=== PATIENT | male | born 1940 | race Two or more races ===

== ENCOUNTER → 2020-10-26 12:01 | Outpatient (BNVA) | payer MEDICARE, SELFPAY | PROVIDERS: PCP Family Medicine; Visit Provider Internal Medicine Cardiovascular Disease | DX: I25.10 Atherosclerotic heart disease of native coronary artery without angina pectoris (principal); I48.0 Paroxysmal atrial fibrillation; I10 Essential (primary) hypertension | CPT/HCPCS: 93005; 99212 ==

== ENCOUNTER 2020-12-03 11:28 | Emergency (ER) | payer MEDICARE, SELFPAY ==
--- NOTE | 2020-12-03 | ECG_ITS ---
Test Reason : CHEST PAIN Blood Pressure : / mmHG Vent. Rate : 071 BPM Atrial Rate : 071 BPM P-R Int : 156 ms QRS Dur : 144 ms QT Int : 436 ms P-R-T Axes : 032 001 015 degrees QTc Int : 473 ms Sinus rhythm with occasional , and consecutive Premature ventricular complexes Right bundle branch block Abnormal ECG When compared with ECG of 27-AUG-2019 15:48, Premature ventricular complexes are now Present Right bundle branch block is now Present Referred By: [place]gen [place] Electronically Signed By:Feliberto Juan
[2020-12-03 13:36] VITALS: BP 137/74; PULSE 65; RESP 20; TEMP 36.6; O2SAT 96; BMI 53.4
== END 2020-12-03 17:07 | disposition left against medical advice (07) ==
PROVIDERS: Emergency Provider Emergency Medicine; PCP Family Medicine
DX: R07.9 Chest pain, unspecified (principal); R68.83 Chills (without fever); M79.10 Myalgia, unspecified site; M54.9 Dorsalgia, unspecified; T50.Z95A Adverse effect of other vaccines and biological substances, initial encounter; Y92.9 Unspecified place or not applicable
CPT/HCPCS: 93005; 99282; 99283

== ENCOUNTER 2021-04-29 06:01 | Outpatient (REF) | payer MEDICARE, SELFPAY ==
--- NOTE | ~2021-04-29 | US_ITS ---
EXAMINATION: US ABDOMEN COMPLETE CLINICAL INFORMATION: Fatty liver. COMPARISON: Ultrasound abdomen complete 11/01/2016 and 08/14/2013. CT abdomen and pelvis 05/05/2014. TECHNIQUE: Real-time imaging of the abdominal viscera. FINDINGS: PANCREAS: The head and the body of the pancreas are homogeneous in echotexture. The tail is obscured by overlying gas. ABDOMINAL AORTA: The proximal, mid, and distal segments are normal in caliber. INFERIOR VENA CAVA: Visualized portions are normal. LIVER: The liver is normal in size. The left hepatic lobe is not seen well. The liver contour is normal. The liver is increased in echogenicity. No focal hepatic lesion. There is no intrahepatic biliary duct dilatation seen. GALLBLADDER: Normal. The gallbladder is physiologically distended without evidence of stones, sludge, polyps, wall thickening or pericholecystic fluid. COMMON BILE DUCT: Normal in caliber measuring 0.5 cm in diameter. RIGHT KIDNEY: There is an anechoic cyst in the mid to lower pole measuring 0.7 x 0.6 x 0.6 cm. No hydronephrosis or renal calculi. The kidney measures 12.3 cm in maximum dimension. LEFT KIDNEY: There is an anechoic cyst in the upper pole measuring 1.1 x 0.7 x 1.0 cm. No hydronephrosis or renal calculi. The kidney measures 11.9 cm in maximum dimension. SPLEEN: There are several echogenic calcifications in the spleen. The spleen measures 12.4 cm in maximum dimension. FREE FLUID: None. US/US abdomen complete IMPRESSION: Bilateral renal cysts. Numerous calcifications in the spleen. Hepatic steatosis without focal lesion.
[2021-04-29 07:30] LABS: Anion Gap 13 (12-20); Blood Urea Nitrogen 17 mg/dL (9-16); Calcium 9.2 mg/dL (8.4-10.2); Carbon Dioxide 28 mmol/L (22-29); Chloride 102 mmol/L (96-108); Cholesterol 199 mg/dL; Estimated Glomerular Filt Rate > 60; Glucose Random 110 mg/dL (60-115); HDL Cholesterol 29 mg/dL; Potassium 4.5 mmol/L (3.3-5.1); Sodium 138 mmol/L (135-145); Triglycerides 573 mg/dL
== END 2021-04-29 06:02 | disposition home or self-care (01) ==
LOC: HO.US 06:01
PROVIDERS: Internal Medicine Cardiovascular Disease; Visit Provider Family Medicine
DX: I25.10 Atherosclerotic heart disease of native coronary artery without angina pectoris (principal); I48.0 Paroxysmal atrial fibrillation; K76.0 Fatty (change of) liver, not elsewhere classified
CPT/HCPCS: 36415; 76700; 80048; 80061

== ENCOUNTER 2021-07-09 06:44 | Outpatient (REF) | payer MEDICARE, MEDICAID, SELFPAY ==
--- NOTE | ~2021-07-09 | XR_ITS ---
EXAMINATION: XR SHOULDER, LEFT CLINICAL INFORMATION: Pain COMPARISON: Previous x-ray July 2015 TECHNIQUE: AP external rotation, Grashey, scapular Y, and axillary views of the left shoulder. FINDINGS: Bone alignment is normal. No fracture or dislocation is seen. The glenohumeral joint is normal. There is arthritis at the acromioclavicular joint. Soft tissues are unremarkable. XR/XR shoulder LT min 2V IMPRESSION: Arthritis at the acromioclavicular joint.
--- NOTE | ~2021-07-09 | US_ITS ---
EXAMINATION: US VENOUS ULTRASOUND WITH DOPPLER LOWER EXTREMITY, RIGHT CLINICAL INFORMATION: Pain COMPARISON: None TECHNIQUE: Ultrasound of the deep veins is performed from the hip to the calf with compression sonography and color and pulse Doppler assessment. Spectral analysis with color-flow imaging is performed. FINDINGS: There is normal venous compression and respiratory variation and augmented flow. The visualized common femoral vein, superficial femoral vein, profunda femoral vein, popliteal vein, and the trifurcation region shows no evidence of deep venous thrombosis. There is no popliteal fossa cyst. US/US venous duplex LE RT IMPRESSION: No DVT demonstrated in the right lower extremity.
--- NOTE | ~2021-07-09 | XR_ITS ---
EXAMINATION: XR KNEE, RIGHT CLINICAL INFORMATION: Pain COMPARISON: None TECHNIQUE: Four views of the right knee. FINDINGS: Bone alignment is normal. No fracture or dislocation is seen. Femoral tibial joints are normal. There are small osteophytes at the patellofemoral joint. There is an osteophyte at the quadriceps tendon insertion to the patella. There is a small joint effusion. XR/XR knee RT 4V IMPRESSION: Small patellar osteophytes and small joint effusion.
[2021-07-09 07:58] LABS: Estimated Average Glucose 120 mg/dL; Hemoglobin A1c % 5.8 %
[2021-07-09 08:16] LABS: Alanine Aminotransferase 14 U/L (0-40); Albumin Level 4.3 g/dL (3.5-5.0); Alkaline Phosphatase 83 U/L (39-117); Anion Gap 14 (12-20); Aspartate Amino Transferase 16 U/L (5-37); Bilirubin Direct 0.2 mg/dL (0.0-0.5); Bilirubin Total 0.8 mg/dL (0.0-1.0); Blood Urea Nitrogen 12 mg/dL (9-16); Calcium 9.4 mg/dL (8.4-10.2); Carbon Dioxide 27 mmol/L (22-29); Chloride 103 mmol/L (96-108); Cholesterol 203 mg/dL; Estimated Glomerular Filt Rate > 60; Glucose Random 96 mg/dL (60-115); HDL Cholesterol 33 mg/dL; Iron 104 mcg/dL (45-160); Percent Iron Saturation 32 % (15-50); Potassium 4.5 mmol/L (3.3-5.1); Sodium 139 mmol/L (135-145); Total Iron Binding Capacity 323 mcg/dL (228-428); Total Protein 6.6 g/dL (6.5-8.0); Triglycerides 495 mg/dL; Unsaturated Iron Binding 219 ug/dL
[2021-07-09 08:23] LABS: Hemoglobin 12.9 g/dl (14.0-18.0); Mean Corpuscular HGB Conc 35.8 g/dl (31.0-36.0); Mean Corpuscular Hemoglobin 39.1 pg (27.0-33.0); Mean Corpuscular Volume 109.1 fL (80-98); Platelet Count 225 X10*3/uL (160-400); White Blood Count 5.1 X10*3/uL (4.8-10.8)
[2021-07-09 08:41] LABS: Ferritin 56 ng/mL (20-250); Free T4 (Free Thyroxine) 0.87 ng/dL (0.71-1.85); Thyroid Stimulating Hormone 1.55 uIU/mL (0.32-4.0); Vitamin D 25-OH Total 27.5 ng/mL (>30)
[2021-07-09 08:48] LABS: Folate 14.7 ng/mL (> or = 4.0); Vitamin B12 319 pg/mL (200-900)
[2021-07-09 09:25] LABS: Creatinine Urine 174.96 mg/dL; Microalbum/Creatinine Ratio Ur 6.2 ug/mg cr
== END 2021-07-09 06:45 | disposition home or self-care (01) ==
LOC: HO.US 06:44
PROVIDERS: PCP Family Medicine; Visit Provider Family Medicine
DX: R60.0 Localized edema (principal); M79.661 Pain in right lower leg; M25.512 Pain in left shoulder; M25.561 Pain in right knee; D64.9 Anemia, unspecified; E11.9 Type 2 diabetes mellitus without complications; E78.5 Hyperlipidemia, unspecified; I10 Essential (primary) hypertension
CPT/HCPCS: 36415; 73030; 73564; 80048; 80061; 80076; 82043; 82306; 82607; 82728; 82746; 83036; 83540; 84439; 84443; 85027; 93971

== ENCOUNTER → 2021-11-02 09:08 | Outpatient (BNVA) | payer MEDICARE, MEDICAID, SELFPAY | PROVIDERS: PCP Family Medicine; Visit Provider Physician Assistant | DX: M17.11 Unilateral primary osteoarthritis, right knee (principal) | CPT/HCPCS: 20610; 99202; J1020 ==

== ENCOUNTER 2021-11-24 14:19 | Emergency (ER) | payer MEDICARE, MEDICAID, SELFPAY ==
--- NOTE | ~2021-11-24 | XR_ITS ---
EXAMINATION: XR CHEST CLINICAL INFORMATION: Chest pain COMPARISON: Previous chest x-ray most recent October 2019 TECHNIQUE: Frontal view of the chest was obtained. FINDINGS: The cardiac and mediastinal contours are stable. The lungs are clear. There is no pleural effusion or pneumothorax. There are degenerative changes of the spine. XR/XR chest 1V IMPRESSION: No evidence for acute disease in the chest.
--- NOTE | ~2021-11-24 | CT_ITS ---
EXAMINATION: CT ABDOMEN AND PELVIS WITHOUT CONTRAST CLINICAL INFORMATION: Left flank pain. COMPARISON: Previous CT of the abdomen and pelvis April 2014 and abdominal ultrasound April 2021 TECHNIQUE: Multidetector volumetric imaging was performed from the superior aspect of the liver through the pubic symphysis. Sagittal and coronal reformatted images were obtained on the technologist's workstation. This CT examination was performed using dose optimization techniques as appropriate, variously including the following: *Automated exposure control *Adjustment of mA and/or kV according to patient size (this includes techniques or standardized protocols for targeted exams where dose is matched to indication/reason for exam; i.e. extremities or head) *Use of iterative reconstruction technique DLP: 507 mGy-cm FINDINGS: LUNG BASES: The visualized lung bases are unremarkable. LIVER, GALLBLADDER, AND BILIARY TREE: The liver is normal in size, shape, and attenuation. No focal hepatic lesion or biliary ductal dilatation is present. The gallbladder is unremarkable with no evidence of radiopaque gallstones, gallbladder wall thickening, or obvious pericholecystic inflammatory changes. PANCREAS: Unremarkable. SPLEEN: The spleen is slightly enlarged measuring 13 cm in length. There are small calcifications likely related to old granulomatous disease. ADRENAL GLANDS: Unremarkable. KIDNEYS AND URETERS: The kidneys are normal in size, shape, and attenuation. No hydronephrosis, hydroureter, or calculi seen. No perinephric stranding. BLADDER: Unremarkable. GASTROINTESTINAL TRACT: There is diverticulosis of the colon. The small and large bowel are otherwise unremarkable. The appendix is unremarkable. ABDOMINAL WALL: No significant hernia is appreciated. LYMPH NODES: Normal. VASCULAR: Unremarkable. PELVIC VISCERA: Unremarkable. OSSEOUS STRUCTURES: There are degenerative changes of the spine and hip joints. There is bilateral femoral head AVN. CT/CT abdomen pelvis wo con IMPRESSION: Normal-appearing kidneys. No stone or hydronephrosis seen. Diverticulosis of the colon. Slightly enlarged spleen. Bilateral femoral head AVN. Fleischner guidelines were followed.
[2021-11-24 14:23] VITALS: BP 124/80; BP 141/81; PULSE 96; PULSE 98; RESP 18; TEMP 36.9; O2SAT 97; BMI 27.4
--- NOTE | 2021-11-24 14:30 | ECG_ITS ---
Test Reason : ABDOMINAL PAIN Blood Pressure : / mmHG Vent. Rate : 087 BPM Atrial Rate : 087 BPM P-R Int : 164 ms QRS Dur : 146 ms QT Int : 400 ms P-R-T Axes : 056 011 018 degrees QTc Int : 481 ms Normal sinus rhythm Right bundle branch block Abnormal ECG When compared with ECG of 03-DEC-2020 13:47, Premature ventricular complexes are no longer Present Referred By: Daron Limon Electronically Signed By:Feliberto Juan
--- NOTE | 2021-11-24 14:32 | ED_ITS ---
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 Pain was described as dull aching pain, no aggravating factor, no relieving factor, no other associated symptoms, no nausea or vomiting. Patient vaguely described dysuria. Patient also been complaining of chest pain for the past 10 days, patient is k nown to have chronic chest pain patient think it is secondary to his chronic arthritis, been evaluated by Dr. Dial for same chest pain. Related Data Home Medications Medication Instructions Recorded Confirmed amlodipine 5 mg tablet 5 mg PO DAILY 10/26/20 10/26/20 fenofibrate micronized 200 mg 200 mg PO DAILY 10/26/20 10/26/20 capsule ferrous sulfate 325 mg (65 mg 325 mg PO DAILY 10/26/20 10/26/20 iron) tablet finasteride 5 mg tablet 5 mg PO DAILY 10/26/20 10/26/20 fluticasone 500 mcg-salmeterol 50 1 ea PO BID 10/26/20 10/26/20 mcg/dose blistr powdr for inhalation hydrochlorothiazide 25 mg tablet 25 mg PO DAILY 10/26/20 10/26/20 ipratropium 0.5 mg-albuterol 3 mg 3 ml INHALATION QID PRN 10/26/20 10/26/20 (2.5 mg base)/3 mL nebulization soln lisinopril 40 mg tablet 40 mg PO DAILY 10/26/20 10/26/20 loratadine 10 mg tablet 10 mg PO DAILY 10/26/20 10/26/20 melatonin 5 mg tablet 500f10 mg PO DAILY 10/26/20 10/26/20 metformin 500 mg tablet 500 mg PO QAM 10/26/20 10/26/20 oxycodone-acetaminophen 7.5 mg-325 1 tab PO Q4H PRN 10/26/20 10/26/20 mg tablet pantoprazole 40 mg tablet,delayed 40 mg PO DAILY 10/26/20 10/26/20 release rivaroxaban 20 mg tablet 20 mg PO BEDTIME 10/26/20 10/26/20 rosuvastatin 40 mg tablet 40 mg PO BEDTIME 10/26/20 10/26/20 tamsulosin 0.4 mg capsule 0.4 mg PO DAILY 10/26/20 10/26/20 trazodone 50 mg tablet 50 mg PO BEDTIME 10/26/20 10/26/20 Previous Rx's Medication Instructions Recorded ezetimibe 10 mg tablet 10 mg PO DAILY #90 tab 02/23/21 isosorbide mononitrate 60 mg 60 mg PO QAM #90 tab 02/23/21 tablet,extended release 24 hr metoprolol tartrate 50 mg tablet 50 mg PO BID #180 tab 02/23/21 Allergies Allergy/AdvReac Type Severity Reaction Status Date / Time No Known Allergies Allergy Mild NONE Verified 11/02/21 09:13 Review of Systems Review of Systems All other systems are reviewed and are negative Constitutional: Reports as per HPI and Reports no additional constitutional com plaints Eyes: Reports as per HPI and Reports no additional eye complaints Reports system reviewed and no additional complaints, except as documented Cardiovascular: Reports as per HPI and Reports no additional cardiovascular complaints Respiratory: Reports as per HPI and Reports no additional respiratory complaints Gastrointestinal: Reports as per HPI and Reports no additional gastrointestinal complaints Genitourinary: Reports no additional female genitourinary complaints Musculoskeletal: Reports no additional musculoskeletal complaints Skin/Breast: Reports system reviewed and no additional complaints, except as docu Psychiatric: Reports no additional psychiatric complaints Endocrine: Reports no additional endocrine complaints Hematologic/Lymphatic: Reports no additional hematologic/lymphatic complaints Allergic/Immunologic: Reports no additional allergic/immunologic complaints Reports system reviewed and no additional complaints, except as documented and Reports Abnormal speech present Physical Exam Vital Signs: Vital Signs: Last Vital Signs Temp 98.4 F 11/24/21 14:23 Pulse 98 11/24/21 14:23 Resp 18 11/24/21 14:23 BP 141/81 H 11/24/21 14:23 Pulse Ox 97 11/24/21 14:23 BMI result Body Mass Index 27.4 Vital signs have been reviewed as appeared to be correct. Blood pressure normal. Heart rate normal. Respiration rate normal. Temperature normal. Oxygen saturation normal. Appearance: Alert. Oriented X3. No acute distress. Head: Normal external exam. Normocephalic. Atraumatic. No Hung signs noted. No raccoon eyes noted Eyes: PERRLA. EOMI. Conjunctiva and sclera normal. Eyelids normal. ENT: TM's Normal. Pharynx normal. Uvula midline. Moist mucous membranes. No trismus noted. No drooling noted. No muffled voice noted. Neck: Normal inspection. Neck supple. FROM. No adenopathy. Thyroid Normal. No meningeal signs. No neck mass noted. CVS: Normal heart rate and rhythm. Heart sound normal. No murmurs noted. Pulses normal throughout. Respiratory: No respiratory distress. Painless inspiration. Breath sounds normal. No wheezes/rales/rhonchi noted. Chest nontender. No accessory muscle usage noted or decreased air movement noted. Abdomen: Soft and nontender. Bowel sounds normal in all 4 quadrants. No distention noted. No organomegaly noted. No visible injury noted. Back: Left CVA tenderness. Full range of motion noted. Skin: Skin warm and dry. Normal skin color. Normal skin turgor. No rashes/lesions/lacerations noted. Extremities: No lower extremity edema. Extremities exhibit normal range of motion. Extremities nontender. Neuro: Oriented X 3. Cranial nerve exam: II-XII are grossly intact No motor deficit. No sensory deficit. Reflexes normal. Course Course Course Narrative: Assessment and plan. 81-year-old male with chronic pain due to chronic arthritis, came in with left flank pain and abdominal pain and chest pain for the past few days. While patient emergency room reported improvement of his symptoms, patient also tolerated p.o. intake with no complain of worsening of his symptoms. Unremarkable labs/UE/CT of the abdomen pelvis. Four days of chest pain with unremarkable troponin and EKG. MDM - Abdominal Pain Medical Records Attestation: I reviewed the patient's medical records. Lab Data Attestation: I reviewed the patient's lab results. Result diagrams: 11/24/21 15:40 11/24/21 17:57 Labs: Lab Results 11/24/21 11/24/21 11/24/21 Range/Units 15:40 15:40 15:40 WBC 6.1 (4.8-10.8) X10*3/uL RBC 3.41 L (4.60-5.80) X10*6/uL Hgb 13.8 L (14.0-18.0) g/dl Hct 37.6 L (42.0-52.0) % MCV 110.3 H (80.0-98.0) fL MCH 40.5 H (27.0-33.0) pg MCHC 36.7 H (31.0-36.0) g/dl RDW TNP Plt Count 209 (160-400) X10*3/uL MPV 11.1 (9.4-12.4) fL Immature Gran % (Auto) Cancelled Neut % (Auto) Cancelled Lymph % (Auto) Cancelled [place] % (Auto) Cancelled Eos % (Auto) Cancelled Baso % (Auto) Cancelled Lymph # (Auto) Cancelled [place] # (Auto) Cancelled Eos # (Auto) Cancelled Baso # (Auto) Cancelled Abs Immat Gran (auto) Cancelled Absolute Neuts (auto) Cancelled Absolute Nucleated RBC 0.000 (0.0-0.012) X10*3/uL Nucleated RBC % (auto) 0.0 (0.0-0.2) /100WBC Neutrophils % (Manual) 70 (45-73) % Lymphocytes % (Manual) 27 (20-40) % Monocytes % (Manual) 1 L (2-11) % Eosinophils % (Manual) 2 (0-4) % Abs Neuts (Manual) 4.3 (2.0-8.3) X10*3/uL Lymphocytes # (Manual) 1.6 (1.2-4.9) X10*3/uL Monocytes # (Manual) 0.1 (0.1-1.2) X10*3/uL Eosinophils # (Manual) 0.1 (0.0-0.4) X10*3/uL Hypersegmented Neuts PRESENT Platelet Estimate NORMAL (NORMAL) Plt Morphology Comment NORMAL RBC Morphology NOTED Macrocytosis 2+ (15-30) /OIF Acanthocytes (Spur) 2+ (3-5) /OIF Sodium (135-145) mmol/L Potassium (3.3-5.1) mmol/L Chloride (96-108) mmol/L Carbon Dioxide (22-29) mmol/L Anion Gap (12-20) BUN (9-16) mg/dL Creatinine (0.5-1.4) mg/dL Estim Creat Clear Calc Estimated GFR Random Glucose (60-115) mg/dL Calcium (8.4-10.2) mg/dL Total Bilirubin (0.0-1.0) mg/dL Direct Bilirubin (0.0-0.5) mg/dL AST (5-37) U/L ALT (0-40) U/L Alkaline Phosphatase (39-117) U/L Troponin I High Sens < 3.5 (<3.5-35.0) ng/L Total Protein (6.5-8.0) g/dL Albumin (3.5-5.0) g/dL Lipase (8-78) U/L Urine Color DK YELLOW Urine Appearance HAZY Urine pH 6.0 (5.0-8.0) Ur Specific [place] 1.020 (1.005-1.025) Urine Protein NEG (NEG-TRACE) MG/DL Urine Glucose (UA) NEG (NEG) MG/DL Urine Ketones 5 (NEG) MG/DL Urine Blood NEG (NEG) Urine Nitrite NEG (NEG) Ur Leukocyte Esterase NEG (NEG) 11/24/21 Range/Units 17:57 WBC (4.8-10.8) X10*3/uL RBC (4.60-5.80) X10*6/uL Hgb (14.0-18.0) g/dl Hct (42.0-52.0) % MCV (80.0-98.0) fL MCH (27.0-33.0) pg MCHC (31.0-36.0) g/dl RDW Plt Count (160-400) X10*3/uL MPV (9.4-12.4) fL Immature Gran % (Auto) Neut % (Auto) Lymph % (Auto) [place] % (Auto) Eos % (Auto) Baso % (Auto) Lymph # (Auto) [place] # (Auto) Eos # (Auto) Baso # (Auto) Abs Immat Gran (auto) Absolute Neuts (auto) Absolute Nucleated RBC (0.0-0.012) X10*3/uL Nucleated RBC % (auto) (0.0-0.2) /100WBC Neutrophils % (Manual) (45-73) % Lymphocytes % (Manual) (20-40) % Monocytes % (Manual) (2-11) % Eosinophils % (Manual) (0-4) % Abs Neuts (Manual) (2.0-8.3) X10*3/uL Lymphocytes # (Manual) (1.2-4.9) X10*3/uL Monocytes # (Manual) (0.1-1.2) X10*3/uL Eosinophils # (Manual) (0.0-0.4) X10*3/uL Hypersegmented Neuts Platelet Estimate (NORMAL) Plt Morphology Comment RBC Morphology Macrocytosis /OIF Acanthocytes (Spur) /OIF Sodium 138 (135-145) mmol/L Potassium 4.5 (3.3-5.1) mmol/L Chloride 101 (96-108) mmol/L Carbon Dioxide 28 (22-29) mmol/L Anion Gap 14 (12-20) BUN 13 (9-16) mg/dL Creatinine 0.77 (0.5-1.4) mg/dL Estim Creat Clear Calc 67.5 Estimated GFR > 60 Random Glucose 112 (60-115) mg/dL Calcium 10.1 D (8.4-10.2) mg/dL Total Bilirubin 0.9 (0.0-1.0) mg/dL Direct Bilirubin 0.3 (0.0-0.5) mg/dL AST 17 (5-37) U/L ALT 16 (0-40) U/L Alkaline Phosphatase 86 (39-117) U/L Troponin I High Sens (<3.5-35.0) ng/L Total Protein 7.2 (6.5-8.0) g/dL Albumin 4.6 (3.5-5.0) g/dL Lipase 46 (8-78) U/L Urine Color Urine Appearance Urine pH (5.0-8.0) Ur Specific [place] (1.005-1.025) Urine Protein (NEG-TRACE) MG/DL Urine Glucose (UA) (NEG) MG/DL Urine Ketones (NEG) MG/DL Urine Blood (NEG) Urine Nitrite (NEG) Ur Leukocyte Esterase (NEG) Imaging Data CT scan - abdomen: Attestation: I personally reviewed and interpreted this imaging study as follows: Radiologist's impression: Normal-appearing kidneys. No stone or hydronephrosis seen. Diverticulosis of the colon. Slightly enlarged spleen. Bilateral femoral head AVN. ? Discharge Plan Discharge Clinical Impression: Abdominal pain, Chronic pain disorder Patient Disposition: Home, Self-Care Instructions: Chronic Pain (ED) Prescriptions: No Action ezetimibe 10 mg tablet 10 mg PO DAILY Qty: 90 3RF isosorbide mononitrate 60 mg tablet extended release 24 hr 60 mg PO QAM Qty: 90 3RF metoprolol tartrate 50 mg tablet 50 mg PO BID Qty: 180 3RF rosuvastatin 40 mg tablet 40 mg PO BEDTIME 0RF hydrochlorothiazide 25 mg tablet 25 mg PO DAILY 0RF amlodipine 5 mg tablet 5 mg PO DAILY 0RF lisinopril 40 mg tablet 40 mg PO DAILY 0RF ipratropium-albuterol 0.5 mg-3 mg(2.5 mg base)/3 mL solution for nebulization 3 ml inhalation QID PRN0RF tamsulosin 0.4 mg capsule 0.4 mg PO DAILY 0RF fluticasone propion-salmeterol 500-50 mcg/dose blister with device 1 ea PO BID 0RF metformin 500 mg tablet 500 mg PO QAM 0RF fenofibrate micronized 200 mg capsule 200 mg PO DAILY 0RF pantoprazole 40 mg tablet,delayed release (DR/EC) 40 mg PO DAILY 0RF finasteride 5 mg tablet 5 mg PO DAILY 0RF Xarelto 20 mg tablet 20 mg PO BEDTIME 0RF trazodone 50 mg tablet 50 mg PO BEDTIME 0RF ferrous sulfate 325 mg (65 mg iron) tablet 325 mg PO DAILY 0RF loratadine 10 mg tablet 10 mg PO DAILY 0RF melatonin 5 mg tablet 500f10 mg PO DAILY 0RF oxycodone-acetaminophen 7.5-325 mg tablet 1 tab PO Q4H PRN (Reason: pain) 0RF Referrals: Citlali Norman DO [Primary Care Provider] - 2 days PMF Past Medical History Medical History CAD (coronary artery disease) Diabetes type 1, controlled HTN (hypertension) Hyperlipidemia Paroxysmal atrial fibrillation Surgical History Stented coronary artery Family History Family History Father No problems noted. Mother No problems noted. 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
[2021-11-24 15:48] LABS: Hematocrit 37.6 % (42.0-52.0); Hemoglobin 13.8 g/dl (14.0-18.0); Mean Corpuscular HGB Conc 36.7 g/dl (31.0-36.0); Mean Corpuscular Hemoglobin 40.5 pg (27.0-33.0); Mean Platelet Volume 11.1 fL (9.4-12.4); Platelet Count 209 X10*3/uL (160-400); Red Blood Count 3.41 X10*6/uL (4.60-5.80)
[2021-11-24 15:55] LABS: Appearance Urine HAZY; Color Urine DK YELLOW; Glucose Urine UA NEG (NEG); Leukocyte Esterase Urine NEG (NEG); Nitrite Urine NEG (NEG); Urine Blood NEG (NEG); Urine Ketones 5 MG/DL (NEG); Urine Protein NEG (NEG-TRACE)
[2021-11-24 16:07] LABS: Troponin-I High Sensitivity < 3.5 ng/L (<3.5-35.0)
[2021-11-24 16:15] LABS: Mean Corpuscular Volume 110.3 fL (80.0-98.0); WBC ABN SCTR FOR CBC 1; White Blood Count 6.1 X10*3/uL (4.8-10.8)
[2021-11-24 16:17] LABS: Acanthocytes 2+ (3-5) /OIF; Eosinophils Absolute Manual 0.1 X10*3/uL (0.0-0.4); Eosinophils Percent Manual 2 % (0-4); Hypersegmented Neutrophils PRESENT; Lymphocytes Absolute Manual 1.6 X10*3/uL (1.2-4.9); Lymphocytes Percent Manual 27 % (20-40); Macrocytosis 2+ (15-30) /OIF; Monocytes Absolute Manual 0.1 X10*3/uL (0.1-1.2); Monocytes Percent Manual 1 % (2-11); Neutrophils Percent Manual 70 % (45-73); RBC Morphology NOTED
[2021-11-24 16:18] LABS: Neutrophils Absolute Manual 4.3 X10*3/uL (2.0-8.3); Platelet Estimate NORMAL (NORMAL); Platelet Morphology Comment NORMAL
[2021-11-24 18:26] LABS: Alanine Aminotransferase 16 U/L (0-40); Albumin Level 4.6 g/dL (3.5-5.0); Alkaline Phosphatase 86 U/L (39-117); Anion Gap 14 (12-20); Aspartate Amino Transferase 17 U/L (5-37); Bilirubin Direct 0.3 mg/dL (0.0-0.5); Bilirubin Total 0.9 mg/dL (0.0-1.0); Blood Urea Nitrogen 13 mg/dL (9-16); Calcium 10.1 mg/dL (8.4-10.2); Carbon Dioxide 28 mmol/L (22-29); Chloride 101 mmol/L (96-108); Creatinine Clr Calc Pharmacy 67.5; Estimated Glomerular Filt Rate > 60; Glucose Random 112 mg/dL (60-115); Lipase 46 U/L (8-78); Potassium 4.5 mmol/L (3.3-5.1); Sodium 138 mmol/L (135-145); Total Protein 7.2 g/dL (6.5-8.0)
== END 2021-11-24 19:02 | disposition home or self-care (01) ==
PROVIDERS: Emergency Provider Emergency Medicine; PCP Family Medicine
DX: R10.9 Unspecified abdominal pain (principal); G89.4 Chronic pain syndrome; I10 Essential (primary) hypertension; I48.0 Paroxysmal atrial fibrillation; E78.5 Hyperlipidemia, unspecified; E10.9 Type 1 diabetes mellitus without complications; Z79.02 Long term (current) use of antithrombotics/antiplatelets; Z79.01 Long term (current) use of anticoagulants
CPT/HCPCS: 36415; 71045; 74176; 80048; 80076; 81003; 83690; 84484; 85007; 85025; 85027; 93005; 99283; 99284

== ENCOUNTER 2022-01-21 12:32 | Outpatient (REF) | payer MEDICARE, MEDICAID, SELFPAY ==
--- NOTE | ~2022-01-21 | XR_ITS ---
EXAMINATION: XR SHOULDER, LEFT CLINICAL INFORMATION: Shoulder pain COMPARISON: Left shoulder x-ray 07/09/2021 TECHNIQUE: Three views of the left shoulder. FINDINGS: Visualized portions of the proximal left humerus demonstrate no fracture. Humeral head demonstrates good articulation with the glenoid fossa. There are mild to moderate hypertrophic changes of the left acromioclavicular joint. Visualized left-sided ribs and lung parenchyma are unremarkable. XR/XR shoulder LT min 2V IMPRESSION: Mild degenerative changes of the left shoulder.
== END 2022-01-21 12:33 | disposition home or self-care (01) ==
LOC: HO.HOSX 12:32
PROVIDERS: PCP Family Medicine; Visit Provider Physician Assistant
DX: M75.102 Unspecified rotator cuff tear or rupture of left shoulder, not specified as traumatic (principal)
CPT/HCPCS: 73030; 99212; J1040

== ENCOUNTER 2022-01-24 06:45 | Outpatient (REF) | payer MEDICARE, MEDICAID, SELFPAY ==
[2022-01-24 07:54] LABS: Alanine Aminotransferase 21 U/L (0-40); Albumin Level 4.6 g/dL (3.5-5.0); Alkaline Phosphatase 79 U/L (39-117); Anion Gap 13 (12-20); Aspartate Amino Transferase 17 U/L (5-37); Bilirubin Direct 0.3 mg/dL (0.0-0.5); Bilirubin Total 0.8 mg/dL (0.0-1.0); Blood Urea Nitrogen 20 mg/dL (9-16); Calcium 9.7 mg/dL (8.4-10.2); Carbon Dioxide 29 mmol/L (22-29); Chloride 99 mmol/L (96-108); Cholesterol 151 mg/dL; Estimated Glomerular Filt Rate > 60; Glucose Random 121 mg/dL (60-115); HDL Cholesterol 46 mg/dL; Iron 77 mcg/dL (45-160); LDL Cholesterol Calculated 76 mg/dl; Percent Iron Saturation 21 % (15-50); Potassium 4.1 mmol/L (3.3-5.1); Sodium 137 mmol/L (135-145); Total Iron Binding Capacity 373 mcg/dL (228-428); Total Protein 6.9 g/dL (6.5-8.0); Triglycerides 147 mg/dL; Unsaturated Iron Binding 296 ug/dL
[2022-01-24 08:02] LABS: Hematocrit 44.4 % (42.0-52.0); Hemoglobin 16.1 g/dl (14.0-18.0); Mean Corpuscular HGB Conc 36.3 g/dl (31.0-36.0); Mean Corpuscular Hemoglobin 40.9 pg (27.0-33.0); Mean Platelet Volume 11.8 fL (9.4-12.4); Platelet Count 230 X10*3/uL (160-400); Red Blood Count 3.94 X10*6/uL (4.60-5.80); White Blood Count 7.6 X10*3/uL (4.8-10.8)
[2022-01-24 08:04] LABS: Mean Corpuscular Volume 112.7 fL (80.0-98.0)
[2022-01-24 08:17] LABS: Estimated Average Glucose 117 mg/dL; Hemoglobin A1c % 5.7 %
[2022-01-24 08:18] LABS: Ferritin 32 ng/mL (20-250); Free T4 (Free Thyroxine) 0.88 ng/dL (0.71-1.85); Thyroid Stimulating Hormone 0.42 uIU/mL (0.32-4.0); Vitamin D 25-OH Total 15.9 ng/mL (>30)
[2022-01-24 08:50] LABS: Folate 6.8 ng/mL (> or = 4.0); Vitamin B12 355 pg/mL (200-900)
[2022-01-24 13:22] LABS: Creatinine Urine 84.87 mg/dL; Microalbumin Urine < 5.0 mg/L
[2022-01-26 12:27] LABS: Alpha Fetoprotein 3.8 ng/mL (<6.1)
== END 2022-01-24 06:46 | disposition home or self-care (01) ==
LOC: HO.LAB 06:45
PROVIDERS: PCP Family Medicine; Visit Provider Family Medicine
DX: E11.9 Type 2 diabetes mellitus without complications (principal); E78.5 Hyperlipidemia, unspecified; I10 Essential (primary) hypertension; K76.0 Fatty (change of) liver, not elsewhere classified
CPT/HCPCS: 36415; 80048; 80061; 80076; 82043; 82105; 82306; 82607; 82728; 82746; 83036; 83540; 84439; 84443; 85027

== ENCOUNTER → 2022-01-27 13:44 | Outpatient (BNVA) | payer MEDICARE, MEDICAID, SELFPAY | PROVIDERS: PCP Family Medicine; Referring Provider Family Medicine; Visit Provider Nurse Practitioner Family | DX: I48.0 Paroxysmal atrial fibrillation (principal); I25.10 Atherosclerotic heart disease of native coronary artery without angina pectoris; I10 Essential (primary) hypertension; E78.5 Hyperlipidemia, unspecified; Z79.01 Long term (current) use of anticoagulants; Z79.899 Other long term (current) drug therapy | CPT/HCPCS: 99212 ==

== ENCOUNTER → 2022-05-10 08:06 | Outpatient (BNVA) | payer MEDICARE, MEDICAID, SELFPAY | PROVIDERS: PCP Family Medicine; Visit Provider Physician Assistant | DX: M17.11 Unilateral primary osteoarthritis, right knee (principal) | CPT/HCPCS: 20610; 99212; J1020 ==

== ENCOUNTER 2022-06-22 14:31 | Emergency (ER) | payer MEDICARE, MEDICAID, SELFPAY ==
--- NOTE | ~2022-06-22 | XR_ITS ---
EXAMINATION: XR CHEST CLINICAL INFORMATION: Chest pain COMPARISON: None TECHNIQUE: 2 views of the chest were obtained. FINDINGS: No significant abnormality is noted involving the heart, lungs, mediastinum, bony thorax or soft tissues. XR/XR chest 2V IMPRESSION: Unremarkable chest examination.
--- NOTE | 2022-06-22 14:36 | ECG_ITS ---
Test Reason : chest pain Blood Pressure : / mmHG Vent. Rate : 094 BPM Atrial Rate : 094 BPM P-R Int : 156 ms QRS Dur : 146 ms QT Int : 394 ms P-R-T Axes : 018 007 -01 degrees QTc Int : 492 ms Normal sinus rhythm Right bundle branch block Inferior infarct , age undetermined Abnormal ECG When compared with ECG of 24-NOV-2021 15:10, No significant change was found Referred By: Generic ED Physician Electronically Signed By:JESSENIA CANALES
[2022-06-22 14:44] VITALS: BP 135/78; PULSE 104; RESP 18; TEMP 36.6; O2SAT 95; BMI 29.2
--- NOTE | 2022-06-22 15:33 | ED.CHESTPAIN ---
HPI - Chest Pain General Chief Complaint: Chest Pain Stated Complaint: Chest pain Time Seen by Provider: 06/22/22 15:24 Source: patient Mode of arrival: ambulatory Limitations: language barrier and other (poor history ) History of Present Illness HPI narrative: Patient is an 81-year-old male with past medical history of hypertension, coronary artery disease, hyperlipidemia, paroxysmal AFib with anticoagulation, pacemaker who is presenting today with chest pain and shortness of breath for 4 days. Patient states he was lying in bed on Monday and developed sudden onset of left-sided chest pain. States the chest pain comes and goes randomly and feels like intense pressure. Denies radiation, denies any alleviating or exacerbating factors. Reports associated shortness of breath, however states he does have shortness of breath at baseline secondary to asthma. Reports using his inhaler twice since Monday. Patient also reports headache and visual changes for the past few months. Denies fever, nausea, vomiting, abdominal pain, diarrhea, cough, dizziness, weakness. MD complaint: chest pain Pertinent past history: coronary artery disease, asthma and other ( Paroxysmal AFib, pacemaker) Onset (ago): day(s) Timing of current episode: episodic Prior episodes: Yes Onset: during rest Pain location: left chest Pain radiation: none Severity: mild Pain scale (0-10): 2 Quality: heaviness Relieving factors: nothing Exacerbating factors: nothing Associated symptoms: dyspnea Risk Factors Coronary artery disease risk factors: hyperlipidemia and hypertension Thoracic aortic dissection risk factors: none Related Data Home Medications Medication Instructions Recorded Confirmed amlodipine 5 mg tablet 5 mg PO DAILY 10/26/20 01/27/22 fenofibrate micronized 200 mg 200 mg PO DAILY 10/26/20 01/27/22 capsule ferrous sulfate 325 mg (65 mg 325 mg PO DAILY 10/26/20 01/27/22 iron) tablet finasteride 5 mg tablet 5 mg PO DAILY 10/26/20 01/27/22 fluticasone 500 mcg-salmeterol 50 1 ea PO BID 10/26/20 01/27/22 mcg/dose blistr powdr for inhalation hydrochlorothiazide 25 mg tablet 25 mg PO DAILY 10/26/20 01/27/22 ipratropium 0.5 mg-albuterol 3 mg 3 ml inhalation QID PRN 10/26/20 01/27/22 (2.5 mg base)/3 mL nebulization soln lisinopril 40 mg tablet 40 mg PO DAILY 10/26/20 01/27/22 loratadine 10 mg tablet 10 mg PO DAILY 10/26/20 01/27/22 melatonin 5 mg tablet 500f10 mg PO DAILY 10/26/20 01/27/22 metformin 500 mg tablet 500 mg PO QAM 10/26/20 01/27/22 oxycodone-acetaminophen 7.5 mg-325 1 tab PO Q4H PRN pain 10/26/20 01/27/22 mg tablet pantoprazole 40 mg tablet,delayed 40 mg PO DAILY 10/26/20 01/27/22 release rivaroxaban 20 mg tablet 20 mg PO BEDTIME 10/26/20 01/27/22 rosuvastatin 40 mg tablet 40 mg PO BEDTIME 10/26/20 01/27/22 tamsulosin 0.4 mg capsule 0.4 mg PO DAILY 10/26/20 01/27/22 trazodone 50 mg tablet 50 mg PO BEDTIME 10/26/20 01/27/22 Previous Rx's Medication Instructions Recorded ezetimibe 10 mg tablet 10 mg PO DAILY 90 days #90 tabs 02/17/22 isosorbide mononitrate 60 mg 60 mg PO QAM #90 tabs 02/17/22 tablet,extended release 24 hr metoprolol tartrate 50 mg tablet 50 mg PO BID #180 tabs 02/17/22 Allergies Allergy/AdvReac Type Severity Reaction Status Date / Time No Known Allergies Allergy Mild NONE Verified 05/10/22 08:16 Review of Systems Review of Systems: Constitutional: No Fever, No Chills ENT/Mouth: No sore throat, No Rhinorrhea, No Swallowing Difficulty Eyes: No Eye Pain, No Swelling, No Redness Cardiovascular: + Chest Pain, + SOB, No Orthopnea, No Edema Respiratory: No Cough, No Sputum, No Wheezing, No dyspnea Gastrointestinal: No Nausea, No Vomiting, No Diarrhea, No abdominal Pain, No Hematochezia, No Melena Genitourinary: No Dysuria, No Urinary Frequency, No Hematuria Musculoskeletal: No joint pain, No Myalgias Skin: No Skin Lesions, No rash Neuro: No Weakness, No Numbness, No Dizziness, + Headache Psych: No Anxiety/Panic, No Depression Heme/Lymph: No Bruising, No Lymphadenopathy Endocrine: No Polyuria, No Polydipsia [facility] Past Medical History Medical History CAD (coronary artery disease) Diabetes type 1, controlled HTN (hypertension) Hyperlipidemia Paroxysmal atrial fibrillation Surgical History Stented coronary artery Family History Family History Father No problems noted. Mother No problems noted. Social History Social History Advance Directives: No Advance Directives Information Provided: No Current occupational status: disabled Current occupation: Lt handed Physical Exam Vital Signs: Vital Signs: Last Vital Signs Temp 97.8 F 06/22/22 14:44 Pulse 94 06/22/22 17:10 Resp 16 06/22/22 17:10 BP 125/72 06/22/22 17:10 Pulse Ox 95 06/22/22 17:10 O2 Del Method 06/22/22 17:10 BMI result Body Mass Index 29.2 Const: Other: Appearance: Alert. Oriented X3. No acute distress. Eyes: Pupils equal, round and reactive to light. ENT: Pharynx normal. Neck: Normal inspection. Neck supple. CVS: Normal heart rate and rhythm. Pulses normal. Respiratory: No respiratory distress. Breath sounds normal. Abdomen: Soft, nondistended, and nontender. +BS x4 Skin: Skin warm and dry. Normal skin color. Normal skin turgor. No rashes. Extremities: No lower extremity edema. Neuro: Oriented X 3. No motor deficit. No sensory deficit. Ambulatory Course Course Course Narrative: Patient is an 81-year-old male with past medical history of hypertension, coronary artery disease, hyperlipidemia, paroxysmal AFib with anticoagulation, pacemaker? who is presenting today with chest pain and shortness of breath for 4 days. Currently 11/25, he is ambulating around the ER. He appears well. 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 Troponin is <3.5 which is reassuring against cardiac ischemia. He feels well and wound like to go home. This time is pain does not seem to be cardiac in nature. He is anticoagulated, doubt PE. He is hemodynamically stable and oxygenating well. He is in no distress. He will follow-up with his loss prevention investigator and his PCP. He was given strict return precautions. Stable for DC home. MDM - Chest Pain Lab Data Result diagrams: 06/22/22 17:20 06/22/22 17:20 Labs: Lab Results 06/22/22 06/22/22 06/22/22 Range/Units 16:05 17:20 17:20 WBC 4.4 L (4.8-10.8) X10*3/uL RBC 2.95 L D (4.60-5.80) X10*6/uL Hgb 13.0 L (14.0-18.0) g/dl Hct 34.7 L D (42.0-52.0) % MCV 117.6 H (80.0-98.0) fL MCH 44.1 H (27.0-33.0) pg MCHC 37.5 H (31.0-36.0) g/dl RDW [employer] Plt Count 211 (160-400) X10*3/uL MPV 10.6 (9.4-12.4) fL Immature Gran % (Auto) Cancelled Neut % (Auto) Cancelled Lymph % (Auto) Cancelled [place] % (Auto) Cancelled Eos % (Auto) Cancelled Baso % (Auto) Cancelled Lymph # (Auto) Cancelled [place] # (Auto) Cancelled Eos # (Auto) Cancelled Baso # (Auto) Cancelled Abs Immat Gran (auto) Cancelled Absolute Neuts (auto) Cancelled Absolute Nucleated RBC 0.000 (0.0-0.012) X10*3/uL Nucleated RBC % (auto) 0.0 (0.0-0.2) /100WBC Neutrophils % (Manual) 68 (45-73) % Lymphocytes % (Manual) 24 (20-40) % Monocytes % (Manual) 4 (2-11) % Eosinophils % (Manual) 2 (0-4) % Basophils % (Manual) 2 (0-2) % Abs Neuts (Manual) 3.0 (2.0-8.3) X10*3/uL Lymphocytes # (Manual) 1.1 L (1.2-4.9) X10*3/uL Monocytes # (Manual) 0.2 (0.1-1.2) X10*3/uL Eosinophils # (Manual) 0.1 (0.0-0.4) X10*3/uL Basophils # (Manual) 0.1 (0.0-0.2) X10*3/uL Hypersegmented Neuts PRESENT Platelet Estimate NORMAL (NORMAL) Plt Morphology Comment NORMAL RBC Morphology NOTED Macrocytosis 2+ (15-30) /OIF Spherocytes 1+ (0-2) /OIF Acanthocytes (Spur) 2+ (3-5) /OIF PT (10.0-13.1) SEC INR (0.9-1.1) APTT (26.0-36.4) SEC Sodium 137 (135-145) mmol/L Potassium 4.6 (3.3-5.1) mmol/L Chloride 100 (96-108) mmol/L Carbon Dioxide 24 (22-29) mmol/L Anion Gap 18 (12-20) BUN 9 D (9-16) mg/dL Creatinine 0.77 (0.5-1.4) mg/dL Estim Creat Clear Calc 69.4 Estimated GFR > 60 Random Glucose 100 (60-115) mg/dL Calcium 9.1 D (8.4-10.2) mg/dL Troponin I High Sens < 3.5 (<3.5-35.0) ng/L 06/22/22 Range/Units 17:20 WBC (4.8-10.8) X10*3/uL RBC (4.60-5.80) X10*6/uL Hgb (14.0-18.0) g/dl Hct (42.0-52.0) % MCV (80.0-98.0) fL MCH (27.0-33.0) pg MCHC (31.0-36.0) g/dl RDW Plt Count (160-400) X10*3/uL MPV (9.4-12.4) fL Immature Gran % (Auto) Neut % (Auto) Lymph % (Auto) [place] % (Auto) Eos % (Auto) Baso % (Auto) Lymph # (Auto) [place] # (Auto) Eos # (Auto) Baso # (Auto) Abs Immat Gran (auto) Absolute Neuts (auto) Absolute Nucleated RBC (0.0-0.012) X10*3/uL Nucleated RBC % (auto) (0.0-0.2) /100WBC Neutrophils % (Manual) (45-73) % Lymphocytes % (Manual) (20-40) % Monocytes % (Manual) (2-11) % Eosinophils % (Manual) (0-4) % Basophils % (Manual) (0-2) % Abs Neuts (Manual) (2.0-8.3) X10*3/uL Lymphocytes # (Manual) (1.2-4.9) X10*3/uL Monocytes # (Manual) (0.1-1.2) X10*3/uL Eosinophils # (Manual) (0.0-0.4) X10*3/uL Basophils # (Manual) (0.0-0.2) X10*3/uL Hypersegmented Neuts Platelet Estimate (NORMAL) Plt Morphology Comment RBC Morphology Macrocytosis /OIF Spherocytes /OIF Acanthocytes (Spur) /OIF PT 20.4 H (10.0-13.1) SEC INR 1.7 H (0.9-1.1) APTT 42.4 H (26.0-36.4) SEC Sodium (135-145) mmol/L Potassium (3.3-5.1) mmol/L Chloride (96-108) mmol/L Carbon Dioxide (22-29) mmol/L Anion Gap (12-20) BUN (9-16) mg/dL Creatinine (0.5-1.4) mg/dL Estim Creat Clear Calc Estimated GFR Random Glucose (60-115) mg/dL Calcium (8.4-10.2) mg/dL Troponin I High Sens (<3.5-35.0) ng/L ECG Data ECG #1: Prior ECG tracings: available for review Interpretation: normal sinus rhythm Rate 94 beats per minute Right bundle block present, old Q-waves present in lead [address] segment elevations or depressions Discharge Plan Discharge Clinical Impression: Atypical chest pain Patient Disposition: Home, Self-Care Instructions: Chest Pain (DC) Additional Instructions: Your cardiac workup today was unremarkable. Your chest pain is not thought to be cardiac in nature. Recommend follow up with your PCP and Land Use Planner. Recommend Tylenol for pain. If you develop new or worsening symptoms call 911 or come back to the ER for further evaluation. Prescriptions: No Action ezetimibe 10 mg tablet 10 mg PO DAILY 90 Days Qty: 90 3RF isosorbide mononitrate 60 mg tablet extended release 24 hr 60 mg PO QAM Qty: 90 3RF metoprolol tartrate 50 mg tablet 50 mg PO BID Qty: 180 3RF rosuvastatin 40 mg tablet 40 mg PO BEDTIME hydrochlorothiazide 25 mg tablet 25 mg PO DAILY amlodipine 5 mg tablet 5 mg PO DAILY lisinopril 40 mg tablet 40 mg PO DAILY ipratropium-albuterol 0.5 mg-3 mg(2.5 mg base)/3 mL solution for nebulization 3 ml inhalation QID PRN tamsulosin 0.4 mg capsule 0.4 mg PO DAILY fluticasone propion-salmeterol 500-50 mcg/dose blister with device 1 ea PO BID metformin 500 mg tablet 500 mg PO QAM fenofibrate micronized 200 mg capsule 200 mg PO DAILY pantoprazole 40 mg tablet,delayed release (DR/EC) 40 mg PO DAILY finasteride 5 mg tablet 5 mg PO DAILY Xarelto 20 mg tablet 20 mg PO BEDTIME trazodone 50 mg tablet 50 mg PO BEDTIME ferrous sulfate 325 mg (65 mg iron) tablet 325 mg PO DAILY loratadine 10 mg tablet 10 mg PO DAILY melatonin 5 mg tablet 500f10 mg PO DAILY oxycodone-acetaminophen 7.5-325 mg tablet 1 tab PO Q4H PRN (Reason: pain) Referrals: Miguel Angel Dial MD [Physician] - Print Language: Egyptian
[2022-06-22 16:37] LABS: Troponin-I High Sensitivity < 3.5 ng/L (<3.5-35.0)
[2022-06-22 17:10] VITALS: BP 125/72; PULSE 94; RESP 16; O2SAT 95
[2022-06-22 17:26] LABS: Hematocrit 34.7 % (42.0-52.0); Mean Corpuscular HGB Conc 37.5 g/dl (31.0-36.0); Mean Corpuscular Hemoglobin 44.1 pg (27.0-33.0); Mean Platelet Volume 10.6 fL (9.4-12.4); Platelet Count 211 X10*3/uL (160-400); Red Blood Count 2.95 X10*6/uL (4.60-5.80)
[2022-06-22 17:30] LABS: Mean Corpuscular Volume 117.6 fL (80.0-98.0); WBC ABN SCTR FOR CBC 1
[2022-06-22 17:31] LABS: White Blood Count 4.4 X10*3/uL (4.8-10.8)
[2022-06-22 17:34] LABS: INTERNATIONAL NORM RATIO 1.7 (0.9-1.1); Prothrombin Time 20.4 SEC (10.0-13.1)
[2022-06-22 17:37] LABS: Partial Thromboplastin Time 42.4 SEC (26.0-36.4)
[2022-06-22 17:49] LABS: Anion Gap 18 (12-20); Blood Urea Nitrogen 9 mg/dL (9-16); Calcium 9.1 mg/dL (8.4-10.2); Carbon Dioxide 24 mmol/L (22-29); Chloride 100 mmol/L (96-108); Creatinine Clr Calc Pharmacy 69.4; Estimated Glomerular Filt Rate > 60; Glucose Random 100 mg/dL (60-115); Potassium 4.6 mmol/L (3.3-5.1); Sodium 137 mmol/L (135-145)
[2022-06-22 18:01] LABS: Basophils Abs Manual 0.1 X10*3/uL (0.0-0.2); Basophils Percent Manual 2 % (0-2); Eosinophils Absolute Manual 0.1 X10*3/uL (0.0-0.4); Eosinophils Percent Manual 2 % (0-4); Lymphocytes Absolute Manual 1.1 X10*3/uL (1.2-4.9); Lymphocytes Percent Manual 24 % (20-40); Macrocytosis 2+ (15-30) /OIF; Monocytes Absolute Manual 0.2 X10*3/uL (0.1-1.2); Monocytes Percent Manual 4 % (2-11); Neutrophils Percent Manual 68 % (45-73); Platelet Estimate NORMAL (NORMAL); Platelet Morphology Comment NORMAL; RBC Morphology NOTED
[2022-06-22 18:02] LABS: Acanthocytes 2+ (3-5) /OIF; Hypersegmented Neutrophils PRESENT; Spherocytes 1+ (0-2) /OIF
== END 2022-06-22 18:35 | disposition home or self-care (01) ==
PROVIDERS: Emergency Provider Emergency Medicine Emergency Medical Services
DX: R07.89 Other chest pain (principal); I10 Essential (primary) hypertension; E10.9 Type 1 diabetes mellitus without complications; E78.5 Hyperlipidemia, unspecified; I48.0 Paroxysmal atrial fibrillation; Z95.0 Presence of cardiac pacemaker; Z79.01 Long term (current) use of anticoagulants; Z79.02 Long term (current) use of antithrombotics/antiplatelets; Z79.84 Long term (current) use of oral hypoglycemic drugs; Z79.899 Other long term (current) drug therapy
CPT/HCPCS: 36415; 71046; 80048; 84484; 85007; 85027; 85610; 85730; 93005; 99283; 99284

== ENCOUNTER → 2022-08-11 08:13 | Outpatient (BNVA) | payer OTHER, SELFPAY | PROVIDERS: Visit Provider Orthopaedic Surgery | DX: M17.11 Unilateral primary osteoarthritis, right knee (principal); E10.9 Type 1 diabetes mellitus without complications | CPT/HCPCS: 20610; 99212; J1100 ==

== ENCOUNTER → 2022-08-16 14:47 | Outpatient (BNVA) | payer OTHER, SELFPAY | PROVIDERS: Visit Provider Nurse Practitioner Family | DX: I25.10 Atherosclerotic heart disease of native coronary artery without angina pectoris (principal); R07.89 Other chest pain; I48.0 Paroxysmal atrial fibrillation; I10 Essential (primary) hypertension; E78.5 Hyperlipidemia, unspecified | CPT/HCPCS: 99212 ==

== ENCOUNTER 2022-09-01 06:49 | Outpatient (REF) | payer OTHER, SELFPAY ==
--- NOTE | ~2022-09-01 | XR_ITS ---
EXAMINATION: XR CHEST CLINICAL INFORMATION: COPD, SOB. COMPARISON: Chest x-ray 06/22/2022. TECHNIQUE: 2 views of the chest were obtained. FINDINGS: No significant abnormality is noted involving the heart, lungs, mediastinum, bony thorax or soft tissues. XR/XR chest 2V IMPRESSION: Unremarkable chest examination.
[2022-09-01 07:39] LABS: Hematocrit 35.7 % (42.0-52.0); Hemoglobin 13.4 g/dl (14.0-18.0); Mean Corpuscular HGB Conc 37.5 g/dl (31.0-36.0); Mean Corpuscular Hemoglobin 44.4 pg (27.0-33.0); Mean Platelet Volume 11.9 fL (9.4-12.4); Platelet Count 238 X10*3/uL (160-400); Red Blood Count 3.02 X10*6/uL (4.60-5.80); White Blood Count 6.4 X10*3/uL (4.8-10.8)
[2022-09-01 07:40] LABS: Mean Corpuscular Volume 118.2 fL (80.0-98.0)
[2022-09-01 08:09] LABS: Estimated Average Glucose 120 mg/dL; Hemoglobin A1c % 5.8 %
[2022-09-01 08:10] LABS: Creatinine Urine 131.18 mg/dL; Microalbum/Creatinine Ratio Ur 4.5 ug/mg cr
[2022-09-01 09:35] LABS: Vitamin B12 443 pg/mL (200-900)
[2022-09-01 12:02] LABS: Alanine Aminotransferase 27 U/L (0-40); Albumin Level 4.3 g/dL (3.5-5.0); Alkaline Phosphatase 95 U/L (39-117); Anion Gap 15 (12-20); Aspartate Amino Transferase 29 U/L (5-37); Bilirubin Direct 0.3 mg/dL (0.0-0.5); Bilirubin Total 0.7 mg/dL (0.0-1.0); Blood Urea Nitrogen 14 mg/dL (9-16); Carbon Dioxide 26 mmol/L (22-29); Chloride 101 mmol/L (96-108); Cholesterol 128 mg/dL; Estimated Glomerular Filt Rate > 60; Glucose Random 136 mg/dL (60-115); HDL Cholesterol 35 mg/dL; Iron 77 mcg/dL (45-160); LDL Cholesterol Calculated 56 mg/dl; Percent Iron Saturation 22 % (15-50); Potassium 4.1 mmol/L (3.3-5.1); Sodium 138 mmol/L (135-145); Total Iron Binding Capacity 349 mcg/dL (228-428); Total Protein 6.5 g/dL (6.5-8.0); Triglycerides 186 mg/dL; Unsaturated Iron Binding 272 ug/dL
[2022-09-01 12:23] LABS: Ferritin 45 ng/mL (20-250); Free T4 (Free Thyroxine) 0.99 ng/dL (0.71-1.85); Thyroid Stimulating Hormone 1.87 uIU/mL (0.32-4.0)
[2022-09-01 14:18] LABS: Vitamin D 25-OH Total 22.1 ng/mL (>30)
[2022-09-05 15:46] LABS: Alpha Fetoprotein 3.6 ng/mL (<6.1)
== END 2022-09-01 06:50 | disposition home or self-care (01) ==
LOC: HO.XRAY 06:49
PROVIDERS: PCP Family Medicine; Visit Provider Family Medicine
DX: J44.1 Chronic obstructive pulmonary disease with (acute) exacerbation (principal); D64.9 Anemia, unspecified; E11.9 Type 2 diabetes mellitus without complications; E78.5 Hyperlipidemia, unspecified; I10 Essential (primary) hypertension; K76.0 Fatty (change of) liver, not elsewhere classified
CPT/HCPCS: 36415; 71046; 80048; 80061; 80076; 82043; 82105; 82306; 82607; 82728; 83036; 83540; 84439; 84443; 85027

== ENCOUNTER → 2022-09-28 08:11 | Outpatient (REF) | payer OTHER, SELFPAY ==
--- NOTE | 2022-09-28 08:14 | CA_ITS ---
Acquisition Time: 2022-09-28 09:01:11 Total Exercise Time: 00:02:00 Test Indications: I10 Essential Hypertension, A Fi Medications: See H Protocol: LEXISCAN Max HR: 106 BPM 76% of Pred: 138 BPM Max BP: 124/060 mmHG Max Work Load: 1.0 METS Pharmacological stress test with Lexiscan injection, while sitting and kicking left leg, with report of severe chest tightness, shortness of breath, headache, lightheadnedness post injection, with isolated PVC, with normotensive response to injection, with nondiagnostic EKG for ischemia. In recovery he was treated with Aminophylline 75mg IVP to reverse Lexiscan with resolution of symptoms. Nuclear images pending. Test reviewed with Dr Gonsalez. Note: I was notified that patient was not able to complete nuclear images due to reported claustrophobia and he walked out of nuclear department. Referred By: Miguel Angel Dial Overread By: RAYMOND TAVAREZ
== END ==
LOC: HO.CARD 08:11
PROVIDERS: PCP Family Medicine; Visit Provider Internal Medicine Cardiovascular Disease
DX: I25.10 Atherosclerotic heart disease of native coronary artery without angina pectoris (principal); I48.0 Paroxysmal atrial fibrillation; I10 Essential (primary) hypertension
CPT/HCPCS: 93017; J0280; J2785

== ENCOUNTER 2022-10-08 09:59 | Emergency (ER) | payer OTHER, SELFPAY ==
--- NOTE | 2022-10-08 10:07 | ECG_ITS ---
Test Reason : CHEST PAIN Blood Pressure : / mmHG Vent. Rate : 048 BPM Atrial Rate : 048 BPM P-R Int : 174 ms QRS Dur : 096 ms QT Int : 458 ms P-R-T Axes : 054 006 030 degrees QTc Int : 409 ms Sinus bradycardia with sinus arrhythmia Otherwise normal ECG When compared with ECG of 22-JUN-2022 14:46, Vent. rate has decreased BY 46 BPM Right bundle branch block is no longer Present Criteria for Inferior infarct are no longer Present Referred By: Yelena Metzger Electronically Signed By:Feliberto Juan
[2022-10-08 10:13] VITALS: BP 137/59; PULSE 49; RESP 18; TEMP 36.4; O2SAT 98; BMI 28.8
--- NOTE | 2022-10-08 10:45 | ED.CHESTPAIN ---
HPI - Chest Pain General Chief Complaint: Chest Pain Stated Complaint: CP Time Seen by Provider: 10/08/22 10:07 Source: patient and hr coordinator Mode of arrival: EMS History of Present Illness HPI narrative: 82-year-old male who is brought in by EMS, EMS states that he met them at the door, patient has complaints of chest wall pain that worsens with cough is he has had a cough for 4 days as well as sore throat, body aches, headaches, possible subjective fever approximately 2 days ago but otherwise denies any GI or symptoms. Related Data Home Medications Medication Instructions Recorded Confirmed amlodipine 5 mg tablet 5 mg PO DAILY 10/26/20 08/16/22 fenofibrate micronized 200 mg 200 mg PO DAILY 10/26/20 08/16/22 capsule ferrous sulfate 325 mg (65 mg 325 mg PO DAILY 10/26/20 08/16/22 iron) tablet finasteride 5 mg tablet 5 mg PO DAILY 10/26/20 08/16/22 fluticasone 500 mcg-salmeterol 50 1 ea PO BID 10/26/20 08/16/22 mcg/dose blistr powdr for inhalation hydrochlorothiazide 25 mg tablet 25 mg PO DAILY 10/26/20 08/16/22 ipratropium 0.5 mg-albuterol 3 mg 3 ml inhalation QID PRN 10/26/20 08/16/22 (2.5 mg base)/3 mL nebulization soln lisinopril 40 mg tablet 40 mg PO DAILY 10/26/20 08/16/22 loratadine 10 mg tablet 10 mg PO DAILY 10/26/20 08/16/22 metformin 500 mg tablet 500 mg PO QAM 10/26/20 08/16/22 oxycodone-acetaminophen 7.5 mg-325 1 tab PO Q4H PRN pain 10/26/20 08/16/22 mg tablet pantoprazole 40 mg tablet,delayed 40 mg PO DAILY 10/26/20 08/16/22 release rivaroxaban 20 mg tablet 20 mg PO BEDTIME 10/26/20 08/16/22 rosuvastatin 40 mg tablet 40 mg PO BEDTIME 10/26/20 08/16/22 tamsulosin 0.4 mg capsule 0.4 mg PO DAILY 10/26/20 08/16/22 trazodone 50 mg tablet 50 mg PO BEDTIME 10/26/20 08/16/22 melatonin 5 mg tablet 5 mg PO DAILY 08/16/22 08/16/22 Previous Rx's Medication Instructions Recorded ezetimibe 10 mg tablet 10 mg PO DAILY 90 days #90 tabs 02/17/22 isosorbide mononitrate 60 mg 60 mg PO QAM #90 tabs 02/17/22 tablet,extended release 24 hr metoprolol tartrate 50 mg tablet 50 mg PO BID #180 tabs 02/17/22 benzonatate 200 mg capsule 200 mg PO TID PRN cough #10 caps 10/08/22 Allergies Allergy/AdvReac Type Severity Reaction Status Date / Time No Known Allergies Allergy Mild NONE Verified 08/16/22 15:07 Review of Systems Review of Systems: Pertinent positives and negatives as stated in HPI 10 point review of systems is otherwise negative. [facility] Past Medical History Source: nursing notes reviewed Medical History CAD (coronary artery disease) Diabetes type 1, controlled HTN (hypertension) Hyperlipidemia Paroxysmal atrial fibrillation Surgical History Stented coronary artery Family History Family History Father No problems noted. Mother No problems noted. Social History Social History Advance Directives: No Advance Directives Information Provided: Yes Current occupational status: disabled Current occupation: Lt handed Physical Exam Vital Signs: Vital Signs: Last Vital Signs Temp 97.5 F 10/08/22 10:13 Pulse 49 L 10/08/22 10:13 Resp 18 10/08/22 10:13 BP 137/59 L 10/08/22 10:13 Pulse Ox 98 10/08/22 10:13 O2 Del Method 10/08/22 10:13 BMI result Body Mass Index 28.8 VITAL SIGNS: Reviewed. GENERAL: Well developed, well nourished, in no acute distress. HEAD: Normocephalic/atraumatic EYES: PERRLA, EOMI EARS: Ext canals without abnormality, TMs non-bulging and non-erythematous NOSE: Nares patent bilateral OROPHARYNX: no oral lesions noted, posterior pharynx clear and non-erythematous without noted tonsillar enlargement/erythema/exudates NECK: Supple, no adenopathy LUNGS: Good inspiratory effort without wheeze/rhonchi/rales and no tachypnea noted. SpO2<98>; CHEST WALL: There is reproducible chest wall pain on palpation at the anterior chest wall without deformity or crepitus CARDIOVASCULAR: Regular rate and rhythm without noted murmurs, no JVD or lower extremity edema. ABDOMEN: Soft, non-tender, non-distended with bowel sounds. MUSCULOSKELETAL: No tenderness, deformities, or effusions noted on gross inspection. EXTREMITIES: No cyanosis, clubbing or edema. SKIN: Inspection of the skin reveals no rashes NEUROLOGIC: Alert and oriented x 3 Strength and sensation to light touch were grossly intact x 4. Course Course Course Narrative: I reviewed all investigations and there are no acute findings to suggest pneumonia, cardiac ischemia and patient is noted be COVID-19 positive and has had symptoms for 4 days. He is otherwise hemodynamically stable, not tachypneic, nor is he tachycardic, and he is oxygenating well on room air. He is otherwise stable for discharge to home. Medications Administered Discontinued Medications Generic Name Dose Route Start Last Admin Trade Name Freq PRN Reason Stop Dose Admin Acetaminophen 975 mg 10/08/22 10:46 10/08/22 11:29 Acetaminophen 325 Mg Tablet PO 10/08/22 10:47 975 mg ONCE ONE Administration Benzonatate 200 mg 10/08/22 10:46 10/08/22 11:29 Benzonatate 100 Mg Capsule PO 10/08/22 10:47 200 mg ONCE ONE Administration Medical Decision Making Medical Decision Making [facility] Narrative: 82-year-old male with history and presentation reproducible chest pain with viral symptoms. Low clinical suspicion for cardiac etiology. Will obtain basic labs, imaging as well as EKG. Differential Diagnosis Differential Diagnoses: The differential diagnosis associated with the presentation includes Viral infection, pneumonia, less likely cardiac etiology Lab Data [facility] Lab Attestation statement: I reviewed the patient's lab results. Please review the course Section for discussion regarding the results. Result Diagrams: 10/08/22 11:02 10/08/22 11:02 Labs: Lab Results 10/08/22 10/08/22 10/08/22 Range/Units 11:02 11:02 11:02 WBC 4.8 (4.8-10.8) X10*3/uL RBC 2.72 L (4.60-5.80) X10*6/uL Hgb 11.7 L (14.0-18.0) g/dl Hct 32.2 L (42.0-52.0) % MCV 118.4 H (80.0-98.0) fL MCH 43.0 H (27.0-33.0) pg MCHC 36.3 H (31.0-36.0) g/dl RDW Not Reportable Plt Count 289 (160-400) X10*3/uL MPV 10.4 (9.4-12.4) fL Immature Gran % (Auto) Cancelled Neut % (Auto) Cancelled Lymph % (Auto) Cancelled [place] % (Auto) Cancelled Eos % (Auto) Cancelled Baso % (Auto) Cancelled Lymph # (Auto) Cancelled [place] # (Auto) Cancelled Eos # (Auto) Cancelled Baso # (Auto) Cancelled Abs Immat Gran (auto) Cancelled Absolute Neuts (auto) Cancelled Absolute Nucleated RBC 0.000 (0.0-0.012) X10*3/uL Nucleated RBC % (auto) 0.0 (0.0-0.2) /100WBC Neutrophils % (Manual) 63 (45-73) % Band Neutrophils % 0 L (3-5) % Lymphocytes % (Manual) 32 (20-40) % Monocytes % (Manual) 3 (2-11) % Eosinophils % (Manual) 1 (0-4) % Basophils % (Manual) 1 (0-2) % Abs Neuts (Manual) 3.0 (2.0-8.3) X10*3/uL Lymphocytes # (Manual) 1.5 (1.2-4.9) X10*3/uL Monocytes # (Manual) 0.1 (0.1-1.2) X10*3/uL Hypersegmented Neuts PRESENT Platelet Estimate NORMAL (NORMAL) Plt Morphology Comment NORMAL RBC Morphology NOTED Polychromasia 1+ (0-2) /OIF Macrocytosis 2+ (15-30) /OIF Ovalocytes 1+ (5-14) /OIF Acanthocytes (Spur) 1+ (0-2) /OIF Schistocytes 1+ (0-2) /OIF PT 26.3 H (10.0-13.1) SEC INR 2.2 H (0.9-1.1) Sodium 139 (135-145) mmol/L Potassium 4.8 (3.3-5.1) mmol/L Chloride 106 (96-108) mmol/L Carbon Dioxide 28 (22-29) mmol/L Anion Gap 10 L (12-20) BUN 11 (9-16) mg/dL Creatinine 0.79 (0.5-1.4) mg/dL Estim Creat Clear Calc 66.1 Estimated GFR > 60 Random Glucose 86 (60-115) mg/dL Calcium 8.6 (8.4-10.2) mg/dL Total Bilirubin 0.5 (0.0-1.0) mg/dL AST 14 (5-37) U/L ALT 13 (0-40) U/L Alkaline Phosphatase 77 (39-117) U/L Troponin I High Sens (<3.5-35.0) ng/L Total Protein 5.6 L (6.5-8.0) g/dL Albumin 3.7 (3.5-5.0) g/dL COVID-19 (CRISTINO) (Negative) COVID-19 Clin Com Influenza Type A (LUIS) (Negative) Influenza Type B (LUIS) (Negative) Influenza A & B Note 10/08/22 10/08/22 10/08/22 Range/Units 11:02 11:02 11:02 WBC (4.8-10.8) X10*3/uL RBC (4.60-5.80) X10*6/uL Hgb (14.0-18.0) g/dl Hct (42.0-52.0) % MCV (80.0-98.0) fL MCH (27.0-33.0) pg MCHC (31.0-36.0) g/dl RDW Plt Count (160-400) X10*3/uL MPV (9.4-12.4) fL Immature Gran % (Auto) Neut % (Auto) Lymph % (Auto) [place] % (Auto) Eos % (Auto) Baso % (Auto) Lymph # (Auto) [place] # (Auto) Eos # (Auto) Baso # (Auto) Abs Immat Gran (auto) Absolute Neuts (auto) Absolute Nucleated RBC (0.0-0.012) X10*3/uL Nucleated RBC % (auto) (0.0-0.2) /100WBC Neutrophils % (Manual) (45-73) % Band Neutrophils % (3-5) % Lymphocytes % (Manual) (20-40) % Monocytes % (Manual) (2-11) % Eosinophils % (Manual) (0-4) % Basophils % (Manual) (0-2) % Abs Neuts (Manual) (2.0-8.3) X10*3/uL Lymphocytes # (Manual) (1.2-4.9) X10*3/uL Monocytes # (Manual) (0.1-1.2) X10*3/uL Hypersegmented Neuts Platelet Estimate (NORMAL) Plt Morphology Comment RBC Morphology Polychromasia /OIF Macrocytosis /OIF Ovalocytes /OIF Acanthocytes (Spur) /OIF Schistocytes /OIF PT (10.0-13.1) SEC INR (0.9-1.1) Sodium (135-145) mmol/L Potassium (3.3-5.1) mmol/L Chloride (96-108) mmol/L Carbon Dioxide (22-29) mmol/L Anion Gap (12-20) BUN (9-16) mg/dL Creatinine (0.5-1.4) mg/dL Estim Creat Clear Calc Estimated GFR Random Glucose (60-115) mg/dL Calcium (8.4-10.2) mg/dL Total Bilirubin (0.0-1.0) mg/dL AST (5-37) U/L ALT (0-40) U/L Alkaline Phosphatase (39-117) U/L Troponin I High Sens < 3.5 (<3.5-35.0) ng/L Total Protein (6.5-8.0) g/dL Albumin (3.5-5.0) g/dL COVID-19 (CRISTINO) Positive A (Negative) COVID-19 Clin Com See Note Influenza Type A (LUIS) Negative (Negative) Influenza Type B (LUIS) Negative (Negative) Influenza A & B Note See Note Independent Interpretation I performed an independent interpretation of an: EKG Interpretation: Sinus bradycardia, HR-48, no STEMI, OR/QRS/QTC are within normal limits. Radiology Impression Radiologist Impression: My interpretation is in agreement with the radiology's impression of the imaging. External Record Review External record reviewed: Outpatient record Chronic Conditions Patient?s care impacted by: Diabetes and Hypertension Social Determinants Patient?s care significantly limited by Social Determinants of Health including: Low income Discharge Plan Discharge Clinical Impression: Viral syndrome, Lab test positive for detection of COVID-19 virus, Non-cardiac chest pain Patient Disposition: Home, Self-Care Instructions: Viral Syndrome (ED), Acute Cough (ED), COVID-19 (Coronavirus Disease 2019) (ED) Additional Instructions: 1. Recomiendo Tylenol/ibuprofeno de venta joce seg?n sea necesario para mora corporales, mora de noah, temperaturas superiores a 100.4. 2. Reanudar todos los medicamentos caseros seg?n lo prescrito. 3. Le recomiendo que duerma con 2 almohadas y un humidificador de vapor fr?o al lado de la cama. 4. He enviado reginald receta para medicamentos para la tos a lee farmacia. 5. Narendra un seguimiento con lee proveedor de atenci?n primaria el lunes por la ma?monroe. Tiene COVID-19 positivo y debe aislarse marzena los pr?ximos 2-3 d?as. Regrese a la kvng de emergencias si los s?ntomas empeoran. 1. I recommend [id number] Tylenol/ibuprofen as needed for body aches, headaches, temperatures greater than 100.4. 2. Resume all home medications as prescribed. 3. I recommend that you sleep using 2 pillows and a cool mist humidifier at the bedside. 4. I have sent a prescription for cough medication to your pharmacy. 5. Follow-up with your primary care provider on Monday morning. You are COVID-19 positive and should isolate for the next 2-3 days. Return to the ER for worsening symptoms. Prescriptions: New benzonatate 200 mg capsule 200 mg PO TID PRN (Reason: cough) Qty: 10 0RF No Action ezetimibe 10 mg tablet 10 mg PO DAILY 90 Days Qty: 90 3RF isosorbide mononitrate 60 mg tablet extended release 24 hr 60 mg PO QAM Qty: 90 3RF metoprolol tartrate 50 mg tablet 50 mg PO BID Qty: 180 3RF rosuvastatin 40 mg tablet 40 mg PO BEDTIME hydrochlorothiazide 25 mg tablet 25 mg PO DAILY amlodipine 5 mg tablet 5 mg PO DAILY lisinopril 40 mg tablet 40 mg PO DAILY ipratropium-albuterol 0.5 mg-3 mg(2.5 mg base)/3 mL solution for nebulization 3 ml inhalation QID PRN tamsulosin 0.4 mg capsule 0.4 mg PO DAILY fluticasone propion-salmeterol 500-50 mcg/dose blister with device 1 ea PO BID metformin 500 mg tablet 500 mg PO QAM fenofibrate micronized 200 mg capsule 200 mg PO DAILY pantoprazole 40 mg tablet,delayed release (DR/EC) 40 mg PO DAILY finasteride 5 mg tablet 5 mg PO DAILY Xarelto 20 mg tablet 20 mg PO BEDTIME trazodone 50 mg tablet 50 mg PO BEDTIME ferrous sulfate 325 mg (65 mg iron) tablet 325 mg PO DAILY loratadine 10 mg tablet 10 mg PO DAILY oxycodone-acetaminophen 7.5-325 mg tablet 1 tab PO Q4H PRN (Reason: pain) melatonin 5 mg tablet 5 mg PO DAILY Referrals: Citlali Norman DO [Primary Care Provider] - Stand Alone Forms: Work/School Release Print Language: Divehi
[2022-10-08 11:08] LABS: Hematocrit 32.2 % (42.0-52.0); Hemoglobin 11.7 g/dl (14.0-18.0); Mean Corpuscular HGB Conc 36.3 g/dl (31.0-36.0); Mean Platelet Volume 10.4 fL (9.4-12.4); Platelet Count 289 X10*3/uL (160-400); Red Blood Count 2.72 X10*6/uL (4.60-5.80)
[2022-10-08 11:16] LABS: COVID-19 Test Positive (Negative); IDNOW Serial# 9DB6401D
[2022-10-08 11:24] LABS: INTERNATIONAL NORM RATIO 2.2 (0.9-1.1); Mean Corpuscular Volume 118.4 fL (80.0-98.0); Prothrombin Time 26.3 SEC (10.0-13.1); WBC ABN SCTR FOR CBC 1; White Blood Count 4.8 X10*3/uL (4.8-10.8)
[2022-10-08 11:27] LABS: Band Neutrophils Percent 0 % (3-5); Basophils Percent Manual 1 % (0-2); Eosinophils Percent Manual 1 % (0-4); Lymphocytes Absolute Manual 1.5 X10*3/uL (1.2-4.9); Lymphocytes Percent Manual 32 % (20-40); Monocytes Absolute Manual 0.1 X10*3/uL (0.1-1.2); Monocytes Percent Manual 3 % (2-11); Neutrophils Percent Manual 63 % (45-73)
[2022-10-08 11:28] LABS: Acanthocytes 1+ (0-2) /OIF; Alanine Aminotransferase 13 U/L (0-40); Albumin Level 3.7 g/dL (3.5-5.0); Alkaline Phosphatase 77 U/L (39-117); Anion Gap 10 (12-20); Aspartate Amino Transferase 14 U/L (5-37); Bilirubin Total 0.5 mg/dL (0.0-1.0); Blood Urea Nitrogen 11 mg/dL (9-16); Calcium 8.6 mg/dL (8.4-10.2); Carbon Dioxide 28 mmol/L (22-29); Chloride 106 mmol/L (96-108); Creatinine Clr Calc Pharmacy 66.1; Estimated Glomerular Filt Rate > 60; Glucose Random 86 mg/dL (60-115); Hypersegmented Neutrophils PRESENT; IDNOW Serial# BCCEAD1C; Influenza A Negative (Negative); Influenza B2 Negative (Negative); Macrocytosis 2+ (15-30) /OIF; Ovalocytes 1+ (5-14) /OIF; Polychromasia 1+ (0-2) /OIF; Potassium 4.8 mmol/L (3.3-5.1); RBC Morphology NOTED; Schistocytes 1+ (0-2) /OIF; Sodium 139 mmol/L (135-145); Total Protein 5.6 g/dL (6.5-8.0)
[2022-10-08 11:29] LABS: Platelet Estimate NORMAL (NORMAL); Platelet Morphology Comment NORMAL
[2022-10-08 11:34] LABS: Troponin-I High Sensitivity < 3.5 ng/L (<3.5-35.0)
== END 2022-10-08 12:30 | disposition home or self-care (01) ==
PROVIDERS: Emergency Provider Student in an Organized Health Care Education/Training Program; PCP Family Medicine
DX: U07.1 COVID-19 (principal); R07.89 Other chest pain; E10.9 Type 1 diabetes mellitus without complications; I10 Essential (primary) hypertension; E78.5 Hyperlipidemia, unspecified; I48.0 Paroxysmal atrial fibrillation; Z79.84 Long term (current) use of oral hypoglycemic drugs; Z79.02 Long term (current) use of antithrombotics/antiplatelets; Z79.899 Other long term (current) drug therapy; Z79.01 Long term (current) use of anticoagulants
CPT/HCPCS: 71045; 80053; 84484; 85007; 85027; 85610; 87502; 87635; 93005; 99283

== ENCOUNTER 2023-05-22 12:59 | Outpatient (AMB) | payer OTHER, SELFPAY ==
[2023-05-22 14:25] VITALS: BP 140/70; PULSE 45; BMI 27.6
--- NOTE | 2023-05-22 14:25 | MHC.OFFVIS ---
Intake Vital Signs 05/22/23 14:25 Height 5 ft 4 in Weight 160 lb 14.999 oz BMI 27.6 BP 140/70 H Pulse 45 L Intake Visit Reasons: OVERDUE FOLLOW UP Intake Note: overdue f/u Dining Car Steward Required: Yes Dining Car Steward Name: devin martinez [id number] Allergies No Known Allergies Allergy (Mild, Verified 05/22/23 14:36) NONE Medication List - Last Reconciled 05/22/23 by Samanta Briones, POLYETHYLENE BAG MACHINE OPERATOR-C amlodipine 5 mg PO DAILY benzonatate 200 mg PO TID PRN ezetimibe 10 mg PO DAILY 90 days fenofibrate micronized 200 mg PO DAILY ferrous sulfate 325 mg PO DAILY finasteride 5 mg PO DAILY fluticasone propion-salmeterol 500-50 mcg/dose 1 ea PO BID hydrochlorothiazide 25 mg PO DAILY ipratropium-albuterol 0.5 mg-3 mg(2.5 mg base)/3 mL 3 mL inhalation QID PRN isosorbide mononitrate ER 60 mg PO QAM lisinopril 40 mg PO DAILY loratadine 10 mg PO DAILY melatonin 5 mg PO DAILY metformin 500 mg PO QAM metoprolol tartrate 50 mg PO BID oxycodone-acetaminophen 7.5-325 mg 1 tab PO Q4H PRN pantoprazole 40 mg PO DAILY rivaroxaban 20 mg PO BEDTIME rosuvastatin 40 mg PO BEDTIME tamsulosin 0.4 mg PO DAILY trazodone 50 mg PO BEDTIME HPI OVERDUE FOLLOW UP HPI Details Aleksandr is an 82 yo male with PMH of HTN, HLD, DM, CAD with LAD stent, PAF who was was seen in the emergency room last fall with chest discomfort. An outpatient nuclear stress test was ordered however he was not able to complete due to claustrophobia. Today he reports he has been doing well since his last visit here in August. He denies any chest discomfort clearly brought on by exertion. He reports generalized body aches and pains which he says is arthritis. He has no concerning shortness of breath, palpitations, dizziness. No presyncope, syncope, falls. No PND, orthopnea. He does report some mild swelling in his right leg. He ambulates with a cane. He is taking his meds as directed. [facility] Medical History CAD (coronary artery disease) Diabetes type 1, controlled HTN (hypertension) Hyperlipidemia Paroxysmal atrial fibrillation Surgical History Stented coronary artery Family History Father No problems noted. Mother No problems noted. Social History Current occupational status: disabled Current occupation: Lt handed Review of Systems Const Details: Arthritis pains All systems reviewed & are unremarkable except as noted in HPI and below ENT Reports dizziness Card Denies chest pain, Denies chest pain at rest, Denies chest pain with activity, Denies rapid heart rate, Denies pedal edema, Denies edema, Reports leg edema, Denies lightheadedness, Denies palpitations, Denies dyspnea, Denies dyspnea on exertion and Denies orthopnea Resp Denies cough, Denies dyspnea and Denies dyspnea on exertion GI Denies hematochezia and Denies change in stool character Musc Denies abnormal gait, Reports limited range of motion, Reports muscle cramps, Denies muscle weakness, Denies numbness, Denies radiating pain into limb, Denies stiffness and Denies tingling Neuro Denies abnormal gait, Reports dizziness, Denies numbness and Denies tingling Endo Denies palpitations Physical Exam Vital Signs: Last Vital Signs Pulse 45 L 05/22/23 14:25 BP 140/70 H 05/22/23 14:25 BMI result Body Mass Index 27.6 Const General: cooperative, healthy appearing, comfortable and no acute distress Orientation/consciousness: patient oriented x3 Neck Neck: Yes normal visual inspection Resp Effort & Inspection: normal respiratory effort Auscultation: clear to auscultation bilaterally, no crackles, no rales, no rhonchi and no wheezes Cardio Jugular venous distension: no JVD Rate: regular rate Rhythm: regular rhythm Heart sounds: S1 normal heart sound present, S2 normal heart sound present, no murmurs and no rubs Neuro General: patient oriented x3 Extrem Other: No noticeable change in appearance between right leg and left leg. No calf tenderness, redness or swelling noted. 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 General: Yes normal to inspection Psych Appearance: grossly normal Mental Status: mental status grossly normal Speech and movement: Normal speech and movement present Office Procedures EKG Details: Today, read by me, sinus bradycardia, no acute ST or T-wave abnormalities, rate 45, QTC 416 millisecond [id number], Complete Assessment & Plan Assessment & Plan (1) CAD (coronary artery disease): Code(s): I25.10 - Atherosclerotic heart disease of [place] coronary artery without angina pectoris Plan: History of CAD with LAD stent in place. ER visit last fall with atypical chest discomfort. EKG did not show ischemia. His troponin was normal. Pain was felt to be noncardiac. On follow-up visit a nuclear stress test was ordered for further evaluation. Patient underwent the pharmacological portion however was not able to complete the nuclear portion of his study as he was claustrophobic. The test was incomplete. Last echo 09/19/19 showing EF 60-65%, no valve abn. EKG done today showing sinus bradycardia, heart rate 45. Today he reports doing well since his last visit here in August. He denies any anginal sounding chest discomfort. Unable to pursue nuclear stress test as he is unable to exercise on treadmill or obtain imaging. Stress echo not an option either. In the absence of anginal symptoms will hold on further evaluation. Signs and symptoms of angina reviewed. Emergency care if ever needed for recurrent symptoms. Continue medical management for stable CAD. Not on aspirin as he is on Xarelto. Continues on Rosuvastatin, Zetia. Labs done 09/01/2022 showed LDL 56. He is on Metoprolol, Amlodipine, Lisinopril, isosorbide. His heart rate is 45 and on prior visit 49. Will have him reduce metoprolol down to 25 mg b.i.d. from 50 mg b.i.d.. His blood pressure is borderline elevated so will increase his amlodipine from 5 mg daily up to 10 mg daily. Will arrange an office visit for pulse rate and blood pressure check in 2 weeks. Cardiology follow up in 6 months, sooner if needed. (2) Atypical chest pain: Code(s): R07.89 - Other chest pain (3) Paroxysmal atrial fibrillation: Code(s): I48.0 - Paroxysmal atrial fibrillation Plan: Hx of PAF. Last EKG showing SR. EKG from today showing sinus bradycardia. No report of palpitations. Continue Metoprolol for rate control, at reduced dose. Continue on Xarelto for anticoagulation. Labs 10/08/2022 show Cr 0.79. (4) HTN (hypertension): Code(s): I10 - Essential (primary) hypertension Plan: As above (5) Hyperlipidemia: Code(s): E78.5 - Hyperlipidemia, unspecified Plan: Well controlled on last lipid profile. Labs followed by his PCP at [facility] Medications: New amlodipine 10 mg PO DAILY 30 tabs 5RF metoprolol tartrate 25 mg PO BID 60 tabs 5RF 30 days Discontinued metoprolol tartrate Discontinued Reason: Doctor's Order 50 mg PO BID 180 tabs 3RF Coding Level of Care Code Est Pt Level 4 (42282) Diagnoses CAD (coronary artery disease) I25.10 Atypical chest pain R07.89 Paroxysmal atrial fibrillation I48.0 HTN (hypertension) I10 Hyperlipidemia E78.5 CPT Codes EKG - CPT: 71408-[id number], Complete ([id number]) Time Spent (min) 28 Comment Chart review, documentation, interview, assessment
== END 2023-05-22 15:07 | disposition home or self-care (01) ==
PROVIDERS: PCP Family Medicine; Referring Provider Family Medicine; Visit Provider Nurse Practitioner Family
DX: I25.10 Atherosclerotic heart disease of native coronary artery without angina pectoris (principal); R07.89 Other chest pain; I48.0 Paroxysmal atrial fibrillation; I10 Essential (primary) hypertension; E78.5 Hyperlipidemia, unspecified
CPT/HCPCS: 93010; 99214

== ENCOUNTER → 2023-05-22 12:59 | Outpatient (BNVA) | payer OTHER, SELFPAY | PROVIDERS: PCP Family Medicine; Referring Provider Family Medicine; Visit Provider Nurse Practitioner Family | DX: I25.10 Atherosclerotic heart disease of native coronary artery without angina pectoris (principal); R07.89 Other chest pain; I48.0 Paroxysmal atrial fibrillation; I10 Essential (primary) hypertension; E78.5 Hyperlipidemia, unspecified; Z79.01 Long term (current) use of anticoagulants; Z79.899 Other long term (current) drug therapy | CPT/HCPCS: 93005; 99212 ==

== ENCOUNTER 2023-05-24 14:04 | Emergency (ER) | payer OTHER, SELFPAY ==
--- NOTE | ~2023-05-24 | XR_ITS ---
EXAMINATION: XR CHEST CLINICAL INFORMATION: Left chest pain. COMPARISON: Chest radiograph dated 10/08/2022. TECHNIQUE: Frontal view of the chest was obtained. FINDINGS: No significant abnormality is noted involving the heart, lungs, mediastinum, bony thorax or soft tissues. XR/XR chest 1V IMPRESSION: No acute cardiopulmonary process.
--- NOTE | 2023-05-24 14:20 | ECG_ITS ---
Test Reason : CHEST PAIN Blood Pressure : / mmHG Vent. Rate : 072 BPM Atrial Rate : 072 BPM P-R Int : 154 ms QRS Dur : 136 ms QT Int : 420 ms P-R-T Axes : 039 008 -07 degrees QTc Int : 459 ms Sinus rhythm with Fusion complexes Right bundle branch block Abnormal ECG When compared with ECG of 08-OCT-2022 10:46, Fusion complexes are now Present Vent. rate has increased BY 24 BPM Right bundle branch block is now Present Referred By: Karina Macario Electronically Signed By:Feliberto Juan
--- NOTE | 2023-05-24 14:22 | ED_ITS ---
HPI - Chest Pain General Chief Complaint: Chest Pain Stated Complaint: Chest pain x 3 weeks per EMS Time Seen by Provider: 05/24/23 14:12 Source: patient and EMS Mode of arrival: EMS Limitations: no limitations History of Present Illness HPI narrative: Patient comes to the emergency room via ambulance from home. Patient states that he has been having chest pain for 2-3 months. Patient states it is worse on the left side when he puts pressure around the nipple area. Also complaining of chest pain with laying down. Patient denies shortness of breath. Denies trauma to the chest area, heavy lifting. Patient was seen by Cardiology 2 days ago in the office, office visit was for follow-up for atypical chest pain. It was noted on the patient's note from his cardiology appointment that he did not report any chest pain at his office visit, yet today he is saying that the patient has been having chest pain for 2-3 months. I asked the patient about this, patient states that he lied to the library customer service clerk because it has been going on for so long that he did not care. But today he cared and decided to come to the hospital. Related Data Home Medications Medication Instructions Recorded Confirmed fenofibrate micronized 200 mg 200 mg PO DAILY 10/26/20 05/22/23 capsule ferrous sulfate 325 mg (65 mg 325 mg PO DAILY 10/26/20 05/22/23 iron) tablet finasteride 5 mg tablet 5 mg PO DAILY 10/26/20 05/22/23 fluticasone 500 mcg-salmeterol 50 1 ea PO BID 10/26/20 05/22/23 mcg/dose blistr powdr for inhalation hydrochlorothiazide 25 mg tablet 25 mg PO DAILY 10/26/20 05/22/23 ipratropium 0.5 mg-albuterol 3 mg 3 ml inhalation QID PRN 10/26/20 05/22/23 (2.5 mg base)/3 mL nebulization soln lisinopril 40 mg tablet 40 mg PO DAILY 10/26/20 05/22/23 loratadine 10 mg tablet 10 mg PO DAILY 10/26/20 05/22/23 metformin 500 mg tablet 500 mg PO QAM 10/26/20 05/22/23 oxycodone-acetaminophen 7.5 mg-325 1 tab PO Q4H PRN pain 10/26/20 05/22/23 mg tablet pantoprazole 40 mg tablet,delayed 40 mg PO DAILY 10/26/20 05/22/23 release rivaroxaban 20 mg tablet 20 mg PO BEDTIME 10/26/20 05/22/23 rosuvastatin 40 mg tablet 40 mg PO BEDTIME 10/26/20 05/22/23 tamsulosin 0.4 mg capsule 0.4 mg PO DAILY 10/26/20 05/22/23 trazodone 50 mg tablet 50 mg PO BEDTIME 10/26/20 05/22/23 melatonin 5 mg tablet 5 mg PO DAILY 08/16/22 05/22/23 Previous Rx's Medication Instructions Recorded benzonatate 200 mg capsule 200 mg PO TID PRN cough #10 caps 10/08/22 ezetimibe 10 mg tablet 10 mg PO DAILY 90 days #90 tabs 11/14/22 isosorbide mononitrate 60 mg 60 mg PO QAM #90 tabs 11/14/22 tablet,extended release 24 hr amlodipine 10 mg tablet 10 mg PO DAILY #30 tabs 05/22/23 metoprolol tartrate 25 mg tablet 25 mg PO BID 30 days #60 tabs 05/22/23 Allergies Allergy/AdvReac Type Severity Reaction Status Date / Time No Known Allergies Allergy Mild NONE Verified 05/22/23 14:36 Review of Systems Review of Systems: Constitutional : No Weight loss, No Fever, No Chills, No Night Sweats, No Fatigue, No Malaise ENT/Mouth : No Hearing loss, No Ear Pain, No Nasal Congestion, No Sinus Pain, No Hoarseness, No sore throat, No Rhinorrhea, No Swallowing Difficulty Eyes: No Eye Pain, No Swelling, No Redness, No Foreign Body, No Discharge, No Vision Changes Cardiovascular : Complaining of chest pain for 3 months,, No SOB, No Dyspnea on Exertion, No Orthopnea, No Edema, No Palpitations Respiratory : No Cough, No Sputum, No Wheezing, No Smoke Exposure, No Dyspnea Gastrointestinal : No Nausea, No Vomiting, No Diarrhea, No Constipation, No abdominal Pain, No Hematochezia, No Melena Genitourinary : no irregular bleeding, No Dysuria, No Urinary Frequency, No Hematuria, No Urinary Incontinence, No Urgency, No Flank Pain, No Urinary Flow Changes, No Hesitancy Musculoskeletal : No joint pain, No Myalgias, No Joint Swelling Skin : No Skin Lesions, No rash Neuro : No Weakness, No Numbness, No Paresthesias, No Loss of Consciousness, No Dizziness, No Headache Psych : No Anxiety/Panic, No Depression, No SI/HI/AH/VH, No Social Issues, Heme/Lymph: No Bruising, No Bleeding,No Lymphadenopathy Endocrine : No Polyuria, No Polydipsia, No Temperature Intolerance [facility] Past Medical History Medical History CAD (coronary artery disease) Diabetes type 1, controlled HTN (hypertension) Hyperlipidemia Paroxysmal atrial fibrillation Surgical History Stented coronary artery Family History Family History Father No problems noted. Mother No problems noted. Social History Social History Advance Directives: No Advance Directives Information Provided: No Current occupational status: disabled Current occupation: Lt handed Physical Exam Vital Signs: Vital Signs: Last Vital Signs Temp 98.3 F 05/24/23 16:00 Pulse 59 05/24/23 16:00 Resp 20 05/24/23 16:00 BP 96/48 L 05/24/23 16:00 Pulse Ox 95 05/24/23 16:00 O2 Del Method Room Air 05/24/23 16:00 BMI result Body Mass Index 28.0 Const: Other: Appearance: Alert. Oriented X3. No acute distress. Well-appearing Eyes: Pupils equal, round and reactive to light. ENT: Pharynx normal. Neck: Normal inspection. Neck supple. No lymph nodes noted. No crepitus CVS: Normal heart rate and rhythm. Pulses normal. Normal S1 and S2 reproducible chest pain to palpation on the left side of the chest. Respiratory: No respiratory distress. Breath sounds normal. No Wheezing. No rales Abdomen: Soft and nontender. No rigidity. No distention. Skin: Skin warm and dry. Normal skin color. Normal skin turgor. Extremities: No lower extremity edema. No Lacerations. No Rash Neuro: Oriented X 3. No motor deficit. No sensory deficit. Moving all extremities. No slurred speech. CN 2 through 12 grossly intact Psych: calm, cooperative, normal affect Course Course Course Narrative: -all of patient's labs and EKG pending Medical Decision Making Medical Decision Making [facility] Narrative: -my interpretation of EKG: Sinus rhythm, heart rate 72, right bundle samson block, previously seen on June 2022 EKG, QTC 459 -troponin 1. Negative. When I went to check on the patient and to repeat a 2nd troponin, we noticed that the patient was not his room. -patient's nurse called the patient, patient had eloped and at this time he is at home watching TV, declined to return to emergency room -patient states that he feels well now. Differential Diagnosis Differential Diagnoses: The differential diagnosis associated with the presentation includes (ACS, costochondritis, pleurisy, pneumonia) Admission/Observation Consideration of admission/observation: Escalation of care including admission/observation considered (Patient came in complaining for chest pain for 3 weeks, admission was considered) Lab Data [facility] Lab Attestation statement: I reviewed the patient's lab results. 05/24/23 16:09 05/24/23 16:09 Labs: Lab Results 05/24/23 05/24/23 05/24/23 Range/Units 16:09 16:09 16:09 WBC 5.7 (4.8-10.8) X10*3/uL RBC 2.66 L (4.60-5.80) X10*6/uL Hgb 12.1 L (14.0-18.0) g/dl Hct 32.5 L (42.0-52.0) % MCV 122.2 H (80.0-98.0) fL MCH 45.5 H (27.0-33.0) pg MCHC 37.2 H (31.0-36.0) g/dl RDW Not Reportable Plt Count 218 (160-400) X10*3/uL MPV 11.9 (9.4-12.4) fL Immature Gran % (Auto) Cancelled Neut % (Auto) Cancelled Lymph % (Auto) Cancelled Schuyler % (Auto) Cancelled Eos % (Auto) Cancelled Baso % (Auto) Cancelled Lymph # (Auto) Cancelled Schuyler # (Auto) Cancelled Eos # (Auto) Cancelled Baso # (Auto) Cancelled Abs Immat Gran (auto) Cancelled Absolute Neuts (auto) Cancelled Absolute Nucleated RBC 0.000 (0.0-0.012) X10*3/uL Nucleated RBC % (auto) 0.0 (0.0-0.2) /100WBC Neutrophils % (Manual) 62 (45-73) % Band Neutrophils % 0 L (3-5) % Lymphocytes % (Manual) 30 (20-40) % Atypical Lymphs % (Man) 2 (0-6) % Monocytes % (Manual) 6 (2-11) % Abs Neuts (Manual) 3.5 (2.0-8.3) X10*3/uL Lymphocytes # (Manual) 1.7 (1.2-4.9) X10*3/uL Atyp Lymphs # (Manual) 0.1 x10*3/uL Monocytes # (Manual) 0.3 (0.1-1.2) X10*3/uL Platelet Estimate NORMAL (NORMAL) Plt Morphology Comment NORMAL RBC Morphology NOTED Macrocytosis 2+ (15-30) /OIF Spherocytes 1+ (0-2) /OIF Schistocytes 1+ (0-2) /OIF PT 15.9 H (11.1-13.3) SEC INR 1.3 H (0.9-1.1) Sodium 139 (135-145) mmol/L Potassium 4.2 (3.3-5.1) mmol/L Chloride 106 (96-108) mmol/L Carbon Dioxide 26 (22-29) mmol/L Anion Gap 11 L (12-20) BUN 13 (9-16) mg/dL Creatinine 1.06 (0.5-1.4) mg/dL Estim Creat Clear Calc 48.6 Estimated GFR > 60 Random Glucose 122 H (60-115) mg/dL Calcium 9.4 D (8.4-10.2) mg/dL Total Bilirubin 0.4 (0.0-1.0) mg/dL Direct Bilirubin 0.1 (0.0-0.5) mg/dL AST 16 (5-37) U/L ALT 15 (0-40) U/L Alkaline Phosphatase 69 (39-117) U/L Total Creatine Kinase 66 (38-174) U/L Troponin I High Sens (<3.5-35.0) ng/L B-Natriuretic Peptide (<100) pg/mL Total Protein 5.8 L (6.5-8.0) g/dL Albumin 3.5 (3.5-5.0) g/dL 05/24/23 05/24/23 Range/Units 16:09 16:10 WBC (4.8-10.8) X10*3/uL RBC (4.60-5.80) X10*6/uL Hgb (14.0-18.0) g/dl Hct (42.0-52.0) % MCV (80.0-98.0) fL MCH (27.0-33.0) pg MCHC (31.0-36.0) g/dl RDW Plt Count (160-400) X10*3/uL MPV (9.4-12.4) fL Immature Gran % (Auto) Neut % (Auto) Lymph % (Auto) Schuyler % (Auto) Eos % (Auto) Baso % (Auto) Lymph # (Auto) Schuyler # (Auto) Eos # (Auto) Baso # (Auto) Abs Immat Gran (auto) Absolute Neuts (auto) Absolute Nucleated RBC (0.0-0.012) X10*3/uL Nucleated RBC % (auto) (0.0-0.2) /100WBC Neutrophils % (Manual) (45-73) % Band Neutrophils % (3-5) % Lymphocytes % (Manual) (20-40) % Atypical Lymphs % (Man) (0-6) % Monocytes % (Manual) (2-11) % Abs Neuts (Manual) (2.0-8.3) X10*3/uL Lymphocytes # (Manual) (1.2-4.9) X10*3/uL Atyp Lymphs # (Manual) x10*3/uL Monocytes # (Manual) (0.1-1.2) X10*3/uL Platelet Estimate (NORMAL) Plt Morphology Comment RBC Morphology Macrocytosis /OIF Spherocytes /OIF Schistocytes /OIF PT (11.1-13.3) SEC INR (0.9-1.1) Sodium (135-145) mmol/L Potassium (3.3-5.1) mmol/L Chloride (96-108) mmol/L Carbon Dioxide (22-29) mmol/L Anion Gap (12-20) BUN (9-16) mg/dL Creatinine (0.5-1.4) mg/dL Estim Creat Clear Calc Estimated GFR Random Glucose (60-115) mg/dL Calcium (8.4-10.2) mg/dL Total Bilirubin (0.0-1.0) mg/dL Direct Bilirubin (0.0-0.5) mg/dL AST (5-37) U/L ALT (0-40) U/L Alkaline Phosphatase (39-117) U/L Total Creatine Kinase (38-174) U/L Troponin I High Sens 9.5 D (<3.5-35.0) ng/L B-Natriuretic Peptide 25 (<100) pg/mL Total Protein (6.5-8.0) g/dL Albumin (3.5-5.0) g/dL Critical Care Time Critical Care Time Critical Care Time: Yes Total Critical Care Time: 45 Attestation: I have personally provided critical care time. Time includes review of lab data, radiology results, discussion with consultants, and monitoring for potential decompensation. Intervention performed as documented. Discharge Plan Discharge Clinical Impression: Chest pain Patient Disposition: Elopement Prescriptions: No Action ezetimibe 10 mg tablet 10 mg PO DAILY 90 Days Qty: 90 3RF isosorbide mononitrate 60 mg tablet extended release 24 hr 60 mg PO QAM Qty: 90 3RF benzonatate 200 mg capsule 200 mg PO TID PRN (Reason: cough) Qty: 10 0RF rosuvastatin 40 mg tablet 40 mg PO BEDTIME hydrochlorothiazide 25 mg tablet 25 mg PO DAILY lisinopril 40 mg tablet 40 mg PO DAILY ipratropium-albuterol 0.5 mg-3 mg(2.5 mg base)/3 mL solution for nebulization 3 ml inhalation QID PRN tamsulosin 0.4 mg capsule 0.4 mg PO DAILY fluticasone propion-salmeterol 500-50 mcg/dose blister with device 1 ea PO BID metformin 500 mg tablet 500 mg PO QAM fenofibrate micronized 200 mg capsule 200 mg PO DAILY pantoprazole 40 mg tablet,delayed release (DR/EC) 40 mg PO DAILY finasteride 5 mg tablet 5 mg PO DAILY Xarelto 20 mg tablet 20 mg PO BEDTIME trazodone 50 mg tablet 50 mg PO BEDTIME ferrous sulfate 325 mg (65 mg iron) tablet 325 mg PO DAILY loratadine 10 mg tablet 10 mg PO DAILY oxycodone-acetaminophen 7.5-325 mg tablet 1 tab PO Q4H PRN (Reason: pain) melatonin 5 mg tablet 5 mg PO DAILY amlodipine 10 mg tablet 10 mg PO DAILY Qty: 30 5RF metoprolol tartrate 25 mg tablet 25 mg PO BID 30 Days Qty: 60 5RF
[2023-05-24 14:48] VITALS: BP 102/63; BP 95/51; PULSE 75; PULSE 85; RESP 18; TEMP 36.5; O2SAT 95; O2SAT 98; BMI 28.0
[2023-05-24 16:00] VITALS: BP 96/48; PULSE 59; RESP 20; TEMP 36.8; O2SAT 95
[2023-05-24 16:19] LABS: Hematocrit 32.5 % (42.0-52.0); Hemoglobin 12.1 g/dl (14.0-18.0); Mean Corpuscular HGB Conc 37.2 g/dl (31.0-36.0); Mean Corpuscular Hemoglobin 45.5 pg (27.0-33.0); Mean Platelet Volume 11.9 fL (9.4-12.4); Platelet Count 218 X10*3/uL (160-400); Red Blood Count 2.66 X10*6/uL (4.60-5.80)
[2023-05-24 16:44] LABS: INTERNATIONAL NORM RATIO 1.3 (0.9-1.1); Prothrombin Time 15.9 SEC (11.1-13.3)
[2023-05-24 16:53] LABS: B Type Natriuretic Peptide 25 pg/mL (<100)
[2023-05-24 16:58] LABS: Alanine Aminotransferase 15 U/L (0-40); Albumin Level 3.5 g/dL (3.5-5.0); Alkaline Phosphatase 69 U/L (39-117); Anion Gap 11 (12-20); Aspartate Amino Transferase 16 U/L (5-37); Bilirubin Direct 0.1 mg/dL (0.0-0.5); Bilirubin Total 0.4 mg/dL (0.0-1.0); Blood Urea Nitrogen 13 mg/dL (9-16); Calcium 9.4 mg/dL (8.4-10.2); Carbon Dioxide 26 mmol/L (22-29); Chloride 106 mmol/L (96-108); Creatinine Clr Calc Pharmacy 48.6; Estimated Glomerular Filt Rate > 60; Glucose Random 122 mg/dL (60-115); Potassium 4.2 mmol/L (3.3-5.1); Sodium 139 mmol/L (135-145); Total Protein 5.8 g/dL (6.5-8.0)
[2023-05-24 17:01] LABS: Mean Corpuscular Volume 122.2 fL (80.0-98.0); WBC ABN SCTR FOR CBC 1; White Blood Count 5.7 X10*3/uL (4.8-10.8)
[2023-05-24 17:05] LABS: Troponin-I High Sensitivity 9.5 ng/L (<3.5-35.0)
[2023-05-24 17:19] LABS: Atypical Lymph Absolute Manual 0.1 x10*3/uL; Atypical Lymphs Percent Manual 2 % (0-6); Lymphocytes Absolute Manual 1.7 X10*3/uL (1.2-4.9); Lymphocytes Percent Manual 30 % (20-40); Monocytes Absolute Manual 0.3 X10*3/uL (0.1-1.2); Monocytes Percent Manual 6 % (2-11); Neutrophils Percent Manual 62 % (45-73); RBC Morphology NOTED
[2023-05-24 17:22] LABS: Macrocytosis 2+ (15-30) /OIF
[2023-05-24 17:23] LABS: Schistocytes 1+ (0-2) /OIF; Spherocytes 1+ (0-2) /OIF
[2023-05-24 17:24] LABS: Platelet Estimate NORMAL (NORMAL); Platelet Morphology Comment NORMAL
[2023-05-24 17:30] LABS: Band Neutrophils Percent 0 % (3-5); Neutrophils Absolute Manual 3.5 X10*3/uL (2.0-8.3)
--- NOTE | 2023-05-24 18:57 | PC.NURSE ---
late entry - approx 15 min ago noticed pt was not in his room. leodan on bed. cardiac leads on bed. blower and compressor assembler made aware. pt had a 18G in his hand.
--- NOTE | 2023-05-24 19:02 | PC.NURSE ---
call made to pt cell phone with help of frisian speaking staff. pt reports that he is home watching TV. pt reports that he thought he was done in the hospital and that he was bored so he decided to leave. asked about 18G in hand, pt reports he removed it and threw it in the trash. call made to [employer] for wellness check to assure IV removal. footwear production machine operator and MD aware.
--- NOTE | 2023-05-24 19:09 | PC.NURSE ---
contact made with D to check pt for IV. software engineer advisor POOJA made aware that D will be calling back with findings.
== END 2023-05-24 19:11 | disposition left against medical advice (07) ==
PROVIDERS: Emergency Provider Emergency Medicine
DX: R07.89 Other chest pain (principal); I25.10 Atherosclerotic heart disease of native coronary artery without angina pectoris; E10.9 Type 1 diabetes mellitus without complications; R06.02 Shortness of breath; Z79.899 Other long term (current) drug therapy
CPT/HCPCS: 36415; 71045; 80048; 80076; 82550; 83880; 84484; 85007; 85025; 85027; 85610; 93005; 99283; 99284

== ENCOUNTER → 2023-05-24 14:20 | Outpatient (BNV) | payer OTHER, SELFPAY | PROVIDERS: Emergency Provider Emergency Medicine; Visit Provider Internal Medicine Cardiovascular Disease | DX: R94.31 Abnormal electrocardiogram [ECG] [EKG] (principal); I45.10 Unspecified right bundle-branch block | CPT/HCPCS: 93010 ==

== ENCOUNTER 2023-06-05 13:31 | Outpatient (AMB) | payer OTHER, SELFPAY ==
--- NOTE | 2023-06-05 13:32 | MHC.OFFVIS ---
Intake Vital Signs 06/05/23 13:33 Height 5 ft 4 in Weight 162 lb BMI 27.8 Intake Visit Reasons: ov- Right knee OA Intake Note: Aleksandr is an 82 year old male who presents today for a follow up of his right knee OA. Last injection 08/11/2022. Patient reports that this injection was helpful and he would like to repeat injection today Allergies No Known Allergies Allergy (Mild, Verified 06/05/23 13:34) NONE HPI ov- Right knee OA HPI Details Aleksandr is an 82 year old man with right knee OA. He has a hx of steroid injections, with good relief. His most recent injection was on 08/11/22. He complains of pain with daily activity and would like a repeat injection today. [facility] Medical History CAD (coronary artery disease) Diabetes type 1, controlled HTN (hypertension) Hyperlipidemia Paroxysmal atrial fibrillation Surgical History Stented coronary artery Family History Father No problems noted. Mother No problems noted. Social History Current occupational status: disabled Current occupation: Lt handed Review of Systems Const All systems reviewed & are unremarkable except as noted in HPI and below Physical Exam Vital Signs: BMI result Body Mass Index 27.8 Const General: no acute distress, alert and awake Orientation/consciousness: patient oriented x3 HEENT Head: Yes normocephalic and Yes atraumatic Eyes EOM: EOMs intact bilaterally Resp Effort & Inspection: normal respiratory effort and able to speak in complete sentences Cardio Jugular venous distension: no JVD Skin General skin exam: turgor normal Rashes: no rashes Neuro General: patient oriented x3 Extrem Other: Right Knee: Psych Appearance: grossly normal Affect: normal affect Attitude: cooperative Office Procedures Joint Injection/Drain Joint Injection/Drain Details: Injected 1 mL of Decadron and 3 mL 1% lidocaine and 3 mL of 0.25% Marcaine. Site was prepped using aseptic technique. Patient tolerated the procedure well. Primary Site: right knee Approach Used: anterolateral Coding 84585 - Large joint Procedure code (CPT) selection complete Results Reviewed Results Reviewed: 06/05/23 13:33 BUPivacaine MPF 0.25 % [Sensorcaine-MPF 0.25% 10 ML] 10 ml .ROUTE .STK-MED ONE Lidocaine HCl 2 % MPF [Xylocaine 2 % MPF] 5 ml .ROUTE .STK-MED ONE dexAMETHasone sod phosphate [Decadron] 4 mg .ROUTE .STK-MED ONE Assessment & Plan Assessment & Plan (1) Osteoarthritis of right knee: Code(s): M17.11 - Unilateral primary osteoarthritis, right knee Plan: This is an 82 year old man with right knee OA. He has pain with daily activity, and a hx of good relief from steroid injections in the past. I injected his right knee today, which he tolerated well. He can follow up prn. (2) Diabetes type 1, controlled: Code(s): E10.9 - Type 1 diabetes mellitus without complications Plan: I discussed the hyperglycemic effects of steroid injections Plan Scribed for Buddy De La Torre MD by Chandan Banuelos, emergency medical service manager, on 06/05/23 at 1:45 PM, EST. Coding Level of Care Code Est Pt Level 4 (91266) Diagnoses Osteoarthritis of right knee M17.11 Diabetes type 1, controlled E10.9 CPT Codes Coding - 55218 Large joint: 51974 - Large joint ([id number])
[2023-06-05 13:33] VITALS: BMI 27.8
== END 2023-06-05 14:01 | disposition home or self-care (01) ==
PROVIDERS: PCP Family Medicine; Visit Provider Orthopaedic Surgery
DX: M17.11 Unilateral primary osteoarthritis, right knee (principal)
CPT/HCPCS: 20610; 99214

== ENCOUNTER → 2023-06-05 13:31 | Outpatient (BNVA) | payer OTHER, SELFPAY | PROVIDERS: PCP Family Medicine; Visit Provider Orthopaedic Surgery | DX: M17.11 Unilateral primary osteoarthritis, right knee (principal); E10.9 Type 1 diabetes mellitus without complications; Z79.52 Long term (current) use of systemic steroids | CPT/HCPCS: 20610; 99212; J1100 ==

== ENCOUNTER 2023-07-27 04:03 | Emergency (ER) | payer OTHER, SELFPAY ==
--- NOTE | ~2023-07-27 | CT_ITS ---
EXAMINATION: CT ABDOMEN AND PELVIS WITHOUT CONTRAST CLINICAL INFORMATION: Abdominal pain. COMPARISON: 11/24/2021 TECHNIQUE: Multidetector volumetric imaging was performed from the superior aspect of the liver through the pubic symphysis. Sagittal and coronal reformatted images were obtained on the technologist's workstation. Patient refused intravenous contrast. This CT examination was performed using dose optimization techniques as appropriate, variously including the following: *Automated exposure control *Adjustment of mA and/or kV according to patient size (this includes techniques or standardized protocols for targeted exams where dose is matched to indication/reason for exam; i.e. extremities or head) *Use of iterative reconstruction technique DLP: 471 mGy-cm FINDINGS: LUNG BASES: No pleural or pericardial effusion. LIVER, GALLBLADDER, AND BILIARY TREE: The noncontrast liver is normal in size and contour. No biliary ductal dilatation is present. The gallbladder is unremarkable with no evidence of radiopaque gallstones, gallbladder wall thickening, or obvious pericholecystic inflammatory changes. PANCREAS: Unremarkable. SPLEEN: Not enlarged. Chronic granulomatous disease. ADRENAL GLANDS: Unremarkable. KIDNEYS AND URETERS: The kidneys are normal in size, shape, and attenuation. No hydronephrosis. No perinephric stranding. BLADDER: Unremarkable. GASTROINTESTINAL TRACT: Small hiatal hernia. Diverticular disease of the colon. Appendix is within normal limits. No small bowel obstruction. ABDOMINAL WALL: No significant hernia is appreciated. LYMPH NODES: No bulky abdominal or pelvic lymphadenopathy. VASCULAR: Normal caliber abdominal aorta. PELVIC VISCERA: Enlarged prostate gland. OSSEOUS STRUCTURES: No destructive bone lesions. Avascular necrosis of the femoral heads is suspected. CT/CT abdomen pelvis wo IV con IMPRESSION: No acute abnormality in the abdomen or pelvis.
[2023-07-27 04:33] VITALS: BP 143/83; PULSE 68; RESP 18; TEMP 36.8; O2SAT 97; BMI 29.5
--- NOTE | 2023-07-27 04:46 | ECG_ITS ---
Test Reason : ABD PAIN Blood Pressure : / mmHG Vent. Rate : 081 BPM Atrial Rate : 081 BPM P-R Int : 176 ms QRS Dur : 142 ms QT Int : 410 ms P-R-T Axes : 049 -18 006 degrees QTc Int : 476 ms Normal sinus rhythm Right bundle branch block Abnormal ECG When compared with ECG of 24-MAY-2023 15:02, Fusion complexes are no longer Present Referred By: Yelena Metzger Electronically Signed By:OPAL JUAN MD
[2023-07-27 06:01] LABS: Alanine Aminotransferase 12 U/L (0-40); Albumin Level 4.3 g/dL (3.5-5.0); Alkaline Phosphatase 77 U/L (39-117); Anion Gap 17 (12-20); Aspartate Amino Transferase 23 U/L (5-37); Bilirubin Total 0.9 mg/dL (0.0-1.0); Blood Urea Nitrogen 13 mg/dL (9-16); Calcium 10.1 mg/dL (8.4-10.2); Carbon Dioxide 22 mmol/L (22-29); Chloride 103 mmol/L (96-108); Creatinine Clr Calc Pharmacy 79.8; Estimated Glomerular Filt Rate > 60; Glucose Random 140 mg/dL (60-115); Sodium 138 mmol/L (135-145); Total Protein 7.1 g/dL (6.5-8.0)
[2023-07-27 06:36] LABS: Hematocrit 35.7 % (42.0-52.0); Mean Platelet Volume 12.9 fL (9.4-12.4); PLT CLUMP 1; Red Blood Count 3.01 X10*6/uL (4.60-5.80)
[2023-07-27 06:48] LABS: Mean Corpuscular Volume 118.6 fL (80.0-98.0)
[2023-07-27 06:49] LABS: WBC ABN SCTR FOR CBC 1; White Blood Count 6.9 X10*3/uL (4.8-10.8)
[2023-07-27] MEDS: oxyCODONE HCl Immed Release 5 MG TABLET PO ×2 (06:54→10:19)
[2023-07-27 06:55] LABS: Mean Corpuscular HGB Conc 30.8 g/dl (31.0-36.0); Mean Corpuscular Hemoglobin 36.5 pg (27.0-33.0); Platelet Count 202 X10*3/uL (160-400)
[2023-07-27 07:19] LABS: Band Neutrophils Percent 0 % (3-5); Lymphocytes Absolute Manual 1.5 X10*3/uL (1.2-4.9); Lymphocytes Percent Manual 22 % (20-40); Monocytes Absolute Manual 0.1 X10*3/uL (0.1-1.2); Monocytes Percent Manual 1 % (2-11); Neutrophils Absolute Manual 5.3 X10*3/uL (2.0-8.3); Neutrophils Percent Manual 77 % (45-73)
[2023-07-27 07:23] LABS: Acanthocytes 2+ (3-5) /OIF; Macrocytosis 2+ (15-30) /OIF; Microcytosis 1+ (5-14) /OIF; Ovalocytes 1+ (5-14) /OIF; Platelet Estimate NORMAL (NORMAL); Platelet Morphology Comment NORMAL; RBC Morphology NOTED; Schistocytes 1+ (0-2) /OIF; Tear Drop Cells 1+ (0-2) /OIF
[2023-07-27 07:24] LABS: Burr Cells 1+ (0-2) /OIF; Hypersegmented Neutrophils PRESENT; Polychromasia 1+ (0-2) /OIF
--- NOTE | 2023-07-27 07:27 | ED.NAVMDI ---
HPI - Nausea/Vomiting/Diarrhea General Chief complaint: Nausea/Vomiting/Diarrhea Stated complaint: vomiting Time Seen by Provider: 07/27/23 04:46 Source: patient, EMS and personal counselor Mode of arrival: EMS History of Present Illness HPI Narrative: 82-year-old male who presents via EMS for nausea, vomiting that started last night. Patient informs me that he has full body discomfort and that he typically takes Percocet that is prescribed to him by his primary care doctor and states that he has run out of the medication. He otherwise denies any fever or chills. Related Data Home Medications Medication Instructions Recorded Confirmed fenofibrate micronized 200 mg 200 mg PO DAILY 10/26/20 05/22/23 capsule ferrous sulfate 325 mg (65 mg 325 mg PO DAILY 10/26/20 05/22/23 iron) tablet finasteride 5 mg tablet 5 mg PO DAILY 10/26/20 05/22/23 fluticasone 500 mcg-salmeterol 50 1 ea PO BID 10/26/20 05/22/23 mcg/dose blistr powdr for inhalation hydrochlorothiazide 25 mg tablet 25 mg PO DAILY 10/26/20 05/22/23 ipratropium 0.5 mg-albuterol 3 mg 3 ml inhalation QID PRN 10/26/20 05/22/23 (2.5 mg base)/3 mL nebulization soln lisinopril 40 mg tablet 40 mg PO DAILY 10/26/20 05/22/23 loratadine 10 mg tablet 10 mg PO DAILY 10/26/20 05/22/23 metformin 500 mg tablet 500 mg PO QAM 10/26/20 05/22/23 oxycodone-acetaminophen 7.5 mg-325 1 tab PO Q4H PRN pain 10/26/20 05/22/23 mg tablet pantoprazole 40 mg tablet,delayed 40 mg PO DAILY 10/26/20 05/22/23 release rivaroxaban 20 mg tablet 20 mg PO BEDTIME 10/26/20 05/22/23 rosuvastatin 40 mg tablet 40 mg PO BEDTIME 10/26/20 05/22/23 tamsulosin 0.4 mg capsule 0.4 mg PO DAILY 10/26/20 05/22/23 trazodone 50 mg tablet 50 mg PO BEDTIME 10/26/20 05/22/23 melatonin 5 mg tablet 5 mg PO DAILY 08/16/22 05/22/23 Previous Rx's Medication Instructions Recorded benzonatate 200 mg capsule 200 mg PO TID PRN cough #10 caps 10/08/22 ezetimibe 10 mg tablet 10 mg PO DAILY 90 days #90 tabs 11/14/22 isosorbide mononitrate 60 mg 60 mg PO QAM #90 tabs 11/14/22 tablet,extended release 24 hr amlodipine 10 mg tablet 10 mg PO DAILY #30 tabs 05/22/23 metoprolol tartrate 25 mg tablet 25 mg PO BID 30 days #60 tabs 05/22/23 Allergies Allergy/AdvReac Type Severity Reaction Status Date / Time No Known Allergies Allergy Mild NONE Verified 06/05/23 13:34 Review of Systems Review of Systems: Pertinent positives and negatives as stated in [facility] Past Medical History Source: nursing notes reviewed Medical History Diabetes type 1, controlled Paroxysmal atrial fibrillation CAD (coronary artery disease) HTN (hypertension) Hyperlipidemia Surgical History Stented coronary artery Family History Family History Father No problems noted. Mother No problems noted. Social History Social History Advance Directives: No Advance Directives Information Provided: Yes Current occupational status: disabled Current occupation: Lt handed Physical Exam Vital Signs: Vital Signs: Last Vital Signs Temp 98.3 F 07/27/23 04:33 Pulse 104 H 07/27/23 07:30 Resp 21 H 07/27/23 07:30 BP 150/78 H 07/27/23 07:30 Pulse Ox 93 07/27/23 07:30 O2 Del Method Room Air 07/27/23 07:30 BMI result Body Mass Index 29.5 VITAL SIGNS: Reviewed. GENERAL: Well developed, well nourished, in moderate distress. HEAD: Normocephalic/atraumatic EYES: PERRLA, EOMI EARS: Ext canals without abnormality NOSE: Nares patent bilateral OROPHARYNX: no oral lesions noted, posterior pharynx clear NECK: Supple, no adenopathy LUNGS: Normal breath sounds. No adventitious sounds or accessory muscle use. SpO2<97> CARDIOVASCULAR: Regular rate and rhythm without noted murmurs ABDOMEN: Soft, non-tender, non-distended with bowel sounds. MUSCULOSKELETAL: No tenderness, deformities, or effusions noted on gross inspection. EXTREMITIES: No cyanosis, clubbing or edema. SKIN: Inspection of the skin reveals no rashes NEUROLOGIC: Alert and oriented x 4. Strength and sensation to light touch were grossly intact x 4. Medications Administered Discontinued Medications Generic Name Dose Route Start Last Admin Trade Name Freq PRN Reason Stop Dose Admin Oxycodone HCl 5 mg 07/27/23 06:45 07/27/23 06:54 Oxycodone Hcl Immed Release 5 Mg Tablet PO 07/27/23 06:46 5 mg ONCE ONE Administration Medical Decision Making Medical Decision Making [facility] Narrative: 82-year-old male with history and clinical presentation not consistent with an SBO, on abdominal exam patient is very benign. I reviewed all investigations and hematologic indices are negative for leukocytosis that there is a mild left shift, otherwise there is a chronically stable macrocytic anemia and no thrombocytopenia. Chemistry indices negative for ILIA and there is no electrolyte or liver enzyme abnormalities. There is no evidence of metabolic acidosis although the beta hydroxybutyrate is trace elevated at 0.3. Patient received 5 mg of oxycodone for pain and will undergo a CT scan of abdomen and pelvis although I have low clinical suspicion for intra-abdominal pathology. There is a possibility that this may be a gastro paresis. Signed out to Dr. Lowe. -follow-up CT scan abdomen and pelvis -consider gastroparesis Differential Diagnosis Differential Diagnoses: The differential diagnosis associated with the presentation includes Please see the discussion above Admission/Observation Consideration of admission/observation: Escalation of care including admission/observation considered Please see the discussion above Lab Data [facility] Lab Attestation statement: I reviewed the patient's lab results. Please see the discussion above 07/27/23 05:23 07/27/23 05:23 Labs: Lab Results 07/27/23 Range/Units 05:23 WBC 6.9 (4.8-10.8) X10*3/uL RBC 3.01 L (4.60-5.80) X10*6/uL Hgb 11.0 L (14.0-18.0) g/dl Hct 35.7 L (42.0-52.0) % MCV 118.6 H (80.0-98.0) fL MCH 36.5 H (27.0-33.0) pg MCHC 30.8 L (31.0-36.0) g/dl RDW Not Reportable Plt Count 202 (160-400) X10*3/uL MPV 12.9 H (9.4-12.4) fL Immature Gran % (Auto) Cancelled Neut % (Auto) Cancelled Lymph % (Auto) Cancelled [place] % (Auto) Cancelled Eos % (Auto) Cancelled Baso % (Auto) Cancelled Lymph # (Auto) Cancelled [place] # (Auto) Cancelled Eos # (Auto) Cancelled Baso # (Auto) Cancelled Abs Immat Gran (auto) Cancelled Absolute Neuts (auto) Cancelled Absolute Nucleated RBC 0.000 (0.0-0.012) X10*3/uL Nucleated RBC % (auto) 0.0 (0.0-0.2) /100WBC Neutrophils % (Manual) 77 H (45-73) % Band Neutrophils % 0 L (3-5) % Lymphocytes % (Manual) 22 (20-40) % Monocytes % (Manual) 1 L (2-11) % Abs Neuts (Manual) 5.3 (2.0-8.3) X10*3/uL Lymphocytes # (Manual) 1.5 (1.2-4.9) X10*3/uL Monocytes # (Manual) 0.1 (0.1-1.2) X10*3/uL Hypersegmented Neuts PRESENT Platelet Estimate NORMAL (NORMAL) Plt Morphology Comment NORMAL RBC Morphology NOTED Polychromasia 1+ (0-2) /OIF Microcytosis 1+ (5-14) /OIF Macrocytosis 2+ (15-30) /OIF Tear Drop Cells 1+ (0-2) /OIF Ovalocytes 1+ (5-14) /OIF [place] Cells 1+ (0-2) /OIF Acanthocytes (Spur) 2+ (3-5) /OIF Schistocytes 1+ (0-2) /OIF Hold Blue Top SEE NOTE Sodium 138 (135-145) mmol/L Potassium 4.0 (3.3-5.1) mmol/L Chloride 103 (96-108) mmol/L Carbon Dioxide 22 (22-29) mmol/L Anion Gap 17 (12-20) BUN 13 (9-16) mg/dL Creatinine 0.78 (0.5-1.4) mg/dL Estim Creat Clear Calc 79.8 Estimated GFR > 60 Random Glucose 140 H (60-115) mg/dL Calcium 10.1 D (8.4-10.2) mg/dL Total Bilirubin 0.9 (0.0-1.0) mg/dL AST 23 (5-37) U/L ALT 12 (0-40) U/L Alkaline Phosphatase 77 (39-117) U/L Total Protein 7.1 (6.5-8.0) g/dL Albumin 4.3 (3.5-5.0) g/dL Beta-Hydroxybutyrate 0.30 H (0.02-0.27) mmol/L Independent Interpretation I performed an independent interpretation of an: EKG Interpretation: Normal sinus rhythm, HR-81, RBBB if baseline, no STEMI, GA/QTC is within normal limits. Discharge Plan Discharge Clinical Impression: Chronic pain, Epigastric discomfort Patient Disposition: Still a Patient Prescriptions: No Action ezetimibe 10 mg tablet 10 mg PO DAILY 90 Days Qty: 90 3RF isosorbide mononitrate 60 mg tablet extended release 24 hr 60 mg PO QAM Qty: 90 3RF benzonatate 200 mg capsule 200 mg PO TID PRN (Reason: cough) Qty: 10 0RF rosuvastatin 40 mg tablet 40 mg PO BEDTIME hydrochlorothiazide 25 mg tablet 25 mg PO DAILY lisinopril 40 mg tablet 40 mg PO DAILY ipratropium-albuterol 0.5 mg-3 mg(2.5 mg base)/3 mL solution for nebulization 3 ml inhalation QID PRN tamsulosin 0.4 mg capsule 0.4 mg PO DAILY fluticasone propion-salmeterol 500-50 mcg/dose blister with device 1 ea PO BID metformin 500 mg tablet 500 mg PO QAM fenofibrate micronized 200 mg capsule 200 mg PO DAILY pantoprazole 40 mg tablet,delayed release (DR/EC) 40 mg PO DAILY finasteride 5 mg tablet 5 mg PO DAILY Xarelto 20 mg tablet 20 mg PO BEDTIME trazodone 50 mg tablet 50 mg PO BEDTIME ferrous sulfate 325 mg (65 mg iron) tablet 325 mg PO DAILY loratadine 10 mg tablet 10 mg PO DAILY oxycodone-acetaminophen 7.5-325 mg tablet 1 tab PO Q4H PRN (Reason: pain) melatonin 5 mg tablet 5 mg PO DAILY amlodipine 10 mg tablet 10 mg PO DAILY Qty: 30 5RF metoprolol tartrate 25 mg tablet 25 mg PO BID 30 Days Qty: 60 5RF
[2023-07-27 07:30] VITALS: BP 150/78; PULSE 104; RESP 21; O2SAT 93
--- NOTE | 2023-07-27 07:53 | PC.NURSE ---
Alert and oriented, reports 8/10 chronic pain, off to CT at this time
== END 2023-07-27 11:01 | disposition home or self-care (01) ==
PROVIDERS: Student in an Organized Health Care Education/Training Program; Emergency Provider Emergency Medicine
DX: G89.4 Chronic pain syndrome (principal); R10.13 Epigastric pain; E10.9 Type 1 diabetes mellitus without complications; I10 Essential (primary) hypertension; E78.5 Hyperlipidemia, unspecified; I48.0 Paroxysmal atrial fibrillation; Z79.899 Other long term (current) drug therapy; Z79.84 Long term (current) use of oral hypoglycemic drugs; Z79.01 Long term (current) use of anticoagulants
CPT/HCPCS: 36415; 74176; 80053; 82010; 85007; 85025; 85027; 93005; 99284; 99285

== ENCOUNTER 2023-09-22 09:31 | Outpatient (AMB) | payer OTHER, SELFPAY ==
--- NOTE | 2023-09-22 09:52 | A.OFFVIS_ITS ---
Intake Intake Visit Reasons: ov- Right knee OA Allergies No Known Allergies Allergy (Mild, Verified 06/05/23 13:34) NONE HPI ov- Right knee OA HPI Details Aleksandr is an 82 year old Diabetic man with right knee OA. He has a hx of steroid injections, with good relief. His most recent injection was on 06/05/23. He complains of pain with daily activity and would like a repeat injection today. He uses daily Percocets for pain relief. [facility] Medical History Diabetes type 1, controlled Paroxysmal atrial fibrillation CAD (coronary artery disease) HTN (hypertension) Hyperlipidemia Surgical History Stented coronary artery Family History Father No problems noted. Mother No problems noted. Social History Current occupational status: disabled Current occupation: Lt handed Review of Systems Const All systems reviewed & are unremarkable except as noted in HPI and below Physical Exam Const General: no acute distress, alert and awake Orientation/consciousness: patient oriented x3 HEENT Head: Yes normocephalic and Yes atraumatic Eyes EOM: EOMs intact bilaterally Resp Effort & Inspection: normal respiratory effort and able to speak in complete sentences Cardio Jugular venous distension: no JVD Skin General skin exam: turgor normal Rashes: no rashes Neuro General: patient oriented x3 Extrem Other: right knee with ttp joitn line and trace effusion 5-130 deg Psych Appearance: grossly normal Affect: normal affect Attitude: cooperative Office Procedures Joint Injection/Drain Joint Injection/Drain Details: Injected 1 mL of Decadron and 3 mL 1% lidocaine and 3 mL of 0.25% Marcaine. Site was prepped using aseptic technique. Patient tolerated the procedure well. Primary Site: right knee Approach Used: anterolateral Coding 51990 - Large joint Procedure code (CPT) selection complete Assessment & Plan Assessment & Plan (1) Osteoarthritis of right knee: Code(s): M17.11 - Unilateral primary osteoarthritis, right knee Plan: Injected right knee. (2) Diabetes type 1, controlled: Code(s): E10.9 - Type 1 diabetes mellitus without complications Plan: Warned of hyperglycemic effects of steroids Plan Scribed for Buddy De La oTrre MD by Chandan Banuelos, medical management trainer, on 09/22/23 at 10:15 AM, EST. Coding Level of Care Code Est Pt Level 4 (46179) Diagnoses Osteoarthritis of right knee M17.11 Diabetes type 1, controlled E10.9 CPT Codes Coding - 27059 Large joint: 30093 - Large joint ([id number])
== END 2023-09-22 10:55 | disposition home or self-care (01) ==
PROVIDERS: Visit Provider Orthopaedic Surgery
DX: M17.11 Unilateral primary osteoarthritis, right knee (principal); E10.9 Type 1 diabetes mellitus without complications
CPT/HCPCS: 20610; 99213

== ENCOUNTER → 2023-09-22 09:31 | Outpatient (BNVA) | payer OTHER, SELFPAY | PROVIDERS: Visit Provider Orthopaedic Surgery | DX: M17.11 Unilateral primary osteoarthritis, right knee (principal); E10.9 Type 1 diabetes mellitus without complications | CPT/HCPCS: 20610; 99212; J0665; J1100 ==

== ENCOUNTER 2023-11-12 14:35 | Emergency (ER) | payer OTHER, SELFPAY ==
--- NOTE | ~2023-11-12 | CT_ITS ---
EXAMINATION: CT ABDOMEN AND PELVIS WITHOUT CONTRAST CLINICAL INFORMATION: Abdominal pain. Small bowel obstruction. Constipation. COMPARISON: None available. TECHNIQUE: Multidetector volumetric imaging was performed from the superior aspect of the liver through the pubic symphysis. Sagittal and coronal reformatted images were obtained on the technologist's workstation. This CT examination was performed using dose optimization techniques as appropriate, variously including the following: *Automated exposure control *Adjustment of mA and/or kV according to patient size (this includes techniques or standardized protocols for targeted exams where dose is matched to indication/reason for exam; i.e. extremities or head) *Use of iterative reconstruction technique DLP: 325 mGy-cm FINDINGS: LUNG BASES: Heart upper normal in size. Severe coronary arterial calcification. Calcification of the aortic valve. No pericardial effusion. Mild bibasilar dependent changes. No effusion. LIVER, GALLBLADDER, AND BILIARY TREE: The liver appears unremarkable in size, shape, and attenuation. No focal hepatic lesion or biliary ductal dilatation is appreciated. Unremarkable appearance of the gallbladder. PANCREAS: Unremarkable SPLEEN: Punctate calcified splenic granulomata. ADRENAL GLANDS: Unremarkable KIDNEYS AND URETERS: The kidneys appear unremarkable in size, shape, and attenuation. No hydronephrosis, hydroureter, or calculi seen. BLADDER: Unremarkable GASTROINTESTINAL TRACT: Unremarkable appearance of the stomach and small bowel on this noncontrast study. Diverticulosis predominantly involving the sigmoid and descending colon, without evidence of diverticulitis. Normal-appearing distal ileum and vermiform appendix. ABDOMINAL WALL: No significant hernia is appreciated. LYMPH NODES: No evidence of adenopathy by size criteria. VASCULAR: Tortuous arteries suggesting hypertension. PELVIC VISCERA: Mildly enlarged prostate. OSSEOUS STRUCTURES: Subchondral lytic and sclerotic changes of the femoral heads, right greater than left. Mild bilateral hip joint space narrowing. Mild degenerative changes of the lumbar spine with mild lumbar dextrocurvature. CT/CT abdomen pelvis wo IV con IMPRESSION: No acute finding. Severe coronary arterial calcification. Subchondral lytic and sclerotic changes of the femoral heads suspicious for early avascular necrosis, right greater than left. Additional findings, as above.
--- NOTE | ~2023-11-12 | XR_ITS ---
EXAMINATION: XR CHEST CLINICAL INFORMATION: Shortness of breath. COMPARISON: Prior chest radiographs, most recently 05/24/2023; CT chest dated 12/12/2012. TECHNIQUE: A PA view of the chest was obtained. FINDINGS: The heart, great vessels, pulmonary vasculature and mediastinum are stable. There is stable elevation of the right hemidiaphragm. There is very mild posterior right base atelectasis, similar to 06/22/2022. There is slight blunting of the left lateral costophrenic angle. No infiltrate, effusion or pneumothorax is seen. There is no acute osseous abnormality. XR/XR chest 1V IMPRESSION: No active cardiopulmonary disease. There is no significant interim change.
--- NOTE | ~2023-11-12 | XR_ITS ---
EXAMINATION: XR ABDOMEN KUB CLINICAL INDICATION: Constipation. Evaluate for small bowel obstruction COMPARISON: CT abdomen and pelvis 07/27/2023 TECHNIQUE: AP view of the abdomen. FINDINGS: The bowel gas pattern is normal with no evidence of ileus or obstruction. No unusual soft tissue calcifications are noted. The bones are unremarkable. XR/XR KUB IMPRESSION: Nonobstructive bowel gas pattern. Moderate gaseous distention of the colon.
[2023-11-12 14:43] VITALS: BP 122/58; PULSE 70; RESP 18; TEMP 36.4; O2SAT 94; BMI 24.1
--- NOTE | 2023-11-12 14:55 | ED_ITS ---
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 He reports he has not had a good bowel movement in 7 days. He reports some mild generalized abdominal discomfort. Denies any rectal pain or bleeding. His pain is overall a 4/10. He states that he has been eating less due to decreased appetite pain Denies any history of abdominal surgeries. He reports that he is still passing gas Denies any difficulty urinating No other complaints or concerns at this time Related Data Home Medications Medication Instructions Recorded Confirmed fenofibrate micronized 200 mg 200 mg PO DAILY 10/26/20 05/22/23 capsule ferrous sulfate 325 mg (65 mg 325 mg PO DAILY 10/26/20 05/22/23 iron) tablet finasteride 5 mg tablet 5 mg PO DAILY 10/26/20 05/22/23 fluticasone 500 mcg-salmeterol 50 1 ea PO BID 10/26/20 05/22/23 mcg/dose blistr powdr for inhalation hydrochlorothiazide 25 mg tablet 25 mg PO DAILY 10/26/20 05/22/23 ipratropium 0.5 mg-albuterol 3 mg 3 ml inhalation QID PRN 10/26/20 05/22/23 (2.5 mg base)/3 mL nebulization soln lisinopril 40 mg tablet 40 mg PO DAILY 10/26/20 05/22/23 loratadine 10 mg tablet 10 mg PO DAILY 10/26/20 05/22/23 metformin 500 mg tablet 500 mg PO QAM 10/26/20 05/22/23 oxycodone-acetaminophen 7.5 mg-325 1 tab PO Q4H PRN pain 10/26/20 05/22/23 mg tablet pantoprazole 40 mg tablet,delayed 40 mg PO DAILY 10/26/20 05/22/23 release rivaroxaban 20 mg tablet 20 mg PO BEDTIME 10/26/20 05/22/23 rosuvastatin 40 mg tablet 40 mg PO BEDTIME 10/26/20 05/22/23 tamsulosin 0.4 mg capsule 0.4 mg PO DAILY 10/26/20 05/22/23 trazodone 50 mg tablet 50 mg PO BEDTIME 10/26/20 05/22/23 melatonin 5 mg tablet 5 mg PO DAILY 08/16/22 05/22/23 Previous Rx's Medication Instructions Recorded benzonatate 200 mg capsule 200 mg PO TID PRN cough #10 caps 10/08/22 ezetimibe 10 mg tablet 10 mg PO DAILY 90 days #90 tabs 11/14/22 isosorbide mononitrate 60 mg 60 mg PO QAM #90 tabs 11/14/22 tablet,extended release 24 hr amlodipine 10 mg tablet 10 mg PO DAILY #30 tabs 05/22/23 metoprolol tartrate 25 mg tablet 25 mg PO BID 30 days #60 tabs 05/22/23 magnesium citrate 300 ml PO DAILY PRN constipation 11/12/23 #296 mL polyethylene glycol 3350 17 gram 17 g PO DAILY PRN constipation 2 11/12/23 oral powder packet (Miralax) weeks #30 ea Allergies Allergy/AdvReac Type Severity Reaction Status Date / Time No Known Allergies Allergy Mild NONE Verified 11/12/23 14:46 Review of Systems 2 Constitutional: Constitutional: Denies chills and Denies fever(s) Eyes: Eyes: Denies blurry vision Cardiovascular: Cardiovascular: Denies chest pain and Denies dyspnea Respiratory: Respiratory: Denies cough and Denies dyspnea Gastrointestinal: Gastrointestinal: Reports abdominal pain, Reports constipation, Denies nausea and Denies vomiting Musculoskeletal: Musculoskeletal: Denies back pain Integumentary/Breasts: Skin/Breast: Denies rash PMFSH Past Medical History Medical History Diabetes type 1, controlled Paroxysmal atrial fibrillation CAD (coronary artery disease) HTN (hypertension) Hyperlipidemia Surgical History Stented coronary artery Family History Family History Father No problems noted. Mother No problems noted. Social History Social History Advance Directives: No Advance Directives Information Provided: No Current occupational status: disabled Current occupation: Lt handed Physical Exam ED Vital Signs: Vital Signs - 24 hr 11/12/23 14:43 11/12/23 16:38 11/12/23 17:50 Temperature 97.6 F 97.8 F 97.4 F Pulse Rate 70 67 64 Respiratory Rate 18 16 16 Blood Pressure 122/58 L 124/57 L 107/58 L Pulse Oximetry 94 95 97 Oxygen Delivery Method Room Air Room Air Room Air 11/12/23 20:02 Temperature 97.9 F Pulse Rate 65 Respiratory Rate 17 Blood Pressure 114/61 Pulse Oximetry 94 Oxygen Delivery Method Room Air BMI result Body Mass Index 24.1 Const General: healthy appearing, comfortable, no acute distress, alert and awake Nutritional Appearance: well nourished Orientation/consciousness: patient oriented x3 HENMT Head: Yes normocephalic and Yes atraumatic Eyes Eyelids: Yes eyelids normal Conjunctivae: conjunctivae normal Sclerae: sclerae normal Corneas: corneas normal Pupils: Equal, round and reactive pupils present EOM: EOMs intact bilaterally Neck Neck: Yes full ROM Resp Effort & Inspection: normal respiratory effort, able to speak in complete sentences and not labored GI Inspection: No distended Palpation (GI): Soft to palpation, not firm, nontender, no guarding and not rigid Skin General skin exam: elasticity normal Neuro General: patient oriented x3 Cranial nerves: Yes Equal, round and reactive pupils present and Yes Bilaterally intact EOM present Cognition (Neuro): normal cognition Extrem Other: Moving all extremities well without any obvious deformities Course Course Course Narrative: RME: 83 yold male presents to the ED for constipation for the past 7 days. Patient states he has been taking lactulose with no relief. Patient states nausea. Patient states no dysuria, hematuria, flank pain, fever, or chills. Abdominal CT scan labs ordered. Patient to be brought back to the ED. during lab draw at triage patient then stated he had some shortness of breath will do cardiac labs. Reevaluation(s) Reevaluation #1: Patient refused IV contrast due to ?not wanting to feel that warm sensation when the contrast is injected. ? The CT was completed without contrast Time: 18:40 Medical Decision Making Medical Decision Making MDM Narrative: 83-year-old male presents for evaluation of constipation. I have a low suspicion for obstruction is she has no risk factors, no previous obstructions or abdominal surgeries. He is passing gas. Will get a CT scan to rule out obstruction. Patient's labs show a mild anemia consistent with his baseline. He has no significant electrolyte abnormalities. Normal renal function. LFTs within normal limits. Differential Diagnosis Differential Diagnoses: The differential diagnosis associated with the presentation includes Constipation Abdominal pain Colitis Diverticulitis Bowel obstruction Lab Data MDM Lab Attestation statement: I reviewed the patient's lab results. As above 11/12/23 15:05 11/12/23 15:05 Labs: Lab Results 11/12/23 11/12/23 Range/Units 15:05 17:06 WBC 5.6 (4.8-10.8) X10*3/uL RBC 2.78 L (4.60-5.80) X10*6/uL Hgb 12.6 L (14.0-18.0) g/dl Hct 32.6 L (42.0-52.0) % MCV 117.3 H (80.0-98.0) fL MCH 45.3 H (27.0-33.0) pg MCHC 38.7 H (31.0-36.0) g/dl RDW TNP Plt Count 261 D (160-400) X10*3/uL MPV 11.5 (9.4-12.4) fL Immature Gran % (Auto) Cancelled Neut % (Auto) Cancelled Lymph % (Auto) Cancelled [place] % (Auto) Cancelled Eos % (Auto) Cancelled Baso % (Auto) Cancelled Lymph # (Auto) Cancelled [place] # (Auto) Cancelled Eos # (Auto) Cancelled Baso # (Auto) Cancelled Abs Immat Gran (auto) Cancelled Absolute Neuts (auto) Cancelled Absolute Nucleated RBC 0.000 (0.0-0.012) X10*3/uL Nucleated RBC % (auto) 0.0 (0.0-0.2) /100WBC Neutrophils % (Manual) 50 (45-73) % Band Neutrophils % 0 L (3-5) % Lymphocytes % (Manual) 45 H (20-40) % Monocytes % (Manual) 2 (2-11) % Eosinophils % (Manual) 2 (0-4) % Basophils % (Manual) 1 (0-2) % Abs Neuts (Manual) 2.8 (2.0-8.3) X10*3/uL Lymphocytes # (Manual) 2.5 (1.2-4.9) X10*3/uL Monocytes # (Manual) 0.1 (0.1-1.2) X10*3/uL Eosinophils # (Manual) 0.1 (0.0-0.4) X10*3/uL Basophils # (Manual) 0.1 (0.0-0.2) X10*3/uL Hypersegmented Neuts PRESENT Toxic Vacuolation PRESENT Platelet Estimate NORMAL (NORMAL) Large Platelets PRESENT Plt Morphology Comment NOTED RBC Morphology NOTED Hypochromasia 1+ (5-14) /OIF Basophilic Stippling 1+ (0-2) /OIF Microcytosis 1+ (5-14) /OIF Macrocytosis 2+ (15-30) /OIF Spherocytes 1+ (0-2) /OIF Pappenheimer Bodies PRESENT Tear Drop Cells 1+ (0-2) /OIF Ovalocytes 2+ (15-30) /OIF Soriano-Choudrant Bodies PRESENT Rouleaux PRESENT Schistocytes 2+ (3-5) /OIF PT 33.0 H D (11.1-13.3) SEC INR 2.7 H (0.9-1.1) APTT 46.8 H (26.0-36.4) SEC Sodium 139 (135-145) mmol/L Potassium 3.7 (3.3-5.1) mmol/L Chloride 103 (96-108) mmol/L Carbon Dioxide 26 (22-29) mmol/L Anion Gap 14 (12-20) BUN 16 (9-16) mg/dL Creatinine 1.01 (0.5-1.4) mg/dL Estim Creat Clear Calc 47.3 Estimated GFR > 60 Random Glucose 100 (60-115) mg/dL Calcium 9.4 D (8.4-10.2) mg/dL Total Bilirubin 0.6 (0.0-1.0) mg/dL AST 18 (5-37) U/L ALT 17 (0-40) U/L Alkaline Phosphatase 68 (39-117) U/L Troponin I High Sens 11.3 (<3.5-35.0) ng/L Total Protein 6.3 L (6.5-8.0) g/dL Albumin 3.9 (3.5-5.0) g/dL Urine Color Yellow Urine Appearance Clear Urine pH 5.5 (5.0-9.0) Ur Specific [place] 1.020 (1.005-1.025) Urine Protein Negative (Neg-Trace) mg/dL Urine Glucose (UA) Negative (Negative) mg/dL Urine Ketones Trace (Negative) mg/dL Urine Blood Negative (Negative) Urine Nitrite Negative (Negative) Ur Leukocyte Esterase Negative (Negative) Independent Interpretation I performed an independent interpretation of an: CT Scan (Nonobstructive bowel gas pattern. No evidence of fecal impaction) Radiology Impression Discussion of test interpretation with radiology: I have reviewed the radiologist's reading. Radiologist Impression: No acute finding. Severe coronary arterial calcification. Possible early avascular necrosis right greater than left hip Discharge Plan Discharge Clinical Impression: Abdominal pain, Constipation Patient Disposition: Home, Self-Care Instructions: Constipation (ED) Additional Instructions: Your workup in the emergency room today was reassuring. 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 this can be followed up with your primary doctor Take MiraLax every night for the next 2 weeks Drink magnesium citrate, the entire bottle within 24 hours to facilitate bowel movements Increase fluid and fiber intake in your diet Follow-up with your primary doctor Prescriptions: New magnesium citrate Solution 300 ml PO DAILY PRN (Reason: constipation) Qty: 296 0RF polyethylene glycol 3350 [Miralax] 17 gram powder in packet 17 g PO DAILY PRN (Reason: constipation) 14 Days Qty: 30 0RF No Action ezetimibe 10 mg tablet 10 mg PO DAILY 90 Days Qty: 90 3RF isosorbide mononitrate 60 mg tablet extended release 24 hr 60 mg PO QAM Qty: 90 3RF benzonatate 200 mg capsule 200 mg PO TID PRN (Reason: cough) Qty: 10 0RF rosuvastatin 40 mg tablet 40 mg PO BEDTIME hydrochlorothiazide 25 mg tablet 25 mg PO DAILY lisinopril 40 mg tablet 40 mg PO DAILY ipratropium-albuterol 0.5 mg-3 mg(2.5 mg base)/3 mL solution for nebulization 3 ml inhalation QID PRN tamsulosin 0.4 mg capsule 0.4 mg PO DAILY fluticasone propion-salmeterol 500-50 mcg/dose blister with device 1 ea PO BID metformin 500 mg tablet 500 mg PO QAM fenofibrate micronized 200 mg capsule 200 mg PO DAILY pantoprazole 40 mg tablet,delayed release (DR/EC) 40 mg PO DAILY finasteride 5 mg tablet 5 mg PO DAILY Xarelto 20 mg tablet 20 mg PO BEDTIME trazodone 50 mg tablet 50 mg PO BEDTIME ferrous sulfate 325 mg (65 mg iron) tablet 325 mg PO DAILY loratadine 10 mg tablet 10 mg PO DAILY oxycodone-acetaminophen 7.5-325 mg tablet 1 tab PO Q4H PRN (Reason: pain) melatonin 5 mg tablet 5 mg PO DAILY amlodipine 10 mg tablet 10 mg PO DAILY Qty: 30 5RF metoprolol tartrate 25 mg tablet 25 mg PO BID 30 Days Qty: 60 5RF Interventions: ED Discharge Assessment Last Done: 11/12/23 20:03 Discharge Date/Time: 11/12/23 20:04
--- NOTE | 2023-11-12 14:57 | ECG_ITS ---
Test Reason : SOB Blood Pressure : / mmHG Vent. Rate : 065 BPM Atrial Rate : 065 BPM P-R Int : 162 ms QRS Dur : 140 ms QT Int : 446 ms P-R-T Axes : 027 -08 003 degrees QTc Int : 463 ms Normal sinus rhythm with sinus arrhythmia Right bundle branch block Abnormal ECG When compared with ECG of 27-JUL-2023 05:20, No significant change was found Referred By: Cain Stone Electronically Signed By:SIDNEY ROBERSON MD
[2023-11-12 15:19] LABS: INTERNATIONAL NORM RATIO 2.7 (0.9-1.1)
[2023-11-12 15:22] LABS: Partial Thromboplastin Time 46.8 SEC (26.0-36.4)
[2023-11-12 15:28] LABS: Alanine Aminotransferase 17 U/L (0-40); Albumin Level 3.9 g/dL (3.5-5.0); Alkaline Phosphatase 68 U/L (39-117); Anion Gap 14 (12-20); Aspartate Amino Transferase 18 U/L (5-37); Bilirubin Total 0.6 mg/dL (0.0-1.0); Blood Urea Nitrogen 16 mg/dL (9-16); Calcium 9.4 mg/dL (8.4-10.2); Carbon Dioxide 26 mmol/L (22-29); Chloride 103 mmol/L (96-108); Creatinine Clr Calc Pharmacy 47.3; Estimated Glomerular Filt Rate > 60; Glucose Random 100 mg/dL (60-115); Potassium 3.7 mmol/L (3.3-5.1); Sodium 139 mmol/L (135-145); Total Protein 6.3 g/dL (6.5-8.0)
[2023-11-12 15:35] LABS: Troponin-I High Sensitivity 11.3 ng/L (<3.5-35.0)
[2023-11-12 16:03] LABS: Hematocrit 32.6 % (42.0-52.0); Hemoglobin 12.6 g/dl (14.0-18.0); Mean Corpuscular Hemoglobin 45.3 pg (27.0-33.0); Mean Platelet Volume 11.5 fL (9.4-12.4); Platelet Count 261 X10*3/uL (160-400); Red Blood Count 2.78 X10*6/uL (4.60-5.80)
[2023-11-12 16:38] VITALS: BP 124/57; PULSE 67; RESP 16; TEMP 36.6; O2SAT 95
--- NOTE | 2023-11-12 16:39 | MHC.EDTECH ---
Tkis pct just assumed care of Pt ,vitals taken ,Patient waiting to see Provider .
[2023-11-12 16:56] LABS: Mean Corpuscular Volume 117.3 fL (80.0-98.0)
[2023-11-12 16:59] LABS: Mean Corpuscular HGB Conc 38.7 g/dl (31.0-36.0); WBC ABN SCTR FOR CBC 1; White Blood Count 5.6 X10*3/uL (4.8-10.8)
[2023-11-12 17:08] LABS: Band Neutrophils Percent 0 % (3-5); Basophils Abs Manual 0.1 X10*3/uL (0.0-0.2); Basophils Percent Manual 1 % (0-2); Eosinophils Absolute Manual 0.1 X10*3/uL (0.0-0.4); Eosinophils Percent Manual 2 % (0-4); Large Platelet PRESENT; Lymphocytes Absolute Manual 2.5 X10*3/uL (1.2-4.9); Lymphocytes Percent Manual 45 % (20-40); Macrocytosis 2+ (15-30) /OIF; Microcytosis 1+ (5-14) /OIF; Monocytes Absolute Manual 0.1 X10*3/uL (0.1-1.2); Monocytes Percent Manual 2 % (2-11); Neutrophils Absolute Manual 2.8 X10*3/uL (2.0-8.3); Neutrophils Percent Manual 50 % (45-73); Ovalocytes 2+ (15-30) /OIF; Platelet Estimate NORMAL (NORMAL); Platelet Morphology Comment NOTED; RBC Morphology NOTED; Schistocytes 2+ (3-5) /OIF; Spherocytes 1+ (0-2) /OIF; Tear Drop Cells 1+ (0-2) /OIF
[2023-11-12 17:09] LABS: Basophilic Stippling 1+ (0-2) /OIF; Howell Jolly Bodies PRESENT; Hypersegmented Neutrophils PRESENT; Hypochromasia 1+ (5-14) /OIF; Pappenheimer Bodies PRESENT; Rouleau PRESENT; Toxic Vacuolation PRESENT
[2023-11-12 17:14] LABS: Appearance Urine Clear; Color Urine Yellow; Glucose Urine UA Negative (Negative); Leukocyte Esterase Urine Negative (Negative); Nitrite Urine Negative (Negative); PH 5.5 (5.0-9.0); Urine Blood Negative (Negative); Urine Ketones Trace mg/dL (Negative); Urine Protein Negative (Neg-Trace)
[2023-11-12 17:50] VITALS: BP 107/58; PULSE 64; RESP 16; TEMP 36.3; O2SAT 97
--- NOTE | 2023-11-12 18:11 | PC.NURSE ---
called ct to check in regarding ct scan time- transport is on their way at this time per staff on phone. pt's iv remains c/d/i.
--- NOTE | 2023-11-12 19:21 | PC.NURSE ---
this rn assumed care of pt. pt resting in stretcher comfortably, no acute distress noted. pt awaiting ct results.
[2023-11-12 20:02] VITALS: BP 114/61; PULSE 65; RESP 17; TEMP 36.6; O2SAT 94
== END 2023-11-12 20:04 | disposition home or self-care (01) ==
PROVIDERS: Physician Assistant; Emergency Provider Internal Medicine
DX: K59.00 Constipation, unspecified (principal); R10.9 Unspecified abdominal pain; E10.9 Type 1 diabetes mellitus without complications; I10 Essential (primary) hypertension; E78.5 Hyperlipidemia, unspecified; I48.0 Paroxysmal atrial fibrillation; Z79.02 Long term (current) use of antithrombotics/antiplatelets; Z79.899 Other long term (current) drug therapy; Z79.84 Long term (current) use of oral hypoglycemic drugs; Z79.01 Long term (current) use of anticoagulants
CPT/HCPCS: 36415; 71045; 74018; 74176; 80053; 81003; 84484; 85007; 85025; 85027; 85610; 85730; 93005; 99284

== ENCOUNTER → 2023-11-12 14:57 | Outpatient (BNV) | payer OTHER, SELFPAY | PROVIDERS: Emergency Provider Internal Medicine; Visit Provider Internal Medicine Cardiovascular Disease | DX: R06.02 Shortness of breath (principal) | CPT/HCPCS: 93010 ==

== ENCOUNTER 2023-11-15 15:16 | Outpatient (REF) | payer OTHER, SELFPAY ==
--- NOTE | ~2023-11-15 | XR_ITS ---
EXAMINATION: XR ABDOMEN KUB CLINICAL INDICATION: Constipation. COMPARISON: None available. TECHNIQUE: AP view of the abdomen. FINDINGS: There is scattered stool and gas seen in colon without significant distention. The small bowel loops are normal caliber. Mild degenerative disc changes L1-L2, L2-L3 and L3-L4 disc levels with ventral and lateral spondylosis is noted. No aggressive lytic or sclerotic process seen. SI joints are symmetrical and normal. No visible acute fracture or dislocation seen. XR/XR KUB IMPRESSION: 1. Mild constipation. No acute process seen. 2. Mild degenerative disc changes L1-L2, L2-L3 and L3-L4 with ventral and lateral spondylosis.
== END 2023-11-15 15:17 | disposition home or self-care (01) ==
LOC: HO.HHCX 15:16
PROVIDERS: Visit Provider Nurse Practitioner Family
DX: K59.00 Constipation, unspecified (principal)
CPT/HCPCS: 74018

== ENCOUNTER 2023-11-25 03:31 | Emergency (ER) | payer OTHER, SELFPAY ==
--- NOTE | ~2023-11-25 | XR_ITS ---
EXAMINATION: XR ABDOMEN KUB CLINICAL INDICATION: Concern for fecal impaction. COMPARISON: None available. TECHNIQUE: AP view of the abdomen. FINDINGS: The bowel gas pattern is normal with no evidence of ileus or obstruction. No unusual soft tissue calcifications are noted. The bones are unremarkable. XR/XR KUB IMPRESSION: Nonspecific bowel gas pattern.
[2023-11-25 03:55] VITALS: BP 119/63; BP 154/72; PULSE 56; PULSE 71; RESP 20; TEMP 35.8; O2SAT 100; O2SAT 97; BMI 27.7
--- NOTE | 2023-11-25 04:21 | ED_ITS ---
HPI - Abdominal Pain General Chief Complaint: Abdominal Pain Stated Complaint: abd pain and weakness Time Seen by Provider: 11/25/23 04:21 Source: patient Mode of arrival: ambulatory Limitations: no limitations History of Present Illness HPI narrative: Patient take narcotics for chronic pain with history of chronic constipation been here multiple times was seen here on 11/08 for constipation comes here again as he not able to move his bowels for last 1 week was at [facility] a week ago for same does not take stool softener very often says that it does not work Related Data Home Medications Medication Instructions Recorded Confirmed fenofibrate micronized 200 mg 200 mg PO DAILY 10/26/20 05/22/23 capsule ferrous sulfate 325 mg (65 mg 325 mg PO DAILY 10/26/20 05/22/23 iron) tablet finasteride 5 mg tablet 5 mg PO DAILY 10/26/20 05/22/23 fluticasone 500 mcg-salmeterol 50 1 ea PO BID 10/26/20 05/22/23 mcg/dose blistr powdr for inhalation hydrochlorothiazide 25 mg tablet 25 mg PO DAILY 10/26/20 05/22/23 ipratropium 0.5 mg-albuterol 3 mg 3 ml inhalation QID PRN 10/26/20 05/22/23 (2.5 mg base)/3 mL nebulization soln lisinopril 40 mg tablet 40 mg PO DAILY 10/26/20 05/22/23 loratadine 10 mg tablet 10 mg PO DAILY 10/26/20 05/22/23 metformin 500 mg tablet 500 mg PO QAM 10/26/20 05/22/23 oxycodone-acetaminophen 7.5 mg-325 1 tab PO Q4H PRN pain 10/26/20 05/22/23 mg tablet pantoprazole 40 mg tablet,delayed 40 mg PO DAILY 10/26/20 05/22/23 release rivaroxaban 20 mg tablet 20 mg PO BEDTIME 10/26/20 05/22/23 rosuvastatin 40 mg tablet 40 mg PO BEDTIME 10/26/20 05/22/23 tamsulosin 0.4 mg capsule 0.4 mg PO DAILY 10/26/20 05/22/23 trazodone 50 mg tablet 50 mg PO BEDTIME 10/26/20 05/22/23 melatonin 5 mg tablet 5 mg PO DAILY 08/16/22 05/22/23 Previous Rx's Medication Instructions Recorded benzonatate 200 mg capsule 200 mg PO TID PRN cough #10 caps 10/08/22 ezetimibe 10 mg tablet 10 mg PO DAILY 90 days #90 tabs 11/14/22 isosorbide mononitrate 60 mg 60 mg PO QAM #90 tabs 11/14/22 tablet,extended release 24 hr amlodipine 10 mg tablet 10 mg PO DAILY #30 tabs 05/22/23 metoprolol tartrate 25 mg tablet 25 mg PO BID 30 days #60 tabs 05/22/23 magnesium citrate 300 ml PO DAILY PRN constipation 11/12/23 #296 mL polyethylene glycol 3350 17 gram 17 g PO DAILY PRN constipation 2 11/12/23 oral powder packet (Miralax) weeks #30 ea Allergies Allergy/AdvReac Type Severity Reaction Status Date / Time No Known Allergies Allergy Mild NONE Verified 11/12/23 14:46 Review of Systems Review of Systems Yes all other systems are reviewed and are negative PMFSH Past Medical History Medical History Diabetes type 1, controlled Paroxysmal atrial fibrillation CAD (coronary artery disease) HTN (hypertension) Hyperlipidemia Surgical History Stented coronary artery Family History Family History Father No problems noted. Mother No problems noted. Social History Social History Alcohol intake: never Smoked in Last 30 Days: No Use of substances other than those prescribed or required for medical reasons: No Any prior treatment program specific to substance use: No Advance Directives: No Advance Directives Information Provided: No Current occupational status: disabled Current occupation: Lt handed Physical Exam ED Vital Signs: Vital Signs - 24 hr 11/25/23 03:55 Temperature 96.4 F L Pulse Rate 56 Respiratory Rate 20 Blood Pressure 119/63 Pulse Oximetry 97 Oxygen Delivery Method Room Air BMI result Body Mass Index 27.7 Appearance: Alert. Oriented X3. No acute distress. ENT: Pharynx normal. Oral Mucosa moist Neck: Normal inspection. Neck supple. CVS: Normal heart rate and rhythm. Pulses normal. Respiratory: No respiratory distress. Equal air entry bilateral, Abdomen: Soft and nontender. Bowel sounds are present, no mass palpable, no CVA tenderness rectal: No stool palpable Skin: Skin warm and dry. Normal skin color. Normal skin turgor. Extremities: No lower extremity edema. No calf tenderness Neuro: Oriented X 3. No motor deficit Medical Decision Making Medical Decision Making MDM Narrative: Patient constipation had small bowel movement in the ER after him after rectal exam KUB without any impaction will discharge patient back to home advised to continue his laxative Independent Interpretation I performed an independent interpretation of an: Plain X-Ray Radiology Impression Discussion of test interpretation with radiology: I have reviewed the radiologis t's reading. Medications Administered Discontinued Medications Generic Name Dose Route Start Last Admin Trade Name Freq PRN Reason Stop Dose Admin Bisacodyl 10 mg 11/25/23 04:22 11/25/23 04:35 Bisacodyl 5 Mg Tablet.Dr PO 11/25/23 04:23 10 mg ONCE ONE Administration Magnesium Hydroxide 30 ml 11/25/23 04:22 11/25/23 04:35 Milk Of Magnesia 30 Ml Oral.Susp PO 11/25/23 04:23 30 ml ONCE ONE Administration Discharge Plan Discharge Clinical Impression: Constipation Patient Disposition: Home, Self-Care Instructions: Constipation (ED) Additional Instructions: Take stool softener as prescribed including MiraLax, Dulcolax and Fleet enemas Milk of magnesia/Mag citrate for severe constipation Follow-up with your PCP Prescriptions: No Action ezetimibe 10 mg tablet 10 mg PO DAILY 90 Days Qty: 90 3RF isosorbide mononitrate 60 mg tablet extended release 24 hr 60 mg PO QAM Qty: 90 3RF benzonatate 200 mg capsule 200 mg PO TID PRN (Reason: cough) Qty: 10 0RF magnesium citrate Solution 300 ml PO DAILY PRN (Reason: constipation) Qty: 296 0RF polyethylene glycol 3350 [Miralax] 17 gram powder in packet 17 g PO DAILY PRN (Reason: constipation) 14 Days Qty: 30 0RF rosuvastatin 40 mg tablet 40 mg PO BEDTIME hydrochlorothiazide 25 mg tablet 25 mg PO DAILY lisinopril 40 mg tablet 40 mg PO DAILY ipratropium-albuterol 0.5 mg-3 mg(2.5 mg base)/3 mL solution for nebulization 3 ml inhalation QID PRN tamsulosin 0.4 mg capsule 0.4 mg PO DAILY fluticasone propion-salmeterol 500-50 mcg/dose blister with device 1 ea PO BID metformin 500 mg tablet 500 mg PO QAM fenofibrate micronized 200 mg capsule 200 mg PO DAILY pantoprazole 40 mg tablet,delayed release (DR/EC) 40 mg PO DAILY finasteride 5 mg tablet 5 mg PO DAILY Xarelto 20 mg tablet 20 mg PO BEDTIME trazodone 50 mg tablet 50 mg PO BEDTIME ferrous sulfate 325 mg (65 mg iron) tablet 325 mg PO DAILY loratadine 10 mg tablet 10 mg PO DAILY oxycodone-acetaminophen 7.5-325 mg tablet 1 tab PO Q4H PRN (Reason: pain) melatonin 5 mg tablet 5 mg PO DAILY amlodipine 10 mg tablet 10 mg PO DAILY Qty: 30 5RF metoprolol tartrate 25 mg tablet 25 mg PO BID 30 Days Qty: 60 5RF
[2023-11-25] MEDS: bisacodyL 5 MG TABLET.DR 10 MG PO (04:35)
[2023-11-25] MEDS: Milk of Magnesia 30 ML ORAL.SUSP PO (04:35)
--- NOTE | 2023-11-25 05:38 | PC.NURSE ---
Pt reports he had a small bm.
--- NOTE | 2023-11-25 07:22 | PC.NURSE ---
Assumed care of this pt at 0700. Pt was cleard for discharge and was getting dressed. Discharge papers and instructions were given by previous nurse. Pt exited the room at 0715.
== END 2023-11-25 07:15 | disposition home or self-care (01) ==
PROVIDERS: Emergency Provider Internal Medicine
DX: K59.00 Constipation, unspecified (principal); E10.9 Type 1 diabetes mellitus without complications; I10 Essential (primary) hypertension; E78.5 Hyperlipidemia, unspecified; I48.0 Paroxysmal atrial fibrillation; Z79.84 Long term (current) use of oral hypoglycemic drugs; Z79.01 Long term (current) use of anticoagulants; Z79.02 Long term (current) use of antithrombotics/antiplatelets
CPT/HCPCS: 74018; 99284

== ENCOUNTER 2023-12-19 00:01 | Emergency (ER) | payer OTHER, SELFPAY ==
--- NOTE | 2023-12-19 | ECG_ITS ---
Test Reason : ABDOMINAL PAIN Blood Pressure : / mmHG Vent. Rate : 055 BPM Atrial Rate : 055 BPM P-R Int : 182 ms QRS Dur : 104 ms QT Int : 440 ms P-R-T Axes : 064 001 031 degrees QTc Int : 420 ms Sinus bradycardia Otherwise normal ECG When compared with ECG of 12-NOV-2023 15:01, Right bundle branch block is no longer Present Referred By: Generic ED Physician Electronically Signed By:Feliberto Juan
[2023-12-19 00:14] VITALS: BP 164/80; PULSE 57; RESP 16; TEMP 36.5; O2SAT 99
[2023-12-19 00:36] VITALS: BP 156/76; BP 166/102; PULSE 53; PULSE 57; RESP 18; TEMP 37.1; O2SAT 97; BMI 27.5
[2023-12-19 01:01] LABS: Appearance Urine Clear; Color Urine Yellow; Glucose Urine UA Negative (Negative); Leukocyte Esterase Urine Negative (Negative); Nitrite Urine Negative (Negative); PH 8.5 (5.0-9.0); Urine Blood Negative (Negative); Urine Ketones Negative (Negative); Urine Protein Negative (Neg-Trace)
[2023-12-19 01:11] LABS: Anion Gap 12 (12-20); Blood Urea Nitrogen 17 mg/dL (9-16); Calcium 9.6 mg/dL (8.4-10.2); Carbon Dioxide 29 mmol/L (22-29); Chloride 102 mmol/L (96-108); Creatinine Clr Calc Pharmacy 58.3; Estimated Glomerular Filt Rate > 60; Glucose Random 117 mg/dL (60-115); Lipase 22 U/L (8-78); Potassium 4.7 mmol/L (3.3-5.1); Sodium 138 mmol/L (135-145)
[2023-12-19 01:16] LABS: Hematocrit 33.6 % (42.0-52.0); Mean Corpuscular Volume 122.6 fL (80.0-98.0); Mean Platelet Volume 11.4 fL (9.4-12.4); Platelet Count 243 X10*3/uL (160-400); Red Blood Count 2.74 X10*6/uL (4.60-5.80); White Blood Count 5.7 X10*3/uL (4.8-10.8)
[2023-12-19 01:19] LABS: Hemoglobin 11.3 g/dl (14.0-18.0); Mean Corpuscular Hemoglobin 41.2 pg (27.0-33.0)
[2023-12-19 01:20] LABS: Mean Corpuscular HGB Conc 33.6 g/dl (31.0-36.0)
[2023-12-19 01:47] VITALS: BP 156/73; PULSE 56; RESP 20; O2SAT 98
--- NOTE | 2023-12-19 02:00 | ED.ABDPAIN ---
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 Was evaluated in the emergency department several times for similar presentation and was diagnosed with constipation, patient declined nausea, vomiting, or diarrhea. Complaining of mild upper abdominal pain. While patient waiting to be seen in the emergency department had a normal bowel movement and felt much better. No CP or SOB. Related Data Home Medications Medication Instructions Recorded Confirmed fenofibrate micronized 200 mg 200 mg PO DAILY 10/26/20 05/22/23 capsule ferrous sulfate 325 mg (65 mg 325 mg PO DAILY 10/26/20 05/22/23 iron) tablet finasteride 5 mg tablet 5 mg PO DAILY 10/26/20 05/22/23 fluticasone 500 mcg-salmeterol 50 1 ea PO BID 10/26/20 05/22/23 mcg/dose blistr powdr for inhalation hydrochlorothiazide 25 mg tablet 25 mg PO DAILY 10/26/20 05/22/23 ipratropium 0.5 mg-albuterol 3 mg 3 ml inhalation QID PRN 10/26/20 05/22/23 (2.5 mg base)/3 mL nebulization soln lisinopril 40 mg tablet 40 mg PO DAILY 10/26/20 05/22/23 loratadine 10 mg tablet 10 mg PO DAILY 10/26/20 05/22/23 metformin 500 mg tablet 500 mg PO QAM 10/26/20 05/22/23 oxycodone-acetaminophen 7.5 mg-325 1 tab PO Q4H PRN pain 10/26/20 05/22/23 mg tablet pantoprazole 40 mg tablet,delayed 40 mg PO DAILY 10/26/20 05/22/23 release rivaroxaban 20 mg tablet 20 mg PO BEDTIME 10/26/20 05/22/23 rosuvastatin 40 mg tablet 40 mg PO BEDTIME 10/26/20 05/22/23 tamsulosin 0.4 mg capsule 0.4 mg PO DAILY 10/26/20 05/22/23 trazodone 50 mg tablet 50 mg PO BEDTIME 10/26/20 05/22/23 melatonin 5 mg tablet 5 mg PO DAILY 08/16/22 05/22/23 Previous Rx's Medication Instructions Recorded benzonatate 200 mg capsule 200 mg PO TID PRN cough #10 caps 10/08/22 ezetimibe 10 mg tablet 10 mg PO DAILY 90 days #90 tabs 11/14/22 isosorbide mononitrate 60 mg 60 mg PO QAM #90 tabs 11/14/22 tablet,extended release 24 hr amlodipine 10 mg tablet 10 mg PO DAILY #30 tabs 05/22/23 metoprolol tartrate 25 mg tablet 25 mg PO BID 30 days #60 tabs 05/22/23 magnesium citrate 300 ml PO DAILY PRN constipation 11/12/23 #296 mL polyethylene glycol 3350 17 gram 17 g PO DAILY PRN constipation 2 11/12/23 oral powder packet (Miralax) weeks #30 ea Allergies Allergy/AdvReac Type Severity Reaction Status Date / Time No Known Allergies Allergy Mild NONE Verified 12/19/23 00:36 Review of Systems Review of Systems All other systems are reviewed and are negative Constitutional: Reports as per HPI and Reports no additional constitutional complaints Eyes: Reports as per HPI and Reports no additional eye complaints Reports system reviewed and no additional complaints, except as documented Cardiovascular: Reports as per HPI and Reports no additional cardiovascular complaints Respiratory: Reports as per HPI and Reports no additional respiratory complaints Gastrointestinal: Reports as per HPI and Reports no additional gastrointestinal complaints Genitourinary: Reports no additional female genitourinary complaints Musculoskeletal: Reports no additional musculoskeletal complaints Skin/Breast: Reports system reviewed and no additional complaints, except as docu Psychiatric: Reports no additional psychiatric complaints Endocrine: Reports no additional endocrine complaints Hematologic/Lymphatic: Reports no additional hematologic/lymphatic complaints Allergic/Immunologic: Reports no additional allergic/immunologic complaints Reports system reviewed and no additional complaints, except as documented and Reports Abnormal speech present [facility] Past Medical History Medical History Diabetes type 1, controlled Paroxysmal atrial fibrillation CAD (coronary artery disease) HTN (hypertension) Hyperlipidemia Surgical History Stented coronary artery Family History Family History Father No problems noted. Mother No problems noted. Social History Social History Alcohol intake: never Advance Directives: No Advance Directives Information Provided: Yes Current occupational status: disabled Current occupation: Lt handed Physical Exam ED Vital Signs: Vital Signs - 24 hr 12/19/23 00:14 12/19/23 00:36 12/19/23 01:47 Temperature 97.7 F 98.7 F Pulse Rate 57 57 56 Respiratory Rate 16 18 20 Blood Pressure 164/80 H 156/76 H 156/73 H Pulse Oximetry 99 97 98 Oxygen Delivery Method Room Air Room Air Room Air BMI result Body Mass Index 27.5 Course Reevaluation(s) Reevaluation #1: Chronic constipation multiple visits to the ED for similar presentation, patient felt better after having a bowel movement in the emergency department. Labs at baseline, no radiographic study order today since patient felt better after the bowel movement. Will with PCP. Time: 02:07 Medical Decision Making Differential Diagnosis Differential Diagnoses: The differential diagnosis associated with the presentation includes (Constipation, pancreatitis, electrolyte derangement, ILIA, severe anemia.) Admission/Observation Consideration of admission/observation: Escalation of care including admission/observation considered Lab Data MDM Lab Attestation statement: I reviewed the patient's lab results. 12/19/23 00:54 12/19/23 00:54 Labs: Lab Results 12/19/23 Range/Units 00:54 WBC 5.7 (4.8-10.8) X10*3/uL RBC 2.74 L (4.60-5.80) X10*6/uL Hgb 11.3 L (14.0-18.0) g/dl Hct 33.6 L (42.0-52.0) % MCV 122.6 H (80.0-98.0) fL MCH 41.2 H (27.0-33.0) pg MCHC 33.6 (31.0-36.0) g/dl RDW Not Reportable Plt Count 243 (160-400) X10*3/uL MPV 11.4 (9.4-12.4) fL Absolute Nucleated RBC 0.000 (0.0-0.012) X10*3/uL Nucleated RBC % (auto) 0.0 (0.0-0.2) /100WBC Sodium 138 (135-145) mmol/L Potassium 4.7 D (3.3-5.1) mmol/L Chloride 102 (96-108) mmol/L Carbon Dioxide 29 (22-29) mmol/L Anion Gap 12 (12-20) BUN 17 H (9-16) mg/dL Creatinine 0.86 (0.5-1.4) mg/dL Estim Creat Clear Calc 58.3 Estimated GFR > 60 Random Glucose 117 H (60-115) mg/dL Calcium 9.6 (8.4-10.2) mg/dL Lipase 22 (8-78) U/L Urine Color Yellow Urine Appearance Clear Urine pH 8.5 (5.0-9.0) Ur Specific [place] 1.010 (1.005-1.025) Urine Protein Negative (Neg-Trace) mg/dL Urine Glucose (UA) Negative (Negative) mg/dL Urine Ketones Negative (Negative) mg/dL Urine Blood Negative (Negative) Urine Nitrite Negative (Negative) Ur Leukocyte Esterase Negative (Negative) Discharge Plan Discharge Clinical Impression: Constipation, Abdominal pain Patient Disposition: Home, Self-Care Instructions: Constipation (ED) Additional Instructions: Follow-up with your PCP in 1 week. Prescriptions: No Action ezetimibe 10 mg tablet 10 mg PO DAILY 90 Days Qty: 90 3RF isosorbide mononitrate 60 mg tablet extended release 24 hr 60 mg PO QAM Qty: 90 3RF benzonatate 200 mg capsule 200 mg PO TID PRN (Reason: cough) Qty: 10 0RF magnesium citrate Solution 300 ml PO DAILY PRN (Reason: constipation) Qty: 296 0RF polyethylene glycol 3350 [Miralax] 17 gram powder in packet 17 g PO DAILY PRN (Reason: constipation) 14 Days Qty: 30 0RF rosuvastatin 40 mg tablet 40 mg PO BEDTIME hydrochlorothiazide 25 mg tablet 25 mg PO DAILY lisinopril 40 mg tablet 40 mg PO DAILY ipratropium-albuterol 0.5 mg-3 mg(2.5 mg base)/3 mL solution for nebulization 3 ml inhalation QID PRN tamsulosin 0.4 mg capsule 0.4 mg PO DAILY fluticasone propion-salmeterol 500-50 mcg/dose blister with device 1 ea PO BID metformin 500 mg tablet 500 mg PO QAM fenofibrate micronized 200 mg capsule 200 mg PO DAILY pantoprazole 40 mg tablet,delayed release (DR/EC) 40 mg PO DAILY finasteride 5 mg tablet 5 mg PO DAILY Xarelto 20 mg tablet 20 mg PO BEDTIME trazodone 50 mg tablet 50 mg PO BEDTIME ferrous sulfate 325 mg (65 mg iron) tablet 325 mg PO DAILY loratadine 10 mg tablet 10 mg PO DAILY oxycodone-acetaminophen 7.5-325 mg tablet 1 tab PO Q4H PRN (Reason: pain) melatonin 5 mg tablet 5 mg PO DAILY amlodipine 10 mg tablet 10 mg PO DAILY Qty: 30 5RF metoprolol tartrate 25 mg tablet 25 mg PO BID 30 Days Qty: 60 5RF
== END 2023-12-19 02:15 | disposition home or self-care (01) ==
PROVIDERS: Emergency Provider Emergency Medicine
DX: K59.00 Constipation, unspecified (principal); R00.1 Bradycardia, unspecified; R10.10 Upper abdominal pain, unspecified; Z79.899 Other long term (current) drug therapy
CPT/HCPCS: 36415; 80048; 81003; 83690; 85027; 93005; 99283; 99284

== ENCOUNTER → 2023-12-19 00:35 | Outpatient (BNV) | payer OTHER, SELFPAY | PROVIDERS: Emergency Provider Emergency Medicine; Visit Provider Internal Medicine Cardiovascular Disease | DX: R00.1 Bradycardia, unspecified (principal); I45.10 Unspecified right bundle-branch block | CPT/HCPCS: 93010 ==

== ENCOUNTER 2024-01-03 02:53 | Emergency (ER) | payer OTHER, SELFPAY ==
--- NOTE | ~2024-01-03 | CT_ITS ---
EXAMINATION: CT ABDOMEN AND PELVIS WITHOUT CONTRAST CLINICAL INFORMATION: Upper abdominal pain constipation COMPARISON: KUB radiograph from , CT abdomen from 11/12/2023 TECHNIQUE: Multidetector volumetric imaging was performed from the superior aspect of the liver through the pubic symphysis. Sagittal and coronal reformatted images were obtained on the technologist's workstation. This CT examination was performed using dose optimization techniques as appropriate, variously including the following: *Automated exposure control *Adjustment of mA and/or kV according to patient size (this includes techniques or standardized protocols for targeted exams where dose is matched to indication/reason for exam; i.e. extremities or head) *Use of iterative reconstruction technique DLP: 407 mGy-cm FINDINGS: LUNG BASES: Emphysematous changes. No pneumothorax. No large pleural effusion. Elevation the right hemidiaphragm. LIVER, GALLBLADDER, AND BILIARY TREE: Hepatic dome incompletely imaged. The liver is normal in size, shape, and attenuation. No focal hepatic lesion or biliary ductal dilatation is present. The gallbladder is unremarkable with no evidence of radiopaque gallstones, gallbladder wall thickening, or obvious pericholecystic inflammatory changes. PANCREAS: Unremarkable. SPLEEN: Multiple punctate calcifications throughout the spleen potentially representing granulomas. ADRENAL GLANDS: Unremarkable. KIDNEYS AND URETERS: The kidneys are normal in size, shape, and attenuation. No hydronephrosis, hydroureter, or calculi seen. No perinephric stranding. BLADDER: Unremarkable. GASTROINTESTINAL TRACT: Small hiatal hernia. Colonic diverticulosis greatest along the sigmoid colon with questionable chronic thickening versus underdistention and trace pericolonic inflammatory changes potentially representing a subacute diverticulitis. Correlation with symptomatology. A few loops of mildly prominent small bowel are noted in the left mid abdomen without mary obstruction The small and large bowel are unremarkable. Mild prominence of the visualized appendix without periappendiceal inflammatory changes. ABDOMINAL WALL: Bilateral fat filled inguinal hernias. LYMPH NODES: No enlarged lymph nodes per size criteria. VASCULAR: Abdominal aorta is nonaneurysmal. Atherosclerotic calcifications of the abdominal aorta and its branches. PELVIC VISCERA: Prostate is enlarged measuring 5.3 x 4.5 cm with mass effect upon the urinary bladder base. Punctate calcifications noted within the prostatic body. Hyperdense focus along the posterior prostatic body measuring up to 7 mm, nonspecific OSSEOUS STRUCTURES: Multilevel degenerative changes of the thoracolumbar lumbosacral spine. Degenerative arthropathy of the bilateral sacroiliac joints. CT/CT abdomen pelvis wo IV con IMPRESSION: 1. Colonic diverticulosis greatest along the sigmoid colon with questionable colonic thickening versus underdistention and trace pericolonic inflammatory changes potentially representing a subacute diverticulitis. Correlation with symptomatology. 2. A few loops of mildly prominent small bowel are noted in the left mid abdomen without mary obstruction. 3. Mild prominence of the visualized appendix without periappendiceal inflammatory changes. 4. Prostate is enlarged measuring 5.3 x 4.5 cm with mass effect upon the urinary bladder base. Punctate calcifications noted within the prostatic body. Hyperdense focus along the posterior prostatic body measuring up to 7 mm, nonspecific.
--- NOTE | ~2024-01-03 | CT_ITS ---
EXAMINATION: CT ABDOMEN AND PELVIS WITH CONTRAST CLINICAL INFORMATION: Upper abdominal pain. COMPARISON: CT abdomen pelvis January 03, 2024 TECHNIQUE: Multidetector volumetric images were obtained from the superior aspect of the liver through the pubic symphysis following administration 85 mL of Omnipaque 350 intravenous contrast. Sagittal and coronal reformatted images were obtained on the technologist's workstation. Oral contrast: No This CT examination was performed using dose optimization techniques as appropriate, variously including the following: *Automated exposure control *Adjustment of mA and/or kV according to patient size (this includes techniques or standardized protocols for targeted exams where dose is matched to indication/reason for exam; i.e. extremities or head) *Use of iterative reconstruction technique DLP: 427 mGy-cm FINDINGS: LUNG BASES: Emphysematous change of lungs. Increased subpleural reticular markings at lung bases likely due to dependent atelectasis. LIVER, GALLBLADDER, AND BILIARY TREE: The liver is normal in size, shape, and attenuation. No focal hepatic lesion or biliary ductal dilatation is present. The gallbladder is unremarkable with no evidence of radiopaque gallstones, gallbladder wall thickening, or obvious pericholecystic inflammatory changes. PANCREAS: Unremarkable. SPLEEN: Scattered punctate calcifications in the spleen consistent with granulomas. ADRENAL GLANDS: Unremarkable. KIDNEYS AND URETERS: The kidneys are normal in size, shape, and attenuation. No hydronephrosis, hydroureter, or calculi seen. No perinephric stranding. Small cortical renal cyst lower pole right kidney. No follow-up imaging is recommended for simple renal cyst. BLADDER: Unremarkable. GASTROINTESTINAL TRACT: There are numerous diverticula of the sigmoid colon. There is subtle stranding in the pericolonic fat associated with a diverticulum of the mid proximal sigmoid colon, axial image 67/94 series 2. Suspicious for a small focus of diverticulitis. No perforation. No obstruction. No abscess. There is a moderate volume of stool in the colon. The appendix is normal . The small bowel loops are unremarkable. The stomach is normal. There is no hiatal hernia. ABDOMINAL WALL: No significant hernia is appreciated. LYMPH NODES: Normal. VASCULAR: Atherosclerotic vascular calcifications of aorta and iliac arteries. There is no aneurysm. PELVIC VISCERA: Prostate is enlarged. Prostate measures 6 cm transverse. Prostatic calcifications present. OSSEOUS STRUCTURES: Multilevel degenerative spondylosis spine. No acute osseous abnormality. Subchondral osteosclerotic changes of the superior right and left femoral heads consistent with avascular necrosis. No collapse or fracture.. Degenerative disc changes of sacroiliac joints. CT/CT abdomen pelvis w IV con IMPRESSION: 1. Marked diverticulosis of the sigmoid colon. There is a small focus of diverticulitis of the mid proximal sigmoid colon. 2. Prostatomegaly. Fleischner guidelines were followed.
[2024-01-03 02:58] VITALS: BP 146/78; PULSE 90; O2SAT 97
[2024-01-03 03:03] VITALS: BP 130/72; PULSE 86; RESP 18; TEMP 36.6; O2SAT 98; BMI 26.6
[2024-01-03 04:05] LABS: Hematocrit 39.1 % (42.0-52.0); Mean Platelet Volume 12.1 fL (9.4-12.4); Platelet Count 241 X10*3/uL (160-400); Red Blood Count 3.21 X10*6/uL (4.60-5.80)
[2024-01-03 04:15] LABS: Mean Corpuscular Volume 121.8 fL (80.0-98.0)
[2024-01-03 04:16] LABS: WBC ABN SCTR FOR CBC 1
[2024-01-03 04:18] LABS: White Blood Count 7.7 X10*3/uL (4.8-10.8)
[2024-01-03 04:25] LABS: Anion Gap 13 (12-20)
[2024-01-03 04:26] LABS: Mean Corpuscular HGB Conc 35.8 g/dl (31.0-36.0); Mean Corpuscular Hemoglobin 43.6 pg (27.0-33.0)
[2024-01-03 04:30] LABS: Alanine Aminotransferase 29 U/L (0-40); Albumin Level 4.4 g/dL (3.5-5.0); Alkaline Phosphatase 91 U/L (39-117); Aspartate Amino Transferase 24 U/L (5-37); Bilirubin Total 0.7 mg/dL (0.0-1.0); Blood Urea Nitrogen 25 mg/dL (9-16); Calcium 9.7 mg/dL (8.4-10.2); Carbon Dioxide 29 mmol/L (22-29); Chloride 102 mmol/L (96-108); Creatinine Clr Calc Pharmacy 51.7; Estimated Glomerular Filt Rate > 60; Glucose Random 121 mg/dL (60-115); Potassium 3.9 mmol/L (3.3-5.1); Sodium 140 mmol/L (135-145); Total Protein 7.1 g/dL (6.5-8.0)
[2024-01-03 04:32] LABS: Band Neutrophils Percent 0 % (3-5); Basophils Abs Manual 0.1 X10*3/uL (0.0-0.2); Basophils Percent Manual 1 % (0-2); Eosinophils Absolute Manual 0.1 X10*3/uL (0.0-0.4); Eosinophils Percent Manual 1 % (0-4); Lymphocytes Absolute Manual 2.5 X10*3/uL (1.2-4.9); Lymphocytes Percent Manual 32 % (20-40); Monocytes Absolute Manual 0.2 X10*3/uL (0.1-1.2); Monocytes Percent Manual 2 % (2-11); Neutrophils Absolute Manual 4.9 X10*3/uL (2.0-8.3); Neutrophils Percent Manual 64 % (45-73); RBC Morphology NOTED
[2024-01-03 04:34] LABS: Burr Cells 1+ (0-2) /OIF; Macrocytosis 1+ (5-14) /OIF; Microcytosis 1+ (5-14) /OIF; Ovalocytes 1+ (5-14) /OIF; Schistocytes 1+ (0-2) /OIF
[2024-01-03 04:36] LABS: Hypersegmented Neutrophils PRESENT; Platelet Estimate NORMAL (NORMAL); Spherocytes 1+ (0-2) /OIF
[2024-01-03 04:37] LABS: Platelet Morphology Comment NORMAL
--- NOTE | 2024-01-03 11:05 | ED.ABDPAIN ---
HPI - Abdominal Pain General Chief Complaint: Abdominal Pain Stated Complaint: ABD PAIN 12 HOURS Time Seen by Provider: 01/03/24 11:34 Source: patient and old records reviewed Mode of arrival: ambulatory Limitations: no limitations History of Present Illness HPI narrative: 83 yo male with PMH of DM, PAF on xarelto, CAD, HTN, HLD, BPH here with c/o 3 days of poor PO intake LUQ pain and nausea with constipation and not eating but not having BM denies v/d/ or fevers. No prior hx of this. Feels tired and weak. He states he has never felt like this before. He tried miralax and stool softeners without relief. We have seen him for this before in the past. MD elicited complaint: abdominal pain Pertinent past history: constipation Onset (ago): day(s) (3) Pain Consistency: constant Location: diffuse, epigastric and LUQ Severity: moderate Quality: aching and fullness Radiation: none Migration to: no migration Exacerbating factors: eating Relieving factors: nothing Context: history of similar episodes Associated symptoms: nausea, constipation and other (poor PO intake) Related Data Home Medications Medication Instructions Recorded Confirmed fenofibrate micronized 200 mg 200 mg PO DAILY 10/26/20 05/22/23 capsule ferrous sulfate 325 mg (65 mg 325 mg PO DAILY 10/26/20 05/22/23 iron) tablet finasteride 5 mg tablet 5 mg PO DAILY 10/26/20 05/22/23 fluticasone 500 mcg-salmeterol 50 1 ea PO BID 10/26/20 05/22/23 mcg/dose blistr powdr for inhalation hydrochlorothiazide 25 mg tablet 25 mg PO DAILY 10/26/20 05/22/23 ipratropium 0.5 mg-albuterol 3 mg 3 ml inhalation QID PRN 10/26/20 05/22/23 (2.5 mg base)/3 mL nebulization soln lisinopril 40 mg tablet 40 mg PO DAILY 10/26/20 05/22/23 loratadine 10 mg tablet 10 mg PO DAILY 10/26/20 05/22/23 metformin 500 mg tablet 500 mg PO QAM 10/26/20 05/22/23 oxycodone-acetaminophen 7.5 mg-325 1 tab PO Q4H PRN pain 10/26/20 05/22/23 mg tablet pantoprazole 40 mg tablet,delayed 40 mg PO DAILY 10/26/20 05/22/23 release rivaroxaban 20 mg tablet 20 mg PO BEDTIME 10/26/20 05/22/23 rosuvastatin 40 mg tablet 40 mg PO BEDTIME 10/26/20 05/22/23 tamsulosin 0.4 mg capsule 0.4 mg PO DAILY 10/26/20 05/22/23 trazodone 50 mg tablet 50 mg PO BEDTIME 10/26/20 05/22/23 melatonin 5 mg tablet 5 mg PO DAILY 08/16/22 05/22/23 Previous Rx's Medication Instructions Recorded benzonatate 200 mg capsule 200 mg PO TID PRN cough #10 caps 10/08/22 ezetimibe 10 mg tablet 10 mg PO DAILY 90 days #90 tabs 11/14/22 isosorbide mononitrate 60 mg 60 mg PO QAM #90 tabs 11/14/22 tablet,extended release 24 hr amlodipine 10 mg tablet 10 mg PO DAILY #30 tabs 05/22/23 metoprolol tartrate 25 mg tablet 25 mg PO BID 30 days #60 tabs 05/22/23 magnesium citrate 300 ml PO DAILY PRN constipation 11/12/23 #296 mL polyethylene glycol 3350 17 gram 17 g PO DAILY PRN constipation 2 11/12/23 oral powder packet (Miralax) weeks #30 ea amoxicillin 875 mg-potassium 1 tab PO BID #14 tabs 01/03/24 clavulanate 125 mg tablet Allergies Allergy/AdvReac Type Severity Reaction Status Date / Time No Known Allergies Allergy Verified 01/03/24 03:19 Review of Systems Review of Systems Constitutional : No Weight loss, No Fever, No Chills, pos fatigue ENT/Mouth : No sore throat, No Rhinorrhea Eyes: No Swelling, No Redness Cardiovascular : No Chest Pain, No SOB, NoEdema Respiratory : No Cough, No Sputum, No Wheezing Gastrointestinal : Positive Nausea, no Vomiting, no Diarrhea, positive abdominal Pain, No Hematochezia, No Melena, pos constipation Genitourinary : No Dysuria, No Urinary Frequency, No Hematuria, No Urgency Musculoskeletal : No joint pain, No Myalgias, No Joint Swelling Skin : No Skin Lesions, No rash Neuro : No Weakness, No Numbness, No Dizziness, No Headache Psych : No Anxiety/Panic, No Depression All other systems reviewed and are negative. [facility] Past Medical History Attestation statement: The following information was validated with the patient. Source: old records reviewed Medical History Diabetes type 1, controlled Paroxysmal atrial fibrillation CAD (coronary artery disease) HTN (hypertension) Hyperlipidemia Surgical History Stented coronary artery Family History Family History Father No problems noted. Mother No problems noted. 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 Oriented X3. No acute distress. Eyes: Pupils equal, round and reactive to light. ENT: Pharynx dry MMM Neck: Normal inspection. Neck supple. CVS: Normal heart rate and rhythm. Pulses normal. Respiratory: No respiratory distress. Breath sounds normal. Abdomen: Soft and not distended mild diffuse ttp Skin: Skin warm and dry. Normal skin color. Normal skin turgor. Extremities: No lower extremity edema. No calf ttp Neuro: Oriented X 3. No motor deficit. No sensory deficit. Procedures EJ/Peripheral Line Arm L: Time Out Performed: Yes Skin Cleansed in Sterile Fashion: Yes Size (gauge): 20 IV Secured and Dressing Applied: Yes Patient Tolerated Procedure: well and no complications Course Course Course Narrative: This is an RME: Additional HPI, ROS, PE not included below will be deferred to primary provider. This is a 16-hy[age]-tho-male, with a hx of diabetes type 1, paroxysmal a fib on eliquis, CAD, HTN, and HLD, who presents emergency department complaints abdominal pain x 2 days. Patient reports that he has not moved his bowels in 4 days. Abdomen with tenderness palpation in the epigastrium. No chest pain or shortness a breath. He appears comfortable. Vitals within normal limits. Skin was already performed, questioning diverticulosis versus diverticulitis as well as dilated bowel loops, as well as prostate enlargement. Given findings, I discussed this with the charge nurse to hopefully bring patient back into the main emergency department as patient has been here for the last 9 hours. Plan: Further ER evaluation needed. Medical Decision Making Medical Decision Making [facility] Narrative: 83 yo male with PMH of DM, PAF on xarelto, CAD, HTN, HLD, BPH here with c/o abdominal pain, constipation, not eating or drinking hx of same in the past. He tried OTC medications. Had non con CT scan with abnormal findings. At this time will repeat CT scan with contrast, IVF, IV zofran and IV morphine for pain. Possible colitis, constipation, chronic pain, diverticulitis. Differential Diagnosis Differential Diagnoses: The differential diagnosis associated with the presentation includes colitis, constipation, chronic pain, diverticulitis Admission/Observation Consideration of admission/observation: Escalation of care including admission/observation considered ate tami powers feels much better stable for DC Lab Data [facility] Lab Attestation statement: I reviewed the patient's lab results. 01/03/24 03:32 01/03/24 04:07 Labs: Lab Results 01/03/24 01/03/24 01/03/24 Range/Units 03:32 04:07 11:11 WBC 7.7 (4.8-10.8) X10*3/uL RBC 3.21 L (4.60-5.80) X10*6/uL Hgb 14.0 D (14.0-18.0) g/dl Hct 39.1 L (42.0-52.0) % MCV 121.8 H (80.0-98.0) fL MCH 43.6 H (27.0-33.0) pg MCHC 35.8 (31.0-36.0) g/dl RDW Not Reportable Plt Count 241 (160-400) X10*3/uL MPV 12.1 (9.4-12.4) fL Immature Gran % (Auto) Cancelled Neut % (Auto) Cancelled Lymph % (Auto) Cancelled [place] % (Auto) Cancelled Eos % (Auto) Cancelled Baso % (Auto) Cancelled Lymph # (Auto) Cancelled [place] # (Auto) Cancelled Eos # (Auto) Cancelled Baso # (Auto) Cancelled Abs Immat Gran (auto) Cancelled Absolute Neuts (auto) Cancelled Absolute Nucleated RBC 0.000 (0.0-0.012) X10*3/uL Nucleated RBC % (auto) 0.0 (0.0-0.2) /100WBC Neutrophils % (Manual) 64 (45-73) % Band Neutrophils % 0 L (3-5) % Lymphocytes % (Manual) 32 (20-40) % Monocytes % (Manual) 2 (2-11) % Eosinophils % (Manual) 1 (0-4) % Basophils % (Manual) 1 (0-2) % Abs Neuts (Manual) 4.9 (2.0-8.3) X10*3/uL Lymphocytes # (Manual) 2.5 (1.2-4.9) X10*3/uL Monocytes # (Manual) 0.2 (0.1-1.2) X10*3/uL Eosinophils # (Manual) 0.1 (0.0-0.4) X10*3/uL Basophils # (Manual) 0.1 (0.0-0.2) X10*3/uL Hypersegmented Neuts PRESENT Platelet Estimate NORMAL (NORMAL) Plt Morphology Comment NORMAL RBC Morphology NOTED Microcytosis 1+ (5-14) /OIF Macrocytosis 1+ (5-14) /OIF Spherocytes 1+ (0-2) /OIF Ovalocytes 1+ (5-14) /OIF [place] Cells 1+ (0-2) /OIF Schistocytes 1+ (0-2) /OIF Sodium 140 (135-145) mmol/L Potassium 3.9 (3.3-5.1) mmol/L Chloride 102 (96-108) mmol/L Carbon Dioxide 29 (22-29) mmol/L Anion Gap 13 (12-20) BUN 25 H (9-16) mg/dL Creatinine 0.89 (0.5-1.4) mg/dL Estim Creat Clear Calc 51.7 Estimated GFR > 60 POC Glucose 116 H (60-115) mg/dL Random Glucose 121 H (60-115) mg/dL Calcium 9.7 (8.4-10.2) mg/dL Total Bilirubin 0.7 (0.0-1.0) mg/dL AST 24 (5-37) U/L ALT 29 (0-40) U/L Alkaline Phosphatase 91 (39-117) U/L Total Protein 7.1 (6.5-8.0) g/dL Albumin 4.4 (3.5-5.0) g/dL Lipase 50 (8-78) U/L Urine Color Urine Appearance Urine pH (5.0-9.0) Ur Specific [place] (1.005-1.025) Urine Protein (Neg-Trace) mg/dL Urine Glucose (UA) (Negative) mg/dL Urine Ketones (Negative) mg/dL Urine Blood (Negative) Urine Nitrite (Negative) Ur Leukocyte Esterase (Negative) Urine RBC (0-2) /HPF Urine WBC (0-5) /HPF Ur Squamous Epith Cells (0-2) /HPF Urine Bacteria (None Seen) Hyaline Casts (0-2) /LPF 01/03/24 Range/Units 11:18 WBC (4.8-10.8) X10*3/uL RBC (4.60-5.80) X10*6/uL Hgb (14.0-18.0) g/dl Hct (42.0-52.0) % MCV (80.0-98.0) fL MCH (27.0-33.0) pg MCHC (31.0-36.0) g/dl RDW Plt Count (160-400) X10*3/uL MPV (9.4-12.4) fL Immature Gran % (Auto) Neut % (Auto) Lymph % (Auto) [place] % (Auto) Eos % (Auto) Baso % (Auto) Lymph # (Auto) [place] # (Auto) Eos # (Auto) Baso # (Auto) Abs Immat Gran (auto) Absolute Neuts (auto) Absolute Nucleated RBC (0.0-0.012) X10*3/uL Nucleated RBC % (auto) (0.0-0.2) /100WBC Neutrophils % (Manual) (45-73) % Band Neutrophils % (3-5) % Lymphocytes % (Manual) (20-40) % Monocytes % (Manual) (2-11) % Eosinophils % (Manual) (0-4) % Basophils % (Manual) (0-2) % Abs Neuts (Manual) (2.0-8.3) X10*3/uL Lymphocytes # (Manual) (1.2-4.9) X10*3/uL Monocytes # (Manual) (0.1-1.2) X10*3/uL Eosinophils # (Manual) (0.0-0.4) X10*3/uL Basophils # (Manual) (0.0-0.2) X10*3/uL Hypersegmented Neuts Platelet Estimate (NORMAL) Plt Morphology Comment RBC Morphology Microcytosis /OIF Macrocytosis /OIF Spherocytes /OIF Ovalocytes /OIF [place] Cells /OIF Schistocytes /OIF Sodium (135-145) mmol/L Potassium (3.3-5.1) mmol/L Chloride (96-108) mmol/L Carbon Dioxide (22-29) mmol/L Anion Gap (12-20) BUN (9-16) mg/dL Creatinine (0.5-1.4) mg/dL Estim Creat Clear Calc Estimated GFR POC Glucose (60-115) mg/dL Random Glucose (60-115) mg/dL Calcium (8.4-10.2) mg/dL Total Bilirubin (0.0-1.0) mg/dL AST (5-37) U/L ALT (0-40) U/L Alkaline Phosphatase (39-117) U/L Total Protein (6.5-8.0) g/dL Albumin (3.5-5.0) g/dL Lipase (8-78) U/L Urine Color Yellow Urine Appearance Clear Urine pH 7.5 (5.0-9.0) Ur Specific [place] 1.020 (1.005-1.025) Urine Protein Negative (Neg-Trace) mg/dL Urine Glucose (UA) Negative (Negative) mg/dL Urine Ketones Trace (Negative) mg/dL Urine Blood Negative (Negative) Urine Nitrite Negative (Negative) Ur Leukocyte Esterase Negative (Negative) Urine RBC 0-2 (0-2) /HPF Urine WBC 0-5 (0-5) /HPF Ur Squamous Epith Cells 0-2 (0-2) /HPF Urine Bacteria None Seen (None Seen) Hyaline Casts 0-2 (0-2) /LPF Independent Interpretation I performed an independent interpretation of an: CT Scan (mild diverticulitis) Radiology Impression Discussion of test interpretation with radiology: I have reviewed the radiologist's reading. External Record Review External record reviewed: Inpatient record Prescription Management I considered prescription management with: Antibiotic Medications Administered Discontinued Medications Generic Name Dose Route Start Last Admin Trade Name Freq PRN Reason Stop Dose Admin Sodium Chloride 1,000 mls @ 999 mls/hr 01/03/24 12:00 01/03/24 13:51 Ns IV 01/03/24 13:00 999 mls/hr .Q1H1M DANIEL Administration Iohexol 100 ml 01/03/24 14:38 01/03/24 14:39 Iohexol 350 Mg/Ml 100 Ml Infus..Btl IV 01/03/24 14:39 85 ml ONCE ONE Administration Lorazepam 0.5 mg 01/03/24 13:21 01/03/24 13:51 Lorazepam 2 Mg/Ml Vial IVPUSH 01/03/24 13:22 0.5 mg STAT STA Administration Morphine Sulfate 2 mg 01/03/24 11:54 01/03/24 13:51 Morphine Sulfate 2 Mg/Ml Cartridge IVPUSH 01/03/24 11:55 2 mg ONCE ONE Administration Protocol Ondansetron HCl 4 mg 01/03/24 11:54 01/03/24 13:51 Ondansetron Hcl 4 Mg/2 Ml Vial IVPUSH 01/03/24 11:55 4 mg ONCE ONE Administration Discharge Plan Discharge Clinical Impression: Diverticulitis Patient Disposition: Home, Self-Care Instructions: Diverticulitis (ED) Additional Instructions: return for worsening symptoms or concerns fevers, vomiting, bloody stools or any other concerns. stay hydrated drink plenty of fluids Prescriptions: New amoxicillin-pot clavulanate 875-125 mg tablet 1 tab PO BID Qty: 14 0RF No Action ezetimibe 10 mg tablet 10 mg PO DAILY 90 Days Qty: 90 3RF isosorbide mononitrate 60 mg tablet extended release 24 hr 60 mg PO QAM Qty: 90 3RF benzonatate 200 mg capsule 200 mg PO TID PRN (Reason: cough) Qty: 10 0RF magnesium citrate Solution 300 ml PO DAILY PRN (Reason: constipation) Qty: 296 0RF polyethylene glycol 3350 [Miralax] 17 gram powder in packet 17 g PO DAILY PRN (Reason: constipation) 14 Days Qty: 30 0RF rosuvastatin 40 mg tablet 40 mg PO BEDTIME hydrochlorothiazide 25 mg tablet 25 mg PO DAILY lisinopril 40 mg tablet 40 mg PO DAILY ipratropium-albuterol 0.5 mg-3 mg(2.5 mg base)/3 mL solution for nebulization 3 ml inhalation QID PRN tamsulosin 0.4 mg capsule 0.4 mg PO DAILY fluticasone propion-salmeterol 500-50 mcg/dose blister with device 1 ea PO BID metformin 500 mg tablet 500 mg PO QAM fenofibrate micronized 200 mg capsule 200 mg PO DAILY pantoprazole 40 mg tablet,delayed release (DR/EC) 40 mg PO DAILY finasteride 5 mg tablet 5 mg PO DAILY Xarelto 20 mg tablet 20 mg PO BEDTIME trazodone 50 mg tablet 50 mg PO BEDTIME ferrous sulfate 325 mg (65 mg iron) tablet 325 mg PO DAILY loratadine 10 mg tablet 10 mg PO DAILY oxycodone-acetaminophen 7.5-325 mg tablet 1 tab PO Q4H PRN (Reason: pain) melatonin 5 mg tablet 5 mg PO DAILY amlodipine 10 mg tablet 10 mg PO DAILY Qty: 30 5RF metoprolol tartrate 25 mg tablet 25 mg PO BID 30 Days Qty: 60 5RF Print Language: Belgian
[2024-01-03 11:08] VITALS: BP 127/75; PULSE 81; RESP 18; TEMP 36.7; O2SAT 98
[2024-01-03 11:15] LABS: Glucose, Whole Blood 116 mg/dL (60-115)
[2024-01-03 11:32] LABS: Appearance Urine Clear; Color Urine Yellow; Glucose Urine UA Negative (Negative); Leukocyte Esterase Urine Negative (Negative); Nitrite Urine Negative (Negative); PH 7.5 (5.0-9.0); Urine Blood Negative (Negative); Urine Ketones Trace mg/dL (Negative); Urine Protein Negative (Neg-Trace)
[2024-01-03 11:38] LABS: Bacteria Urine None Seen (None Seen); Hyaline Casts Urine 0-2 /LPF (0-2); RBC Urine 0-2 /HPF (0-2); Squamous Epithelial Cell Urine 0-2 /HPF (0-2); WBC Urine 0-5 /HPF (0-5)
[2024-01-03 12:25] LABS: Lipase 50 U/L (8-78)
[2024-01-03 13:23] VITALS: BP 124/66; PULSE 80; RESP 16; TEMP 36.7; O2SAT 97
[2024-01-03] MEDS: 0.9 % Sodium Chloride 1,000 ML 999 ML IV (13:51)
[2024-01-03] MEDS: Morphine Sulfate 2 MG/ML CARTRIDGE IVPUSH (13:51)
[2024-01-03] MEDS: ondansetron HCL 4 MG/2 ML VIAL IVPUSH (13:51)
[2024-01-03] MEDS: LORazepam 2 MG/ML VIAL 0.5 MG IVPUSH (13:51)
[2024-01-03] MEDS: iohexoL 350 MG/ML 100 ML INFUS..BTL IV (14:39)
[2024-01-03] MEDS: Amoxicillin/Potassium Clav 875 MG TABLET PO (16:04)
[2024-01-03 16:11] VITALS: BP 128/71; PULSE 88; RESP 18; TEMP 36.9; O2SAT 99
[2024-01-03 16:12] VITALS: BP 128/71; PULSE 88; RESP 18; TEMP 36.9; O2SAT 98
--- NOTE | 2024-01-03 16:18 | PC.NURSE ---
Patient dc with help of mill tender washing miquel . IV removed, left with belongings, rest even andunlabored. Skin warm dry intact.
== END 2024-01-03 16:18 | disposition home or self-care (01) ==
PROVIDERS: Emergency Provider Emergency Medicine
DX: K57.92 Diverticulitis of intestine, part unspecified, without perforation or abscess without bleeding (principal); E10.9 Type 1 diabetes mellitus without complications; I10 Essential (primary) hypertension; I48.0 Paroxysmal atrial fibrillation; Z79.01 Long term (current) use of anticoagulants
CPT/HCPCS: 36415; 74176; 74177; 80053; 81001; 82947; 83690; 85007; 85025; 85027; 96361; 96374; 96375; 99284; J2060; J2270; J2405; Q9967

== ENCOUNTER 2024-02-26 09:36 | Outpatient (REF) | payer OTHER, SELFPAY ==
[2024-02-26 11:35] LABS: Appearance Urine Cloudy; Color Urine Yellow; Glucose Urine UA Negative (Negative); Leukocyte Esterase Urine Negative (Negative); Nitrite Urine Negative (Negative); PH >= 9.0 (5.0-9.0); Urine Blood Negative (Negative); Urine Ketones Negative (Negative); Urine Protein Negative (Neg-Trace)
[2024-02-26 11:39] LABS: Bacteria Urine None Seen (None Seen); Hyaline Casts Urine 0-2 /LPF (0-2); RBC Urine 0-2 /HPF (0-2); Squamous Epithelial Cell Urine 0-2 /HPF (0-2); WBC Urine 0-5 /HPF (0-5)
[2024-02-26 11:56] LABS: Estimated Average Glucose 114 mg/dL; Hemoglobin A1c % 5.6 % (<6.0)
[2024-02-26 12:17] LABS: Alanine Aminotransferase 27 U/L (0-40); Albumin Level 4.3 g/dL (3.5-5.0); Alkaline Phosphatase 124 U/L (39-117); Anion Gap 18 (12-20); Aspartate Amino Transferase 23 U/L (5-37); Bilirubin Direct 0.2 mg/dL (0.0-0.5); Bilirubin Total 0.7 mg/dL (0.0-1.0); Blood Urea Nitrogen 15 mg/dL (9-16); C Reactive Protein 3.52 mg/dL (< or = 0.50); Calcium 9.8 mg/dL (8.4-10.2); Carbon Dioxide 27 mmol/L (22-29); Chloride 100 mmol/L (96-108); Cholesterol 161 mg/dL (<200); Estimated Glomerular Filt Rate > 60; Glucose Random 121 mg/dL (60-115); HDL Cholesterol 36 mg/dL (>40); Iron 121 mcg/dL (45-160); LDL Cholesterol Calculated 100 mg/dL (<100); Percent Iron Saturation 42 % (15-50); Potassium 4.5 mmol/L (3.3-5.1); Sodium 140 mmol/L (135-145); Total Iron Binding Capacity 291 mcg/dL (228-428); Total Protein 7.4 g/dL (6.5-8.0); Triglycerides 129 mg/dL (<150); Unsaturated Iron Binding 170 ug/dL
[2024-02-26 12:19] LABS: Anion Gap 16 (12-20); Blood Urea Nitrogen 16 mg/dL (9-16); Carbon Dioxide 26 mmol/L (22-29); Chloride 102 mmol/L (96-108); Estimated Glomerular Filt Rate > 60; Glucose Random 125 mg/dL (60-115); Potassium 4.6 mmol/L (3.3-5.1); Sodium 139 mmol/L (135-145)
[2024-02-26 12:28] LABS: Ferritin 156 ng/mL (20-250); Free T4 (Free Thyroxine) 0.95 ng/dL (0.71-1.85); Vitamin D 25-OH Total 29.6 ng/mL (>30)
[2024-02-26 12:30] LABS: HIV AB/AG Nonreactive (Nonreactive); HIV Num 1 0.03 S/CO (0.00-0.99)
[2024-02-26 12:35] LABS: Thyroid Stimulating Hormone 0.42 uIU/mL (0.32-4.0)
[2024-02-26 12:44] LABS: Folate 7.1 ng/mL (> or = 4.0); Prostate Specific Antigen 5.99 ng/mL (<0.05-4.0); Vitamin B12 464 pg/mL (200-900)
[2024-02-26 12:48] LABS: Hematocrit 32.4 % (42.0-52.0); Hemoglobin 12.3 g/dl (14.0-18.0); Mean Corpuscular Hemoglobin 47.7 pg (27.0-33.0); Mean Platelet Volume 10.8 fL (9.4-12.4); Platelet Count 460 X10*3/uL (160-400); Red Blood Count 2.58 X10*6/uL (4.60-5.80)
[2024-02-26 12:55] LABS: Erythrocyte Sedimentation Rate 69 MM/HR (0-15)
[2024-02-26 13:01] LABS: Mean Corpuscular Volume 125.6 fL (80.0-98.0)
[2024-02-26 13:02] LABS: WBC ABN SCTR FOR CBC 1
[2024-02-26 13:52] LABS: Band Neutrophils Percent 0 % (3-5); Eosinophils Percent Manual 1 % (0-4); Lymphocytes Percent Manual 23 % (20-40); Monocytes Percent Manual 2 % (2-11); Neutrophils Percent Manual 74 % (45-73)
[2024-02-26 13:56] LABS: RBC Morphology NOTED
[2024-02-26 13:58] LABS: Platelet Estimate SLIGHTLY INCREASED (NORMAL)
[2024-02-26 13:59] LABS: Platelet Morphology Comment NORMAL
[2024-02-26 14:02] LABS: Ovalocytes 1+ (5-14) /OIF
[2024-02-26 14:05] LABS: Hypersegmented Neutrophils PRESENT
[2024-02-26 14:06] LABS: Eosinophils Absolute Manual 0.1 X10*3/uL (0.0-0.4); Lymphocytes Absolute Manual 1.5 X10*3/uL (1.2-4.9); Monocytes Absolute Manual 0.1 X10*3/uL (0.1-1.2); Neutrophils Absolute Manual 4.8 X10*3/uL (2.0-8.3); Schistocytes 1+ (0-2) /OIF; White Blood Count 6.5 X10*3/uL (4.8-10.8)
[2024-02-26 21:00] LABS: Creatinine Urine 62.43 mg/dL
[2024-02-27 13:33] LABS: Alpha Fetoprotein 3.4 ng/mL (<6.1)
[2024-02-29 11:03] LABS: TS Negative Control Passed; TS Panel A 0; TS Panel B 0; TS Positive Control Passed; TSpotTB Negative (Negative)
== END 2024-02-26 09:37 | disposition home or self-care (01) ==
LOC: HO.CHCLDS 09:36
PROVIDERS: Visit Provider Family Medicine
DX: Z00.00 Encounter for general adult medical examination without abnormal findings (principal); E11.9 Type 2 diabetes mellitus without complications; I10 Essential (primary) hypertension; E78.49 Other hyperlipidemia; K76.0 Fatty (change of) liver, not elsewhere classified; I25.10 Atherosclerotic heart disease of native coronary artery without angina pectoris; I48.20 Chronic atrial fibrillation, unspecified; M25.512 Pain in left shoulder; G89.29 Other chronic pain; M54.50 Low back pain, unspecified; M25.561 Pain in right knee; M25.562 Pain in left knee; J44.9 Chronic obstructive pulmonary disease, unspecified; D64.9 Anemia, unspecified; R63.4 Abnormal weight loss; K59.09 Other constipation; Z12.11 Encounter for screening for malignant neoplasm of colon; Z12.5 Encounter for screening for malignant neoplasm of prostate
CPT/HCPCS: 36415; 80048; 80061; 80076; 81001; 82043; 82105; 82306; 82570; 82607; 82728; 82746; 83036; 83540; 84134; 84153; 84439; 84443; 85007; 85025; 85027; 85652; 86140; 86481; 87389

== ENCOUNTER 2024-03-01 08:04 | Outpatient (REF) | payer OTHER, SELFPAY ==
--- NOTE | ~2024-03-01 | US_ITS ---
EXAMINATION: US ABDOMEN COMPLETE CLINICAL INFORMATION: Follow up fatty liver. COMPARISON: CT abdomen and pelvis 01/03/2024. X-ray abdomen KUB 11/25/2023. Ultrasound abdomen complete 04/29/2021 and 11/01/2016. TECHNIQUE: Real-time imaging of the abdominal viscera. FINDINGS: PANCREAS: Normal. ABDOMINAL AORTA: Unremarkable. INFERIOR VENA CAVA: Visualized portions are normal. LIVER: Normal. The liver is normal in size. The liver contour is normal. Parenchymal echogenicity is normal. No focal hepatic lesion. There is no intrahepatic biliary duct dilatation seen. GALLBLADDER: Normal. The gallbladder is physiologically distended without evidence of stones, sludge, polyps, wall thickening or pericholecystic fluid. COMMON BILE DUCT: Normal in caliber measuring 0.2 cm in diameter. RIGHT KIDNEY: No hydronephrosis or renal calculi. The kidney measures 12.3 cm in maximum dimension. There is a complex 1.1 x 1.1 x 1.1 cm renal mass seen with some internal vascularity, solid and cystic components. At the time of the prior CT, this was thought to represent a cortical cyst but measure higher than water density. LEFT KIDNEY: Normal. No hydronephrosis. No renal calculi or focal parenchymal lesions. The kidney measures 11.5 cm in maximum dimension. SPLEEN: The spleen measures 11.5 cm in maximum dimension. Multiple punctate calcifications are seen throughout the spleen. FREE FLUID: None. US/US abdomen complete IMPRESSION: 1. Complex right renal mass. MRI is recommended for further evaluation. 2. Splenic calcifications.
== END 2024-03-01 08:05 | disposition home or self-care (01) ==
LOC: HO.US 08:04
PROVIDERS: PCP Family Medicine; Visit Provider Family Medicine
DX: K76.0 Fatty (change of) liver, not elsewhere classified (principal); E11.9 Type 2 diabetes mellitus without complications
CPT/HCPCS: 76700

== ENCOUNTER 2024-04-11 15:53 | Emergency (ER) | payer OTHER, SELFPAY ==
--- NOTE | ~2024-04-11 | XR_ITS ---
EXAMINATION: XR CHEST CLINICAL INFORMATION: Chest pain COMPARISON: 11/12/2023 TECHNIQUE: Frontal view of the chest was obtained. FINDINGS: Lungs are well expanded and clear. No acute disease. No pneumothorax or pleural effusion. Cardiac silhouette has normal size and contour. Pulmonary vascular pattern is normal. Moderate osteoarthrosis of acromioclavicular joints. Incidentally noted is osseous hypertrophy of the tips of the first rib ends. No suspicious osseous lesions. XR/XR chest 1V IMPRESSION: No acute pulmonary disease.
[2024-04-11 16:01] VITALS: BP 135/62; BP 142/79; PULSE 55; RESP 18; TEMP 36.8; O2SAT 92; O2SAT 99; BMI 24.4
--- NOTE | 2024-04-11 16:45 | ED_ITS ---
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 Limon HPI narrative: 83-year-old male came in by ambulance for evaluation of chest pain that started since last night pain is localized to the mid chest that is not reproducible, pain is intermittent comes and goes since last night, no clear aggravating or relieving factors, pain started while patient was at rest, pain is associated with difficulty breathing that the patient stated improved after ambulance applied oxygen. Patient is a former smoker quit more than 30 years ago, no recent travel, no lower extremity swelling or tenderness. Related Data Home Medications ?Medication ?Instructions ?Recorded ?Confirmed fenofibrate micronized 200 mg 200 mg PO DAILY 10/26/20 05/22/23 capsule ferrous sulfate 325 mg (65 mg 325 mg PO DAILY 10/26/20 05/22/23 iron) tablet finasteride 5 mg tablet 5 mg PO DAILY 10/26/20 05/22/23 fluticasone 500 mcg-salmeterol 50 1 ea PO BID 10/26/20 05/22/23 mcg/dose blistr powdr for inhalation hydrochlorothiazide 25 mg tablet 25 mg PO DAILY 10/26/20 05/22/23 ipratropium 0.5 mg-albuterol 3 mg 3 ml inhalation QID PRN 10/26/20 05/22/23 (2.5 mg base)/3 mL nebulization soln lisinopril 40 mg tablet 40 mg PO DAILY 10/26/20 05/22/23 loratadine 10 mg tablet 10 mg PO DAILY 10/26/20 05/22/23 metformin 500 mg tablet 500 mg PO QAM 10/26/20 05/22/23 oxycodone-acetaminophen 7.5 mg-325 1 tab PO Q4H PRN pain 10/26/20 05/22/23 mg tablet pantoprazole 40 mg tablet,delayed 40 mg PO DAILY 10/26/20 05/22/23 release rivaroxaban 20 mg tablet 20 mg PO BEDTIME 10/26/20 05/22/23 rosuvastatin 40 mg tablet 40 mg PO BEDTIME 10/26/20 05/22/23 tamsulosin 0.4 mg capsule 0.4 mg PO DAILY 10/26/20 05/22/23 trazodone 50 mg tablet 50 mg PO BEDTIME 10/26/20 05/22/23 melatonin 5 mg tablet 5 mg PO DAILY 08/16/22 05/22/23 Previous Rx's ?Medication ?Instructions ?Recorded benzonatate 200 mg capsule 200 mg PO TID PRN cough #10 caps 10/08/22 ezetimibe 10 mg tablet 10 mg PO DAILY 90 days #90 tabs 11/14/22 isosorbide mononitrate 60 mg 60 mg PO QAM #90 tabs 11/14/22 tablet,extended release 24 hr metoprolol tartrate 25 mg tablet 25 mg PO BID 30 days #60 tabs 05/22/23 magnesium citrate 300 ml PO DAILY PRN constipation 11/12/23 #296 mL polyethylene glycol 3350 17 gram 17 g PO DAILY PRN constipation 2 11/12/23 oral powder packet (Miralax) weeks #30 ea amoxicillin 875 mg-potassium 1 tab PO BID #14 tabs 01/03/24 clavulanate 125 mg tablet amlodipine 10 mg tablet 10 mg PO DAILY #30 tabs 02/27/24 Allergies Allergy/AdvReac Type Severity Reaction Status Date / Time No Known Allergies Allergy Verified 04/11/24 16:04 Review of Systems 2 Review of Systems: All other systems are reviewed and are negative Constitutional: Reports as per HPI and Reports no additional constitutional complaints Eyes: Reports as per HPI and Reports no additional eye complaints Reports system reviewed and no additional complaints, except as documented Cardiovascular: Reports as per HPI and Reports no additional cardiovascular complaints Respiratory: Reports as per HPI and Reports no additional respiratory complaints Gastrointestinal: Reports as per HPI and Reports no additional gastrointestinal complaints Genitourinary: Reports no additional female genitourinary complaints Musculoskeletal: Reports no additional musculoskeletal complaints Skin/Breast: Reports system reviewed and no additional complaints, except as docu Psychiatric: Reports no additional psychiatric complaints Endocrine: Reports no additional endocrine complaints Hematologic/Lymphatic: Reports no additional hematologic/lymphatic complaints Allergic/Immunologic: Reports no additional allergic/immunologic complaints Reports system reviewed and no additional complaints, except as documented and Reports Abnormal speech present [facility] Past Medical History Medical History Diabetes type 1, controlled Paroxysmal atrial fibrillation CAD (coronary artery disease) HTN (hypertension) Hyperlipidemia Surgical History Stented coronary artery Family History Family History Father No problems noted. Mother No problems noted. 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 Blood pressure elevated. Heart rate normal. Respiratory rate normal. Temperature normal. Oxygen saturation normal. Appearance: Alert. Oriented X3. No acute distress. Head: Normal external exam. Normocephalic. Atraumatic. No Hung signs noted. No raccoon eyes noted Eyes: PERRLA. EOMI. Conjunctiva and sclera normal. Eyelids normal. ENT: TM's Normal. Pharynx normal. Uvula midline. Moist mucous membranes. No trismus noted. No drooling noted. No muffled voice noted. Neck: Normal inspection. Neck supple. FROM. No adenopathy. Thyroid Normal. No meningeal signs. No neck mass noted. CVS: Normal heart rate and rhythm. Heart sound normal. No murmurs noted. Pulses normal throughout. Respiratory: No respiratory distress. Painless inspiration. Breath sounds normal. No wheezes/rales/rhonchi noted. Chest nontender. No accessory muscle usage noted or decreased air movement noted. Abdomen: Soft and nontender. Bowel sounds normal in all 4 quadrants. No distention noted. No organomegaly noted. No visible injury noted. Back: No CVA tenderness. Full range of motion noted. Skin: Skin warm and dry. Normal skin color. Normal skin turgor. No rashes/lesions/lacerations noted. Extremities: No lower extremity edema. Extremities exhibit normal range of motion. Extremities nontender. Neuro: Oriented X 3. Cranial nerve exam: II-XII are grossly intact No motor deficit. No sensory deficit. Reflexes normal. Course Reevaluation(s) Reevaluation #1: Chest pain for 1 day, workup is negative for ACS, will reassured the patient and follow-up with PCP. Time: 00:30 Medications Administered Discontinued Medications Generic Name Dose Route Start Last Admin Trade Name Jesu PRN Reason Stop Dose Admin Acetaminophen 650 mg 04/11/24 16:45 04/11/24 18:06 Acetaminophen 325 Mg Tablet PO 04/11/24 16:46 650 mg ONCE ONE Administration Albuterol/Ipratropium 3 ml 04/11/24 17:02 04/11/24 17:13 Albuterol/Iprat 2.5/0.5mg 3 Ml Ampul.Neb INHALE 04/11/24 17:03 3 ml ONCE ONE Administration Sodium Chloride 1,000 mls @ 999 mls/hr 04/11/24 16:45 04/11/24 18:02 Ns IV 04/11/24 17:45 999 mls/hr .Q1H1M ONE Administration Medical Decision Making Differential Diagnosis Differential Diagnoses: The differential diagnosis associated with the presentation includes (ACS, pneumonia, pneumothorax, pleural effusion, electrolyte derangement, severe anemia, chest wall pain, costochondritis.) Admission/Observation Consideration of admission/observation: Escalation of care including admission/observation considered Lab Data MDM Lab Attestation statement: I reviewed the patient's lab results. 04/11/24 18:00 04/11/24 19:26 Labs: Lab Results 04/11/24 04/11/24 Range/Units 18:00 19:26 WBC 6.0 (4.8-10.8) X10*3/uL RBC 2.60 L (4.60-5.80) X10*6/uL Hgb 10.8 L (14.0-18.0) g/dl Hct 32.3 L (42.0-52.0) % MCV 124.2 H (80.0-98.0) fL MCH 41.5 H (27.0-33.0) pg MCHC 33.4 (31.0-36.0) g/dl RDW Not Reportable Plt Count 235 D (160-400) X10*3/uL MPV 12.1 (9.4-12.4) fL Immature Gran % (Auto) Cancelled Neut % (Auto) Cancelled Lymph % (Auto) Cancelled [place] % (Auto) Cancelled Eos % (Auto) Cancelled Baso % (Auto) Cancelled Lymph # (Auto) Cancelled [place] # (Auto) Cancelled Eos # (Auto) Cancelled Baso # (Auto) Cancelled Abs Immat Gran (auto) Cancelled Absolute Neuts (auto) Cancelled Absolute Nucleated RBC 0.000 (0.0-0.012) X10*3/uL Nucleated RBC % (auto) 0.0 (0.0-0.2) /100WBC Neutrophils % (Manual) 62 (45-73) % Band Neutrophils % 0 L (3-5) % Lymphocytes % (Manual) 35 (20-40) % Monocytes % (Manual) 2 (2-11) % Basophils % (Manual) 1 (0-2) % Abs Neuts (Manual) 3.7 (2.0-8.3) X10*3/uL Lymphocytes # (Manual) 2.1 (1.2-4.9) X10*3/uL Monocytes # (Manual) 0.1 (0.1-1.2) X10*3/uL Basophils # (Manual) 0.1 (0.0-0.2) X10*3/uL Toxic Vacuolation PRESENT Platelet Estimate NORMAL (NORMAL) Plt Morphology Comment NORMAL RBC Morphology NOTED Microcytosis 1+ (5-14) /OIF Macrocytosis 1+ (5-14) /OIF Spherocytes 1+ (0-2) /OIF Ovalocytes 1+ (5-14) /OIF Schistocytes 1+ (0-2) /OIF Sodium 139 (135-145) mmol/L Potassium 3.3 D (3.3-5.1) mmol/L Chloride 108 (96-108) mmol/L Carbon Dioxide 23 (22-29) mmol/L Anion Gap 11 L (12-20) BUN 11 (9-16) mg/dL Creatinine 0.62 (0.5-1.4) mg/dL Estim Creat Clear Calc 74.2 Estimated GFR > 60 Random Glucose 106 (60-115) mg/dL Calcium 9.1 D (8.4-10.2) mg/dL Total Bilirubin 0.8 (0.0-1.0) mg/dL Direct Bilirubin 0.2 (0.0-0.5) mg/dL AST 19 (5-37) U/L ALT 12 (0-40) U/L Alkaline Phosphatase 68 (39-117) U/L Troponin I High Sens 3.6 D (<3.5-35.0) ng/L B-Natriuretic Peptide 71 (<100) pg/mL Total Protein 6.0 L (6.5-8.0) g/dL Albumin 3.8 (3.5-5.0) g/dL Lipase 15 (8-78) U/L Urine Color Yellow Urine Appearance Clear Urine pH 8.0 (5.0-9.0) Ur Specific [place] 1.010 (1.005-1.025) Urine Protein Negative (Neg-Trace) mg/dL Urine Glucose (UA) Negative (Negative) mg/dL Urine Ketones Trace (Negative) mg/dL Urine Blood Negative (Negative) Urine Nitrite Negative (Negative) Ur Leukocyte Esterase Negative (Negative) Influenza Type A (PCR) NEGATIVE (Negative) Influenza Type B (PCR) NEGATIVE (Negative) RSV RNA Qual (PCR) NEGATIVE (Negative) SARS-CoV-2 RNA (RT-PCR) NEGATIVE (Negative) Independent Interpretation I performed an independent interpretation of an: Plain X-Ray (Chest: No acute cardiopulmonary disease.) Radiology Impression Discussion of test interpretation with radiology: I have reviewed the radiologist's reading. Discharge Plan Discharge Clinical Impression: Atypical chest pain Patient Disposition: Home, Self-Care Instructions: Chest Pain (ED) Prescriptions: No Action ezetimibe 10 mg tablet 10 mg PO DAILY 90 Days Qty: 90 3RF isosorbide mononitrate 60 mg tablet extended release 24 hr 60 mg PO QAM Qty: 90 3RF amlodipine 10 mg tablet 10 mg PO DAILY Qty: 30 5RF benzonatate 200 mg capsule 200 mg PO TID PRN (Reason: cough) Qty: 10 0RF magnesium citrate Solution 300 ml PO DAILY PRN (Reason: constipation) Qty: 296 0RF polyethylene glycol 3350 [Miralax] 17 gram powder in packet 17 g PO DAILY PRN (Reason: constipation) 14 Days Qty: 30 0RF amoxicillin-pot clavulanate 875-125 mg tablet 1 tab PO BID Qty: 14 0RF rosuvastatin 40 mg tablet 40 mg PO BEDTIME hydrochlorothiazide 25 mg tablet 25 mg PO DAILY lisinopril 40 mg tablet 40 mg PO DAILY ipratropium-albuterol 0.5 mg-3 mg(2.5 mg base)/3 mL solution for nebulization 3 ml inhalation QID PRN tamsulosin 0.4 mg capsule 0.4 mg PO DAILY fluticasone propion-salmeterol 500-50 mcg/dose blister with device 1 ea PO BID metformin 500 mg tablet 500 mg PO QAM fenofibrate micronized 200 mg capsule 200 mg PO DAILY pantoprazole 40 mg tablet,delayed release (DR/EC) 40 mg PO DAILY finasteride 5 mg tablet 5 mg PO DAILY Xarelto 20 mg tablet 20 mg PO BEDTIME trazodone 50 mg tablet 50 mg PO BEDTIME ferrous sulfate 325 mg (65 mg iron) tablet 325 mg PO DAILY loratadine 10 mg tablet 10 mg PO DAILY oxycodone-acetaminophen 7.5-325 mg tablet 1 tab PO Q4H PRN (Reason: pain) melatonin 5 mg tablet 5 mg PO DAILY metoprolol tartrate 25 mg tablet 25 mg PO BID 30 Days Qty: 60 5RF Referrals: [facility] [Primary Care Provider] - Print Language: Italian
--- NOTE | 2024-04-11 16:46 | ECG_ITS ---
Test Reason : CHEST PAIN Blood Pressure : / mmHG Vent. Rate : 052 BPM Atrial Rate : 054 BPM P-R Int : 174 ms QRS Dur : 092 ms QT Int : 438 ms P-R-T Axes : 065 013 038 degrees QTc Int : 407 ms Sinus bradycardia Otherwise normal ECG When compared with ECG of 19-DEC-2023 00:35, No significant change was found Referred By: Daron Limon Electronically Signed By:SIDNEY ROBERSON MD
[2024-04-11] MEDS: Albuterol/Iprat 2.5/0.5MG 3 ML AMPUL.NEB INHALE (17:13)
[2024-04-11 17:14] VITALS: PULSE 74; RESP 15; O2SAT 98
[2024-04-11] MEDS: 0.9 % Sodium Chloride 1,000 ML 999 ML IV (18:02)
[2024-04-11] MEDS: Acetaminophen 325 MG TABLET 650 MG PO (18:06)
[2024-04-11 18:18] LABS: Appearance Urine Clear; Color Urine Yellow; Glucose Urine UA Negative (Negative); Leukocyte Esterase Urine Negative (Negative); Nitrite Urine Negative (Negative); Urine Blood Negative (Negative); Urine Ketones Trace mg/dL (Negative); Urine Protein Negative (Neg-Trace)
[2024-04-11 18:26] LABS: Troponin-I High Sensitivity 3.6 ng/L (<3.5-35.0)
[2024-04-11 18:27] LABS: B Type Natriuretic Peptide 71 pg/mL (<100)
[2024-04-11 19:08] LABS: Influenza A PCR NEGATIVE (Negative); Influenza B PCR NEGATIVE (Negative); Resp Syncy Virus RNA Qual PCR NEGATIVE (Negative); SARS COV2 PCR INHOUSE NEGATIVE (Negative)
[2024-04-11 19:29] LABS: Hematocrit 32.3 % (42.0-52.0); Mean Corpuscular Volume 124.2 fL (80.0-98.0); Mean Platelet Volume 12.1 fL (9.4-12.4); Platelet Count 235 X10*3/uL (160-400)
[2024-04-11 19:30] LABS: WBC ABN SCTR FOR CBC 1
[2024-04-11 19:31] LABS: Hemoglobin 10.8 g/dl (14.0-18.0); Mean Corpuscular HGB Conc 33.4 g/dl (31.0-36.0); Mean Corpuscular Hemoglobin 41.5 pg (27.0-33.0)
[2024-04-11 19:44] LABS: Basophils Abs Manual 0.1 X10*3/uL (0.0-0.2); Basophils Percent Manual 1 % (0-2); Lymphocytes Absolute Manual 2.1 X10*3/uL (1.2-4.9); Lymphocytes Percent Manual 35 % (20-40); Monocytes Absolute Manual 0.1 X10*3/uL (0.1-1.2); Monocytes Percent Manual 2 % (2-11); Neutrophils Percent Manual 62 % (45-73)
[2024-04-11 19:46] LABS: Macrocytosis 1+ (5-14) /OIF; Microcytosis 1+ (5-14) /OIF; Ovalocytes 1+ (5-14) /OIF; RBC Morphology NOTED; Schistocytes 1+ (0-2) /OIF; Spherocytes 1+ (0-2) /OIF
[2024-04-11 19:52] LABS: Alanine Aminotransferase 12 U/L (0-40); Albumin Level 3.8 g/dL (3.5-5.0); Alkaline Phosphatase 68 U/L (39-117); Anion Gap 11 (12-20); Aspartate Amino Transferase 19 U/L (5-37); Bilirubin Direct 0.2 mg/dL (0.0-0.5); Bilirubin Total 0.8 mg/dL (0.0-1.0); Blood Urea Nitrogen 11 mg/dL (9-16); Calcium 9.1 mg/dL (8.4-10.2); Carbon Dioxide 23 mmol/L (22-29); Chloride 108 mmol/L (96-108); Creatinine Clr Calc Pharmacy 74.2; Estimated Glomerular Filt Rate > 60; Glucose Random 106 mg/dL (60-115); Lipase 15 U/L (8-78); Potassium 3.3 mmol/L (3.3-5.1); Sodium 139 mmol/L (135-145)
[2024-04-11 20:12] LABS: Platelet Estimate NORMAL (NORMAL); Platelet Morphology Comment NORMAL
[2024-04-11 20:14] LABS: Toxic Vacuolation PRESENT
[2024-04-11 21:32] LABS: Band Neutrophils Percent 0 % (3-5); Neutrophils Absolute Manual 3.7 X10*3/uL (2.0-8.3)
[2024-04-11 22:00] VITALS: BP 124/54; PULSE 79; RESP 18; TEMP 36.3; O2SAT 99
[2024-04-11 23:03] LABS: Troponin-I High Sensitivity 3.3 ng/L (<3.5-35.0)
[2024-04-12] MEDS: Acetaminophen 325 MG TABLET 650 MG PO (00:28)
[2024-04-12 01:00] VITALS: BP 127/72; PULSE 62; RESP 16; TEMP 37.2; O2SAT 97
--- NOTE | 2024-04-12 03:30 | PC.NURSE ---
pt given tylenol for headache, resting comfortably in bed, independently ambulates to bathroom. c/o constipation, given prune juice. IVs to both hands
[2024-04-12 03:32] VITALS: BP 136/70; PULSE 56; RESP 16; TEMP 36.6; O2SAT 97
[2024-04-12] MEDS: oxyCODONE HCl Immed Release 5 MG TABLET 10 MG PO (04:55)
[2024-04-12 05:17] VITALS: BP 140/70; PULSE 68; RESP 18; TEMP 36.9; O2SAT 99
[2024-04-12 05:19] VITALS: BP 140/70; PULSE 68; RESP 18; TEMP 36.9; O2SAT 99
== END 2024-04-12 05:19 | disposition home or self-care (01) ==
PROVIDERS: Emergency Provider Emergency Medicine
DX: R07.89 Other chest pain (principal); R06.00 Dyspnea, unspecified; E10.9 Type 1 diabetes mellitus without complications; I10 Essential (primary) hypertension; E78.5 Hyperlipidemia, unspecified; I48.0 Paroxysmal atrial fibrillation; Z87.891 Personal history of nicotine dependence; Z79.84 Long term (current) use of oral hypoglycemic drugs; Z79.02 Long term (current) use of antithrombotics/antiplatelets; Z79.01 Long term (current) use of anticoagulants; Z79.899 Other long term (current) drug therapy; Z03.818 Encounter for observation for suspected exposure to other biological agents ruled out
CPT/HCPCS: 0241U; 36415; 71045; 80048; 80076; 81003; 83690; 83880; 84484; 85007; 85025; 85027; 93005; 94640; 96360; 96361; 99285

== ENCOUNTER → 2024-04-11 16:46 | Outpatient (BNV) | payer OTHER, SELFPAY | PROVIDERS: Emergency Provider Emergency Medicine; Visit Provider Internal Medicine Cardiovascular Disease | DX: R07.9 Chest pain, unspecified (principal); R00.1 Bradycardia, unspecified | CPT/HCPCS: 93010 ==

== ENCOUNTER 2024-04-19 07:36 | Outpatient (REF) | payer OTHER, SELFPAY | END 2024-04-19 07:37 | disposition home or self-care (01) | LOC: HO.CT 07:36 | PROVIDERS: PCP Family Medicine; Visit Provider Family Medicine | DX: Z13.89 Encounter for screening for other disorder (principal) ==

== ENCOUNTER 2024-07-08 09:24 | Outpatient (AMB) | payer OTHER, SELFPAY ==
--- NOTE | 2024-07-08 09:30 | A.OFFVIS_ITS ---
Intake Visit Reasons: OV- Right Knee, injection request Intake Note: Aleksandr is an 83 year old male who presents today for a follow up of his right knee OA, Last injection administered in September of 2023. Patient would like to repeat injections today. He also complains of right ankle pain and swelling ongoing for about 4 days now with no injury. Allergies No Known Allergies Allergy (Verified 07/08/24 09:30) HPI HPI OV- Right Knee, injection request: Details: Aleksandr is an 83 year old male who presents today for a follow up of his right knee OA, Last injection administered in September of 2023. Patient would like to repeat injections today. He also complains of right ankle pain and swelling ongoing for about 4 days now with no injury. [facility] Medical History Diabetes type 1, controlled Paroxysmal atrial fibrillation CAD (coronary artery disease) HTN (hypertension) Hyperlipidemia Surgical History Stented coronary artery Family History Father No problems noted. Mother No problems noted. 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 Physical Exam Const General: no acute distress, alert and awake Orientation/consciousness: patient oriented x3 HEENT Head: Yes normocephalic and Yes atraumatic Eyes EOM: EOMs intact bilaterally Resp Effort & Inspection: normal respiratory effort and able to speak in complete sentences Cardio Jugular venous distension: no JVD Skin General skin exam: turgor normal Rashes: no rashes Neuro General: patient oriented x3 Extrem Other: right knee with ttp joitn line and trace effusion 5-130 deg Psych Appearance: grossly normal Affect: normal affect Attitude: cooperative Office Procedures Joint Injection/Aspiration Joint Injection/Aspiration Details: Injected 1 mL of Decadron and 3 mL 1% lidocaine and 3 mL of 0.25% Marcaine. Site was prepped using aseptic technique. Patient tolerated the procedure well. Primary Site: right knee Approach Used: anterolateral Coding 64994 - Large joint Procedure code (CPT) selection complete Assessment & Plan Assessment & Plan (1) Diabetes type 1, controlled: Code(s): E10.9 - Type 1 diabetes mellitus without complications Category: Medical Plan: I explained the hyperglycemic effects of steroids. 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 (2) Osteoarthritis of right knee: Code(s): M17.11 - Unilateral primary osteoarthritis, right knee Category: Medical Plan: This is an 83-year-old gentleman with right knee osteoarthritis who has benefitted from injections. I injected his right knee today. I warned him of the hyperglycemic effects of steroids. Coding Level of Care Code Est Pt Level 4 (34911) Diagnoses Diabetes type 1, controlled E10.9 Osteoarthritis of right knee M17.11 CPT Codes Coding - 24636 Large joint: 58425 - Large joint ([id number])
== END 2024-07-08 09:53 | disposition home or self-care (01) ==
PROVIDERS: PCP Family Medicine; Visit Provider Orthopaedic Surgery
DX: M17.11 Unilateral primary osteoarthritis, right knee (principal); E10.9 Type 1 diabetes mellitus without complications
CPT/HCPCS: 20610; 99214

== ENCOUNTER → 2024-07-08 09:24 | Outpatient (BNVA) | payer OTHER, SELFPAY | PROVIDERS: PCP Family Medicine; Visit Provider Orthopaedic Surgery | DX: M17.11 Unilateral primary osteoarthritis, right knee (principal) | CPT/HCPCS: 20610; 99212; J0665; J1100 ==

== ENCOUNTER 2024-07-14 14:33 | Emergency (ER) | payer OTHER, SELFPAY ==
--- NOTE | ~2024-07-14 | CT_ITS ---
EXAMINATION: CT HEAD WITHOUT CONTRAST CLINICAL INFORMATION: Headache, on thinners COMPARISON: CT head 11/10/2019 TECHNIQUE: Contiguous axial imaging was performed from the skull base to vertex without intravenous administration of contrast. This CT examination was performed using dose optimization techniques as appropriate, variously including the following: *Automated exposure control *Adjustment of mA and/or kV according to patient size (this includes techniques or standardized protocols for targeted exams where dose is matched to indication/reason for exam; i.e. extremities or head) *Use of iterative reconstruction technique DLP: 657 mGy-cm FINDINGS: There is no evidence of acute intracranial hemorrhage. No extra-axial fluid collections are identified. There is no evidence of mass effect or midline shift. The quiñonez to white matter differentiation is maintained. There is no evidence of evolving territorial infarction. Generalized cerebral volume loss with associated prominence of the ventricular system, similar compared to prior. There are no acute bony or soft tissue findings. The bony nasal septum is deviated with a right-sided spur. The visualized paranasal sinuses are relatively clear. Bilateral partial mastoid opacification appears chronic, also present in October 2019. CT/CT head/brain wo IV con IMPRESSION: No evidence of acute intracranial pathology. Electronically signed by: Bebe Ware MD 07/14/2024 05:26 PM EDT
--- NOTE | ~2024-07-14 | XR_ITS ---
EXAMINATION: XR CHEST CLINICAL INFORMATION: Chest pain. COMPARISON: Chest x-ray dated 04/11/2024. TECHNIQUE: 2 views of the chest were obtained. FINDINGS: The cardiomediastinal silhouette is within normal limits in size. Tortuosity of the descending aorta is seen. Lungs bilaterally are symmetrically hyperinflated, suggesting underlying obstructive lung disease. There is a 0.5 cm nodular density seen projected over the lower right chest, new from the recent prior study and most consistent with a small nipple shadow.. No focal consolidation, effusion or pneumothorax is seen. Multilevel mild vertebral spondylosis is seen throughout the thoracic spine. XR/XR chest 2V IMPRESSION: * Findings are consistent with underlying obstructive lung disease. No focal acute process. * Probable small nipple shadow projected over the lower right chest. Electronically signed by: Sofía Revees MD 07/14/2024 04:43 PM EDT
[2024-07-14 14:47] VITALS: BP 107/68; BP 111/60; PULSE 63; PULSE 78; RESP 18; TEMP 36.6; O2SAT 98; O2SAT 99; BMI 23.5
--- NOTE | 2024-07-14 15:22 | ED_ITS ---
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 States he ran out of his Percocet and cannot fill the prescription until tomorrow. Complains of pain to bilateral knees, chest, headache. Denies shortness of breath, denies vision changes. States that he does not want any evaluation for his symptoms, just pain medication. MD complaint: pain Onset (ago): hour(s) Related Data Home Medications ?Medication ?Instructions ?Recorded ?Confirmed fenofibrate micronized 200 mg 200 mg PO DAILY 10/26/20 05/22/23 capsule ferrous sulfate 325 mg (65 mg 325 mg PO DAILY 10/26/20 05/22/23 iron) tablet finasteride 5 mg tablet 5 mg PO DAILY 10/26/20 05/22/23 fluticasone 500 mcg-salmeterol 50 1 ea PO BID 10/26/20 05/22/23 mcg/dose blistr powdr for inhalation hydrochlorothiazide 25 mg tablet 25 mg PO DAILY 10/26/20 05/22/23 ipratropium 0.5 mg-albuterol 3 mg 3 ml inhalation QID PRN 10/26/20 05/22/23 (2.5 mg base)/3 mL nebulization soln lisinopril 40 mg tablet 40 mg PO DAILY 10/26/20 05/22/23 loratadine 10 mg tablet 10 mg PO DAILY 10/26/20 05/22/23 metformin 500 mg tablet 500 mg PO QAM 10/26/20 05/22/23 oxycodone-acetaminophen 7.5 mg-325 1 tab PO Q4H PRN pain 10/26/20 05/22/23 mg tablet pantoprazole 40 mg tablet,delayed 40 mg PO DAILY 10/26/20 05/22/23 release tamsulosin 0.4 mg capsule 0.4 mg PO DAILY 10/26/20 05/22/23 trazodone 50 mg tablet 50 mg PO BEDTIME 10/26/20 05/22/23 melatonin 5 mg tablet 5 mg PO DAILY 08/16/22 05/22/23 Previous Rx's ?Medication ?Instructions ?Recorded benzonatate 200 mg capsule 200 mg PO TID PRN cough #10 caps 10/08/22 magnesium citrate 300 ml PO DAILY PRN constipation 11/12/23 #296 mL polyethylene glycol 3350 17 gram 17 g PO DAILY PRN constipation 2 11/12/23 oral powder packet (Miralax) weeks #30 ea amoxicillin 875 mg-potassium 1 tab PO BID #14 tabs 01/03/24 clavulanate 125 mg tablet amlodipine 10 mg tablet 10 mg PO DAILY #30 tabs 02/27/24 ezetimibe 10 mg tablet 10 mg PO DAILY 90 days #90 tabs 04/19/24 isosorbide mononitrate 60 mg 60 mg PO QAM #90 tabs 04/19/24 tablet,extended release 24 hr metoprolol tartrate 25 mg tablet 25 mg PO BID 90 days #180 tabs 04/19/24 rivaroxaban 20 mg tablet 20 mg PO BEDTIME #90 tabs 04/19/24 rosuvastatin 40 mg tablet 40 mg PO BEDTIME #90 tabs 04/19/24 Allergies Allergy/AdvReac Type Severity Reaction Status Date / Time No Known Allergies Allergy Verified 07/14/24 14:49 Review of Systems 2 Review of Systems: As per HPI. Yes all other systems are reviewed and are negative Constitutional: Constitutional: Reports as per HPI [facility] Past Medical History Medical History Diabetes type 1, controlled Paroxysmal atrial fibrillation CAD (coronary artery disease) HTN (hypertension) Hyperlipidemia Surgical History Stented coronary artery Family History Family History Father No problems noted. Mother No problems noted. 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 Blood pressure normal. Heart rate normal. Respiratory rate normal. Temperature normal. Oxygen saturation normal. Const General: cooperative, healthy appearing and no acute distress Orientation/consciousness: oriented to person, oriented to place, oriented to time and patient oriented x3 Limitations: no limitations HENMT Head: Yes normocephalic and Yes atraumatic Ears: external ears normal General nose exam: Normal external nose present Face and sinus: Yes face symmetric Mouth: oropharynx normal and moist mucous membranes Throat: Yes uvula midline Eyes Pupils: Equal, round and reactive pupils present Neck Neck: Yes normal visual inspection and Yes supple Resp Effort & Inspection: normal respiratory effort and able to speak in complete sentences Auscultation: clear to auscultation bilaterally Cardio Rate: regular rate Rhythm: regular rhythm Heart sounds: S1 normal heart sound present and S2 normal heart sound present GI Palpation (GI): Soft to palpation and nontender Auscultation: normoactive bowel sounds General: Yes no CVA tenderness Back/Spine/Pelvis Back: no CVA tenderness Skin General skin exam: elasticity normal and turgor normal Neuro General: oriented to person, oriented to place, oriented to time, patient oriented x3, moves all extremities, no focal motor deficits and CN's II-XI intact bilaterally Cranial nerves: Yes Equal, round and reactive pupils present Cognition (Neuro): normal cognition Extrem General: Yes full ROM, Yes no pedal edema and Yes no calf tenderness Psych Mental Status: mental status grossly normal Affect: normal affect Thought process: Normal thought process present NIH Stroke Scale Internal: Initial- Upon Arrival Time: 16:10 Level of Consciousness: Alert Level of Consciousness Questions: Answers both questions correctly Level of Consciousness Commands: Performs both tasks correctly Best Gaze: Normal Visual: No visual loss Facial Palsy: Normal Motor Arm (Right): No drift Motor Arm (Left): No drift Motor Leg (Right): No drift Motor Leg (Left): No drift Limb Ataxia: Absent Sensory: Normal Best Language: No aphasia Dysarthia: Normal Extinction and Inattention: No abnormality Score: 0 Medications Administered Discontinued Medications Generic Name Dose Route Start Last Admin Trade Name Jesu PRN Reason Stop Dose Admin Oxycodone HCl 5 mg 07/14/24 16:05 07/14/24 16:17 Oxycodone Hcl Immed Release 5 Mg Tablet PO 07/14/24 16:06 5 mg ONCE ONE Administration Medical Decision Making Medical Decision Making [facility] Narrative: Patient is an 83-year-old male with history of T1DM, proximal AFib on Xarelto, CAD, HTN, HLD, chronic pain due to arthritis prescribed 7.5mg Percocet Q4H by PCP presenting to the emergency department with complaint of chronic arthritic pain. On exam patient is awake, A+Ox3, VS WNL, afebrile, normal neurological exam without focal deficits, physical exam findings as above. Given reported symptoms and physical exam findings, initial differential includes chronic pain, osteoarthritis, viral illness. Unlikely ACS but will obtain EKG and troponin. Labs notable for no leukocytosis, negative troponin, normal Tylenol level. X- ray chest notable for no evidence of pneumonia. CT head notable for no evidence of ICH. My interpretation is in agreement with the radiologist's interpretation. Viral serology negative. EKG notable for NSR with RBBB, history of same in the past. Review of [employer] notable for Percocet prescription filled on 07/09 for 42 tabs. Patient should still have remaining tablets available if taking this as prescribed. Patient ambulating around department without cane or walker, without difficulty. Discussed with patient that his symptoms are likely due to his chronic pain. Also discussed with patient that we will not be prescribing additional narcotic pain medication at today's visit. 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 Return precautions discussed. Patient verbalized understanding of and agreement plan. Differential Diagnosis Differential Diagnoses: The differential diagnosis associated with the presentation includes As per [facility]. Admission/Observation Consideration of admission/observation: Escalation of care including admission/observation considered Patient would have been admitted to the hospital had their work up had any findings where hospital admission was appropriate and their clinical presentation warranted hospital admission. Lab Data [facility] Lab Attestation statement: I reviewed the patient's lab results. As per [facility] 07/14/24 16:24 07/14/24 16:24 Labs: Lab Results 07/14/24 07/14/24 07/14/24 Range/Units 16:24 17:32 17:41 WBC 5.9 (4.8-10.8) X10*3/uL RBC 2.25 L (4.60-5.80) X10*6/uL Hgb 10.0 L (14.0-18.0) g/dl Hct 28.0 L (42.0-52.0) % MCV 124.4 H (80.0-98.0) fL MCH 44.4 H (27.0-33.0) pg MCHC 35.7 (31.0-36.0) g/dl RDW Not Reportable Plt Count 290 (160-400) X10*3/uL MPV 11.4 (9.4-12.4) fL Immature Gran % (Auto) Cancelled Neut % (Auto) Cancelled Lymph % (Auto) Cancelled Yell % (Auto) Cancelled Eos % (Auto) Cancelled Baso % (Auto) Cancelled Lymph # (Auto) Cancelled Yell # (Auto) Cancelled Eos # (Auto) Cancelled Baso # (Auto) Cancelled Abs Immat Gran (auto) Cancelled Absolute Neuts (auto) Cancelled Absolute Nucleated RBC 0.000 (0.0-0.012) X10*3/uL Nucleated RBC % (auto) 0.0 (0.0-0.2) /100WBC Neutrophils % (Manual) 68 (45-73) % Band Neutrophils % 0 L (3-5) % Lymphocytes % (Manual) 29 (20-40) % Monocytes % (Manual) 2 (2-11) % Eosinophils % (Manual) 1 (0-4) % Abs Neuts (Manual) 4.0 (2.0-8.3) X10*3/uL Lymphocytes # (Manual) 1.7 (1.2-4.9) X10*3/uL Monocytes # (Manual) 0.1 (0.1-1.2) X10*3/uL Eosinophils # (Manual) 0.1 (0.0-0.4) X10*3/uL Hypersegmented Neuts PRESENT Toxic Vacuolation PRESENT Platelet Estimate NORMAL (NORMAL) Plt Morphology Comment NORMAL RBC Morphology NOTED Microcytosis 1+ (5-14) /OIF Macrocytosis 1+ (5-14) /OIF Tear Drop Cells 1+ (0-2) /OIF Ovalocytes 1+ (5-14) /OIF Schistocytes 2+ (3-5) /OIF Sodium 137 (135-145) mmol/L Potassium 4.7 D (3.3-5.1) mmol/L Chloride 107 (96-108) mmol/L Carbon Dioxide 25 (22-29) mmol/L Anion Gap 10 L (12-20) BUN 19 H (9-16) mg/dL Creatinine 0.66 (0.5-1.4) mg/dL Estim Creat Clear Calc 72.4 Estimated GFR > 60 Random Glucose 107 (60-115) mg/dL Calcium 9.2 (8.4-10.2) mg/dL Total Bilirubin 0.5 (0.0-1.0) mg/dL AST 15 (5-37) U/L ALT 16 (0-40) U/L Alkaline Phosphatase 62 (39-117) U/L Troponin I High Sens < 2.7 < 2.7 (<3.5-35.0) ng/L Total Protein 5.7 L (6.5-8.0) g/dL Albumin 3.6 (3.5-5.0) g/dL Urine Color Yellow Urine Appearance Clear Urine pH 7.5 (5.0-9.0) Ur Specific [place] 1.015 (1.005-1.025) Urine Protein Negative (Neg-Trace) mg/dL Urine Glucose (UA) Negative (Negative) mg/dL Urine Ketones Negative (Negative) mg/dL Urine Blood Negative (Negative) Urine Nitrite Negative (Negative) Ur Leukocyte Esterase Negative (Negative) Acetaminophen < 3 (<30) mcg/mL Influenza Type A (PCR) NEGATIVE (Negative) Influenza Type B (PCR) NEGATIVE (Negative) RSV RNA Qual (PCR) NEGATIVE (Negative) SARS-CoV-2 RNA (RT-PCR) NEGATIVE (Negative) Independent Interpretation I performed an independent interpretation of an: EKG (Normal sinus rhythm with right bundle-branch block, rate 65 beats per minute, normal NV interval, right bundle-branch block has been present on prior EKGs), Plain X-Ray and CT Scan Radiology Impression Discussion of test interpretation with radiology: I have reviewed the radiologist's reading. Radiologist Impression: XR/XR chest 2V IMPRESSION: * Findings are consistent with underlying obstructive lung disease. No focal acute process. * Probable small nipple shadow projected over the lower right chest. CT/CT head/brain wo IV con IMPRESSION: No evidence of acute intracranial pathology. External Record Review External record reviewed: Inpatient record, Office record and Outpatient record Discharge Plan Discharge Clinical Impression: Chronic pain Instructions: Chronic Pain (ED) Additional Instructions: You were evaluated in the emergency department today for headache, chest pain and body aches. Your evaluation did not show evidence of life-threatening conditions requiring emergent medical intervention. We recommend that you follow-up with your primary care provider. Take your prescribed medications as ordered. Return to the emergency department with new or concerning symptoms. Prescriptions: No Action amlodipine 10 mg tablet 10 mg PO DAILY Qty: 30 5RF ezetimibe 10 mg tablet 10 mg PO DAILY 90 Days Qty: 90 0RF isosorbide mononitrate 60 mg tablet extended release 24 hr 60 mg PO QAM Qty: 90 0RF metoprolol tartrate 25 mg tablet 25 mg PO BID 90 Days Qty: 180 0RF rosuvastatin 40 mg tablet 40 mg PO BEDTIME Qty: 90 0RF rivaroxaban 20 mg tablet 20 mg PO BEDTIME Qty: 90 0RF benzonatate 200 mg capsule 200 mg PO TID PRN (Reason: cough) Qty: 10 0RF magnesium citrate Solution 300 ml PO DAILY PRN (Reason: constipation) Qty: 296 0RF polyethylene glycol 3350 [Miralax] 17 gram powder in packet 17 g PO DAILY PRN (Reason: constipation) 14 Days Qty: 30 0RF amoxicillin-pot clavulanate 875-125 mg tablet 1 tab PO BID Qty: 14 0RF hydrochlorothiazide 25 mg tablet 25 mg PO DAILY lisinopril 40 mg tablet 40 mg PO DAILY ipratropium-albuterol 0.5 mg-3 mg(2.5 mg base)/3 mL solution for nebulization 3 ml inhalation QID PRN tamsulosin 0.4 mg capsule 0.4 mg PO DAILY fluticasone propion-salmeterol 500-50 mcg/dose blister with device 1 ea PO BID metformin 500 mg tablet 500 mg PO QAM fenofibrate micronized 200 mg capsule 200 mg PO DAILY pantoprazole 40 mg tablet,delayed release (DR/EC) 40 mg PO DAILY finasteride 5 mg tablet 5 mg PO DAILY trazodone 50 mg tablet 50 mg PO BEDTIME ferrous sulfate 325 mg (65 mg iron) tablet 325 mg PO DAILY loratadine 10 mg tablet 10 mg PO DAILY oxycodone-acetaminophen 7.5-325 mg tablet 1 tab PO Q4H PRN (Reason: pain) melatonin 5 mg tablet 5 mg PO DAILY Print Language: Luxembourgish
--- NOTE | 2024-07-14 15:59 | ECG_ITS ---
Test Reason : CHEST PAIN Blood Pressure : / mmHG Vent. Rate : 065 BPM Atrial Rate : 065 BPM P-R Int : 186 ms QRS Dur : 144 ms QT Int : 442 ms P-R-T Axes : 077 012 031 degrees QTc Int : 459 ms Normal sinus rhythm Right bundle branch block Abnormal ECG When compared with ECG of 11-APR-2024 16:01, Right bundle branch block is now Present Referred By: Tati Ramos Electronically Signed By:JESSENIA CANALES
[2024-07-14] MEDS: oxyCODONE HCl Immed Release 5 MG TABLET PO (16:17)
[2024-07-14 16:56] LABS: Alanine Aminotransferase 16 U/L (0-40); Albumin Level 3.6 g/dL (3.5-5.0); Alkaline Phosphatase 62 U/L (39-117); Anion Gap 10 (12-20); Aspartate Amino Transferase 15 U/L (5-37); Bilirubin Total 0.5 mg/dL (0.0-1.0); Blood Urea Nitrogen 19 mg/dL (9-16); Calcium 9.2 mg/dL (8.4-10.2); Carbon Dioxide 25 mmol/L (22-29); Chloride 107 mmol/L (96-108); Creatinine Clr Calc Pharmacy 72.4; Estimated Glomerular Filt Rate > 60; Glucose Random 107 mg/dL (60-115); Potassium 4.7 mmol/L (3.3-5.1); Sodium 137 mmol/L (135-145); Total Protein 5.7 g/dL (6.5-8.0)
[2024-07-14 17:04] LABS: Acetaminophen LAB < 3 mcg/mL (<30); Mean Corpuscular HGB Conc 35.7 g/dl (31.0-36.0); Mean Corpuscular Hemoglobin 44.4 pg (27.0-33.0); Mean Corpuscular Volume 124.4 fL (80.0-98.0); Mean Platelet Volume 11.4 fL (9.4-12.4); Troponin-I High Sensitivity < 2.7 ng/L (<3.5-35.0)
[2024-07-14 17:05] LABS: Red Blood Count 2.25 X10*6/uL (4.60-5.80); WBC ABN SCTR FOR CBC 1
[2024-07-14 17:06] LABS: Platelet Count 290 X10*3/uL (160-400); White Blood Count 5.9 X10*3/uL (4.8-10.8)
[2024-07-14 17:19] LABS: Influenza A PCR NEGATIVE (Negative); Influenza B PCR NEGATIVE (Negative); Resp Syncy Virus RNA Qual PCR NEGATIVE (Negative); SARS COV2 PCR INHOUSE NEGATIVE (Negative)
[2024-07-14 17:21] LABS: Eosinophils Absolute Manual 0.1 X10*3/uL (0.0-0.4); Eosinophils Percent Manual 1 % (0-4); Lymphocytes Absolute Manual 1.7 X10*3/uL (1.2-4.9); Lymphocytes Percent Manual 29 % (20-40); Monocytes Absolute Manual 0.1 X10*3/uL (0.1-1.2); Monocytes Percent Manual 2 % (2-11); Neutrophils Percent Manual 68 % (45-73)
[2024-07-14 17:22] LABS: Macrocytosis 1+ (5-14) /OIF; Microcytosis 1+ (5-14) /OIF; RBC Morphology NOTED
[2024-07-14 17:23] LABS: Hypersegmented Neutrophils PRESENT; Schistocytes 2+ (3-5) /OIF; Toxic Vacuolation PRESENT
[2024-07-14 17:24] LABS: Platelet Estimate NORMAL (NORMAL); Platelet Morphology Comment NORMAL
[2024-07-14 17:29] LABS: Ovalocytes 1+ (5-14) /OIF
[2024-07-14 17:30] LABS: Band Neutrophils Percent 0 % (3-5); Tear Drop Cells 1+ (0-2) /OIF
[2024-07-14 17:49] LABS: Appearance Urine Clear; Color Urine Yellow; Glucose Urine UA Negative (Negative); Leukocyte Esterase Urine Negative (Negative); Nitrite Urine Negative (Negative); PH 7.5 (5.0-9.0); Specific Gravity - Urine 1.015 (1.005-1.025); Urine Blood Negative (Negative); Urine Ketones Negative (Negative); Urine Protein Negative (Neg-Trace)
[2024-07-14 18:11] VITALS: BP 118/64; PULSE 66; RESP 18; TEMP 36.8; O2SAT 99
[2024-07-14 18:11] LABS: Troponin-I High Sensitivity < 2.7 ng/L (<3.5-35.0)
[2024-07-14 18:40] VITALS: BP 118/64; PULSE 66; RESP 18; TEMP 36.8; O2SAT 99
== END 2024-07-14 18:40 | disposition home or self-care (01) ==
PROVIDERS: Registered Nurse Emergency; Emergency Provider Emergency Medicine Emergency Medical Services; PCP Family Medicine
DX: M79.604 Pain in right leg (principal); I48.91 Unspecified atrial fibrillation; R51.9 Headache, unspecified; R07.89 Other chest pain; Z79.01 Long term (current) use of anticoagulants; Z03.818 Encounter for observation for suspected exposure to other biological agents ruled out; Z79.899 Other long term (current) drug therapy
CPT/HCPCS: 0241U; 36415; 70450; 71046; 80053; 80143; 81003; 84484; 85007; 85025; 85027; 93005; 99284

== ENCOUNTER 2024-10-22 12:22 | Outpatient (AMB) | payer OTHER, SELFPAY ==
--- NOTE | 2024-10-22 12:44 | MHC.OFFVIS ---
Intake Visit Reasons: Inj-RT knee injection, last inj 07/08/24 Intake Note: Aleksandr is an 83 year old male who presents today for a follow up of his right knee OA, Last injection 07/08/24. Patient reports that his last injection gave him 4 months of relief and would like to repeat. Allergies No Known Allergies Allergy (Verified 10/22/24 12:45) HPI HPI Inj-RT knee injection, last inj 07/08/24: Details: Mr. Rosenberg is an 84-year-old male who presents the office today for repeat right knee injection. His last injection was on 07/08/2024 and gave him roughly 3 months of relief. [facility] Medical History Diabetes type 1, controlled Paroxysmal atrial fibrillation CAD (coronary artery disease) HTN (hypertension) Hyperlipidemia Surgical History Stented coronary artery Family History Father No problems noted. Mother No problems noted. 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 Full range of motion with crepitus. NVI. Office Procedures AMB Joint Injection/Aspiration Joint Injection/Aspiration Primary Site: right knee Prep: site was prepped using aseptic technique, ethochloride spray was applied and injection warnings given Injected: 80 mg of, DepoMedrol and with 8 mL of (2% plain lido ) Approach Used: anterolateral Procedure: The patient tolerated the procedure well, but had some pain with the injection and there was some relief with the local anesthesia Coding 54298 - Large joint Procedure code (CPT) selection complete Assessment & Plan Assessment & Plan (1) Osteoarthritis of right knee: Code(s): M17.11 - Unilateral primary osteoarthritis, right knee Category: Medical (2) Diabetes type 1, controlled: Code(s): E10.9 - Type 1 diabetes mellitus without complications Category: Medical Plan The patient was offered a TYPE injection in the right knee with 40 mg of DepoMedrol. The patient was explained the risks, benefits, and alternatives to receiving this injection. After receiving consent for the injection, the patient had the procedure done while in the office today. The patient tolerated the procedure well with no complications. Due to the patient?s history of diabetes, they were instructed to monitor his/her blood glucose level. The patient was informed that they could see a rise in their numbers and if the numbers became too high, they were instructed to call their PCP. The patient was also informed that they could have facial flushing as a side effect of the injection, but this will pass. Follow-up will be p.r.n., or sooner if needed Coding Level of Care Code Est Pt Level 4 (17491) Diagnoses Osteoarthritis of right knee M17.11 Diabetes type 1, controlled E10.9 CPT Codes Coding - 33968 Large joint: 70811 - Large joint ([id number])
== END 2024-10-22 12:45 | disposition home or self-care (01) ==
PROVIDERS: PCP Family Medicine; Visit Provider Physician Assistant
DX: M17.11 Unilateral primary osteoarthritis, right knee (principal); E10.9 Type 1 diabetes mellitus without complications
CPT/HCPCS: 20610; 99213

== ENCOUNTER → 2024-10-22 12:22 | Outpatient (BNVA) | payer OTHER, SELFPAY | PROVIDERS: PCP Family Medicine; Visit Provider Physician Assistant | DX: M17.11 Unilateral primary osteoarthritis, right knee (principal); E10.9 Type 1 diabetes mellitus without complications | CPT/HCPCS: 20610; 99212; J1010; J2003 ==

== ENCOUNTER 2024-12-07 07:17 | Emergency (ER) | payer OTHER, SELFPAY ==
--- NOTE | 2024-12-07 | ECG_ITS ---
Test Reason : CHEST PAIN Blood Pressure : */* mmHG Vent. Rate : 59 BPM Atrial Rate : 59 BPM P-R Int : 170 ms QRS Dur : 96 ms QT Int : 406 ms P-R-T Axes : 54 -1 30 degrees QTcB Int : 401 ms Artifact in tracing Sinus bradycardia Otherwise normal ECG When compared with ECG of 14-Jul-2024 16:06, Due to artifact, cannot compare Referred By: Generic ED Physician Electronically Signed By: VIRGINIA MARIE
--- NOTE | ~2024-12-07 | CT_ITS ---
CLINICAL HISTORY: fall w head strike CT cervical spine without contrast Comparison: CT/[place] - CAT SCAN CERVICAL SPINE [id number] - 11/10/19 16:44 EST Findings: Mild anterolisthesis of C3 on C4. Otherwise, vertebral alignment is within normal limits. Scattered multilevel degenerative change of the cervical spine. No acute fractures or dislocations. No acute findings on limited view of the intracranial contents. No cervical fluid collections or masses. Lung apices are clear. IMPRESSION: No acute findings of the cervical spine. Chronic and degenerative changes as described. This document has been electronically signed by: Citlali Jenkins MD on 12/07/2024 10:03:37
--- NOTE | ~2024-12-07 | XR_ITS ---
CLINICAL HISTORY: chest pressure 1 view chest x-ray Comparison: CR/SR - XR CHEST 1V - 04/11/24 16:53 EDT Findings: The lungs are clear. Normal size heart. No acute fracture. IMPRESSION: 1. No acute cardiopulmonary abnormality. This document has been electronically signed by: Michell Owens on 12/07/2024 08:06:46
--- NOTE | ~2024-12-07 | XR_ITS ---
CLINICAL HISTORY: fall right ankle pain 3 view right ankle Comparison: None Findings: Ankle mortise is symmetric. Syndesmosis is intact. No acute fractures. No dislocation. No erosions. Small plantar enthesophyte. No significant ankle effusion. No radiopaque foreign body. Extensive vascular calcifications. IMPRESSION: 1. No acute findings. This document has been electronically signed by: Citlali Jenkins MD on 12/07/2024 11:05:24
--- NOTE | ~2024-12-07 | XR_ITS ---
CLINICAL HISTORY: fall r thigh knee pain 2 view right femur Comparison: None Findings: No fractures or dislocations. No knee effusion. Degenerative changes of the right hip joint. No radiopaque foreign body. Atherosclerotic calcifications. IMPRESSION: 1. No acute findings of the right femur. This document has been electronically signed by: Citlali Jenkins MD on 12/07/2024 10:48:55
--- NOTE | ~2024-12-07 | CT_ITS ---
CLINICAL HISTORY: fall w head strike CT head without contrast Comparison: CT/SR - CT HEAD/BRAIN WO IV CON - 07/14/24 16:52 EDT Findings: No intra-axial mass, midline shift, hydrocephalus, or acute hemorrhage. Global age-related atrophic changes. Scattered subcortical white matter and periventricular white matter hypodensities, nonspecific and may reflect sequelae of chronic microvascular ischemic change. Atherosclerotic calcifications of the carotid artery siphons. Chronic bilateral mastoid effusions. Rightward deviated nasal septum The orbits are unremarkable. No skull fracture. IMPRESSION: 1. No acute intracranial findings. This document has been electronically signed by: Citlali Jenkins MD on 12/07/2024 10:09:12
--- NOTE | ~2024-12-07 | XR_ITS ---
CLINICAL HISTORY: fall, right hip pain 1 view pelvis Comparison: CT/ND/SR - CT ABDOMEN PELVIS W IV CON - 01/03/24 14:31 EDT Findings: No acute fracture or dislocation. Degenerative changes of the bilateral hip joints and partially imaged lower lumbar spine. Sacroiliac joints and pubic symphysis joint are relatively maintained. Atherosclerotic calcifications are noted. Otherwise, soft tissues are unremarkable. IMPRESSION: 1. No acute findings. This document has been electronically signed by: Citlali Jenkins MD on 12/07/2024 10:47:14
[2024-12-07 07:34] VITALS: BP 122/64; BP 156/74; PULSE 72; PULSE 97; RESP 18; TEMP 36.7; O2SAT 96; BMI 26.7
[2024-12-07 07:47] VITALS: BP 123/66; PULSE 67; RESP 18; TEMP 36.8; O2SAT 97
[2024-12-07 08:13] LABS: Hematocrit 27.3 % (42.0-52.0); Hemoglobin 10.2 g/dl (14.0-18.0); Mean Corpuscular HGB Conc 37.4 g/dl (31.0-36.0); Mean Corpuscular Hemoglobin 47.9 pg (27.0-33.0); Mean Platelet Volume 11.4 fL (9.4-12.4); Platelet Count 248 X10*3/uL (160-400); Red Blood Count 2.13 X10*6/uL (4.60-5.80)
[2024-12-07 08:14] LABS: INTERNATIONAL NORM RATIO 1.1 (0.9-1.1); Prothrombin Time 12.9 SEC (10.9-12.4); Troponin-I High Sensitivity 3.8 ng/L (<3.5-35.0)
[2024-12-07 08:15] LABS: Mean Corpuscular Volume 128.2 fL (80.0-98.0)
[2024-12-07 08:16] LABS: WBC ABN SCTR FOR CBC 1
[2024-12-07 08:28] LABS: White Blood Count 4.9 X10*3/uL (4.8-10.8)
[2024-12-07 08:45] LABS: Lymphocytes Absolute Manual 1.7 X10*3/uL (1.2-4.9); Lymphocytes Percent Manual 35 % (20-40); Monocytes Percent Manual 1 % (2-11); Neutrophils Percent Manual 64 % (45-73)
[2024-12-07 08:46] LABS: Macrocytosis 2+ (15-30) /OIF; RBC Morphology NOTED; Schistocytes 3+ (>5) /OIF
[2024-12-07 08:47] LABS: Ovalocytes 1+ (5-14) /OIF; Spherocytes 2+ (3-5) /OIF
[2024-12-07 08:50] LABS: Hypersegmented Neutrophils PRESENT; Platelet Estimate NORMAL (NORMAL); Platelet Morphology Comment NORMAL; Polychromasia 1+ (0-2) /OIF
[2024-12-07 08:56] LABS: Band Neutrophils Percent 0 % (3-5); Neutrophils Absolute Manual 3.1 X10*3/uL (2.0-8.3)
[2024-12-07 09:04] LABS: Alanine Aminotransferase 18 U/L (0-40); Albumin Level 3.2 g/dL (3.5-5.0); Alkaline Phosphatase 66 U/L (39-117); Anion Gap 9 (12-20); Aspartate Amino Transferase 26 U/L (5-37); Bilirubin Total 0.3 mg/dL (0.0-1.0); Blood Urea Nitrogen 18 mg/dL (9-16); Calcium 8.5 mg/dL (8.4-10.2); Carbon Dioxide 26 mmol/L (22-29); Chloride 107 mmol/L (96-108); Creatinine Clr Calc Pharmacy 70.1; Estimated Glomerular Filt Rate > 60; Glucose Random 94 mg/dL (60-115); Magnesium 1.9 mg/dL (1.6-2.6); Potassium 3.8 mmol/L (3.3-5.1); Sodium 138 mmol/L (135-145); Total Protein 5.3 g/dL (6.5-8.0)
--- NOTE | 2024-12-07 09:06 | ED_ITS ---
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 Patient states he misplaced his blood pressure medications and as a result he has not been taking these medications x3-4 days. He has not contacted his primary care provider for refills as he does not have their phone number. He has been monitoring his blood pressure at home and reports a systolic BP in the 170's/180s. Denies dizziness or vision changes. He currently lives with a roommate. Denies needing assistance at home/ with his medications. He also reports mechanical slip and fall on ice outside his home 2 days ago. Reports falling onto his right side with residual pain to his entire right leg. Reports head strike to the right side of his head. He denies LOC. He is anticoagulated on Xarelto. He was able to stand and ambulate after the fall. He ambulates with a cane at baseline and has not had any difficulty ambulating over the last few days. He has not trialed any OTC pain medications at home. He reports chronic pain to right knee and follows with ortho for this. It was also reported that patient was complaining of chest pain/ pressure x3 days with associated pain/ numbness down left UE per EMS. When I question patient about this, he denies any chest pressure. He reports chronic pain is his chest that he attributes to his arthritis. This is unchanged from his baseline, not worsened with exertion. Denies sob, wheezing, palpitations, LE swelling. EMS gave patient 324 mg aspirin en route to ED. Related Data Home Medications ?Medication ?Instructions ?Recorded ?Confirmed fenofibrate micronized 200 mg 200 mg PO DAILY 10/26/20 05/22/23 capsule ferrous sulfate 325 mg (65 mg 325 mg PO DAILY 10/26/20 05/22/23 iron) tablet finasteride 5 mg tablet 5 mg PO DAILY 10/26/20 05/22/23 fluticasone 500 mcg-salmeterol 50 1 ea PO BID 10/26/20 05/22/23 mcg/dose blistr powdr for inhalation hydrochlorothiazide 25 mg tablet 25 mg PO DAILY 10/26/20 05/22/23 ipratropium 0.5 mg-albuterol 3 mg 3 ml inhalation QID PRN 10/26/20 05/22/23 (2.5 mg base)/3 mL nebulization soln lisinopril 40 mg tablet 40 mg PO DAILY 10/26/20 05/22/23 loratadine 10 mg tablet 10 mg PO DAILY 10/26/20 05/22/23 metformin 500 mg tablet 500 mg PO QAM 10/26/20 05/22/23 oxycodone-acetaminophen 7.5 mg-325 1 tab PO Q4H PRN pain 10/26/20 05/22/23 mg tablet pantoprazole 40 mg tablet,delayed 40 mg PO DAILY 10/26/20 05/22/23 release tamsulosin 0.4 mg capsule 0.4 mg PO DAILY 10/26/20 05/22/23 trazodone 50 mg tablet 50 mg PO BEDTIME 10/26/20 05/22/23 melatonin 5 mg tablet 5 mg PO DAILY 08/16/22 05/22/23 Previous Rx's ?Medication ?Instructions ?Recorded benzonatate 200 mg capsule 200 mg PO TID PRN cough #10 caps 10/08/22 magnesium citrate 300 ml PO DAILY PRN constipation 11/12/23 #296 mL polyethylene glycol 3350 17 gram 17 g PO DAILY PRN constipation 2 11/12/23 oral powder packet (Miralax) weeks #30 ea amoxicillin 875 mg-potassium 1 tab PO BID #14 tabs 01/03/24 clavulanate 125 mg tablet ezetimibe 10 mg tablet 10 mg PO DAILY 90 days #90 tabs 04/19/24 amlodipine 10 mg tablet 10 mg PO DAILY #90 tabs 08/20/24 isosorbide mononitrate 60 mg 60 mg PO QAM #90 tabs 08/20/24 tablet,extended release 24 hr metoprolol tartrate 25 mg tablet 25 mg PO BID 90 days #180 tabs 08/20/24 rivaroxaban 20 mg tablet (Xarelto) 20 mg PO QPM #90 tabs 11/11/24 rosuvastatin 40 mg tablet 40 mg PO QPM #90 tabs 11/29/24 amlodipine 10 mg tablet 10 mg PO DAILY 3 days #3 tabs 12/07/24 lisinopril 40 mg tablet 40 mg PO DAILY 3 days #3 tabs 12/07/24 metoprolol tartrate 25 mg tablet 25 mg PO BID 3 days #6 tabs 12/07/24 Allergies Allergy/AdvReac Type Severity Reaction Status Date / Time No Known Allergies Allergy Verified 12/07/24 07:37 Review of Systems 2 Review of Systems: Constitutional: No fever, chills, fatigue, night sweats, weight changes ENT/Mouth: No ear pain, hearing loss, nasal congestion, sinus pain, rhinorrhea, sore throat Eyes: No eye pain, swelling, redness, vision changes, discharge Cardio: No chest pain, palpitations, DONALDSON, orthopnea, peripheral edema Pulm: No SOB, cough, sputum, wheezing, dyspnea, hemoptysis GI: No nausea, vomiting, hematemesis, abdominal pain, diarrhea, constipation, hematochezia, melena : No irregular bleeding, dysuria, frequency, urgency, hesitancy, hematuria, flank pain, urinary flow changes, urinary incontinence or retention MSK: No back pain, neck pain, joint pain, myalgias, +RLE pain Skin: No lesions, rashes Neuro: No weakness, numbness, paresthesias, LOC, dizziness, headache Psych: No anxiety/panic, depression, SI/HI, AH/VH All other systems reviewed and are negative. [facility] Past Medical History Attestation statement: The following information was validated with the patient. Source: old records reviewed and nursing notes reviewed Medical History Diabetes type 1, controlled Paroxysmal atrial fibrillation CAD (coronary artery disease) HTN (hypertension) Hyperlipidemia Surgical History Stented coronary artery Family History Family History Father No problems noted. Mother No problems noted. 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 Skin: Warm, dry, intact. No rashes or lesions. Head: Normocephalic, atraumatic. no palpable hematoma or skull fracture. no battles sign or raccoon eyes. EENT: Hearing is intact b/l. Conjunctiva clear. PERRLA. EOM intact. Moist mucous membranes.? Cardiac: Chest wall symmetric. RRR. no jvd or pitting edema. Lungs: Normal respiratory effort without accessory muscle use. CTA bilaterally Abdomen: Soft, non-tender, non-distended. No rebound tenderness or guarding. Positive BS x4. Back: No midline spinous or paraspinal tenderness. No step off deformity. Ext: Upper and lower extremities atraumatic, without tenderness, deformity, swelling or erythema. Full ROM throughout. Strength 5/5 throughout. Capillary refill <2 seconds in all extremities. Pulses 2+ equal and bilateral. Neuro: AOx3. Normal speech. Ambulating with steady gait assisted by cane. Psych: Appropriate mood and affect. Responds appropriately to questions. Course Course Course Narrative: 935 -- CBC without leukocytosis or left shift. chemistry without acute electrolyte abnormality requiring intervention. no ILIA. liver function wnl. troponin within normal limits. ACS unlikely, no need to repeat for delta. glucose 94. EKG showing sinus bradycardia with a rate of 59 beats per minute, no acute ischemic changes or ST elevations. BNP wnl. cxr unremarkable. there is no infiltrate or consolidation to suggest pneumonia. no pleural effusion. > ct head/c spine pending. xrs of RLE pending. > medicated with tylenol for pain 1115 -- Given that he has not taken these medications in a few days, his blood pressure is fairly controlled at 122/64 with repeat at 138/63. I am not concerned for hypertensive crisis. On review of MR - patient was prescribed a 30 day supply of amlodipine 10 mg daily on 11/18/24, a 30 day supply of lisinopril 40 mg daily on 11/25/2024, and a 30 day supply of metoprolol tartrate 25 mg b.i.d. on 12/03/2024. Although the MR states that these were filled, I can not see if patient has in fact picked up these prescriptions. I am also not able to contact [facility] pharmacy as they are closed today. Patient is adamant that he has misplaced these medications. He does not appear confused. he is alert and oriented and his exam is nonfocal. I have offered to send a 3 day supply of his antihypertensives to the pharmacy although he may have to pay a higher jean baptiste for these as it is not a full 30 day supply. he is agreeable. I advised him to follow up with his pcp regarding these medications. I have provided him with their number, advised to call Monday morning to schedule a follow up. Regarding his RLE pain, he has OA with chronic right knee pain requiring steroid injections. last injection by ortho was 1 month ago. his exam is benign. xrays of pelvis/ right femur/ and right ankle are unremarkable. there is no acute fracture. there are chronic degenerative changes. I discussed all findings with patient. patient ambulates with cane at baseline. given recent fall, we did discussed physical therapy consultation and he is agreeable. PT/CM consults placed. 1304 -- physician observation initiated 1409 -- patient pacing the hallway. Asking when he can leave. I informed patient that we are waiting for physical therapy consultation as he requested. He is now declining PT evaluation. He would like to leave the ED. he is ambulating with steady gait assisted by cane. he states his ride is outside waiting for him. I feel discharge at this time is reasonable. I will send a 3 day prescription of amlodipine, metoprolol and lisinopril. I informed patient that he will need to follow-up with [facility] Monday morning. He verbalizes understanding. Advised tylenol for pain control. Patient has remained stable throughout ED visit today. Discussed worrisome signs and symptoms and when to return to the ED. All questions answered at this time. Patient is agreeable with disposition and stable for discharge. Medications Administered Discontinued Medications Generic Name Dose Route Start Last Admin Trade Name Jesu PRN Reason Stop Dose Admin Acetaminophen 975 mg 12/07/24 09:36 12/07/24 10:15 Acetaminophen 325 Mg Tablet PO 12/07/24 09:37 975 mg ONCE ONE Administration Ondansetron HCl 4 mg 12/07/24 10:28 12/07/24 11:08 Ondansetron Odt 4 Mg Tab.Rapdis TRANSLINGU 12/07/24 10:29 Not Given ONCE ONE Medical Decision Making Medical Decision Making [facility] Narrative: 84 year old male with pmhx significant for HTN, paroxysmal atrial fibrillation, CAD, T1DM presents to the ED today via EMS with multiple concerns. Vital signs are stable. normotensive. he is nontoxic appearing and in NAD. NIH 0. exam is nonfocal. he is AOX3. no signs of trauma to head. exam of RLE unremarkable, no overlying skin changes/ deformities, no tenderness. ambulating w/ steady gait assisted by cane. Differential diagnosis includes fracture, contusion, msk pain, chronic pain, arthritis. unlikely nv compromise, threat to limb, compartment syndrome. concern for scalp contusion, hematoma, ICH, CVA/TIA, concussion. History without high risk features (not substernal, no exertional component, not relieved with rest).? Moderate CAD risk factors (including age. Exam without evidence of volume overload. EKG without signs of active ischemia. HEART score: 3? Given the timing of pain to ED presentation, plan to send single troponin to evaluate for NSTEMI. Presentation not consistent with acute PE, pneumothorax, thoracic aortic dissection, cardiac effusion or tamponade. Plan: labs, troponin, EKG, CXR, ASA, pain control, reassessment Differential Diagnosis Differential Diagnoses: The differential diagnosis associated with the presentation includes as above. Admission/Observation not indicated. Lab Data [facility] Lab Attestation statement: I reviewed the patient's lab results. as above. 12/07/24 07:46 12/07/24 08:44 Labs: Lab Results 12/07/24 12/07/24 12/07/24 Range/Units 07:46 08:44 09:22 WBC 4.9 (4.8-10.8) X10*3/uL RBC 2.13 L (4.60-5.80) X10*6/uL Hgb 10.2 L (14.0-18.0) g/dl Hct 27.3 L (42.0-52.0) % MCV 128.2 H (80.0-98.0) fL MCH 47.9 H (27.0-33.0) pg MCHC 37.4 H (31.0-36.0) g/dl RDW Not Reportable Plt Count 248 (160-400) X10*3/uL MPV 11.4 (9.4-12.4) fL Immature Gran % (Auto) Cancelled Neut % (Auto) Cancelled Lymph % (Auto) Cancelled [place] % (Auto) Cancelled Eos % (Auto) Cancelled Baso % (Auto) Cancelled Lymph # (Auto) Cancelled [place] # (Auto) Cancelled Eos # (Auto) Cancelled Baso # (Auto) Cancelled Abs Immat Gran (auto) Cancelled Absolute Neuts (auto) Cancelled Absolute Nucleated RBC 0.000 (0.0-0.012) X10*3/uL Nucleated RBC % (auto) 0.0 (0.0-0.2) /100WBC Neutrophils % (Manual) 64 (45-73) % Band Neutrophils % 0 L (3-5) % Lymphocytes % (Manual) 35 (20-40) % Monocytes % (Manual) 1 L (2-11) % Abs Neuts (Manual) 3.1 (2.0-8.3) X10*3/uL Lymphocytes # (Manual) 1.7 (1.2-4.9) X10*3/uL Hypersegmented Neuts PRESENT Platelet Estimate NORMAL (NORMAL) Plt Morphology Comment NORMAL RBC Morphology NOTED Polychromasia 1+ (0-2) /OIF Macrocytosis 2+ (15-30) /OIF Spherocytes 2+ (3-5) /OIF Ovalocytes 1+ (5-14) /OIF Schistocytes 3+ (>5) /OIF PT 12.9 H (10.9-12.4) SEC INR 1.1 (0.9-1.1) Sodium 138 (135-145) mmol/L Potassium 3.8 (3.3-5.1) mmol/L Chloride 107 (96-108) mmol/L Carbon Dioxide 26 (22-29) mmol/L Anion Gap 9 L (12-20) BUN 18 H (9-16) mg/dL Creatinine 0.67 (0.5-1.4) mg/dL Estim Creat Clear Calc 70.1 Estimated GFR > 60 POC Glucose 94 (60-115) mg/dL Random Glucose 94 (60-115) mg/dL Calcium 8.5 D (8.4-10.2) mg/dL Magnesium 1.9 (1.6-2.6) mg/dL Total Bilirubin 0.3 (0.0-1.0) mg/dL AST 26 (5-37) U/L ALT 18 (0-40) U/L Alkaline Phosphatase 66 (39-117) U/L Troponin I High Sens 3.8 (<3.5-35.0) ng/L B-Natriuretic Peptide 19 (<100) pg/mL Total Protein 5.3 L (6.5-8.0) g/dL Albumin 3.2 L (3.5-5.0) g/dL Independent Interpretation I performed an independent interpretation of an: EKG, Plain X-Ray and CT Scan Interpretation: CT head/brain without bleed or skull fracture CT cervical spine without fracture or subluxation XR pelvis without fracture XR right femur without acute fracture XR right ankle without fracture EKG showing sinus bradycardia at a rate of 59 beats per minute, no acute ischemic changes or ST elevations, similar to prior EKGs. Radiology Impression Discussion of test interpretation with radiology: I have reviewed the radiologist's reading. Radiologist Impression: Procedure(s): CT head/brain wo IV con Accession Number(s): [id number] cc: Pebbles Tapia; Thomas Albarado NP~ Report Number: [id number]: Total DLP = 687.00 mGy-cm CLINICAL HISTORY: fall w head strike CT head without contrast Comparison: CT/SR - CT HEAD/BRAIN WO IV CON - 07/14/24 16:52 EDT Findings: No intra-axial mass, midline shift, hydrocephalus, or acute hemorrhage. Global age-related atrophic changes. Scattered subcortical white matter and periventricular white matter hypodensities, nonspecific and may reflect sequelae of chronic microvascular ischemic change. Atherosclerotic calcifications of the carotid artery siphons. Chronic bilateral mastoid effusions. Rightward deviated nasal septum The orbits are unremarkable. No skull fracture. IMPRESSION: 1. No acute intracranial findings. This document has been electronically signed by: Citlali Jenkins MD on 12/07/2024 10:09:12 Procedure(s): CT cervical spine wo IV con Accession Number(s): [id number] cc: Pebbles Tapia; Thomas Albarado NP~ Report Number: [id number]: Total DLP = 325.00 mGy-cm CLINICAL HISTORY: fall w head strike CT cervical spine without contrast Comparison: [place] - CAT SCAN CERVICAL SPINE [id number] - 11/10/19 16:44 EST Findings: Mild anterolisthesis of C3 on C4. Otherwise, vertebral alignment is within normal limits. Scattered multilevel degenerative change of the cervical spine. No acute fractures or dislocations. No acute findings on limited view of the intracranial contents. No cervical fluid collections or masses. Lung apices are clear. IMPRESSION: No acute findings of the cervical spine. Chronic and degenerative changes as described. This document has been electronically signed by: Citlali Jenkins MD on 12/07/2024 10:03:37 Procedure(s): XR pelvis 1-2V Accession Number(s): [id number] cc: Pebbles Tapia; Thomas Albarado NP~ CLINICAL HISTORY: fall, right hip pain 1 view pelvis Comparison: CT/[place]/SR - CT ABDOMEN PELVIS W IV CON - 01/03/24 14:31 EDT Findings: No acute fracture or dislocation. Degenerative changes of the bilateral hip joints and partially imaged lower lumbar spine. Sacroiliac joints and pubic symphysis joint are relatively maintained. Atherosclerotic calcifications are noted. Otherwise, soft tissues are unremarkable. IMPRESSION: 1. No acute findings. This document has been electronically signed by: Citlali Jenkins MD on 12/07/2024 10:47:14 Procedure(s): XR femur RT 2V Accession Number(s): [id number] cc: Pebbles Tapia; Thomas Albarado NP~ CLINICAL HISTORY: fall r thigh knee pain 2 view right femur Comparison: None Findings: No fractures or dislocations. No knee effusion. Degenerative changes of the right hip joint. No radiopaque foreign body. Atherosclerotic calcifications. IMPRESSION: 1. No acute findings of the right femur. This document has been electronically signed by: Citlali Jenkins MD on 12/07/2024 10:48:55 External Record Review External record reviewed: Inpatient record, Office record, Outpatient record, Prior outpatient labs and Prior outpatient radiology Prescription Management I considered prescription management with: Other (Antihypertensives) Chronic Conditions Patient?s care impacted by: Hypertension and Other (chronic pain) Social Determinants Patient?s care significantly limited by Social Determinants of Health including: Other Social Determinant of Health Critical Care Time Critical Care Time Critical Care Time: No Discharge Plan Discharge Clinical Impression: Accident due to mechanical fall without injury, Hypertension, Chronic pain Patient Disposition: Home, Self-Care Instructions: Chronic Pain (ED), Hypertension (ED) Additional Instructions: Your blood work today is reassuring. The CT scans of your head/neck are normal. There is no bleed or fracture. Your chest xray does not show pneumonia. The xrays of your right leg are normal. They show chronic degenerative changes consistent with your arthritis. You are declining physical therapy evaluation. As discussed, I am sending a 3 day prescription of your blood pressure medications to your pharmacy. This includes your amlodipine, lisinopril and metoprolol. You need to follow up with your providers at the [facility] for further prescriptions. Continue to monitor your blood pressures at home. Follow up with your outpatient providers. Return with any new or worsening symptoms. In the case of an emergency call 911. Prescriptions: New amlodipine 10 mg tablet 10 mg PO DAILY 3 Days Qty: 3 0RF metoprolol tartrate 25 mg tablet 25 mg PO BID 3 Days Qty: 6 0RF lisinopril 40 mg tablet 40 mg PO DAILY 3 Days Qty: 3 0RF No Action ezetimibe 10 mg tablet 10 mg PO DAILY 90 Days Qty: 90 0RF amlodipine 10 mg tablet 10 mg PO DAILY Qty: 90 0RF isosorbide mononitrate 60 mg tablet extended release 24 hr 60 mg PO QAM Qty: 90 0RF metoprolol tartrate 25 mg tablet 25 mg PO BID 90 Days Qty: 180 0RF Xarelto 20 mg tablet 20 mg PO QPM Qty: 90 3RF rosuvastatin 40 mg tablet 40 mg PO QPM Qty: 90 0RF benzonatate 200 mg capsule 200 mg PO TID PRN (Reason: cough) Qty: 10 0RF magnesium citrate Solution 300 ml PO DAILY PRN (Reason: constipation) Qty: 296 0RF polyethylene glycol 3350 [Miralax] 17 gram powder in packet 17 g PO DAILY PRN (Reason: constipation) 14 Days Qty: 30 0RF amoxicillin-pot clavulanate 875-125 mg tablet 1 tab PO BID Qty: 14 0RF hydrochlorothiazide 25 mg tablet 25 mg PO DAILY lisinopril 40 mg tablet 40 mg PO DAILY ipratropium-albuterol 0.5 mg-3 mg(2.5 mg base)/3 mL solution for nebulization 3 ml inhalation QID PRN tamsulosin 0.4 mg capsule 0.4 mg PO DAILY fluticasone propion-salmeterol 500-50 mcg/dose blister with device 1 ea PO BID metformin 500 mg tablet 500 mg PO QAM fenofibrate micronized 200 mg capsule 200 mg PO DAILY pantoprazole 40 mg tablet,delayed release (DR/EC) 40 mg PO DAILY finasteride 5 mg tablet 5 mg PO DAILY trazodone 50 mg tablet 50 mg PO BEDTIME ferrous sulfate 325 mg (65 mg iron) tablet 325 mg PO DAILY loratadine 10 mg tablet 10 mg PO DAILY oxycodone-acetaminophen 7.5-325 mg tablet 1 tab PO Q4H PRN (Reason: pain) melatonin 5 mg tablet 5 mg PO DAILY Referrals: Thomas Albarado NP [Primary Care Provider] - Interventions: ED Discharge Assessment Last Done: 12/07/24 14:25 Discharge Date/Time: 12/07/24 14:26 Print Language: Pashto
[2024-12-07 09:27] LABS: Glucose, Whole Blood 94 mg/dL (60-115)
[2024-12-07 09:50] LABS: B Type Natriuretic Peptide 19 pg/mL (<100)
[2024-12-07] MEDS: Acetaminophen 325 MG TABLET 975 MG PO (10:15)
[2024-12-07 10:16] VITALS: BP 138/63; PULSE 68; RESP 23; O2SAT 100
[2024-12-07 11:20] VITALS: BP 131/53; PULSE 68; RESP 19; TEMP 36.6; O2SAT 98
--- NOTE | 2024-12-07 13:45 | MHC.CM.PN ---
Addendum entered by Kacie Caba 12/07/24 14:38: PT DECLINED P.T. EVAL AND WOULD LIKE TO RETURN HOME. PROVIDER AWARE. PT HAS OWN RIDE. Original Note: CM RECEIVED ED CONSULT. CM MET WITH PT AT BEDSIDE WITH [employer] AUD[employer] IN ED. PT LIVES WITH ROOMMATE AND USES CANE FOR MOBILITY. +HCP ON FILE. PCP AT [facility]. DP: P.T. TO EVAL TO DETERMINE NEEDS. CM WILL FOLLOW FOR PLAN. IF PLAN IS HOME, PT HAS A RIDE.
[2024-12-07 14:25] VITALS: BP 131/53; PULSE 68; RESP 18; TEMP 36.6; O2SAT 98
== END 2024-12-07 14:26 | disposition home or self-care (01) ==
PROVIDERS: Physician Assistant Medical; Emergency Provider Emergency Medicine; PCP Nurse Practitioner Family
DX: I10 Essential (primary) hypertension (principal); G89.4 Chronic pain syndrome; M25.571 Pain in right ankle and joints of right foot; M79.604 Pain in right leg; M25.551 Pain in right hip; R07.9 Chest pain, unspecified; Z91.81 History of falling; R00.1 Bradycardia, unspecified; E10.9 Type 1 diabetes mellitus without complications; E78.5 Hyperlipidemia, unspecified; I48.0 Paroxysmal atrial fibrillation; Z79.01 Long term (current) use of anticoagulants; Z79.899 Other long term (current) drug therapy; Z79.84 Long term (current) use of oral hypoglycemic drugs
CPT/HCPCS: 36415; 70450; 71045; 72125; 72170; 73552; 73610; 80053; 82947; 83735; 83880; 84484; 85007; 85025; 85027; 85610; 93005; 99285

== ENCOUNTER → 2024-12-07 07:42 | Outpatient (BNV) | payer OTHER, SELFPAY | PROVIDERS: Emergency Provider Emergency Medicine; PCP Nurse Practitioner Family; Visit Provider Radiology Vascular & Interventional Radiology | DX: M50.30 Other cervical disc degeneration, unspecified cervical region (principal); H70.13 Chronic mastoiditis, bilateral; R07.9 Chest pain, unspecified; M79.651 Pain in right thigh; M25.571 Pain in right ankle and joints of right foot; M25.551 Pain in right hip | CPT/HCPCS: 70450; 71045; 72125; 72170; 73552; 73610 ==

== ENCOUNTER → 2024-12-07 08:01 | Outpatient (BNV) | payer OTHER, SELFPAY | PROVIDERS: Emergency Provider Emergency Medicine; PCP Nurse Practitioner Family; Visit Provider Internal Medicine | DX: R07.9 Chest pain, unspecified (principal); R00.1 Bradycardia, unspecified | CPT/HCPCS: 93010 ==

== ENCOUNTER 2024-12-09 09:16 | Outpatient (AMB) | payer OTHER, SELFPAY ==
--- NOTE | 2024-12-09 09:19 | A.OFFVIS_ITS ---
Vital Signs 12/09/24 09:20 Height 5 ft 5 in Weight 145 lb 8.081 oz BMI 24.2 BP 140/80 H Blood Pressure Location Lt brachial Position Sitting Pulse 57 Intake Visit Reasons: r/s 11/05/24 overdue followup Intake Note: Overdue follow-up c/o chest pressure at times patient lost all his medication last week Pulling Machine Operator Required: Yes Pv Design And Installation Technician: Pv Design And Installation Technician Present Accompanied by: ux design lead Allergies No Known Allergies Allergy (Verified 12/07/24 07:37) Medication List - Last Reconciled 12/09/24 by Miguel Angel Dial MD amlodipine 10 mg PO DAILY 3 days amoxicillin-pot clavulanate 875-125 mg 1 tab PO BID benzonatate 200 mg PO TID PRN ezetimibe 10 mg PO DAILY 90 days fenofibrate micronized 200 mg PO DAILY ferrous sulfate 325 mg PO DAILY finasteride 5 mg PO DAILY fluticasone propion-salmeterol 500-50 mcg/dose 1 ea PO BID hydrochlorothiazide 25 mg PO DAILY ipratropium-albuterol 0.5 mg-3 mg(2.5 mg base)/3 mL 3 mL inhalation QID PRN isosorbide mononitrate ER 60 mg PO QAM lisinopril 40 mg PO DAILY 3 days loratadine 10 mg PO DAILY magnesium citrate 300 mL PO DAILY PRN melatonin 5 mg PO DAILY metformin 500 mg PO QAM metoprolol tartrate 25 mg PO BID 3 days metoprolol tartrate 25 mg PO BID 90 days oxycodone-acetaminophen 7.5-325 mg 1 tab PO Q4H PRN pantoprazole 40 mg PO DAILY polyethylene glycol 3350 (Miralax) 17 grams PO DAILY PRN 2 weeks rivaroxaban (Xarelto) 20 mg PO QPM rosuvastatin 40 mg PO QPM tamsulosin 0.4 mg PO DAILY trazodone 50 mg PO BEDTIME HPI Comments Details: Aleksandr comes after a long gap, accompanied by his CHEMICALS DISTILLER. He lost his medicines for the last 4-5 days and has not been taking any medications. He has not had any prolonged palpitation irregular heartbeat. Occasionally gets skipped heartbeats. Almost constantly intermittently gets episodes of chest pressure which is under stressful situation which is probably related to anxiety. He does not get any symptoms with exertion. He denies any heart failure symptoms. No bleeding issues or neurologic events. [facility] Medical History Diabetes type 1, controlled Paroxysmal atrial fibrillation CAD (coronary artery disease) HTN (hypertension) Hyperlipidemia Surgical History Stented coronary artery Family History Father No problems noted. Mother No problems noted. 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 Review of Systems Const Denies chills, Denies fatigue, Denies fever(s), Denies frequent falls, Denies weakness, Denies weight gain and Denies weight loss ENT Denies dizziness Card Denies chest pain, Denies leg edema, Denies lightheadedness, Denies palpitations, Denies dyspnea, Denies dyspnea on exertion, Denies orthopnea and Denies other (loss of consciousness) Resp Denies cough, Denies dyspnea and Denies dyspnea on exertion GI Denies hematochezia and Denies change in stool character Musc Denies abnormal gait, Denies muscle weakness, Denies numbness, Denies radiating pain into limb and Denies tingling Neuro Denies abnormal gait, Denies dizziness, Denies frequent falls, Denies numbness, Denies tingling and Denies weakness Endo Denies fatigue and Denies palpitations Physical Exam Vital Signs: Last Vital Signs Pulse 57 12/09/24 09:20 BP 140/80 H 12/09/24 09:20 BMI result Body Mass Index 24.2 Const General: cooperative, healthy appearing, comfortable and no acute distress Orientation/consciousness: patient oriented x3 Neck Neck: Yes normal visual inspection Resp Effort & Inspection: normal respiratory effort Auscultation: clear to auscultation bilaterally, no crackles, no rales, no rhonchi and no wheezes Cardio Jugular venous distension: no JVD Rate: regular rate Rhythm: regular rhythm Heart sounds: S1 normal heart sound present, S2 normal heart sound present, no murmurs and no rubs Neuro General: patient oriented x3 Extrem Other: No noticeable change in appearance between right leg and left leg. No calf tenderness, redness or swelling noted. 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 General: Yes normal to inspection Psych Appearance: grossly normal Mental Status: mental status grossly normal Speech and movement: Normal speech and movement present Assessment & Plan Assessment & Plan (1) CAD (coronary artery disease): Code(s): I25.10 - Atherosclerotic heart disease of augustine coronary artery without angina pectoris Category: Medical Plan: CAD with prior drug-eluting stent to the LAD for acute coronary syndrome. He has not had any recurrent concerning symptoms. His current symptoms of chest discomfort were to be anxiety driven. They do not happen with exertion. No further workup is indicated. I have advised him to resume his medication including Crestor and ezetimibe. Follow-up lipid panel in 6 weeks time. His blood pressure despite being off all his medications not significantly elevated and would therefore only restart him on amlodipine therapy for now. He has a follow-up visit with you in couple weeks and therefore can check his blood pressure at that point in time. Advised to monitor blood pressure at home maintain a log. Stress mitigation strategies was discussed. Low-salt diet was discussed. Diabetes under your care with goal hemoglobin A1c less than 7%. (2) Paroxysmal atrial fibrillation: Code(s): I48.0 - Paroxysmal atrial fibrillation Category: Medical Plan: Paroxysmal atrial fibrillation without any obvious recurrence at this point time. Continue rhythm control approach. Given his baseline bradycardia will hold off on metoprolol therapy at this point time. Continue full oral anticoagulation, currently on Xarelto which has tolerated well. Semi annual renal function test should be pursued. Avoidance of stimulants was discussed. Stress mitigation strategies were discussed. Will follow up in the clinic in 6 months time, sooner p.r.n.. Thank you for allowing me to partake in his care Medications: Refilled amlodipine 10 mg PO DAILY 3 days 30 tabs 5RF rivaroxaban (Xarelto) 20 mg PO QPM 30 tabs 5RF rosuvastatin 40 mg PO QPM 30 tabs 5RF ezetimibe 10 mg PO DAILY 90 days 30 tabs 5RF Discontinued lisinopril Discontinued Reason: Doctor's Order 40 mg PO DAILY 3 days 3 tabs 0RF metoprolol tartrate Discontinued Reason: Doctor's Order 25 mg PO BID 3 days 6 tabs 0RF isosorbide mononitrate ER Discontinued Reason: Doctor's Order 60 mg PO QAM 90 tabs 0RF metoprolol tartrate Discontinued Reason: Doctor's Order 25 mg PO BID 90 days 180 tabs 0RF Coding Level of Care Code Est Pt Level 4 (39635) Complex EM visit Add On G2211 Diagnoses CAD (coronary artery disease) I25.10 Paroxysmal atrial fibrillation I48.0
[2024-12-09 09:20] VITALS: BP 140/80; PULSE 57; BMI 24.2
--- OUTSIDE RECORDS SUMMARY | 2024-12-09 09:55 | XMS_ITS | Encounter Summary ---
Author Organization [employer] [facility] Address [address] [facility] 7 [place] [address] Care Team Providers Care Briefcase Sewer Name Role Phone Citlali Norman DO Primary Care Provider + [phone] Reason for Visit * Reason Comments Med Refill Encounter Details Date Type Department Care Team (Late st Contact Info) Description 12/28/2023 Refill [facility] [address] [place] [address] Citlali Norman DO [address] [place], [place] [phone] Chronic bilateral low back pain, unspecified whether sciatica present Social History Tobacco Use Types Packs/Day Years Used Date Smoking Tobacco: Never Passive Smoke Exposure: Never Smokeless Tobacco: Never Depression Answer Date Recorded Patient Health Questionnaire-9 Score 0 02/27/2023 Depression Answer Date Recorded Patient Health Questionnaire-2 Score 0 02/27/2023 Sex and Gender Information Value Date Recorded Sex Assigned at Male 08/15/2022 10:14 AM EDT Legal Sex Male 10:14 AM EDT Gender Identity Male 08/15/2022 10:14 AM EDT Sexual Orientation Don't know 08/15/2022 10 :14 AM EDT documented as of this encounter Plan of Treatment Upcoming Encounters Date Type Department Care Team (Late st Contact Info) Description 12/18/2024 9:00 AM EST Medication Management [facility] [address] [place] [address] PuiaElizabeth, PharmD [address] [place], [place] [phone] 01/31/2025 9:30 AM EDT Telemedicine [facility] [address] [place] [address] Venecia Hyatt RN documented as of this encounter Visit Diagnoses Diagnosis Chronic bilateral low back pain, unspecified whether sciatica present documented in this encounter Additional Health Concerns Assessment Noted Time PHQ-9 Depression Total Score: 0 02/28/20 23 11:46 AM EDT documented as of this encounter Care Teams Briefcase Sewer Relationship Specialty Start Date End Date Citlali Norman DO [address] [place] [phone] PCP - General Family Medicine 10/16/18 documented as of this encounter
--- OUTSIDE RECORDS SUMMARY | 2024-12-09 09:55 | XMS_ITS | Encounter Summary ---
Author Organization [employer] Address [address] 7[address] [place] [address] Care Team Providers Care Cattle Brander Name Role Phone EsterCitlali Primary Care Provider + [phone] Reason for Visit * Reason Onset Date Comments Med Refill 12/06/2024 Encounter Details Date Type Department Care Team (Late st Contact Info) Description 12/06/2024 Refill [facility] [address] [place], [place] [phone] Venecia Hyatt RN Chronic pain of both knees Social History Tobacco Use Types Packs/Day Years Used Date Smoking Tobacco: Never Passive Smoke Exposure: Never Smokeless Tobacco: Never Depression Answer Date Recorded Patient Health Questionnaire-9 Score 0 02/27/2023 Housing Stability Answer Date Recorded What is your housing situation today? I have aditya gordon 01/16/[address] you li ve. Do you have problems with any of the following? None of the above 01/16/2024 Food Insecurity Answer Date Recorded Within the past 12 months, y ou worried that your food would run out before you got money to buy more: Never True 01/16/2024 Within the past 12 months,th e food you bought just didn't last and you didn't have enough money to get more: Never True 11/2023 Transportation Answer Date Recorded In the past 12 months, has l ack of transportation kept you from medical appts, meetings, work or from getting things needed for daily living? No 01/16/2024 Utilities Answer Date Recorded In the past 12 months, has t he electric, gas, oil or water company threatened to shut off services in your home? No 01/16/2024 Depression Answer Date Recorded Patient Health Questionnaire-2 Score 0 02/27/2023 Sex and Gender Information Value Date Recorded Sex Assigned at Male 08/15/2022 10:14 AM EDT Legal Sex Male 10:14 AM EDT Gender Identity Male 08/15/2022 10:14 AM EDT Sexual Orientation Don't know 08/15/2022 10 :14 AM EDT documented as of this encounter Miscellaneous Notes * Telephone Encounter - Venecia Hyatt RN - 12/06/2024 7:42 AM EST Spoke to [facility] pharmacy, patient picked up last Oxycodone RX on 12/05/24. documented in this encounter Plan of Treatment Upcoming Encounters Date Type Department Care Team (Late st Contact Info) Description 12/18/2024 9:00 AM EST Medication Management [facility] [address] [place] [phone] Elizabeth Bacon PharmD [address] [place] [phone] 01/31/2025 9:30 AM EDT Telemedicine [facility] [address] [place] [phone] Venecia Hyatt, [place] documented as of this encounter Goals Goal Patient Goal Type Associated Problems Recent Progress Patient-Stated? Author Patient will adhere to medication regimen General Jah Garza PharmD Note: All medications to be renewed and resumed as directed. Patient will manage their medication General Jah Garza PharmD Note: Patient will keep medications locked in a safe place to prevent loss. documented as of this encounter Visit Diagnoses Diagnosis Chronic pain of both knees documented in this encounter Additional Health Concerns Assessment Noted Time PHQ-9 Depression Total Score: 0 02/28/20 23 11:46 AM EDT documented as of this encounter Care Teams Cattle Brander Relationship Specialty Start Date End Date Citlali Norman DO [address] [place] [id number] PCP - General Family Medicine 10/16/18 documented as of this encounter
--- OUTSIDE RECORDS SUMMARY | 2024-12-09 09:55 | XMS_ITS | Encounter Summary ---
Author Organization [employer] Address [address] [place] [address] Care Team Providers Care Capital Markets Specialist Name Role Phone Ester Citlali Primary Care Provider + [phone] Encounter Details Date Type Department Care Team (Late st Contact Info) Description 12/04/2024 10:20 AM EST Office Visit [facility] [address] [place] [address] Luz Lopez MD [address] [place], [place] [phone] Fall, initial encounter (Primary Dx) Social History Tobacco Use Types Packs/Day Years [...] AM EDT documented as of this encounter Last Filed Vital Signs Vital Sign Reading Time Taken Comments Blood Pressure 145/79 12/04/2024 9:37 AM EST Pulse 84 12/04/2024 9:37 AM EST Temperature 36.3 ??C (97.4 ??F) 12/04/2024 9:37 AM ES T Respiratory Rate - - Oxygen Saturation 99% 12/04/2024 9:37 AM EST Inhaled Oxygen Concentration - - Weight - - Height - - Body Mass Index - - documented in this encounter Progress Notes * Mary Plascencia RN - 12/04/2024 10:20 AM EST Pt presents to [facility] complaining of right sided pain. Pt reports he was walking to [facility] because of right knee pain and fell on the ice. Pt reports he hit his head and fell on right side. Pt reports pain in head, right arm, right leg, and chest with pain rated at 8/10. Pt reports the pain inhis chest began after the fall and believes it is due to the fall. * Luz Lopez MD - 12/04/2024 10:20 AM EST Subjective Patient ID: Aleksandr Rosenberg is a 84 y.o. male who presents for No chief complaint on file.. Fall The accident occurred Less than 1 hour ago. The fall occurred while walking. Impact surface: ice. There was no blood loss. The point of impact was the right shoulder and right knee. The pain is present in the right shoulder, right upper arm and right lower leg. The pain is at a severity of 5/10. The pain is moderate. The symptoms are aggravated by ambulation. Pertinent negatives include no abdominal pain, bowel incontinence, fever, headaches, hearing loss, hematuria, loss of consciousness, nausea, numbness, tingling, visual change or vomiting. He has tried nothing for the symptoms. Review of Systems Constitutional: Negative for fever. Gastrointestinal: Negative for abdominal pain, bowel incontinence, nausea and vomiting. Genitourinary: Negative for hematuria. Neurological: Negative for tingling, loss of consciousness, numbness and headaches. Objective Physical Exam Constitutional: Appearance: Normal appearance. Cardiovascular: Rate and Rhythm: Normal rate and regular rhythm. Pulmonary: Effort: Pulmonary effort is normal. Breath sounds: Normal breath sounds. Musculoskeletal: Comments: + mild tenderness in the right side of the body Neurological: General: No focal deficit present. Mental Status: He is alert. Psychiatric: Mood and Affect: Mood normal. Behavior: Behavior normal. Assessment/Plan Diagnoses and all orders for this visit: Fall, initial encounter Comments: Low probability of fracture Started on Meloxicam daily.Pt is on Percocet for pain Advised warm compress and rest RN to call dakotah for check Other orders - meloxicam (Mobic) 15 MG tablet; Take 1 tablet (15 mg) by mouth Once per day. documented in this encounter Plan of Treatment Upcoming Encounters Date Type Department Care Team (Late st Contact Info) Description 12/18/2024 9:00 AM EST Medication Management [address] [address] Elizabeth Bacon PharmD [address] [place] [phone] 01/31/2025 9:30 AM EDT Telemedicine [address] [address] Venecia Hyatt RN documented as of this encounter Goals Goal [...] as of this encounter Visit Diagnoses Diagnosis Fall, initial encounter- Primary documented in this encounter Additional Health Concerns Assessment Noted Time PHQ-9 Depression Total Score: 0 02/28/20 23 11:46 AM EDT documented as of this encounter Care Teams Capital Markets Specialist Relationship Specialty Start Date End Date Citlali Norman DO [address] [place] [phone] PCP - General Family Medicine 10/16/18 documented as of this encounter
--- OUTSIDE RECORDS SUMMARY | 2024-12-09 09:55 | XMS_ITS | Encounter Summary ---
Author Organization [employer] Address [address] [facility] [place] [address] Care Team Providers Care Pricing Strategist Name Role Phone EsterCitlali Primary Care Provider + [phone] Reason for Visit * Reason Onset Date Comments IT ADMIN Renewal today 11/22/2024 Encounter Details Date Type Department Care Team (Late st Contact Info) Description 11/22/2024 Telephone [facility] [address] [place], [place] [phone] Venecia Hyatt RN IT ADMIN Renewal today Social History Tobacco Use Types Packs/Day Years [...] Telephone Encounter - Venecia Hyatt RN - 11/22/2024 1:13 PM EST Pt had Tele IT ADMIN Renewal today BPI updated Pain severity score of 8, activity interference score of 3.7. Previous BPI completed 07/12/24 with pain severity score of 7, activity interference score of 8. documented in this encounter Plan of Treatment Upcoming Encounters Date Type Department Care Team (Late st Contact Info) Description 12/18/2024 9:00 AM EST Medication Management [address] [address] Elizabeth Bacon PharmD [address] [place] [phone] 01/31/2025 9:30 AM EDT Telemedicine [address] [address] Venecia Hyatt, [place] documented as of this [...] documented as of this encounter Visit Diagnoses Not on filedocumented in this encounter Additional Health Concerns Assessment Noted Time PHQ-9 Depression Total Score: 0 02/28/20 23 11:46 AM EDT documented as of this encounter Care Teams Pricing Strategist Relationship Specialty Start Date End Date Citlali Norman DO [address] [place] [address], [place] [address] PCP - General Family Medicine 10/16/18 documented as of this encounter
--- OUTSIDE RECORDS SUMMARY | 2024-12-09 09:55 | XMS_ITS | Encounter Summary ---
Author Organization [email or web address] [facility] Address [address] [facility] 7t [place] [address] Care Team Providers Care Asphalt Plant Worker Name Role Phone Citlali Norman DO Primary Care Provider + [phone] Reason for Visit * Reason Onset Date Comments Med Refill 05/08/2023 Encounter Details Date Type Department Care Team ([facility] st Contact Info) Description 05/08/2023 Telephone [facility] [address] [place], [place] [phone] Citlali Norman DO [address] [place], [place] [phone] Med Refill Social History Tobacco Use Types Packs/Day Years [...] Don't know 08/15/2022 10 :14 AM EDT COVID-19 Exposure Response Date Recorded In the last 10 days, have yo u been in contact with someone who was confirmed or suspected to have Coronavirus/COVID-19? No / Unsure 04/24/2023 8:31 AM EDT documented as of this encounter Miscellaneous Notes * Telephone Encounter - Janie Cuevas - 05/08/2023 9:33 AM EDT Tc from pt requesting medication refill on oxyCODONE-acetaminophen (Percocet) 7.5-325 MG tablet documented in this encounter Plan of Treatment Upcoming Encounters Date Type Department Care Team (Late st Contact Info) Description 12/18/2024 9:00 AM EST Medication Management [facility] [address] [place] [phone] Elizabeth Bacon PharmD [address] [place] [phone] 01/31/2025 9:30 AM EDT Telemedicine [address] [phone] Venecia Hyatt, [place] documented as of this encounter Visit Diagnoses Not on filedocumented in this encounter Additional Health Concerns Assessment Noted Time PHQ-9 Depression Total Score: 0 02/28/20 23 11:46 AM EDT documented as of this encounter Care Teams Asphalt Plant Worker Relationship Specialty Start Date End Date Citlali Norman DO [address] [place] [phone] PCP - General Family Medicine 10/16/18 documented as of this encounter
--- OUTSIDE RECORDS SUMMARY | 2024-12-09 09:55 | XMS_ITS | Encounter Summary ---
Author Organization [employer] Address [address] [facility] 7t [place] [address] Care Team Providers Care Technicians And Trades Workers Name Role Phone Citlali Norman DO Primary Care Provider + [phone] Reason for Visit * Reason Comments Med Refill Encounter Details Date Type Department Care Team ([facility] st Contact Info) Description 11/21/2024 Refill [facility] [address] [place], [place] [phone] Citlali Norman DO [address] [place], [place] [phone] Chronic pain of both knees Social History [...] the past 12 months, has t he Canines, gas, oil or water [employer] threatened to shut off services in your [...] Description 12/18/2024 9:00 AM EST Medication Management [address] [address] Elizabeth Bacon PharmD [address] [place] [phone] 01/31/2025 9:30 AM EDT Telemedicine [address] [address] Venecia Hyatt RN documented as of this [...] documented as of this encounter Care Teams Technicians And Trades Workers Relationship Specialty Start Date End Date Citlali Norman DO [address] [place] [phone] PCP - General Family Medicine 10/16/18 documented as of this encounter
--- OUTSIDE RECORDS SUMMARY | 2024-12-09 09:55 | XMS_ITS | Encounter Summary ---
Author Organization [employer] Address [address] [facility] [address] 7t [place] [address] Care Team Providers Care Index Editor Name Role Phone AndrewCitlali flores Primary Care Provider + [phone] Encounter Details Date Type Department Care Team (Latest Contact Info) Description 11/22/2024 Travel Social History Tobacco Use Types Packs/Day Years [...] Description 12/18/2024 9:00 AM EST Medication Management [address] [address] Elizabeth Bacon PharmD 230 [place] [address] 01/31/2025 9:30 AM EDT Telemedicine [address] [address] Venecia Hyatt RN documented as of this encounter Goals Goal Patient Goal Type Associated Problems Recent Progress Patient-Stated? Author Patient will adhere to medication regimen General Jha Garza PharmD Note: All medications to be renewed and resumed as directed. Patient will manage their medication General No Jah Lawrence PharmD Note: Patient will keep medications locked in a safe place to prevent loss. documented as of this encounter Visit Diagnoses Not on filedocumented in this encounter Additional Health Concerns Assessment Noted Time PHQ-9 Depression Total Score: 0 02/28/20 23 11:46 AM EDT documented as of this encounter Care Teams Index Editor Relationship Specialty Start Date End Date Citlali Norman DO [address] [place] [address] PCP - General Family Medicine 10/16/18 documented as of this encounter
--- OUTSIDE RECORDS SUMMARY | 2024-12-09 09:55 | XMS_ITS | Encounter Summary ---
Author Organization [employer] Address [address] [facility] [address] 7t [place] [address] Care Team Providers Care Laundromat Manager Name Role Phone AndrewCitlali flores Primary Care Provider + [phone] Reason for Visit * Reason Onset Date Comments Med Refill 11/29/2024 Encounter Details Date Type Department Care Team (Late st Contact Info) Description 11/29/2024 Refill [facility] MEDICINE 230 [place], [place] [phone] Venecia Hyatt RN Chronic pain of both [...] Description 12/18/2024 9:00 AM EST Medication Management [address] [address] Elizabeth Bacon PharmD [address] [place] [address] 01/31/2025 9:30 AM EDT Telemedicine [address] [phone] Venecia Hyatt RN documented as of this encounter Goals Goal Patient Goal Type Associated Problems Recent Progress Patient-Stated? Author Patient will adhere to medication regimen General No Jah Lwarence PharmD Note: All medications to be renewed [...] documented as of this encounter Care Teams Laundromat Manager Relationship Specialty Start Date End Date Citlali Norman DO [address] [place] [address] PCP - General Family Medicine 10/16/18 documented as of this encounter
--- OUTSIDE RECORDS SUMMARY | 2024-12-09 09:55 | XMS_ITS | Encounter Summary ---
Author Organization [employer] [facility] Address [address] [facility] 7 [place] [address] Care Team Providers Care Medical Record Clerk Name Role Phone Citlali Norman DO Primary Care Provider + [phone] Reason for Visit * Reason Comments Med Refill Encounter Details Date Type Department Care Team (Late st Contact Info) Description 06/21/2023 Refill [facility] MEDICINE [address] [place] [address] [phone] Citlali Norman DO 230 [place], [place] [phone] Essential hypertension Social History Tobacco Use Types Packs/Day Years [...] Description 12/18/2024 9:00 AM EST Medication Management [facility] MEDICINE 230 [place] [address] PuiaElizabeth, PharmD 230 [place], [place] [phone] 01/31/2025 9:30 AM EDT Telemedicine [facility] MEDICINE 230 [place] [address] Venecia Hyatt, [place] documented as of this encounter Visit Diagnoses Diagnosis Essential hypertension Unspecified essential hypertension documented in this encounter Additional Health Concerns Assessment Noted Time PHQ-9 Depression Total Score: 0 02/28/20 23 11:46 AM EDT documented as of this encounter Care Teams Medical Record Clerk Relationship Specialty Start Date End Date Citlali Norman DO 230 [place] [address] PCP - General Family Medicine 10/16/18 documented as of this encounter
--- OUTSIDE RECORDS SUMMARY | 2024-12-09 09:55 | XMS_ITS | Encounter Summary ---
Author Organization [employer] Address [address] [facility] [address] 7t [place] [address] Care Team Providers Care Signs Cleaner Name Role Phone AndrewCitlali flores Primary Care Provider + [phone] Reason for Visit * Reason Onset Date Comments Med Refill 11/22/2024 Encounter Details Date Type Department Care Team (Late st Contact Info) Description 11/22/2024 Refill [facility] MEDICINE 230 [place], [place] [phone] Venecia Hyatt RN Chronic pain of both [...] Description 12/18/2024 9:00 AM EST Medication Management [address] [address] Elizabeth Bacon PharmD [address] [place] [address] 01/31/2025 9:30 AM EDT Telemedicine [address] [phone] Venecia Hyatt RN documented as of this encounter Goals Goal Patient Goal Type Associated Problems Recent Progress Patient-Stated? Author Patient will adhere to medication regimen General No Jah Lawrence PharmD Note: All medications to be renewed [...] documented as of this encounter Care Teams Signs Cleaner Relationship Specialty Start Date End Date Citlali Norman DO [address] [place] [phone] PCP - General Family Medicine 10/16/18 documented as of this encounter
--- OUTSIDE RECORDS SUMMARY | 2024-12-09 09:55 | XMS_ITS | Encounter Summary ---
Author Organization [employer] Address [address] [facility] 7t [place] [address] Care Team Providers Care Custody Officer Name Role Phone Citlali Norman DO Primary Care Provider + [phone] Reason for Visit * Reason Comments Med Refill Encounter Details Date Type Department Care Team ([facility] st Contact Info) Description 11/29/[address] [facility] MEDICINE 230 [place], [place] [phone] Citlali Norman DO 230 [place], [place] [phone] Hypertriglyceridemia Social History Tobacco Use Types Packs/Day Years [...] Description 12/18/2024 9:00 AM EST Medication Management [address] [address] Elizabeth Bacon PharmD [address] [place] [address] 01/31/2025 9:30 AM EDT Telemedicine [address] [address] Venecia Hyatt RN documented as of this [...] as of this encounter Visit Diagnoses Diagnosis Hypertriglyceridemia Pure hyperglyceridemia documented in this encounter Additional Health Concerns Assessment Noted Time PHQ-9 Depression Total Score: 0 02/28/20 23 11:46 AM EDT documented as of this encounter Care Teams Custody Officer Relationship Specialty Start Date End Date Citlali Norman DO [address] [place] [address] PCP - General Family Medicine 10/16/18 documented as of this encounter
--- OUTSIDE RECORDS SUMMARY | 2024-12-09 09:55 | XMS_ITS | Encounter Summary ---
Author Organization [employer] Address [address] [facility] 7t [place] [address] Care Team Providers Care Director Video Name Role Phone EsterCitlali Primary Care Provider + [phone] Reason for Visit * Reason Comments STATISTICAL ANALYST Renewal STATISTICAL ANALYST Renewal Encounter Details Date Type Department Care Team ([facility] st Contact Info) Description 11/22/2024 1:00 PM EST Telemedicine [facility] MEDICINE 230 [place], [place] [phone] Venecia Hyatt RN Chronic left shoulder pain Social History Tobacco Use Types Packs/Day Years [...] AM EDT documented as of this encounter Progress Notes * Venecia Hyatt RN - 11/22/2024 1:00 PM EST S: Pt called for STATISTICAL ANALYST Renewal Visit, via BLS#[id number]. Prescribed Percocet 7.5mg 5X a day PRN. States he has been taking his Percocet once in the morning and sometimes a second pill at bedtime, dependingon his pain. He said he last took a Percocet this morning. Denies smoking cigarettes, ETOH use, Illicit drug use and marijuana use. Currently rates his pain an 8 and states medication is 60% effective at alleviating pain. Current pain sites are his back, arms, right leg and his knee's. He denies any alternative pain relief techniques. O: STATISTICAL ANALYST Tele Tier 2. Pt currently prescribed Percocet 7.5mg 5X a day PRN. BOARDER HAND verified today. Rx last filled on 11/21/24. Pill count performed over the phone. Pt reports having 29 pills at this time, 28at least expected. Medication is not overused by patient. BPI updated, see scanned documents from this date. Pain severity score of 8, activity interference score of 3.7. Previous BPI completed 07/12/24 with pain severity score of 7, activity interference score of 8. Narcan medication reviewed, how it's administered and when it's used. Will update PCP with BPI scoring. Last PCP visit was 07/31/24. 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 P: STATISTICAL ANALYST contract reviewed and signed, Pt declined copy. Pt to continue taking medication only as prescribed; Next Tele STATISTICAL ANALYST RV appointment scheduled for 01/31/25 @ 9:30a, F/U sooner PRN. Appointment reminder mailed. Pt verbalized understanding and agreed to plan. documented in this encounter Plan of Treatment Upcoming Encounters Date Type Department Care Team (Late st Contact Info) Description 12/18/2024 9:00 AM EST Medication Management [facility] MED[facility]INE 230 [place] [address] Elizabeth Bacon PharmD 230 [place] [address] 01/31/2025 9:30 AM EDT Telemedicine [facility]INE 230 [place] [address] Venecia Hyatt RN documented as of this [...] of this encounter Visit Diagnoses Diagnosis Chronic left shoulder pain Pain in joint, shoulder region documented in this encounter Additional Health Concerns Assessment Noted Time PHQ-9 Depression Total Score: 0 02/28/20 23 11:46 AM EDT documented as of this encounter Care Teams Director Video Relationship Specialty Start Date End Date Citlali Norman DO [address] [place] [address] PCP - General Family Medicine 10/16/18 documented as of this encounter
--- OUTSIDE RECORDS SUMMARY | 2024-12-09 09:55 | XMS_ITS | Encounter Summary ---
Author Organization [employer] Address [address] [facility] [address] 7t [place] [address] Care Team Providers Care Glazier Apprentice Name Role Phone AndrewCitlali flores Primary Care Provider + [phone] Reason for Visit * Reason Onset Date Comments Med Refill 11/15/2024 Encounter Details Date Type Department Care Team (Late st Contact Info) Description 11/15/2024 Refill [facility] MEDICINE 230 [place], [place] [phone] Venecia Hyatt RN Chronic pain of both [...] Description 12/18/2024 9:00 AM EST Medication Management [address] [address] Elizabeth Bacon PharmD [address] [place] [address] 01/31/2025 9:30 AM EDT Telemedicine [address] [phone] Venecia Hyatt RN documented as of this [...] documented as of this encounter Care Teams Glazier Apprentice Relationship Specialty Start Date End Date Citlali Norman DO [address] [place] [address] PCP - General Family Medicine 10/16/18 documented as of this encounter
--- OUTSIDE RECORDS SUMMARY | 2024-12-09 09:55 | XMS_ITS | Encounter Summary ---
Author Organization [employer] Address 75 [facility] 7t [place] [address] Care Team Providers Care Global Implementation Manager Name Role Phone Citlali Norman DO Primary Care Provider + [phone] Reason for Visit * Reason Comments Med Refill Encounter Details Date Type Department Care Team ([facility] st Contact Info) Description 09/27/2024 Refill [facility] 230 [place], [place] [phone] Citlali Norman DO 230 [place], [place] [phone] Chronic pain of both knees Social History [...] the past 12 months, has t he [employer], gas, oil or water [facility] threatened to shut off services in your [...] Description 12/18/2024 9:00 AM EST Medication Management [address] [address] Elizabeth Bacon PharmD [address] [place] [address] 01/31/2025 9:30 AM EDT Telemedicine [address] [address] Venecia Hyatt RN documented as of this [...] documented as of this encounter Care Teams Global Implementation Manager Relationship Specialty Start Date End Date Citlali Norman DO [address] [place] [address] PCP - General Family Medicine 10/16/18 documented as of this encounter
--- OUTSIDE RECORDS SUMMARY | 2024-12-09 09:55 | XMS_ITS | Encounter Summary ---
Author Organization [employer] Address 75 [facility] 7t [place] [address] Care Team Providers Care Editor Magazine Name Role Phone Citlali Norman DO Primary Care Provider + [phone] Reason for Visit * Reason Comments Med Refill Encounter Details Date Type Department Care Team ([facility] st Contact Info) Description 01/25/2024 Refill [facility] MEDICINE 230 [place], [place] [phone] Citlali Norman DO 230 [place], [place] [phone] Chronic bilateral low back pain, unspecified whether [...] Description 12/18/2024 9:00 AM EST Medication Management [facility] MEDICINE [address] [place] [address] Elizabeth Bacon PharmD [address] [place] [address] 01/31/2025 9:30 AM EDT Telemedicine [address] [address] Venecia Hyatt, [place] documented as of this encounter Visit Diagnoses Diagnosis Chronic bilateral low back pain, unspecified whether sciatica present documented in this encounter Additional Health Concerns Assessment Noted Time PHQ-9 Depression Total Score: 0 02/28/20 23 11:46 AM EDT documented as of this encounter Care Teams Editor Magazine Relationship Specialty Start Date End Date Citlali Norman DO [address] [place] [address] PCP - General Family Medicine 10/16/18 documented as of this encounter
--- OUTSIDE RECORDS SUMMARY | 2024-12-09 09:55 | XMS_ITS | Encounter Summary ---
Author Organization [employer] Address 75 [facility] 7t [place] [address] Care Team Providers Care Laundry Route Driver Name Role Phone Citlali Norman DO Primary Care Provider + [phone] Reason for Visit * Reason Onset Date Comments Referral 09/24/2024 Encounter Details Date Type Department Care Team ([facility] st Contact Info) Description 09/24/2024 Telephone [facility] MEDICINE 230 [place], [place] [phone] Citlali Norman DO 230 [place], [place] [phone] Referral Social History Tobacco Use Types Packs/Day Years [...] the past 12 months, has t he [place], [employer], oil or water [employer] threatened to shut off services in your [...] encounter Miscellaneous Notes * Telephone Encounter - French Begum - 09/24/2024 10:30 AM EST Tc from pt CAMP ASSISTANT requesting for referral for 08/01 to be switched from [place] back to the [facility]. If any question Contact CAMP ASSISTANT at [phone] documented in this encounter Plan of Treatment Upcoming Encounters Date Type Department Care Team (Late st Contact Info) Description 12/18/2024 9:00 AM EST Medication Management [facility] MEDICINE [address] [place] [address] Elizabeth Bacon PharmD [address] [place] [address] [phone] 01/31/2025 9:30 AM EDT Telemedicine [address] [address] Venecia Hyatt RN documented as of this [...] documented as of this encounter Care Teams Laundry Route Driver Relationship Specialty Start Date End Date Citlali Norman DO 230 [place] [address] PCP - General Family Medicine 10/16/18 documented as of this encounter
--- OUTSIDE RECORDS SUMMARY | 2024-12-09 09:55 | XMS_ITS | Encounter Summary ---
Author Organization [employer] Address [address] [facility] [address] 7t [place] [address] Care Team Providers Care Clinical Law Professor Name Role Phone AndrewCitlali floers Primary Care Provider + [phone] Reason for Visit * Reason Onset Date Comments Recommend BOARD OPERATOR Tele Tier 2 11/22/2024 Encounter Details Date Type Department Care Team ([facility] st Contact Info) Description 11/22/2024 Telephone [facility] MEDICINE 230 [place] [address] Venecia Hyatt, [place] Recommend BOARD OPERATOR Tele Tier 2 Social History Tobacco Use Types Packs/Day Years [...] Encounter - Venecia Hyatt RN - 11/22/2024 7:43 AM EST What BOARD OPERATOR Tier would you like this patient to be? I recommend Tele Tier 2, please let me know if you agree or would rather patient be in another BOARD OPERATOR Tier. Tier 1 = HIGH RISK, Monthly BOARD OPERATOR visits Tier 2 = MODerate RISK, Q3 Month visits Tier 3 = LOW RISK = Q4-6 month visits documented in this encounter Plan of Treatment Upcoming Encounters Date Type Department Care Team (Late st Contact Info) Description 12/18/2024 9:00 AM EST Medication Management [address] [address] Elizabeth Bacon PharmD [address] [place] [address] 01/31/2025 9:30 AM EDT Telemedicine [address] [address] Venecia Hyatt, [place] documented as of this [...] documented as of this encounter Care Teams Clinical Law Professor Relationship Specialty Start Date End Date Citlali Norman DO 230 [place] [address] PCP - General Family Medicine 10/16/18 documented as of this encounter
--- OUTSIDE RECORDS SUMMARY | 2024-12-09 09:55 | XMS_ITS | Encounter Summary ---
Author Organization [employer] Address 75 [facility] 7t [place] [address] Care Team Providers Care Operation Manager Name Role Phone Citlali Norman DO Primary Care Provider + [phone] Reason for Visit * Reason Onset Date Comments Med Refill 10/31/2024 Encounter Details Date Type Department Care Team ([facility] st Contact Info) Description 10/31/2024 Telephone [facility] MEDICINE 230 [place], [place] [phone] Citlali Norman DO 230 [place], [place] [phone] Med Refill Social History Tobacco Use Types [...] encounter Miscellaneous Notes * Telephone Encounter - Citlali Duvall LPN - 10/31/2024 1:33 PM EST Medication has been pended to PCP for approval. * Telephone Encounter - Dilia Acosta - 10/31/2024 1:24 PM EST TC from pt requesting a med refill on medication Lisinopril 40mg. Pt has no medication left.. PCP DR. Norman documented in this encounter Plan of Treatment Upcoming Encounters Date Type Department Care Team (Late st Contact Info) Description 12/18/2024 9:00 AM EST Medication Management [facility] MEDICINE [address] [place] [address] Elizabeth Bacon PharmD [address] [place] [address] 01/31/2025 9:30 AM EDT Telemedicine [facility] MEDICINE [address] [place] [address] Venecia Hyatt RN documented as of this [...] documented as of this encounter Care Teams Operation Manager Relationship Specialty Start Date End Date Citlali Norman DO 230 [place] [address] PCP - General Family Medicine 10/16/18 documented as of this encounter
--- OUTSIDE RECORDS SUMMARY | 2024-12-09 09:55 | XMS_ITS | Encounter Summary ---
Author Organization [employer] Address [address] [facility] [address] 7t [place] [address] Care Team Providers Care Sales Rep Name Role Phone AndrewCitlali flores Primary Care Provider + [phone] Reason for Visit * Reason Onset Date Comments MOTEL MANAGER Renewal forms 11/11/2024 Encounter Details Date Type Department Care Team ([facility] st Contact Info) Description 11/11/2024 Telephone [facility] MEDICINE 230 [place], [place] [phone] Venecia Hyatt RN MOTEL MANAGER Renewal forms Social History Tobacco Use Types Packs/Day Years [...] Telephone Encounter - Venecia Hyatt RN - 11/11/2024 2:58 PM EST MOTEL MANAGER Renewal forms mailed to patient 09/18/24. TC via BLS#[id number], inquired about forms mailed to him 09/18/24, pt states he never received them. Forms prepared and left at [facility] receptionist assistant desk, Spoke with pt's HEADWAITRESS Frieda, she states she will come pick them up tomorrow and get them back to [facility] by Monday of this week. documented in this encounter Plan of Treatment Upcoming Encounters Date Type Department Care Team (Late st Contact Info) Description 12/18/2024 9:00 AM EST Medication Management [facility] MEDICINE [address] [place] [address] Elizabeth Bacon PharmD [address] [place] [address] 01/31/2025 9:30 AM EDT Telemedicine [facility] MEDICINE [address] [place] [address] Venecia Hyatt, [place] documented as of this [...] documented as of this encounter Care Teams Sales Rep Relationship Specialty Start Date End Date Citlali Norman DO [address] [place] [address] PCP - General Family Medicine 10/16/18 documented as of this encounter
--- OUTSIDE RECORDS SUMMARY | 2024-12-09 09:56 | XMS_ITS | Clinical Summary ---
Author Organization [employer] Address [address] [facility] [address] [place] [address] Care Team Providers Care Fur Clipper Name Role Phone EsterVickieCitlali Primary Care Provider + [phone] Allergies No known active allergies Medications fluticasone (Flonase) 50 MCG/ACT nasal spray Administer 2 sprays into each nostril in the morning. 48 g 1 023 Active rivaroxaban (Xarelto) 20 MG tabletIndication s:Atrial fibrillation, chronic (CMS/HCC) take 1 tablet by oral route every day with the evening meal 90 tablet 1 023 Active Blood Pressure Monitor kitIndications:E ssential hypertension Use to measure blood pressure at home 1 kit 024 Active amLODIPine (Norvasc) 10 MG tablet Take 10 mg by mouth Once per day. 024 Active meloxicam (Mobic) 7.5 MG tablet Take 1 tablet (7.5 mg) by mouth 2 times daily. 60 tablet 11 024 2024 Active Blood Glucose Monitoring Suppl (ONE TOUCH ULTRA 2) w/Device kitIndications:T ype 2 diabetes mellitus without complication, unspecified whether intermediate insulin use (CMS/HCC) Use to monitor blood glucose three times daily 1 kit 024 Active isosorbide mononitrate ER (Imdur) 60 MG 24 hr tablet TAKE 1 TABLET BY MOUTH EVERY DAY IN THE MORNING 90 tablet 024 Active rosuvastatin (Crestor) 40 MG tabletIndication s:Other hyperlipidemia TAKE 1 TABLET BY MOUTH AT BEDTIME 90 tablet 024 Active albuterol 108 (90 Base) MCG/ACT inhaler INHALE 2 PUFFS BY MOUTH EVERY 4 TO 6 HOURS NEEDED 8.5 g 024 Active OneTouch Ultra Test test stripIndications :Type 2 diabetes mellitus with other specified complication, without long-term current use of insulin ([facility]) USE DIRECTED TO TEST BLOOD SUGAR TWICE DAILY 100 strip 3 024 Active Lancets (OneTouch Delica Plus [id number]) miscIndications: Type 2 diabetes mellitus with other specified complication, without long-term current use of insulin ([facility]) USE DIRECTED TO TEST BLOOD SUGAR TWICE DAILY 100 each 3 024 Active Alcohol Swabs (Alcohol Prep) 70 % pads USE DIRECTED TWICE DAILY 100 each 3 024 Active Wixela Inhub 500-50 MCG/ACT aerosol powder Take 1 puff by mouth 2 times daily. 60 each 11 Active finasteride (Proscar) 5 MG tablet TAKE 1 TABLET BY MOUTH ONCE DAILY 90 tablet 2 Active metFORMIN (Glucophage) 500 MG tablet TAKE 1 TABLET BY MOUTH TWICE A DAY WITH MORNING AND EVENING MEALS 180 tablet 3 024 Active pantoprazole (ProtoNix) 40 MG EC tabletIndication s:Chronic GERD Take 1 tablet (40 mg) by mouth before breakfast. Do not crush, chew, or split. 90 tablet 2 Active Diclofenac Sodium 1 % gelIndications:A cute pain of left shoulder To apply to the affected area 3 times a day 100 g 024 Active ipratropium-albu terol (Combivent Respimat) 20-100 MCG/ACT inhalerIndicatio ns:Chronic obstructive pulmonary disease, unspecified COPD type ([facility]) INHALE 1 PUFF BY MOUTH FOUR TIMES DAILY MAY TAKE ADDITIONAL PUFF NEEDED UP TO 6 PUFFS EVERY DAY 12 g 2 024 Active Ferretts 325 (106 Fe) MG tablet TAKE 1 TABLET BY MOUTH EVERY MORNING (3 TIMES A WEEK MONDAY, MONDAY, MONDAY) Active loratadine (Claritin) 10 MG tabletIndication s:Seasonal allergic rhinitis, unspecified trigger TAKE 1 TABLET BY MOUTH EVERY MORNING 90 tablet 024 Active melatonin 5 MG tabletIndication s:Insomnia, unspecified type TAKE 1 TO 2 TABLETS BY MOUTH 3 HOURS BEFORE BEDTIME 180 tablet 024 Active GaviLAX 17 GM/SCOOP powder MIX 17 GRAMS IN 8-12 OUNCES OF LIQUID (WATER) AT BEDTIME NEEDED FOR CONSTIPATION 510 g 3 025 Active lisinopril 40 MG tabletIndication s:Essential hypertension TAKE 1 TABLET BY MOUTH EVERY DAY 30 tablet 2 025 Active metoprolol tartrate (Lopressor) 25 MG tabletIndication s:Essential hypertension Take 1 tablet (25 mg) by mouth 2 times daily. 180 tablet 025 2024 Active fenofibrate micronized (LoFibra) 200 MG capsuleIndicatio ns:Hypertriglyce ridemia TAKE 1 CAPSULE BY MOUTH EVERY EVENING WITH FOOD 90 capsule 2 025 Active ezetimibe (Zetia) 10 MG tablet TAKE 1 TABLET BY MOUTH EVERY EVENING 90 tablet 2 025 Active meloxicam (Mobic) 15 MG tablet Take 1 tablet (15 mg) by mouth Once per day. 30 tablet 11 025 2025 Active oxyCODONE-acetam inophen (Percocet) 7.5-325 MG tabletIndication s:Chronic pain of both knees Take 1 tablet by mouth See administration instructions for 7 days. May take 1 tablet by mouth up to 5 times a day as needed for severe pain. Do not start before December 12, 2024. 35 tablet 025 2024 Active fenofibrate micronized (Lofibra) 200 MG capsuleIndicatio ns:Hypertriglyce ridemia take 1 capsule by oral route every day with food 90 capsule 3 024 2024 Discontinued ezetimibe (Zetia) 10 MG tablet TAKE 1 TABLET MY MOUTH EVERY DAY 90 tablet 1 024 2024 Discontinued oxyCODONE-acetam inophen (Percocet) 7.5-325 MG tabletIndication s:Chronic pain of both knees Take 1 tablet by mouth See administration instructions for 7 days. May take 1 tablet by mouth up to 5 times a day as needed for severe pain. Do not start before November 14, 2024. 35 tablet 025 2024 Discontinued(R eorder (will not trigger notification to Pharmacy)) oxyCODONE-acetam inophen (Percocet) 7.5-325 MG tabletIndication s:Chronic pain of both knees Take 1 tablet by mouth See administration instructions for 7 days. May take 1 tablet by mouth up to 5 times a day as needed for severe pain. Do not start before November 21, 2024. 35 tablet 025 2024 Discontinued(R eorder (will not trigger notification to Pharmacy)) oxyCODONE-acetam inophen (Percocet) 7.5-325 MG tabletIndication s:Chronic pain of both knees Take 1 tablet by mouth See administration instructions for 7 days. May take 1 tablet by mouth up to 5 times a day as needed for severe pain. Do not start before November 28, 2024. 35 tablet 025 2024 Discontinued(R eorder (will not trigger notification to Pharmacy)) oxyCODONE-acetam inophen (Percocet) 7.5-325 MG tabletIndication s:Chronic pain of both knees Take 1 tablet by mouth See administration instructions for 7 days. May take 1 tablet by mouth up to 5 times a day as needed for severe pain. Do not start before December 05, 2024. 35 tablet 025 2024 Discontinued(R eorder (will not trigger notification to Pharmacy)) Hospital, Clinic, or Other Facility Administered Medication Ordered Dose Route Frequency Start Date End Date Status nitroglycerin (Nitrostat) SL tablet 0.4 mgIndications:Atypical chest pain 0.4 mg SL Every 5 min PRN 02/27/2024 Active Active Problems Problem Noted Date Diagnosed Date Healthcare maintenance 02/19/2024 Unintentional weight loss 02/19/2024 Atherosclerotic heart disease 02/27/2023 History of non-ST elevation myocardial infarctio n (NSTEMI) 03/03/2017 Fatty liver 01/23/2017 Anemia 10/20/2015 Chronic atrial fibrillation 10/20/2015 Chronic low back pain 10/20/2015 Chronic obstructive lung disease 10/20/2015 Degeneration of lumbar intervertebral disc 10/20 Gastroesophageal reflux disease 10/20/2015 Osteoarthritis 10/20/2015 Essential hypertension 11/05/2012 Assessment & Plan (07/30/2024 2:49 PM EDT): Patient's BP slightly elevated Pt apparently lost his Lisinopril He has Lopressor and amlodipine I contacted the Pharmacy and they are willing to give him an early refill, but I discussed with him that 90 day supplies are probably not appropriate in his case Plan: Refer to [facility] and [facility] Refer to [facility] for home assessment , he might benefit from a lock box as well Hyperlipidemia with target LDL less than 70 10/17 Overview (02/07/2024): IMO update Type 2 diabetes mellitus 11/05/2012 Resolved Problems Problem Noted Date Diagnosed Date Resolved Date Iron deficiency anemia 11/05/201204/22 Encounters Date Type Department Care Team Description 12/07/2024 Orders Only [facility] External Provider, [facility] 12/06/2024 Refill [facility] [address] [place] [phone] Venecia Hyatt, gaming manager pain of both knees 12/04/2024 10:20 AM EST Office Visit [facility] [address] [place] [phone] Luz Lopez MD Fall, initial encounter (Primary Dx) 11/29/2024 Refill [facility] [address] [place] [phone] Citlali Norman DO Hypertriglyceridemia 11/29/2024 Refill [facility] [address] [place] [phone] Venecia Hyatt, gaming manager pain of both knees 11/22/2024 1:00 PM EST Telemedicine [facility] [address] [place] [phone] Venecia Hyatt, gaming manager left shoulder pain 11/22/2024 Telephone [facility] [address] [place] [phone] Venecia Hyatt, [place] DIRECTOR OF THERAPY SERVICES Renewal today 11/22/2024 Travel 11/22/2024 Refill [facility] [address] [place] [phone] Venecia Hyatt, gaming manager pain of both knees 11/22/2024 Telephone [facility] [address] [place] [address] Venecia Hyatt, [place] Recommend DIRECTOR OF THERAPY SERVICES Tele Tier 2 11/21/2024 Refill [facility] [address] [place] [address] Citlali Norman, Chronic pain of both knees 11/15/2024 Refill [facility] [address] [facility] [place] [address] Venecia Hyatt RN Chronic pain of both knees 11/12/2024 Telephone [facility] [address] [place] [address] Venecia Hyatt, [place] telephone call 11/12/2024 Refill [facility] [address] [place] [address] Citlali Norman, DO 11/11/2024 Telephone [facility] [address] [place] [address] Venecia Hyatt RN DIRECTOR OF THERAPY SERVICES Renewal forms 11/08/2024 Refill [facility] [address] [place] [address] Venecia Hyatt RN Chronic pain of both knees 11/07/2024 9:00 AM EST Office Visit [facility] [address] [place] [address] Peter Beard MD Essential hypertension (Primary Dx); Other chest pain 11/01/2024 Refill [facility] [address] [place] [address] Venecia Hyatt, gaming manager pain of both knees 10/31/2024 Telephone [facility] [address] [place] [address] Citlali Norman, Med Refill 10/30/2024 Refill [facility] [address] [place] [address] Citlali Norman DO Essential hypertension 10/25/2024 Refill [facility] [address] [place] [address] Venecia Hyatt RN Chronic pain of both knees 10/19/2024 Refill [facility] [address] [facility] [place] [address] Citlali Norman DO 10/18/2024 Refill [facility] [address] [facility] [place] [address] Venecia Hyatt RN Chronic pain of both knees 10/14/2024 Telephone [facility] [address] [facility] [place] [address] Citlali Norman DO telephone call 10/11/2024 Refill [facility] [address] [facility] [place] [address] Venecia Hyatt RN Chronic pain of both knees 10/10/2024 10:00 AM EST Office Visit [facility] [address] [facility] [place] [address] Mirta Nielson MD Chronic atrial fibrillation (CMS/HCC) (Primary Dx); Essential hypertension 2024 Refill [facility] [address] [facility] [place] [address] Venecia Hyatt RN Chronic pain of both knees 10/01/2024 Refill [facility] [address] [facility] [place] [address] Citlali Norman DO Seasonal allergic rhinitis, unspecified trigger; Insomnia, unspecified type 09/27/2024 11:30 AM EST Telemedicine [facility] [address] [facility] [place] [address] Venecia Hyatt RN Chronic left shoulder pain 09/27/2024 Refill [facility] [address] [facility] [place] [address] Venecia Hyatt RN Chronic pain of both knees 09/27/2024 Travel 09/27/2024 Telephone [facility] [address] [facility] [place] [address] Venecia Hyatt RN [facility] Tele DIRECTOR OF THERAPY SERVICES RV today 09/27/2024 Refill [facility] [address] [facility] [place] [address] Citlali Norman DO Chronic pain of both knees 09/27/2024 Telephone [facility] [address] [place] [address] Venecia Hyatt, RN Recommend Tele DIRECTOR OF THERAPY SERVICES Tier 1 09/24/2024 Telephone [facility] [address] [place] [phone] Citlali Norman DO c/b requested 09/24/2024 Refill [facility] [address] [place] [phone] Venecia Hyatt, [place] 09/24/2024 Telephone [facility] [address] [place] [phone] Citlali Norman DO telephone call 09/24/2024 Telephone [facility] [address] [place] [phone] Citlali Norman DO Medication Question 09/24/2024 Telephone [facility] [address] [place] [phone] Citlali Norman DO Referral 09/24/2024 Refill [facility] [address] [place] [phone] Citlali Norman DO Chronic pain of both knees 09/11/2024 10:00 AM EST Office Visit [facility] [address] [place] [phone] Kaitlynn Mendoza NP Other chest pain (Primary Dx) 09/09/2024 Refill [facility] [address] [place] [phone] Venecia Hyatt, gaming manager pain of both knees from Last 3 Months Immunizations Name Administration Dates Next Due Hep B, adult 12/29/2014,09/25/2014,08/26/2014 Influenza High-dose Quadriva lent Preservative Free 08/21/2023,07/08/2021 Influenza Quadrivalent Adjuvanted 07/11/2022 Influenza injectable quadriv alent IIV4 with preservative 07/12/2016,07/06/2015 Influenza injectable quadriv alent preservative free 06/05/2020 Influenza, High Dose Seasona l, Preservative Free 07/31/2024,07/20/2018,06/20/2017 Influenza, IIV3, injectable 07/02/2014,0 07/12/2011,10/13/2009,08/07,07/12/2007,07/19/2006,01/26/2005 Influenza, Split (incl. tyra fied surface antigen) 07/03/2013,07/17/2012 Influenza, trivalent, adjuvanted 06/24/2019 Pneumococcal Conjugate PCV 13 04/20/2015 Pneumococcal Conjugate PCV 20 07/31/2024 Pneumococcal Polysaccharide PPSV23 10/12/2017,,11/25/2003 TD (adult), 2 Lf tetanus tox oid, preservative free, adsorbed 12/02/2008,07/01/1998 Tdap 08/26/2014 Zoster, live 09/25/2014 Social History Tobacco Use Types Packs/Day Years Used Date Smoking Tobacco: Never Passive Smoke Exposure: Never Smokeless Tobacco: Never Tobacco Cessation:Counseling Given: Not Answered Depression Answer Date Recorded Patient Health Questionnaire-9 [...] Don't know 08/15/2022 10 :14 AM EDT Last Filed Vital Signs Vital Sign Reading Time Taken Comments Blood Pressure 145/79 12/04/2024 9:37 AM EST Pulse 84 12/04/2024 9:37 AM EST Temperature 36.3 ??C (97.4 ??F) 12/04/2024 9:37 AM ES T Respiratory Rate 16 11/07/2024 8:52 AM EST Oxygen Saturation 99% 12/04/2024 9:37 AM EST Inhaled Oxygen Concentration - - Weight 64.4 kg (142 lb) 11/07/2024 8:52 AM EST Height 162.6 cm (5' 4 ) 10/10/2024 10:14 AM EST Body Mass Index 24.37 10/10/2024 10:14 AM EST Plan of Treatment Upcoming Encounters Date Type Department Care Team (Late st Contact Info) Description 12/18/2024 9:00 AM EST Medication Management [facility] [address] [place] [phone] Elizabeth Bacon, PharmD [address] [place] [address] 01/31/2025 9:30 AM EDT Telemedicine [address] [phone] Venecia Hyatt, [place] Health Maintenance Due Date Last Done Comments Diabetes: Foot Exam 1950 Eye Exam 1949 Alcohol/Substance Use Screening 1951 Hepatitis A Vaccines (1 of 2 - Risk 2-dose series) 1958 RSV Patients and Patients Aged 60 years or older (1 - 1-dose 75+ series) 2014 Zoster Vaccines (2 of 3) 11/20/2014 09/25/2014 Depression Screening 02/28/2024 02/27/2023, 02/28/20 23 COVID-19 Vaccine ( season) 2024 01/26/2022, 09/01/2021, 12/24/2020, Additional history exists DTaP/Tdap/Td Vaccines (2 - Td or Tdap) 08/26/2024 08/26/2014, 12/02/2008, 07/01/1998 SDOH Screening 01/15/2025 01/16/2024 Diabetes: Hemoglobin A1C 01/29/2025 024, 02/26/2024, 02/19/2024, Additional history exists Diabetes: Urine Protein Screening 02/25/2025 02/26/2024, 09/01/2022, 01/24/2022, Additional history exists Lipid Panel 02/25/2025 02/26/2024, 01/14, 07/09/2021 Tobacco Screening 08/26/2025 08/26/2024 Hepatitis B Vaccines Completed 12/29/2014, 09/25/2014, 08/26/2014 Influenza Vaccine Completed 07/31/2024, , 07/11/2022, Additional history exists Pneumococcal Vaccine: 50+ Years Completed 07/31/2024, 10/12/2017, 04/20/2015, Additional history exists HIB Vaccines Aged Out No longer eligi ble based on patient's age to complete this topic HPV Vaccines Aged Out No longer eligi ble based on patient's age to complete this topic IPV Vaccines Aged Out No longer eligi ble based on patient's age to complete this topic Meningococcal Vaccine Aged Out No arpita kalen eligible based on patient's age to complete this topic RSV under 20 months Aged Out No longe r eligible based on patient's age to complete this topic Rotavirus Vaccines Aged Out No longer eligible based on patient's age to complete this topic Goals Goal Patient Goal Type Associated Problems Recent Progress Patient-Stated? Author Patient will adhere to medication regimen General Jah Garza, Taisha Note: All medications to be renewed and resumed as directed. Patient will manage their medication General Jah Garza, Taisha Note: Patient will keep medications locked in a safe place to prevent loss. Procedures Procedure Name Priority Date/Time Associated Diagnosis Comments XR CHEST 1 VIEW Routine 12/07/2024 8:06 AM EST HIGH SENSITIVITY TROPONIN I Routine 12/07/2024 7:46 AM EST PROTHROMBIN TIME-INR Routine 12/07/2024 7:46 AM EST ECG 12-LEAD Routine 11/07/2024 11:36 AM EST Other chest pain ECG 12-LEAD Routine 10/10/2024 12:27 PM EST Chronic atrial fibrillation (CMS/HCC) ECG 12-LEAD Routine 09/11/2024 10:28 AM EST Other chest pain POCT GLYCATED HEMOGLOBIN, TOTAL Routine 07/31/2024 9:44 AM EDT Type 2 diabetes mellitus without complication, without long-term current use of insulin (CMS/HCC) LIPID PANEL, STANDARD Routine 02/26/2024 10:00 AM EDT Essential hypertension Type 2 diabetes mellitus without complication, without long-term current use of insulin (CMS/HCC) Other hyperlipidemia Fatty liver 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, unspecified whether angina present Chronic atrial fibrillation (CMS/HCC) Chronic left shoulder pain Chronic bilateral low back pain, unspecified whether sciatica present Chronic pain of both knees Chronic obstructive pulmonary disease, unspecified COPD type (CMS/HCC) Healthcare maintenance Anemia, unspecified type Unintentional weight loss Chronic constipation Encounter for screening for malignant neoplasm of colon ALBUMIN, RANDOM URINE W/CREATININE Routine 02/26/2024 9:50 AM EDT Essential hypertension Type 2 diabetes mellitus without complication, without long-term current use of insulin (CMS/HCC) Other hyperlipidemia Fatty liver 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, unspecified whether angina present Chronic atrial fibrillation (CMS/HCC) Chronic left shoulder pain Chronic bilateral low back pain, unspecified whether sciatica present Chronic pain of both knees Chronic obstructive pulmonary disease, unspecified COPD type (CMS/HCC) Healthcare maintenance Anemia, unspecified type Unintentional weight loss Chronic constipation Encounter for screening for malignant neoplasm of colon from Last 3 Months or Most Recently Relevant to Health Maintenance Results * XR Chest 1 View (12/07/2024 8:06 AM EST) Anatomical Region Laterality Modality Chest Radiographic Cherry ging 12/07/2024 8:06 AM EST Narrative 12/07/2024 8:08 AM EST ? [facility] [place] [facility] ?[address] ?[place] [address] ?XRay Report ? Signed ? Patient: Rosenberg,Aleksandr Delmer ?MR#: [id number] ?? [id number] ? : 1940 ?Acct:[id number] ? Age/Sex: 84 / M ?ADM Date: 12/07/24 ? Loc: HO.ED ? Attending Dr: ? Ordering Physician: Pebbles Tapia ?? Date of Service: 12/07/24 ?? Procedure(s): XR chest 1V ?? Accession Number(s): [id number] ? cc: [facility]; Pebbles Tapia ? CLINICAL HISTORY: chest pressure ? 1 view chest x-ray ? Comparison: CR/SR - XR CHEST 1V - 04/11/24 16:53 EDT ? Findings: ?? The lungs are clear. ?? Normal size heart. ?? No acute fracture. ? IMPRESSION: ?? 1. No acute cardiopulmonary abnormality. ? This document has been electronically signed by: Michell Owens on ?? 12/07/2024 08:06:46 ? Dictated By: ?Michell Owens MD ? Signed By: ?<Electronically signed by Michell Owens MD in OV> ? 12/07/24806 ? DD/ 5 ? TD/TT: 12/07/24805 ? Industrial Sales Manager: ? Procedure Note Matt Ardon - 12/07/2024 [place] [id number] XRay Report Signed Patient: Aleksandr RosenbergR#: [id number] : 1940Acct:[id number] Age/Sex: 84 / MADM Date: 12/07/24 Loc: HO.ED Attending Dr: Ordering Physician: Pebbles Tapia Date of Service: 12/07/24 Procedure(s): XR chest 1V Accession Number(s): [id number] cc: [facility]; Pebbles Tapia CLINICAL HISTORY: chest pressure 1 view chest x-ray Comparison: CR/SR - XR CHEST 1V - 04/11/24 16:53 EDT Findings: The lungs are clear. Normal size heart. No acute fracture. IMPRESSION: 1. No acute cardiopulmonary abnormality. This document has been electronically signed by: Michell Owens on 12/07/2024 08:06:46 Dictated By: Michell Owens MD Signed By: <Electronically signed by Michell Owens MD in OV> 12/07/24806 DD/ 5 TD/TT: 12/07/24 08 Industrial Sales Manager: [facility] External Provider IMG XR PROCEDURES Final Result * High Sensitivity Troponin I (12/07/2024 7:46 AM EST) TROPONIN I HIGH SENSITIVITY 3.8 <3.5 - 35.0 ng/L [facility] Comment:The [place]ison high sens itivity Troponin-I results should beused in conjunction with other diagnostic information suchas ECG, clinical observations and information, and patientsymptoms to aid in the diagnosis of GA. 12/07/2024 7:46 AM EST 12/07/2024 7:50 AM EST Generic External Data Provider LAB BLOOD ORDERAB LES Final Result Performing Organization Address City/State/[facility] Co de Phone Number [facility] [address] [place] [phone] * (ABNORMAL) Prothrombin Time-INR (12/07/2024 7:46 AM EST) Prothrombin Time 12.9(H) 10.9 - 12.4 SEC [facility] INTERNATIONAL NORM RATIO 1.1 0.9 - 1.1 [facility] Comment:INTERNATIONAL NORMAL IZED RATIO (INR) REFERENCE RANGES Reference RangeFor patients not on anticoagulant therapy: 0.9 - 1.1INR ranges for oral anticoagulanttherapy:For prevention and treatment of venous thrombosis and pulmonary embolism: 2.0 - 3.0For acute myocardial infarction with aspirin therapy: 2.0 - 3.0For acute myocardial infarction without aspirin therapy: 3.0 - 4.0For patients with mechanical prosthetic heart valves: 2.5 - 3.5 12/07/2024 7:46 AM EST 12/07/2024 7:50 AM EST us Generic External Data Provider LAB BLOOD ORDERAB LES Final Result [facility] [address] [place] [address] [phone] * ECG 12 lead (11/07/2024 11:36 AM EST) Only the most recent of3 resultswithin the time period is included. Narrative Peter Beard MD - 11/07/2024 11:36 AM EST NSR 78 (not in atrial fibrillation), normal axis, no arrhythmia, no ST-T changes, no Q-waves. us Peter Beard MD ECG ORDERABLES Final Result * POCT HGB A1C (07/31/2024 9:44 AM EDT) Hemoglobin A1C 5.5 4.0 - 6.0 % QC Media Lot # [id number] Lot# Expiration Date ,226,[id number] Blood 07/31/2024 9:44 AM EDT us Citlali Norman DO POINT OF CARE TEST ENTER/SANTANA T ORDERABLES Edited Result - Final * (ABNORMAL) Lipid Panel, Standard (02/26/2024 10:00 AM EDT) Triglycerides 129 <150 mg/dL [facility] Comment:Desirable Triglyceri de: less than 150 mg/dLBorderline High Triglyceride 150-199 mg/dLHigh Triglyceride: 200-499 mg/dLVery High Triglyceride: greater than or equal to 5OO mg/dL Cholesterol 161 <200 mg/dL [facility] [facility] Comment:Desirable Cholestero l: less than 200 mg/dLBorderline High Cholesterol: 200-239 mg/dLHigh Cholesterol: greater than 239 mg/dL LDL Cholesterol Calculated 100(H) <100 mg/dL [facility] Comment:Desirable LDL: less than 100 mg/dLNear Optimal/Above Optimal LDL: 110- 129 mg/dLBorderline High LDL: 130-159 mg/dLHigh LDL: 160-189 mg/dLVery High LDL: greater than or equal to 190 mg/dL HDL Cholesterol 36(L) >40 mg/dL [facility] Comment:Desirable HDL: great er than 40 mg/dL Note: This HDL assay may give artificially low results in patients with liver disease. Blood Venous blood specimen / Unknown 02/26/2024 10:00 AM EDT 02/26/2024 11:33 AM EDT us Citlali Norman DO LAB BLOOD ORDERABLES Final R esult Performing Organization Address [facility] [address] [facility] Co de Phone Number [facility] [address] [place] [phone] * (ABNORMAL) Albumin, Random Urine W/Creatinine (02/26/2024 9:50 AM EDT) Creatinine, Urine 62.43 mg/dL [facility] Microalbumin Urine 35.0 mg/L H [facility] Microalbum Creatinine Ratio Ur 56.0(H) <30 ug/mg cr [facility] Comment:Albumin/Creatinine R atio Reference Ranges: Normal: < 30 ug/mg creatinine Microalbuminuria: 30 - 300 ug/mg creatinineClinical Albuminuria: > 300 ug/mg creatinine Urine (Urine, Random) 02/26/2024 9:50 AM EDT 02/26/2024 8:45 PM EDT us Citlali Norman DO LAB URINE ORDERABLES Final R esult Performing Organization Address [facility] [address]/[facility] Co de Phone Number [facility] [address] [place] [phone] from Last 3 Months or Most Recently Relevant to Health Maintenance Insurance [facility] DUAL COMPLETE Care Teams Fur Clipper Relationship Specialty Start Date End Date Citlali oNrman DO [address] [place] [address] PCP - General Family Medicine 10/16/18
--- OUTSIDE RECORDS SUMMARY | 2024-12-09 09:56 | XMS_ITS | Encounter Summary ---
Author Organization [facility] Address [address] [facility] 7t [place] [address] Care Team Providers Care Master Planner Name Role Phone Citlali Norman DO Primary Care Provider + [phone] Reason for Visit * Reason Onset Date Comments FYI 08/02/2024 Encounter Details Date Type Department Care Team ([facility] st Contact Info) Description 08/02/2024 Telephone [facility] MEDICINE 230 [place], [place] [phone] Citlali Norman DO 230 [place], [place] [phone] FYI Social History Tobacco Use Types Packs/Day Years [...] t he electric, gas, oil or water [employer] threatened to shut off services in your [...] encounter Miscellaneous Notes * Telephone Encounter - Maulik Rausch - 08/02/2024 10:27 AM EDT Tc from [place] at [facility] calling to inform PCP will not be able to see patient due to insurance will need to be referred to another location documented in this encounter Plan of Treatment Upcoming Encounters Date Type Department Care Team (Late st Contact Info) Description 12/18/2024 9:00 AM EST Medication Management [address] [address] Elizabeth Bacon PharmD [address] [place] [address] [phone] 01/31/2025 9:30 AM EDT Telemedicine [address] [phone] Venecia Hyatt RN documented as of this [...] documented as of this encounter Care Teams Master Planner Relationship Specialty Start Date End Date Citlali Norman DO 230 [place] [address] PCP - General Family Medicine 10/16/18 documented as of this encounter
--- OUTSIDE RECORDS SUMMARY | 2024-12-09 09:56 | XMS_ITS | Encounter Summary ---
Author Organization [employer] Address [address] [facility] 7t [place] [address] Care Team Providers Care Costume Seamstress Name Role Phone Citlali Norman DO Primary Care Provider + [phone] Reason for Visit * Reason Onset Date Comments Referral 08/02/2024 Encounter Details Date Type Department Care Team ([facility] st Contact Info) Description 08/02/2024 Telephone [facility] MEDICINE 230 [place], [place] [phone] Citlali Norman DO 230 [place], [place] [phone] Referral Social History Tobacco Use Types Packs/Day [...] the past 12 months, has t he [employer], [employer], oil or water [employer] threatened to shut off services in your [...] encounter Miscellaneous Notes * Telephone Encounter - Bradford Fred - 08/02/2024 9:04 AM EDT Tc from [place], pt's MATCH MARKER calling to inform that [facility] does not take pt's insurance and he would need to be referred elsewhere. If any questions you can contact [place] at [phone]. documented in this encounter Plan of Treatment Upcoming Encounters Date Type Department Care Team (Late st Contact Info) Description 12/18/2024 9:00 AM EST Medication Management [address] [address] Elizabeth Bacon PharmD [address] [place] [address] 01/31/2025 9:30 AM EDT Telemedicine [address] [address] Venecia Hyatt RN documented as of this [...] documented as of this encounter Care Teams Costume Seamstress Relationship Specialty Start Date End Date Citlali Norman DO [address] [place] [address] PCP - General Family Medicine 10/16/18 documented as of this encounter
--- OUTSIDE RECORDS SUMMARY | 2024-12-09 09:56 | XMS_ITS | Encounter Summary ---
Author Organization [employer] Address [address] [facility] [address] 7t [place] [address] Care Team Providers Care Independent Freight Agent Name Role Phone EsterCitlali Primary Care Provider + [phone] Encounter Details Date Type Department Care Team (Late st Contact Info) Description 12/07/2024 Orders Only [facility] External Provider, [facility] Social History Tobacco Use Types Packs/Day Years Used Date Smoking Tobacco: Never Passive Smoke Exposure: Never Smokeless Tobacco: Never Depression Answer Date Recorded Patient Health Questionnaire-9 Score 0 02/27/2023 Housing Stability Answer Date Recorded What is your housing situation today? I have adityabrionna gordon 01/16/[address] you [...] Description 12/18/2024 9:00 AM EST Medication Management [facility] MEDICINE 230 [place] [address] Elizabeth Bacon PharmD 230 [place] [address] 01/31/2025 9:30 AM EDT Telemedicine [facility] [address] [place] [address] Venecia Hyatt RN documented as of this [...] prevent loss. documented as of this encounter Procedures Procedure Name Priority Date/Time Associated Diagnosis Comments XR CHEST 1 VIEW Routine 12/07/2024 8:06 AM EST HIGH SENSITIVITY TROPONIN I Routine 12/07/2024 7:46 AM EST PROTHROMBIN TIME-INR Routine 12/07/2024 7:46 AM EST documented in this encounter Results * XR Chest 1 View (12/07/2024 8:06 AM EST) Anatomical Region Laterality Modality Chest Radiographic Cherry ging 12/07/2024 8:06 AM EST Narrative 12/07/2024 8:08 AM EST ? [facility] ?[address] ?[place] [address] ?XRay Report ? Signed ? Patient: Rosenberg,Aleksandr Delmer ?MR#: [id number] ?? [id number] ? : 1940 ?Acct:[id number] ? Age/Sex: 84 / M ?ADM Date: 12/07/24 ? Loc: HO.ED ? Attending Dr: ? Ordering Physician: Pebbles Tapia ?? Date of Service: 12/07/24 ?? Procedure(s): XR chest 1V ?? Accession Number(s): [id number] ? cc: [facility]; Pebbles Tapia ? CLINICAL HISTORY: chest pressure [...] by Michell Owens MD in OV> ? 12/07/24 0807 ? DD/ 5 ? TD/TT: 12/07/24805 ? Chief Talent Officer: ? Procedure Note Duglas, Image - 12/07/2024 [place] [address] XRay Report Signed Patient: Aleksandr Rosenberg#: [id number] : 9Acct:[id number] Age/Sex: 84 / MADM Date: 12/07/24 Loc: HO.ED Attending Dr: Ordering Physician: Pebbles Tapia Date of Service: 12/07/24 Procedure(s): XR chest 1V Accession Number(s): [id number] cc: [facility]; Pebbles Tapia CLINICAL HISTORY: chest pressure 1 [...] signed by Michell Owens MD in OV> 12/07/24 08 DD/ 5 TD/TT: 12/07/24 08 Chief Talent Officer: [facility] External Provider IMG XR PROCEDURES Final Result * High Sensitivity Troponin I (12/07/2024 7:46 AM EST) TROPONIN I HIGH SENSITIVITY 3.8 <3.5 - 35.0 ng/L [facility] Comment:The Addison high sens itivity Troponin-I results should beused in conjunction with other diagnostic information suchas ECG, clinical observations and information, and patientsymptoms to aid in the diagnosis of IA. 12/07/2024 7:46 AM EST 12/07/2024 7:50 AM EST Generic External Data Provider LAB BLOOD ORDERAB LES Final Result Performing Organization Address City/State/[facility] Co de Phone Number [facility] [address] [place] [phone] * (ABNORMAL) Prothrombin Time-INR (12/07/2024 7:46 AM EST) Prothrombin Time 12.9(H) 10.9 - 12.4 SEC [facility] INTERNATIONAL NORM RATIO 1.1 0.9 - 1.1 [facility] Comment:INTERNATIONAL NORMAL IZED RATIO (INR) REFERENCE [...] Provider LAB BLOOD ORDERAB LES Final Result [facility] [address] [place] [phone] documented in this encounter Visit Diagnoses Not on filedocumented in this encounter Additional Health Concerns Assessment Noted Time PHQ-9 Depression Total Score: 0 02/28/20 23 11:46 AM EDT documented as of this encounter Care Teams Independent Freight Agent Relationship Specialty Start Date End Date Citlali Norman DO [address] [place] [address] PCP - General Family Medicine 10/16/18 documented as of this encounter
--- OUTSIDE RECORDS SUMMARY | 2024-12-09 09:56 | XMS_ITS | Encounter Summary ---
Author Organization [employer] Address 75 [facility] 7t [place] [address] Care Team Providers Care Sewer Head Name Role Phone Citlali Norman DO Primary Care Provider + [phone] Reason for Visit * Reason Comments Med Refill Encounter Details Date Type Department Care Team ([facility] st Contact Info) Description 08/28/2024 Refill [facility] MEDICINE 230 [place], [place] [phone] Citlali Norman DO 230 [place], [place] [phone] Chronic pain of both knees Social History [...] the past 12 months, has t he [employer], gas, oil or water [employer] threatened to shut off services in your [...] Description 12/18/2024 9:00 AM EST Medication Management [address] [address] Elizabeth Bacon PharmD [address] [place] [address] 01/31/2025 9:30 AM EDT Telemedicine [address] [address] Venecia Hyatt RN documented as of this [...] documented as of this encounter Care Teams Sewer Head Relationship Specialty Start Date End Date Citlali Norman DO [address] [place] [address] PCP - General Family Medicine 10/16/18 documented as of this encounter
--- OUTSIDE RECORDS SUMMARY | 2024-12-09 09:56 | XMS_ITS | Encounter Summary ---
Author Organization [employer] Address 75 [facility] 7t [place] [address] Care Team Providers Care Group President Name Role Phone Citlali Norman DO Primary Care Provider + [phone] Reason for Visit * Reason Comments Med Refill Encounter Details Date Type Department Care Team ([facility] st Contact Info) Description 11/12/2024 Refill [facility] MEDICINE 230 [place], [place] [phone] Citlali Norman DO 230 [place], [place] [phone] Social History Tobacco Use Types Packs/Day Years [...] Description 12/18/2024 9:00 AM EST Medication Management [address] [address] Elizabeth Bacon PharmD [address] [place] [address] 01/31/2025 9:30 AM EDT Telemedicine [address] [phone] Venecia Hyatt RN documented as of this [...] documented as of this encounter Care Teams Group President Relationship Specialty Start Date End Date Citlali Norman DO [address] [place] [address] [phone] PCP - General Family Medicine 10/16/18 documented as of this encounter
--- OUTSIDE RECORDS SUMMARY | 2024-12-09 09:56 | XMS_ITS | Encounter Summary ---
Author Organization [employer] Address 75 [facility] 7t [place] [address] Care Team Providers Care Sleeve Presser Operator Name Role Phone Citlali Norman DO Primary Care Provider + [phone] Reason for Visit * Reason Comments Med Refill Encounter Details Date Type Department Care Team ([facility] st Contact Info) Description 07/02/2024 Refill [facility] MEDICINE 230 [place], [place] [phone] Citlali Norman DO 230 [place], [place] [phone] Chronic pain of both knees Social History [...] the past 12 months, has t he [employer], gas, oil or water [employer] threatened to shut off services in your [...] 12/18/2024 9:00 AM EST Medication Management [address] [address] Elizabeth Bacon PharmD [address] [place] [address] 01/31/2025 9:30 AM EDT Telemedicine [address] [address] Venecia Hyatt RN documented as of this [...] documented as of this encounter Care Teams Sleeve Presser Operator Relationship Specialty Start Date End Date Citlali Norman DO [address] [place] [address] PCP - General Family Medicine 10/16/18 documented as of this encounter
--- OUTSIDE RECORDS SUMMARY | 2024-12-09 09:56 | XMS_ITS | Encounter Summary ---
Author Organization [employer] Address 75 [facility] 7t [place] [address] Care Team Providers Care Ornamental Ironworker Name Role Phone Citlali Norman DO Primary Care Provider + [phone] Reason for Visit * Reason Comments Med Refill Encounter Details Date Type Department Care Team ([facility] st Contact Info) Description 07/01/2024 Refill [facility] MEDICINE 230 [place], [place] [phone] Citlali Norman DO 230 [place], [place] [phone] Chronic pain of both knees Social History [...] the past 12 months, has t he [employer], gas, oil or water [employer] threatened to shut off services in your [...] Description 12/18/2024 9:00 AM EST Medication Management [address] [address] Elziabeth Bacon PharmD [address] [place] [address] 01/31/2025 9:30 AM EDT Telemedicine [address] [address] Venecia Hyatt RN documented as of this [...] documented as of this encounter Care Teams Ornamental Ironworker Relationship Specialty Start Date End Date Citlali Norman DO [address] [place] [address] PCP - General Family Medicine 10/16/18 documented as of this encounter
--- OUTSIDE RECORDS SUMMARY | 2024-12-09 09:56 | XMS_ITS | Encounter Summary ---
Author Organization [employer] [facility] Address 75 [facility] 7 [place] [address] Care Team Providers Care Vp Cardiovascular Service Line Name Role Phone Citlali Norman DO Primary Care Provider + [phone] Reason for Visit * Reason Onset Date Comments Med Refill 08/24/2023 Encounter Details Date Type Department Care Team (Late st Contact Info) Description 08/24/2023 Telephone [facility] MEDICINE 230 [place], [place] [phone] Citlali Norman DO 230 [place], [place] [phone] Med Refill Social History Tobacco Use Types [...] encounter Miscellaneous Notes * Telephone Encounter - Prieto Salinas - 08/24/2023 1:52 PM EST Tc from pt requesting med refill on oxyCODONE-acetaminophen (Percocet) 7.5-325 MG tablet Please sent to [facility] - [place] [facility] [address] [facility] documented in this encounter Plan of Treatment Upcoming Encounters Date Type Department Care Team (Late st Contact Info) Description 12/18/2024 9:00 AM EST Medication Management [address] [address] Elizabeth Bacon, AlisonD [address] [place] [address] 01/31/2025 9:30 AM EDT Telemedicine [address] [address] Venecia Hyatt, [place] documented as of this encounter Visit Diagnoses Not on filedocumented in this encounter Additional Health Concerns Assessment Noted Time PHQ-9 Depression Total Score: 0 02/28/20 23 11:46 AM EDT documented as of this encounter Care Teams Vp Cardiovascular Service Line Relationship Specialty Start Date End Date Citlali Norman DO [address] [place] [address] PCP - General Family Medicine 10/16/18 documented as of this encounter
--- OUTSIDE RECORDS SUMMARY | 2024-12-09 09:56 | XMS_ITS | Encounter Summary ---
Author Organization [employer] Address 75 [facility] 7t [place] [address] Care Team Providers Care Seeing Eye Dog Trainer Name Role Phone Citlali Norman DO Primary Care Provider + [phone] Reason for Visit * Reason Onset Date Comments Med Refill 10/20/2023 Encounter Details Date Type Department Care Team ([facility] st Contact Info) Description 10/20/2023 Telephone [facility] MEDICINE 230 [place], [place] [phone] Citlali Norman DO 230 [place], [place] [phone] Med Refill Social History Tobacco Use Types [...] Telephone Encounter - Citlali Duvall LPN - 10/20/2023 11:44 AM EST Medication was sent to [facility] on 07/26/23 #90 with 1 refill. * Telephone Encounter - Maulik Rausch - 10/20/2023 11:40 AM EST TC from pt requesting medication refill. Medications needing refill : rivaroxaban (Xarelto) 20 MG tablet To be sent to: [facility] - [place], [place] - [address] [facility] documented in this encounter Plan of Treatment Upcoming Encounters Date Type Department Care Team (Late st Contact Info) Description 12/18/2024 9:00 AM EST Medication Management [address] [address] Elizabeth Bacon PharmD [address] [place] [address] [phone] 01/31/2025 9:30 AM EDT Telemedicine [address] [phone] Venecia Hyatt RN documented as of this encounter Visit Diagnoses Not on filedocumented in this encounter Additional Health Concerns Assessment Noted Time PHQ-9 Depression Total Score: 0 02/28/20 23 11:46 AM EDT documented as of this encounter Care Teams Seeing Eye Dog Trainer Relationship Specialty Start Date End Date Citlali Norman DO [address] [place] [address] PCP - General Family Medicine 10/16/18 documented as of this encounter
--- OUTSIDE RECORDS SUMMARY | 2024-12-09 09:56 | XMS_ITS | Encounter Summary ---
Author Organization [employer] Address [address] [facility] [address] 7t [place] [address] Care Team Providers Care Host/Hostess Head Name Role Phone Ester Citlali Primary Care Provider + [phone] Reason for Visit * Reason Onset Date Comments telephone call 11/12/2024 Encounter Details Date Type Department Care Team ([facility] st Contact Info) Description 11/12/2024 Telephone [facility] MEDICINE 230 [place], [place] [phone] Venecia Hyatt RN telephone call Social History Tobacco Use Types Packs/Day Years [...] Telephone Encounter - Venecia Hyatt RN - 11/12/2024 2:55 PM EST Pts refill is at pharmacy, available for pickup 11/14/24. * Telephone Encounter - Jenna Landon - 11/12/2024 8:33 AM EST Pt walked in requesting arefill on his Oxycodone he says he is due today and he needs his medications. documented in this encounter Plan of Treatment Upcoming Encounters Date Type Department Care Team (Late st Contact Info) Description 12/18/2024 9:00 AM EST Medication Management [facility] MEDICINE [address] [place] [address] Elizabeth Bacon PharmD [address] [place] [address] 01/31/2025 9:30 AM EDT Telemedicine [address] [address] Venecia Hyatt, [place] documented as of this [...] documented as of this encounter Care Teams Host/Hostess Head Relationship Specialty Start Date End Date Citlali Norman DO 230 [place] [address] PCP - General Family Medicine 10/16/18 documented as of this encounter
--- OUTSIDE RECORDS SUMMARY | 2024-12-09 09:56 | XMS_ITS | Encounter Summary ---
Author Organization [employer] Address 75 [facility] 7t [place] [address] Care Team Providers Care Glue Wheel Operator Name Role Phone Citlali Norman DO Primary Care Provider + [phone] Reason for Visit * Reason Comments Med Refill Encounter Details Date Type Department Care Team ([facility] st Contact Info) Description 08/09/2024 Refill [facility] MEDICINE 230 [place], [place] [phone] Citlali Norman DO 230 [place], [place] [phone] Chronic pain of both knees Social History [...] the past 12 months, has t he [employer], gas, oil or water [employer] threatened to shut off services in your [...] Description 12/18/2024 9:00 AM EST Medication Management [address] [address] Elizabeth Bacon PharmD [address] [place] [address] 01/31/2025 9:30 AM EDT Telemedicine [address] [address] Venecia Hyatt RN documented as of this [...] documented as of this encounter Care Teams Glue Wheel Operator Relationship Specialty Start Date End Date Citlali Norman DO [address] [place] [address] PCP - General Family Medicine 10/16/18 documented as of this encounter
--- OUTSIDE RECORDS SUMMARY | 2024-12-09 09:57 | XMS_ITS | Encounter Summary ---
Author Organization [employer] Address 75 [facility] 7t [place] [address] Care Team Providers Care Law Researcher Name Role Phone Citlali Norman DO Primary Care Provider + [phone] Reason for Visit * Reason Comments Med Refill Encounter Details Date Type Department Care Team ([facility] st Contact Info) Description 06/11/2024 Refill [facility] 230 [place], [place] [phone] Citlali Norman DO 230 [place], [place] [phone] Chronic pain of both knees Social History [...] the past 12 months, has t he [employer], gas, oil or water [employer] threatened to shut off services in your [...] Description 12/18/2024 9:00 AM EST Medication Management [address] [address] Elizabeth Bacon PharmD [address] [place] [address] 01/31/2025 9:30 AM EDT Telemedicine [address] [address] Venecia Hyatt RN documented as of this [...] documented as of this encounter Care Teams Law Researcher Relationship Specialty Start Date End Date Citlali Norman DO [address] [place] [address] PCP - General Family Medicine 10/16/18 documented as of this encounter
--- OUTSIDE RECORDS SUMMARY | 2024-12-09 09:57 | XMS_ITS | Encounter Summary ---
Author Organization [employer] Address [address] [facility] [address] 7t [place] [address] Care Team Providers Care Operations Dispatcher Name Role Phone Ester Citlali Primary Care Provider + [phone] Reason for Visit * Reason Comments Med Refill Encounter Details Date Type Department Care Team ([facility] st Contact Info) Description 04/16/2024 Refill [facility] [address] [place], [place] [phone] [facility] 230 [place], [place] [phone] Chronic pain of both knees Social History [...] the past 12 months, has t he [employer], gas, oil or water company threatened to [...] Description 12/18/2024 9:00 AM EST Medication Management [address] [address] Elizabeth Bacon PharmD [address] [place] [address] 01/31/2025 9:30 AM EDT Telemedicine [address] [address] Venecia Hyatt, [place] documented as of this [...] documented as of this encounter Care Teams Operations Dispatcher Relationship Specialty Start Date End Date Citlali Norman DO [address] [place] [address] [phone] PCP - General Family Medicine 10/16/18 documented as of this encounter
--- OUTSIDE RECORDS SUMMARY | 2024-12-09 09:57 | XMS_ITS | Encounter Summary ---
Author Organization [employer] Address [address] [facility] 7t [place] [address] Care Team Providers Care Asic Verification Engineer Name Role Phone Citlali Norman DO Primary Care Provider + [phone] Reason for Visit * Reason Comments Med Refill Encounter Details Date Type Department Care Team ([facility] st Contact Info) Description 06/11/2024 Refill [facility] MEDICINE [address] [place], [place] [phone] Citlali Norman DO [address] [place], [place] [phone] Chronic pain of both knees Social History [...] the past 12 months, has t he [employer], gas, oil or water [employer] threatened to shut off services in your [...] Description 12/18/2024 9:00 AM EST Medication Management [address] [address] Elizabeth Bacon PharmD [address] [place] [address] 01/31/2025 9:30 AM EDT Telemedicine [address] [address] Venecia Hyatt RN documented as of this [...] documented as of this encounter Care Teams Asic Verification Engineer Relationship Specialty Start Date End Date Citlali Norman DO [address] [place] [id number] PCP - General Family Medicine 10/16/18 documented as of this encounter
--- OUTSIDE RECORDS SUMMARY | 2024-12-09 09:57 | XMS_ITS | Encounter Summary ---
Author Organization [employer] Address [address] [facility] 7t [place] [address] Care Team Providers Care Seo Strategist Name Role Phone Citlali Norman DO Primary Care Provider + [phone] Reason for Visit * Reason Comments Med Refill Encounter Details Date Type Department Care Team ([facility] st Contact Info) Description 06/18/2024 Refill [facility] MEDICINE 230 [place], [place] [phone] Citlali Norman DO 230 [place], [place] [phone] Chronic pain of both knees Social History [...] the past 12 months, has t he [employer], gas, oil or water [employer] threatened to shut off services in your [...] Description 12/18/2024 9:00 AM EST Medication Management [address] [address] Elizabeth Bacon PharmD [address] [place] [phone] 01/31/2025 9:30 AM EDT Telemedicine [address] [address] Venecia Hyatt RN documented as of this [...] documented as of this encounter Care Teams Seo Strategist Relationship Specialty Start Date End Date Citlali Norman DO [address] [place] [phone] PCP - General Family Medicine 10/16/18 documented as of this encounter
--- OUTSIDE RECORDS SUMMARY | 2024-12-09 09:57 | XMS_ITS | Encounter Summary ---
Author Organization [employer] Address [address] [facility] 7t [place] [address] Care Team Providers Care Law Tutor Name Role Phone Citlali Norman DO Primary Care Provider + [phone] Reason for Visit * Reason Comments Med Refill Encounter Details Date Type Department Care Team ([facility] st Contact Info) Description 11/27/2023 Telephone [facility] [address] [place], [place] [phone] Andria Schneider FNP [address] [place] [address] Med Refill Social History Tobacco Use Types [...] encounter Miscellaneous Notes * Telephone Encounter - Lisy Good RN - 11/30/2023 9:01 AM EST TC placed to pt [phone] via [employer] interpre[employer] in regards to below message. Pt informed PCP does not recommend continued use of enemas for his constipation. Pt informed refill request was denies d/t no significant stool burden seen on recent xrays or CT. Pt informed PCP would like to refer pt to GI for further evaluation. Pt is agreeable to POC and reports he is still in [place]. Pt would like to be referred to [facility]. RN will send message to PCP to place referral. Pt is aware he will receive a letter in the mail w/ GI appt date and time or a call from GI office w/ appt date and time. Pt to f/u PRN (RN has updated pt's address on file). * Telephone Encounter - Citlali Norman DO - 11/29/2023 2:55 PM EST Recommend against continued use of enemas for his constipation sx. There was no significant stool burden seen on recent xrays or CT. Recommend GI eval. Is he still living in [place] or has he moved to [place]? documented in this encounter Plan of Treatment Upcoming Encounters Date Type Department Care Team (Late st Contact Info) Description 12/18/2024 9:00 AM EST Medication Management [facility] MEDICINE [address] [place] [phone] Elizabeth Bacon, AlisonD [address] [place] [address] 01/31/2025 9:30 AM EDT Telemedicine [facility] [address] [place] [phone] Venecia Hyatt, [place] documented as of this encounter Visit Diagnoses Not on filedocumented in this encounter Additional Health Concerns Assessment Noted Time PHQ-9 Depression Total Score: 0 02/28/20 23 11:46 AM EDT documented as of this encounter Care Teams Law Tutor Relationship Specialty Start Date End Date Citlali Norman DO [address] [place] [phone] PCP - General Family Medicine 10/16/18 documented as of this encounter
--- OUTSIDE RECORDS SUMMARY | 2024-12-09 09:57 | XMS_ITS | Encounter Summary ---
Author Organization [email or web address] Address 75 [facility] 7t [place] [address] Care Team Providers Care Manager Employee Relations Name Role Phone Citlali Norman DO Primary Care Provider + [phone] Reason for Visit * Reason Comments Med Refill Encounter Details Date Type Department Care Team ([facility] st Contact Info) Description 05/20/2024 Refill [facility] MEDICINE 230 [place], [place] [phone] Citlali Norman DO 230 [place], [place] [phone] Chronic pain of both knees Social History [...] the past 12 months, has t he [email or web address], gas, oil or water [employer] threatened to shut off services in your [...] 12/18/2024 9:00 AM EST Medication Management [address] [address] Elizabeth Bacon PharmD [address] [place] [address] 01/31/2025 9:30 AM EDT Telemedicine [address] [address] Venecia Hyatt RN documented as of this [...] documented as of this encounter Care Teams Manager Employee Relations Relationship Specialty Start Date End Date Citlali Norman DO [address] [place] [address] PCP - General Family Medicine 10/16/18 documented as of this encounter
--- OUTSIDE RECORDS SUMMARY | 2024-12-09 09:57 | XMS_ITS | Encounter Summary ---
Author Organization [employer] Address [address] [facility] [address] 7t [place] [address] Care Team Providers Care Peanut Blancher Name Role Phone Citlali Norman DO Primary Care Provider + [phone] Reason for Visit * Reason Comments Med Refill Encounter Details Date Type Department Care Team ([facility] st Contact Info) Description 05/12/2024 Refill [facility] [address] [place], [place] [phone] Citlali Norman DO 230 [place], [place] [phone] Social History Tobacco Use Types Packs/Day Years [...] Description 12/18/2024 9:00 AM EST Medication Management [address] [address] Elizabeth Bacon PharmD [address] [place] [address] 01/31/2025 9:30 AM EDT Telemedicine [address] [phone] Venecia Hyatt RN documented as of this [...] documented as of this encounter Care Teams Peanut Blancher Relationship Specialty Start Date End Date Citlali Norman DO [address] [place] [phone] PCP - General Family Medicine 10/16/18 documented as of this encounter
--- OUTSIDE RECORDS SUMMARY | 2024-12-09 09:57 | XMS_ITS | Encounter Summary ---
Author Organization [employer] Address 75 [facility] 7t [place] [address] Care Team Providers Care Mine Geologist Name Role Phone Citlali Norman DO Primary Care Provider + [phone] Reason for Visit * Reason Onset Date Comments Error 06/03/2024 Encounter Details Date Type Department Care Team ([facility] Contact Info) Description 06/03/2024 Telephone [facility] MEDICINE [address] [place], [place] [phone] Citlali Norman DO 230 [place], [place] [phone] Error Social History Tobacco Use Types Packs/Day Years [...] the past 12 months, has t he [employer], [employer], oil or water [employer] threatened to shut off services in your [...] Description 12/18/2024 9:00 AM EST Medication Management [address] [address] Elizabeth Bacon PharmD [address] [place] [address] 01/31/2025 9:30 AM EDT Telemedicine [address] [phone] Venecia Hyatt, [place] documented as of this [...] documented as of this encounter Care Teams Mine Geologist Relationship Specialty Start Date End Date Citlali Norman DO [address] [place] [address] [phone] PCP - General Family Medicine 10/16/18 documented as of this encounter
== END 2024-12-09 09:40 | disposition home or self-care (01) ==
PROVIDERS: PCP Family Medicine; Visit Provider Internal Medicine Cardiovascular Disease
DX: I25.10 Atherosclerotic heart disease of native coronary artery without angina pectoris (principal); I48.0 Paroxysmal atrial fibrillation
CPT/HCPCS: 99214; G2211

== ENCOUNTER → 2024-12-09 09:16 | Outpatient (BNVA) | payer OTHER, SELFPAY | PROVIDERS: PCP Family Medicine; Visit Provider Internal Medicine Cardiovascular Disease | DX: I25.10 Atherosclerotic heart disease of native coronary artery without angina pectoris (principal); I48.0 Paroxysmal atrial fibrillation | CPT/HCPCS: 99212 ==

== ENCOUNTER 2024-12-22 15:03 | Emergency (ER) | payer OTHER, SELFPAY ==
--- NOTE | 2024-12-22 | ECG_ITS ---
Test Reason : CHEST PAIN Blood Pressure : */* mmHG Vent. Rate : 104 BPM Atrial Rate : 104 BPM P-R Int : 94 ms QRS Dur : 86 ms QT Int : 364 ms P-R-T Axes : * -18 22 degrees QTcB Int : 478 ms Sinus tachycardia with short PA with occasional Premature ventricular complexes Otherwise normal ECG When compared with ECG of 07-Dec-2024 08:01, Premature ventricular complexes are now Present PA interval has decreased Vent. rate has increased by 45 bpm QT has lengthened Referred By: Nan Pan Electronically Signed By: VIRGINIA MARIE
--- NOTE | ~2024-12-22 | US_ITS ---
CLINICAL HISTORY: pain, swelling Bilateral lower extremity venous duplex ultrasound Comparison: US - US VENOUS DUPLEX LE RT - 07/09/21 08:14 EDT US - VENOUS DOP LT LOWER EXT [id number] - 11/18/19 13:58 EST Findings: The visualized deep veins are fully compressible with normal flow. The left peroneal veins were not visualized. No popliteal cyst. Impression: No deep vein thrombosis. This document has been electronically signed by: Tara Concepcion MD on 12/22/2024 16:53:16
--- NOTE | ~2024-12-22 | XR_ITS ---
CLINICAL HISTORY: chest pain Chest Radiograph Comparison: 12/07/24 Findings: No cardiomegaly. Normal mediastinal contours. No pneumothorax. New bibasilar opacity. No pleural effusion. Normal upper abdomen. No acute fracture. Impression: New bibasilar opacity could be atelectasis or pneumonia. This document has been electronically signed by: Tara Concepcion MD on 12/22/2024 16:34:53
--- NOTE | 2024-12-22 15:15 | ED_ITS ---
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 He states he was many places and isn't sure. He then states 3 days of chest pain, body pain and hasn't been able to take his pain medications after he lost them. He denies cough, fevers. He states he has shortness of breath and his legs are swollen. He is a very vague historian and I had to repeatedly ask him questions as he just kept asking for his pain medications. He just presented the same way to Dr. Saini office on 12/09/24 who refilled his cardiac/regular medications but not his narcotics at that time he also states he lost his medications. He just filled 35 tabs of his oxycodone 7.5mg on 12/19. Of note in his pocket he has 5 pills of oxycodone left over in his most recent Rx bottle from 12/19 - he states he didn't take anymore than he was supposed to. He states he just lost the rest . He denies chest pain worse with exertion. MD complaint: chest pain Pertinent past history: other (chronic chest pain) Onset (ago): day(s) (3) Timing of current episode: constant Prior episodes: Yes Onset: during rest Pain location: substernal Pain radiation: none Severity: severe Quality: aching Relieving factors: nothing Exacerbating factors: nothing Context: non compliance with medication Treatment prior to arrival: none Related Data Home Medications ?Medication ?Instructions ?Recorded ?Confirmed fenofibrate micronized 200 mg 200 mg PO DAILY 10/26/20 12/09/24 capsule ferrous sulfate 325 mg (65 mg 325 mg PO DAILY 10/26/20 12/09/24 iron) tablet finasteride 5 mg tablet 5 mg PO DAILY 10/26/20 12/09/24 fluticasone 500 mcg-salmeterol 50 1 ea PO BID 10/26/20 12/09/24 mcg/dose blistr powdr for inhalation ipratropium 0.5 mg-albuterol 3 mg 3 ml inhalation QID PRN 10/26/20 12/09/24 (2.5 mg base)/3 mL nebulization soln loratadine 10 mg tablet 10 mg PO DAILY 10/26/20 12/09/24 metformin 500 mg tablet 500 mg PO QAM 10/26/20 12/09/24 oxycodone-acetaminophen 7.5 mg-325 1 tab PO Q4H PRN pain 10/26/20 12/09/24 mg tablet pantoprazole 40 mg tablet,delayed 40 mg PO DAILY 10/26/20 12/09/24 release tamsulosin 0.4 mg capsule 0.4 mg PO DAILY 10/26/20 12/09/24 trazodone 50 mg tablet 50 mg PO BEDTIME 10/26/20 12/09/24 melatonin 5 mg tablet 5 mg PO DAILY 08/16/22 12/09/24 Previous Rx's ?Medication ?Instructions ?Recorded benzonatate 200 mg capsule 200 mg PO TID PRN cough #10 caps 10/08/22 magnesium citrate 300 ml PO DAILY PRN constipation 11/12/23 #296 mL polyethylene glycol 3350 17 gram 17 g PO DAILY PRN constipation 2 11/12/23 oral powder packet (Miralax) weeks #30 ea amoxicillin 875 mg-potassium 1 tab PO BID #14 tabs 01/03/24 clavulanate 125 mg tablet amlodipine 10 mg tablet 10 mg PO DAILY 3 days #30 tabs 12/09/24 ezetimibe 10 mg tablet 10 mg PO DAILY 90 days #30 tabs 12/09/24 rivaroxaban 20 mg tablet (Xarelto) 20 mg PO QPM #30 tabs 12/09/24 rosuvastatin 40 mg tablet 40 mg PO QPM #30 tabs 12/09/24 Allergies Allergy/AdvReac Type Severity Reaction Status Date / Time No Known Allergies Allergy Verified 12/22/24 15:34 Review of Systems 2 Review of Systems: Constitutional : No Weight loss, No Fever, No Chills ENT/Mouth : No sore throat, No Rhinorrhea Eyes: No Eye Pain, No Swelling Cardiovascular : pos Chest Pain, pos SOB, no Dyspnea on Exertion, No Orthopnea, pos Edema, No Palpitations Respiratory : pos Cough, No Sputum Gastrointestinal : pos Nausea, No Vomiting, No Diarrhea, No abdominal Pain, No Hematochezia, No Melena Genitourinary : No Dysuria, No Urinary Frequency Musculoskeletal : pos joint pain, No Myalgias, No Joint Swelling Skin : No Skin Lesions, No rash Neuro : No Weakness, No Numbness, No Dizziness, No Headache All other systems reviewed and are negative [facility] Past Medical History Attestation statement: The following information was validated with the patient. Source: old records reviewed Medical History Diabetes type 1, controlled Paroxysmal atrial fibrillation CAD (coronary artery disease) HTN (hypertension) Hyperlipidemia Surgical History Stented coronary artery Family History Family History Father No problems noted. Mother No problems noted. 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 Oriented X3. No acute distress. Eyes: Pupils equal, round and reactive to light. ENT: Pharynx normal. Neck: Normal inspection. Neck supple. CVS: Normal heart rate and rhythm. Pulses normal. Respiratory: No respiratory distress. Breath sounds normal. Abdomen: Soft and nontender. Skin: Skin warm and dry. Normal skin color. Extremities: 1+ pitting lower extremity edema. Neuro: Oriented X 3. No motor deficit. No sensory deficit. CN2-12 intact Course Course Course Narrative: CXR shows possible atelectasis he denies fevers and has a dry cough Medications Administered Generic Name Dose Route Start Last Admin Trade Name Freq PRN Reason Stop Dose Admin Magnesium Sulfate 2 gm in 50 mls @ 25 mls/hr 12/22/24 15:36 12/22/24 15:59 Magnesium Sulfate/H2o IV 12/22/24 17:35 25 mls/hr ONCE ONE Administration Discontinued Medications Generic Name Dose Route Start Last Admin Trade Name Freq PRN Reason Stop Dose Admin Oxycodone HCl 10 mg 12/22/24 15:36 12/22/24 15:58 Oxycodone Hcl Immed Release 5 Mg Tablet PO 12/22/24 15:37 Not Given ONCE ONE Medical Decision Making Medical Decision Making [facility] Narrative: 84 yo male with PMH of CAD, HTN, PAF on xarelto, HLD, arthritis, DM, BPH here with c/o atypical chest pain then states he ran out of his medications but he comes in with 5 pills left from 3 days ago when he filled 35 tabs of oxycodone. His story is atypical he has nonpsecific ST T wave changes on EKG at this time given his qtc more prolonged than usual I am going to start him on IV magnesium, obtain troponin x2, DVT study, CXR, BNP, tylenol level if he in fact took that many pills. He has distal pulses intact he does have CAD but he also has chronic chest pain. He had a similar presentation to Cardiology 12/09 Differential Diagnosis Differential Diagnoses: The differential diagnosis associated with the presentation includes atypical chest pain, lyte abnormality, chest wall pain, misuse of medications, NSTEMI Admission/Observation Consideration of admission/observation: Escalation of care including admission/observation considered signed out to Dr. Rios pending further work up and repeat troponin Lab Data [facility] Lab Attestation statement: I reviewed the patient's lab results. 12/22/24 15:46 12/22/24 15:46 Labs: Lab Results 12/22/24 12/22/24 12/22/24 Range/Units 15:46 15:57 16:55 WBC 12.3 H (4.8-10.8) X10*3/uL RBC 2.33 L (4.60-5.80) X10*6/uL Hgb 10.7 L (14.0-18.0) g/dl Hct 28.5 L (42.0-52.0) % MCV 122.3 H (80.0-98.0) fL MCH 45.9 H (27.0-33.0) pg MCHC 37.5 H (31.0-36.0) g/dl RDW TNP Plt Count 336 D (160-400) X10*3/uL MPV 10.7 (9.4-12.4) fL Immature Gran % (Auto) Cancelled Neut % (Auto) Cancelled Lymph % (Auto) Cancelled Rolette % (Auto) Cancelled Eos % (Auto) Cancelled Baso % (Auto) Cancelled Lymph # (Auto) Cancelled Rolette # (Auto) Cancelled Eos # (Auto) Cancelled Baso # (Auto) Cancelled Abs Immat Gran (auto) Cancelled Absolute Neuts (auto) Cancelled Absolute Nucleated RBC 0.000 (0.0-0.012) X10*3/uL Nucleated RBC % (auto) 0.0 (0.0-0.2) /100WBC Neutrophils % (Manual) 88 H (45-73) % Lymphocytes % (Manual) 7 L (20-40) % Atypical Lymphs % (Man) 2 (0-6) % Monocytes % (Manual) 3 (2-11) % Abs Neuts (Manual) 10.8 H (2.0-8.3) X10*3/uL Lymphocytes # (Manual) 0.9 L (1.2-4.9) X10*3/uL Atyp Lymphs # (Manual) 0.2 x10*3/uL Monocytes # (Manual) 0.4 (0.1-1.2) X10*3/uL Hypersegmented Neuts PRESENT Toxic Vacuolation PRESENT Platelet Estimate NORMAL (NORMAL) Plt Morphology Comment NORMAL RBC Morphology NOTED Macrocytosis 2+ (15-30) /OIF Tear Drop Cells 1+ (0-2) /OIF Schistocytes 1+ (0-2) /OIF Sodium 134 L (135-145) mmol/L Potassium 3.8 (3.3-5.1) mmol/L Chloride 98 (96-108) mmol/L Carbon Dioxide 22 (22-29) mmol/L Anion Gap 18 (12-20) BUN 33 H (9-16) mg/dL Creatinine 1.18 (0.5-1.4) mg/dL Estim Creat Clear Calc 41.5 Estimated GFR 59 Random Glucose 142 H (60-115) mg/dL Calcium 8.6 (8.4-10.2) mg/dL Magnesium 1.6 (1.6-2.6) mg/dL Total Bilirubin 1.0 (0.0-1.0) mg/dL Direct Bilirubin 0.4 (0.0-0.5) mg/dL AST 30 (5-37) U/L ALT 30 (0-40) U/L Alkaline Phosphatase 77 (39-117) U/L Troponin I High Sens 14.9 D (<3.5-35.0) ng/L B-Natriuretic Peptide 100 (<100) pg/mL Total Protein 6.8 (6.5-8.0) g/dL Albumin 4.0 (3.5-5.0) g/dL Salicylates 7.0 L (15-30) mg/dL Urine Opiates Screen POSITIVE H (Not Detect) Ur Buprenorphine Scrn Not Detected (Not Detect) ng/mL Ur Oxycodone Screen Positive H (Not Detect) ng/mL Urine Methadone Screen Not Detected (Not Detect) ng/mL Urine Fentanyl Screen Not Detected (Not Detect) Acetaminophen 5 (<30) mcg/mL Ur Barbiturates Screen Not Detected (Not Detect) Ur Phencyclidine Scrn Not Detected (Not Detect) Ur Amphetamines Screen Not Detected (Not Detect) U Benzodiazepines Scrn Not Detected (Not Detect) Urine Cocaine Screen Not Detected (Not Detect) U Marijuana (THC) Screen Not Detected (Not Detect) Independent Interpretation I performed an independent interpretation of an: EKG and Plain X-Ray Interpretation: Rate: 104 Rhythm: sinus tachycardia with PVCs and PACs [place]: left Normal P waves. Normal CARLOZ. Normal QRS complex. ST T wave : nonspecific ST T wave changes lateral leads qTC: 478 prior studies: nonspecific changes in lateral leads are more evident The study has been interpreted contemporaneously by me. . Radiology Impression Discussion of test interpretation with radiology: I have reviewed the radiologist's reading. Independent Historian Clinical information obtained from an independent historian. History obtained from or confirmed by: EMS External Record Review External record reviewed: Inpatient record and Outpatient record Discharge Plan Discharge Clinical Impression: Atypical chest pain Patient Disposition: Still a Patient Instructions: Chest Pain (ED) Prescriptions: No Action benzonatate 200 mg capsule 200 mg PO TID PRN (Reason: cough) Qty: 10 0RF magnesium citrate Solution 300 ml PO DAILY PRN (Reason: constipation) Qty: 296 0RF polyethylene glycol 3350 [Miralax] 17 gram powder in packet 17 g PO DAILY PRN (Reason: constipation) 14 Days Qty: 30 0RF amoxicillin-pot clavulanate 875-125 mg tablet 1 tab PO BID Qty: 14 0RF ipratropium-albuterol 0.5 mg-3 mg(2.5 mg base)/3 mL solution for nebulization 3 ml inhalation QID PRN tamsulosin 0.4 mg capsule 0.4 mg PO DAILY fluticasone propion-salmeterol 500-50 mcg/dose blister with device 1 ea PO BID metformin 500 mg tablet 500 mg PO QAM fenofibrate micronized 200 mg capsule 200 mg PO DAILY pantoprazole 40 mg tablet,delayed release (DR/EC) 40 mg PO DAILY finasteride 5 mg tablet 5 mg PO DAILY trazodone 50 mg tablet 50 mg PO BEDTIME ferrous sulfate 325 mg (65 mg iron) tablet 325 mg PO DAILY loratadine 10 mg tablet 10 mg PO DAILY oxycodone-acetaminophen 7.5-325 mg tablet 1 tab PO Q4H PRN (Reason: pain) melatonin 5 mg tablet 5 mg PO DAILY amlodipine 10 mg tablet 10 mg PO DAILY 3 Days Qty: 30 5RF ezetimibe 10 mg tablet 10 mg PO DAILY 90 Days Qty: 30 5RF Xarelto 20 mg tablet 20 mg PO QPM Qty: 30 5RF rosuvastatin 40 mg tablet 40 mg PO QPM Qty: 30 5RF Print Language: Turkmen
[2024-12-22 15:31] VITALS: BP 120/63; BP 128/60; PULSE 100; PULSE 104; RESP 18; TEMP 36.7; O2SAT 104; O2SAT 94; BMI 27.1
[2024-12-22] MEDS: Magnesium Sulfate/H2O 2 GM/50 ML PIGGYBACK IV (15:59)
[2024-12-22 16:13] LABS: Alanine Aminotransferase 30 U/L (0-40); Alkaline Phosphatase 77 U/L (39-117); Anion Gap 18 (12-20); Aspartate Amino Transferase 30 U/L (5-37); Bilirubin Direct 0.4 mg/dL (0.0-0.5); Blood Urea Nitrogen 33 mg/dL (9-16); Calcium 8.6 mg/dL (8.4-10.2); Carbon Dioxide 22 mmol/L (22-29); Chloride 98 mmol/L (96-108); Creatinine Clr Calc Pharmacy 41.5; Estimated Glomerular Filt Rate 59; Glucose Random 142 mg/dL (60-115); Magnesium 1.6 mg/dL (1.6-2.6); Potassium 3.8 mmol/L (3.3-5.1); Sodium 134 mmol/L (135-145); Total Protein 6.8 g/dL (6.5-8.0)
[2024-12-22 16:19] LABS: B Type Natriuretic Peptide 100 pg/mL (<100)
[2024-12-22 16:20] LABS: Troponin-I High Sensitivity 14.9 ng/L (<3.5-35.0)
[2024-12-22 16:28] LABS: Acetaminophen LAB 5 mcg/mL (<30)
--- NOTE | 2024-12-22 17:00 | PC.NURSE ---
DAUGHTER NUMBER Niurka Rita [phone]
--- NOTE | 2024-12-22 17:01 | PC.NURSE ---
This nurse spoke with patients daughter Niurka who states she lives in [place]. She states pt lives with a roomate, also states her father is constantly losing his medication and tells her he has to go to the clinic to get more. Both her and her sister have visited the patients home and states his bedroom is a bit of a disaster and they are wondering if he is just forgetful and misplacing things in his messy room. This nurse inquired about the patients roommate if it is a possibility that the roommate would have taken the medications and she responded No, no, he is a hard working respectable man The daughter also stated that she may need to bring him to [place] vs allowing him to go back to his home despite him not wanting to live there.
--- NOTE | 2024-12-22 17:06 | PC.NURSE ---
PT HOME MEDS patient had oxycodone tablets (6) that were taken from the patient and sent to pharmacy- Stefanie Soares transported them to pharmacy for this nurse.
[2024-12-22 17:08] LABS: Hematocrit 28.5 % (42.0-52.0); Hemoglobin 10.7 g/dl (14.0-18.0); Mean Corpuscular HGB Conc 37.5 g/dl (31.0-36.0); Mean Corpuscular Hemoglobin 45.9 pg (27.0-33.0); Mean Platelet Volume 10.7 fL (9.4-12.4); Platelet Count 336 X10*3/uL (160-400); Red Blood Count 2.33 X10*6/uL (4.60-5.80)
[2024-12-22 17:09] LABS: Mean Corpuscular Volume 122.3 fL (80.0-98.0); WBC ABN SCTR FOR CBC 1; White Blood Count 12.3 X10*3/uL (4.8-10.8)
[2024-12-22 17:17] LABS: Amphetamine Screen Urine Not Detected (Not Detect); Barbiturates, Urine Not Detected (Not Detect); Benzodiazepines Screen Urine Not Detected (Not Detect); Buprenorphine Scr Not Detected (Not Detect); Cannabinoid Screen Urine Not Detected (Not Detect); Cocaine Screen Urine Not Detected (Not Detect); Fentanyl, urine Not Detected (Not Detect); Methadone Screen, Urine Not Detected (Not Detect); Opiate Screen Urine POSITIVE (Not Detect); Oxycodone Screen Urine Positive (Not Detect); Phencyclidine Screen Urine Not Detected (Not Detect)
[2024-12-22 17:21] LABS: Atypical Lymph Absolute Manual 0.2 x10*3/uL; Atypical Lymphs Percent Manual 2 % (0-6); Hypersegmented Neutrophils PRESENT; Lymphocytes Absolute Manual 0.9 X10*3/uL (1.2-4.9); Lymphocytes Percent Manual 7 % (20-40); Macrocytosis 2+ (15-30) /OIF; Monocytes Absolute Manual 0.4 X10*3/uL (0.1-1.2); Monocytes Percent Manual 3 % (2-11); Neutrophils Percent Manual 88 % (45-73); Platelet Estimate NORMAL (NORMAL); Platelet Morphology Comment NORMAL; RBC Morphology NOTED; Toxic Vacuolation PRESENT
[2024-12-22 17:22] LABS: Schistocytes 1+ (0-2) /OIF; Tear Drop Cells 1+ (0-2) /OIF
[2024-12-22 17:23] LABS: Neutrophils Absolute Manual 10.8 X10*3/uL (2.0-8.3)
[2024-12-22 18:13] LABS: Troponin-I High Sensitivity 13.4 ng/L (<3.5-35.0)
[2024-12-22 19:47] VITALS: BP 118/56; PULSE 78; RESP 18; TEMP 36.6; O2SAT 95
[2024-12-22] MEDS: Acetaminophen 325 MG TABLET 975 MG PO (20:49)
[2024-12-22 22:13] VITALS: BP 118/56; PULSE 78; RESP 18; TEMP 36.6; O2SAT 95
== END 2024-12-22 22:20 | disposition home or self-care (01) ==
PROVIDERS: Emergency Medicine; Emergency Provider Emergency Medicine Emergency Medical Services; PCP Nurse Practitioner Family
DX: R07.89 Other chest pain (principal); R05.9 Cough, unspecified; I25.10 Atherosclerotic heart disease of native coronary artery without angina pectoris; R60.0 Localized edema; R06.02 Shortness of breath; I10 Essential (primary) hypertension; M79.10 Myalgia, unspecified site; E11.9 Type 2 diabetes mellitus without complications; Z79.84 Long term (current) use of oral hypoglycemic drugs; Z79.899 Other long term (current) drug therapy; Z79.01 Long term (current) use of anticoagulants; Z91.148 Patient's other noncompliance with medication regimen for other reason; Z51.81 Encounter for therapeutic drug level monitoring
CPT/HCPCS: 36415; 71045; 80048; 80076; 80143; 80179; 80307; 83735; 83880; 84484; 85007; 85025; 85027; 93005; 93970; 96365; 96366; 99284; 99285; J3475

== ENCOUNTER → 2024-12-22 15:19 | Outpatient (BNV) | payer OTHER, SELFPAY | PROVIDERS: Emergency Provider Emergency Medicine Emergency Medical Services; PCP Nurse Practitioner Family; Visit Provider Internal Medicine | DX: R07.9 Chest pain, unspecified (principal); R00.0 Tachycardia, unspecified | CPT/HCPCS: 93010 ==

== ENCOUNTER → 2024-12-22 15:27 | Outpatient (BNV) | payer OTHER, SELFPAY | PROVIDERS: Emergency Provider Emergency Medicine; PCP Nurse Practitioner Family; Visit Provider Radiology Diagnostic Radiology | DX: M79.604 Pain in right leg (principal); M79.605 Pain in left leg; R22.43 Localized swelling, mass and lump, lower limb, bilateral; R07.9 Chest pain, unspecified | CPT/HCPCS: 71045; 93970 ==

== ENCOUNTER 2025-01-16 10:30 | Outpatient (REF) | payer OTHER, SELFPAY ==
--- NOTE | ~2025-01-16 | XR_ITS ---
EXAMINATION: XR ANKLE 3 OR MORE VIEWS RIGHT HISTORY: r ankle pain and swelling s/p fall COMPARISON: Comparison is made with the prior examination dated 12/07/2024. FINDINGS: Three views of the right ankle are submitted. Osseous mineralization is normal. There is no fracture or dislocation. The joint spaces are preserved. There are vascular calcifications. XR/XR ankle RT min 3V IMPRESSION: No evidence of fracture of the right ankle. Electronically signed by: Marciano Saul MD 01/16/2025 10:54 AM EDT
--- OUTSIDE RECORDS SUMMARY | 2025-01-16 11:36 | XMS_ITS ---
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
== END 2025-01-16 10:31 | disposition home or self-care (01) ==
LOC: HO.HHCX 10:30
PROVIDERS: Visit Provider Family Medicine
DX: M25.571 Pain in right ankle and joints of right foot (principal)
CPT/HCPCS: 73610

== ENCOUNTER → 2025-01-16 10:30 | Outpatient (BNV) | payer OTHER, SELFPAY | PROVIDERS: Visit Provider Radiology Diagnostic Radiology | DX: M25.571 Pain in right ankle and joints of right foot (principal); R22.41 Localized swelling, mass and lump, right lower limb | CPT/HCPCS: 73610 ==

== ENCOUNTER 2025-01-21 17:32 | Emergency (ER) | payer OTHER, SELFPAY ==
--- NOTE | ~2025-01-21 | XR_ITS ---
CLINICAL HISTORY: sob Chest X-ray, 1 View COMPARISON: CR - XR CHEST 1V - 12/22/24 14:38 EDT FINDINGS: No consolidation. No pleural effusion. No pneumothorax. No cardiomegaly. No acute fracture. Degenerative changes in the spine. IMPRESSION: No acute findings. This document has been electronically signed by: Channing Mcwilliams MD on 01/21/2025 18:39:59
--- NOTE | ~2025-01-21 | US_ITS ---
CLINICAL HISTORY: pain swelling Right Lower Extremity Venous Duplex Ultrasound COMPARISON: US - US VENOUS DUPLEX LE BI - 12/22/24 15:41 EDT FINDINGS: The visualized deep veins are compressible with normal flow. The visualized superficial veins are patent. Right lower extremity soft tissue edema. Grayscale, spectral waveform analysis, and color flow imaging was performed. IMPRESSION: No DVT seen in the right lower extremity. Right lower extremity soft tissue edema. This document has been electronically signed by: Channing Mcwilliams MD on 01/21/2025 19:58:35
--- NOTE | ~2025-01-21 | XR_ITS ---
CLINICAL HISTORY: pain Abdomen X-ray, 1 View COMPARISON: CR/SR - XR KUB - 11/25/23 05:36 EST FINDINGS: Nonobstructive bowel gas pattern. No visible free air. No acute fracture. Degenerative changes in the spine. IMPRESSION: No acute findings. This document has been electronically signed by: Channing Mcwilliams MD on 01/21/2025 19:21:38
[2025-01-21 17:41] VITALS: BP 123/53; PULSE 81; RESP 24; TEMP 36.3; O2SAT 96
--- NOTE | 2025-01-21 17:43 | ECG_ITS ---
Test Reason : CHEST PAIN/SOB Blood Pressure : */* mmHG Vent. Rate : 82 BPM Atrial Rate : 82 BPM P-R Int : 156 ms QRS Dur : 90 ms QT Int : 382 ms P-R-T Axes : 56 1 61 degrees QTcB Int : 446 ms Sinus rhythm with occasional Premature ventricular complexes Otherwise normal ECG When compared with ECG of 22-Dec-2024 15:19, NM interval has increased Referred By: Sarah Beth Cortez Electronically Signed By: Feliberto Juan
[2025-01-21 17:46] VITALS: BP 123/53; BP 134/58; PULSE 81; PULSE 82; RESP 19; O2SAT 95; O2SAT 97; BMI 27.8
--- NOTE | 2025-01-21 17:52 | PC.NURSE ---
Patient presents from via EMS with left anterior chest pain (s/p fall 2 weeks ago), sob, abdominal pain and LE swelling. Patient has not taken any of his prescribed medication. Lungs essentially clear. Respirations even and non-labored. Positive LE swelling.
[2025-01-21 17:55] VITALS: PULSE 82
[2025-01-21 18:18] LABS: Alanine Aminotransferase 15 U/L (0-40); Albumin Level 3.6 g/dL (3.5-5.0); Alkaline Phosphatase 87 U/L (39-117); Anion Gap 15 (12-20); Aspartate Amino Transferase 32 U/L (5-37); Bilirubin Direct 0.2 mg/dL (0.0-0.5); Bilirubin Total 0.5 mg/dL (0.0-1.0); Blood Urea Nitrogen 22 mg/dL (9-16); Calcium 8.7 mg/dL (8.4-10.2); Carbon Dioxide 24 mmol/L (22-29); Chloride 102 mmol/L (96-108); Creatinine Clr Calc Pharmacy 45.9; Estimated Glomerular Filt Rate > 60; Glucose Random 142 mg/dL (60-115); Magnesium 2.3 mg/dL (1.6-2.6); Potassium 4.5 mmol/L (3.3-5.1); Sodium 136 mmol/L (135-145)
[2025-01-21 18:23] LABS: B Type Natriuretic Peptide 307 pg/mL (<100)
[2025-01-21 18:24] LABS: Troponin-I High Sensitivity 4.7 ng/L (<3.5-35.0)
[2025-01-21 18:36] LABS: Hemoglobin 8.2 g/dl (14.0-18.0); Mean Corpuscular HGB Conc 37.3 g/dl (31.0-36.0); Mean Corpuscular Hemoglobin 43.4 pg (27.0-33.0); Mean Platelet Volume 11.2 fL (9.4-12.4); Platelet Count 319 X10*3/uL (160-400); Red Blood Count 1.89 X10*6/uL (4.60-5.80)
[2025-01-21 18:44] LABS: Influenza A PCR NEGATIVE (Negative); Influenza B PCR NEGATIVE (Negative); Resp Syncy Virus RNA Qual PCR NEGATIVE (Negative); SARS COV2 PCR INHOUSE NEGATIVE (Negative)
[2025-01-21 18:52] LABS: Mean Corpuscular Volume 116.4 fL (80.0-98.0); WBC ABN SCTR FOR CBC 1; White Blood Count 6.7 X10*3/uL (4.8-10.8)
[2025-01-21 19:03] LABS: Atypical Lymph Absolute Manual 0.1 x10*3/uL; Atypical Lymphs Percent Manual 1 % (0-6); Basophils Abs Manual 0.1 X10*3/uL (0.0-0.2); Basophils Percent Manual 2 % (0-2); Lymphocytes Absolute Manual 0.9 X10*3/uL (1.2-4.9); Lymphocytes Percent Manual 14 % (20-40); Monocytes Absolute Manual 0.1 X10*3/uL (0.1-1.2); Monocytes Percent Manual 1 % (2-11); Neutrophils Percent Manual 82 % (45-73)
[2025-01-21 19:07] LABS: Macrocytosis 1+ (5-14) /OIF; Microcytosis 1+ (5-14) /OIF; RBC Morphology NOTED; Schistocytes 1+ (0-2) /OIF
[2025-01-21 19:08] LABS: Hypersegmented Neutrophils PRESENT; Large Platelet PRESENT; Platelet Estimate NORMAL (NORMAL); Platelet Morphology Comment NOTED
[2025-01-21] MEDS: ondansetron HCL 4 MG/2 ML VIAL IVPUSH (19:13)
[2025-01-21] MEDS: Sucralfate Oral Suspension 1 GM/10 ML ORAL.SUSP PO (19:13)
--- OUTSIDE RECORDS SUMMARY | 2025-01-21 19:26 | XMS_ITS | Encounter Summary ---
Author Organization [employer] Address [address] [facility] 7t [place] [address] Care Team Providers Care Chaser Apprentice Name Role Phone Citlali Norman DO Primary Care Provider + [phone] Reason for Visit * Reason Onset Date Comments Med Refill 10/31/2024 Encounter Details Date Type Department Care Team ([facility] st Contact Info) Description 10/31/2024 Telephone [facility] [address] [place], [place] [phone] Citlali Norman DO 230 [place], [place] [phone] Med Refill Social History Tobacco Use Types [...] Care Team (Late st Contact Info) Description 01/22/2025 9:00 AM EDT Medication Management [address] [address] Elizabeth Bacon, PharmD 230 [place] [address] 02/12/2025 10:00 AM EDT Office Visit [address] [address] Citlali Norman DO [address] [address] [phone] 04/11/2025 10:30 AM EDT Telemedicine [address] [address] Venecia Hyatt RN documented as of this [...] documented as of this encounter Care Teams Chaser Apprentice Relationship Specialty Start Date End Date Citlali Norman DO [address] [place] [phone] PCP - General Family Medicine 10/16/18 documented as of this encounter
--- OUTSIDE RECORDS SUMMARY | 2025-01-21 19:26 | XMS_ITS | Encounter Summary ---
Author Organization [employer] Address [address] [facility] 7t [place] [address] Care Team Providers Care Digital Advertising Analyst Name Role Phone Citlali Norman DO Primary Care Provider + [phone] Reason for Visit * Reason Onset Date Comments Referral 09/24/2024 Encounter Details Date Type Department Care Team ([facility] st Contact Info) Description 09/24/2024 Telephone [facility]INE 230 [place], [place] [phone] Citlali Norman DO 230 [place], [place] [phone] Referral Social History Tobacco Use Types Packs/Day [...] the past 12 months, has t he [employer], [employer], oil or water [employer] threatened to shut off services in your [...] 09/24/2024 10:30 AM EST Tc from pt NUTRITION PROGRAM INSTRUCTOR requesting for referral for 08/01 to be switched from [place] back to the [facility]. If any question Contact NUTRITION PROGRAM INSTRUCTOR at [phone] documented in this encounter Plan of Treatment Upcoming Encounters Date Type Department Care Team (Late st Contact Info) Description 01/22/2025 9:00 AM EDT Medication Management [address] [address] Elizabeth Bacon PharmD [address] [place] [address] 02/12/2025 10:00 AM EDT Office Visit [address] [address] Citlali Norman DO [address] [place] [address] 04/11/2025 10:30 AM EDT Telemedicine [address] [address] Venecia Hyatt, [place] documented as of this [...] documented as of this encounter Care Teams Digital Advertising Analyst Relationship Specialty Start Date End Date Citlali Norman DO [address] [place] [phone] PCP - General Family Medicine 10/16/18 documented as of this encounter
--- OUTSIDE RECORDS SUMMARY | 2025-01-21 19:26 | XMS_ITS | Encounter Summary ---
Author Organization [employer] Address [address] [facility] 7t [place] [address] Care Team Providers Care Vulnerability Researcher Name Role Phone Citlali Norman DO Primary Care Provider + [phone] Reason for Visit * Reason Comments Med Refill Encounter Details Date Type Department Care Team ([facility] st Contact Info) Description 01/25/2024 Refill [facility] 230 [place], [place] [phone] Citlali Norman DO 230 [place], [place] [phone] Chronic bilateral low back pain, unspecified whether [...] Description 01/22/2025 9:00 AM EDT Medication Management [address] [address] Elizabeth Bacon PharmD [address] [place] [address] 02/12/2025 10:00 AM EDT Office Visit [address] [address] Citlali Norman DO [address] [place] [address] 04/11/2025 10:30 AM EDT Telemedicine [address] [address] Venecia Hyatt, [place] documented as of this encounter Visit Diagnoses Diagnosis Chronic bilateral low back pain, unspecified whether sciatica present documented in this encounter Additional Health Concerns Assessment Noted Time PHQ-9 Depression Total Score: 0 02/28/20 23 11:46 AM EDT documented as of this encounter Care Teams Vulnerability Researcher Relationship Specialty Start Date End Date Citlali Norman DO [address] [place] [phone] PCP - General Family Medicine 10/16/18 documented as of this encounter
--- OUTSIDE RECORDS SUMMARY | 2025-01-21 19:26 | XMS_ITS | Encounter Summary ---
Author Organization [employer] Address [address] [facility] 7t [place] [address] Care Team Providers Care Loan Servicing Specialist Name Role Phone Citlali Norman DO Primary Care Provider + [phone] Reason for Visit * Reason Comments Med Refill Encounter Details Date Type Department Care Team ([facility] st Contact Info) Description 11/21/2024 Refill [facility] MED[facility]INE 230 [place], [place] [phone] Citlali Norman DO 230 [place], [place] [phone] Chronic pain of both knees Social History [...] the past 12 months, has t he [employer], gas, oil or water [employer] threatened to shut off services in your [...] Description 01/22/2025 9:00 AM EDT Medication Management [address] [address] Elizabeth Bacon PharmD [address] [place] [address] 02/12/2025 10:00 AM EDT Office Visit [address] [address] Citlali Norman DO [address] [place] [address] 04/11/2025 10:30 AM EDT Telemedicine [address] [address] Venecia Hyatt RN documented as of this [...] documented as of this encounter Care Teams Loan Servicing Specialist Relationship Specialty Start Date End Date Citlali Norman DO [address] [place] [phone] PCP - General Family Medicine 10/16/18 documented as of this encounter
--- OUTSIDE RECORDS SUMMARY | 2025-01-21 19:26 | XMS_ITS | Encounter Summary ---
Author Organization [facility] Address [address] [facility] 7t [place] [address] Care Team Providers Care Hvac Operations Technician Name Role Phone Citlali Norman DO Primary Care Provider + [phone] Reason for Visit * Reason Onset Date Comments Med Refill 05/08/2023 Encounter Details Date Type Department Care Team ([facility] st Contact Info) Description 05/08/2023 Telephone [facility] 230 [place] [address] Citlali Norman DO 230 [place], [place] [phone] Med Refill Social History Tobacco Use Types [...] Description 01/22/2025 9:00 AM EDT Medication Management [address] [phone] Elizabeth Bacon PharmD [address] [place] [address] 02/12/2025 10:00 AM EDT Office Visit [address] [phone] Citlali Norman DO [address] [place] [address] [phone] 04/11/2025 10:30 AM EDT Telemedicine [address] [phone] Venecia Hyatt, [place] documented as of this encounter Visit Diagnoses Not on filedocumented in this encounter Additional Health Concerns Assessment Noted Time PHQ-9 Depression Total Score: 0 02/28/20 23 11:46 AM EDT documented as of this encounter Care Teams Hvac Operations Technician Relationship Specialty Start Date End Date Citlali Norman DO [address] [place] [address] [phone] PCP - General Family Medicine 10/16/18 documented as of this encounter
--- OUTSIDE RECORDS SUMMARY | 2025-01-21 19:26 | XMS_ITS | Encounter Summary ---
Author Organization [facility] [facility] Address [address] [facility] 7 [place] [address] Care Team Providers Care Neck Band Setter Name Role Phone Citlali Norman DO Primary Care Provider + [phone] Reason for Visit * Reason Comments Med Refill Encounter Details Date Type Department Care Team (Late st Contact Info) Description 12/28/2023 Refill [facility] 230 [place] [address] Citlali Norman DO 230 [place], [place] [phone] Chronic bilateral low back pain, unspecified whether [...] Description 01/22/2025 9:00 AM EDT Medication Management [facility] MED[facility]INE [address] [place] [address] PuiaElizabeth, PharmD 230 [place], [place] [phone] 02/12/2025 10:00 AM EDT Office Visit [facility]INE [address] [place] [address] Citlali Norman DO 230 [place] [address] 04/11/2025 10:30 AM EDT Telemedicine [facility] MED[facility]INE [address] [place] [phone] Venecia Hyatt RN documented as of this encounter Visit Diagnoses Diagnosis Chronic bilateral low back pain, unspecified whether sciatica present documented in this encounter Additional Health Concerns Assessment Noted Time PHQ-9 Depression Total Score: 0 02/28/20 23 11:46 AM EDT documented as of this encounter Care Teams Neck Band Setter Relationship Specialty Start Date End Date Citlali Norman DO [address] [place] [phone] PCP - General Family Medicine 10/16/18 documented as of this encounter
--- OUTSIDE RECORDS SUMMARY | 2025-01-21 19:26 | XMS_ITS | Encounter Summary ---
Author Organization [employer] Address [address] [facility] 7t [place] [address] Care Team Providers Care Physician Specialist Name Role Phone Citlali Norman DO Primary Care Provider + [phone] Reason for Visit * Reason Comments Med Refill Encounter Details Date Type Department Care Team ([facility] st Contact Info) Description 09/27/2024 Refill [facility] [address] [place], [place] [phone] Citlali Norman DO 230 [place], [place] [phone] Chronic pain of both knees Social History [...] the past 12 months, has t he [employer], gas, oil or water [employer] threatened to shut off services in your [...] Description 01/22/2025 9:00 AM EDT Medication Management [address] [address] Elizabeth Bacon PharmD [address] [place] [address] 02/12/2025 10:00 AM EDT Office Visit [address] [address] Citlali Norman DO [address] [place] [address] 04/11/2025 10:30 AM EDT Telemedicine [address] [address] Venecia Hyatt RN documented as of this [...] documented as of this encounter Care Teams Physician Specialist Relationship Specialty Start Date End Date Citlali Norman DO [address] [place] [address] PCP - General Family Medicine 10/16/18 documented as of this encounter
--- OUTSIDE RECORDS SUMMARY | 2025-01-21 19:26 | XMS_ITS | Clinical Summary ---
Author Organization [employer] Address [address] [facility] [address] [place] [address] Care Team Providers Care Promotions Intern Name Role Phone EsterVickieCitlali Primary Care Provider + [phone] Allergies No known active allergies Medications fluticasone [...] pressure at home 1 kit 024 Active Blood Glucose Monitoring Suppl (ONE TOUCH ULTRA 2) w/Device kitIndications:T ype 2 diabetes mellitus without complication, unspecified whether [facility] insulin use (CMS/[facility]) Use to monitor blood glucose three times [...] 6 HOURS NEEDED 8.5 g 024 Active Usermind Ultra Test test stripIndications :Type 2 diabetes mellitus with other specified complication, without long-term current use of insulin (CMS/HCC) USE DIRECTED TO TEST BLOOD SUGAR TWICE DAILY 100 strip 3 024 Active Lancets (OneTouch Delica Plus [id number]) miscIndications: Type 2 diabetes mellitus with other specified complication, without long-term current use of insulin ([facility]) USE DIRECTED TO TEST BLOOD SUGAR TWICE DAILY 100 each 3 024 Active Alcohol Swabs (Alcohol Prep) 70 % pads USE DIRECTED TWICE DAILY 100 each 3 024 Active Wixela Inhub 500-50 MCG/ACT aerosol powder Take 1 puff by mouth 2 times daily. 60 each 11 024 Active finasteride (Proscar) 5 MG tablet TAKE 1 TABLET BY MOUTH ONCE DAILY 90 tablet 2 024 Active metFORMIN (Glucophage) 500 MG tablet TAKE 1 TABLET BY MOUTH TWICE A DAY WITH MORNING AND EVENING MEALS 180 tablet 3 024 Active pantoprazole (ProtoNix) 40 MG EC tabletIndication s:Chronic GERD Take 1 tablet (40 mg) by mouth before breakfast. Do not crush, chew, or split. 90 tablet 2 024 Active Diclofenac Sodium 1 % gelIndications:A cute pain of left shoulder To apply to the affected area 3 times a day 100 g 024 Active ipratropium-albu terol (Combivent Respimat) 20-100 MCG/ACT inhalerIndicatio ns:Chronic obstructive pulmonary disease, unspecified COPD type ([facility]) INHALE 1 PUFF BY MOUTH FOUR TIMES DAILY MAY TAKE ADDITIONAL PUFF NEEDED UP TO 6 PUFFS EVERY DAY 12 g 2 024 Active Ferretts 325 (106 Fe) MG tablet TAKE 1 TABLET BY MOUTH EVERY MORNING (3 TIMES A WEEK MONDAY, MONDAY, MONDAY) 024 Active loratadine (Claritin) 10 MG tabletIndication s:Seasonal allergic rhinitis, unspecified trigger TAKE 1 TABLET BY MOUTH EVERY MORNING 90 tablet 024 Active GaviLAX 17 GM/SCOOP powder MIX 17 GRAMS IN 8-12 OUNCES OF LIQUID (WATER) AT BEDTIME NEEDED FOR CONSTIPATION 510 g 3 025 Active metoprolol tartrate (Lopressor) 25 MG tabletIndication s:Essential hypertension Take 1 tablet (25 mg) by mouth 2 times daily. 180 tablet 025 2024 Active fenofibrate micronized (LoFibra) 200 MG capsuleIndicatio ns:Hypertriglyce ridemia TAKE 1 CAPSULE BY MOUTH EVERY EVENING WITH FOOD 90 capsule 2 Active ezetimibe (Zetia) 10 MG tablet TAKE 1 TABLET BY MOUTH EVERY EVENING 90 tablet 2 Active meloxicam (Mobic) 15 MG tablet Take 1 tablet (15 mg) by mouth Once per day. 30 tablet 11 025 2025 Active lisinopril 40 MG tabletIndication s:Essential hypertension TAKE 1 TABLET BY MOUTH EVERY DAY 30 tablet 2 025 Active melatonin 5 MG tabletIndication s:Insomnia, unspecified type TAKE 1 TO 2 TABLETS BY MOUTH 3 HOURS BEFORE BEDTIME 180 tablet 1 Active amLODIPine (Norvasc) 10 MG tablet Take 1 tablet (10 mg) by mouth Once per day. 30 tablet Active oxyCODONE-acetam inophen (Percocet) 7.5-325 MG tabletIndication s:Chronic pain of both knees Take 1 tablet by mouth See administration instructions for 7 days. May take 1 tablet by mouth up to 5 times a day as needed for severe pain. 35 tablet 025 2024 Active amLODIPine (Norvasc) 10 MG tablet Take 10 mg by mouth Once per day. 024 2024 Discontinued(D ose adjustment) melatonin 5 MG tabletIndication s:Insomnia, unspecified type TAKE 1 TO 2 TABLETS BY MOUTH 3 HOURS BEFORE BEDTIME 180 tablet 024 2024 Discontinued lisinopril 40 MG tabletIndication s:Essential hypertension TAKE 1 TABLET BY MOUTH EVERY DAY 30 tablet 2 025 2024 Discontinued oxyCODONE-acetam inophen (Percocet) 7.5-325 MG tabletIndication s:Chronic pain of both knees Take 1 tablet by mouth See administration instructions for 7 days. May take 1 tablet by mouth up to 5 times a day as needed for severe pain. Do not start before December 26, 2024. 35 tablet 025 2024 Discontinued(R eorder (will not trigger notification to Pharmacy)) oxyCODONE-acetam inophen (Percocet) 7.5-325 MG tabletIndication s:Chronic pain of both knees Take 1 tablet by mouth See administration instructions for 7 days. May take 1 tablet by mouth up to 5 times a day as needed for severe pain. Do not start before January 02, 2025. 35 tablet 025 2024 Discontinued(R eorder (will not trigger notification to Pharmacy)) oxyCODONE-acetam inophen (Percocet) 7.5-325 MG tabletIndication s:Chronic pain of both knees Take 1 tablet by mouth See administration instructions for 7 days. May take 1 tablet by mouth up to 5 times a day as needed for severe pain. Do not start before January 09, 2025. 35 tablet 025 2024 Discontinued(R eorder (will not trigger notification to Pharmacy)) Hospital, Clinic, or Other Facility Administered Medication Ordered Dose Route Frequency Start Date End Date Status nitroglycerin (Nitrostat) SL tablet 0.4 mgIndications:Atypica l chest pain 0.4 mg SL Every 5 min PRN 02/27/2024 Active acetaminophen (Tylenol) tablet 975 mgIndications:Nonintr actable headache, unspecified chronicity pattern, unspecified headache type 975 mg PO Once 01/10/2025 01/10/2025 Ended Active Problems Problem Noted Date Diagnosed Date Need for assistance with personal care Healthcare maintenance 02/19/2024 Unintentional weight loss 02/19/2024 Atherosclerotic heart disease 02/27/2023 History of non-ST elevation myocardial infarctio n (NSTEMI) 03/03/2017 Fatty liver 01/23/2017 Anemia 10/20/2015 Chronic atrial fibrillation 10/20/2015 Chronic low back pain 10/20/2015 Chronic obstructive lung disease 10/20/2015 Degeneration of lumbar intervertebral disc 10/20 Gastroesophageal reflux disease 10/20/2015 Osteoarthritis 10/20/2015 Essential hypertension 11/05/2012 Assessment & Plan (01/14/2025 8:58 AM EDT): Very elevated BP and patient is quite upset and worried He declines ER transport or eval After normal EKG, I spoke with Pharmacy and they gave him early refill of Amlodipine 10mg He does not appear competent to be managing his own medications He completed an MTM visit with Yeni Jasso 08/2024 and has a CDTM appointment with Elizabeth Bacon 01/22/25 Refer to [facility] for home assessment , he might benefit from a lock box as well Assessment & Plan (07/30/2024 2:49 PM EDT): [...] Encounters Date Type Department Care Team Description 01/21/2025 Orders Only [facility] External Provider, [facility] 01/20/2025 Refill [facility] [address] [place] [phone] Citlali Norman DO Chronic pain of both knees 01/16/2025 10:00 AM EDT Office Visit [facility] [address] [place] [phone] Citlali Norman DO Essential hypertension (Primary Dx); Acute right ankle pain; Type 2 diabetes mellitus without complication, without long-term current use of insulin ([facility]) 01/16/2025 Telephone [facility] [address] [place] [phone] Citlali Norman DO Adult Protective Services Report 01/16/2025 Telephone [facility] [address] [place] [phone] Citlali Hodgson DO 01/14/[address] [address] Janet Bell, [place] [facility] referral 01/10/2025 4:00 PM EDT [facility] [address] [address] Ely Chisholm MD Essential hypertension (Primary Dx); Nonintractable headache, unspecified chronicity pattern, unspecified headache type; Need for assistance with personal care 01/10/2025 Telephone [facility] [address] [address] Ely Chisholm MD Nurse Triage 01/10/[address] [address] Citlali Norman DO Nurse Triage 01/10/[address] [address] Citlali Norman DO Nurse Triage 01/10/[address] [address] Citlali Norman DO Med Refill 01/09/2025 Patient Outreach [address] [address] Ron Machado Recovery Supports 01/09/2025 Telephone [facility] [address] [address] Jorgito Lee [place] Med Refill (I called Aleksandr on 01/09/25 to let him know that we can not prescribe another order of his blood pressure medication until he is seen by pcp. I let him know that he has a follow up appointment on 02/12/25 with his pcp. He confirmed he will wait till the appointment to speak with her.) 01/07/2025 9:00 AM EDT [facility] [address] [address] Ryan Woodard MD Essential hypertension (Primary Dx) 01/07/[address] [address] Citlali Norman DO telephone call 01/03/2025 Refill [facility] [address] [place] [address] Citlali Norman DO Chronic pain of both knees 12/29/2024 Refill [facility] [address] [place] [address] Citlali Norman DO Insomnia, unspecified type 12/27/2024 Refill [facility] [address] [place] [address] Venecia Hyatt, care manager cna pain of both knees 12/26/2024 Refill [facility] [address] [place] [address] Citlali Norman DO Essential hypertension 12/25/2024 Telephone [facility] [address] [place] [address] Citlali Norman DO 12/20/2024 Refill [facility] [address] [place] [address] Venecia Hyatt RN Chronic pain of both knees 12/19/2024 Telephone [facility] [address] [place] [address] Citlali Norman DO Med refill 12/13/2024 Refill [facility] [address] [place] [address] Venecia Hyatt RN Chronic pain of both knees 12/12/2024 Telephone [facility] [address] [place] [address] Citlali Norman DO Recall Appt. 12/12/2024 Travel 12/11/2024 Telephone [facility] [address] [place] [address] Citlali Norman DO Recall Letter (Recall Letter sent 12/11/24.); Recall Appt. 12/07/2024 Orders Only [facility] External Provider, [facility] 12/06/2024 Refill [facility] [address] [place] [address] Venecia Hyatt care manager cna pain of both knees 12/04/2024 10:20 AM EST Office Visit [facility] [address] [place] [address] Luz Lopez MD Right arm pain (Primary Dx); Fall, initial encounter 11/29/2024 Refill [facility] [address] [place] [address] Citlali Norman DO Hypertriglyceridemia 11/29/2024 Refill [facility] [address] [place] [address] Venecia Hyatt, care manager cna pain of both knees 11/22/2024 1:00 PM EST Telemedicine [facility] [address] [place] [address] Venecia Hyatt, care manager cna left shoulder pain 11/22/2024 Telephone [facility] [address] [place] [address] Venecia Hyatt, RN DEPOSITING MACHINE OPERATOR Renewal today 11/22/2024 Travel 11/22/2024 Refill [facility] [address] [place] [address] Venecia Hyatt, care manager cna pain of both knees 11/22/2024 Telephone [facility] [address] [place] [address] Venecia Hyatt, [place] Recommend DEPOSITING MACHINE OPERATOR Tele Tier 2 11/21/2024 Refill [facility] [address] [place] [address] Citlali Norman DO Chronic pain of both knees 11/15/2024 Refill [facility] [address] [place] [address] Venecia Hyatt, care manager cna pain of both knees 11/12/2024 Telephone [facility] [address] [place] [address] Venecia Hyatt, RN telephone call 11/12/2024 Refill [facility] [address] [place] [address] Citlali Norman, 11/11/2024 Telephone [facility] [address] [place] [address] Venecia Hyatt, RN DEPOSITING MACHINE OPERATOR Renewal forms 11/08/2024 Refill [facility] [address] [place] [address] Venecia Hyatt, care manager cna pain of both knees 11/07/2024 9:00 AM EST Office Visit [facility] [address] [place] [phone] Peter Beard MD Essential hypertension (Primary Dx); Other chest pain 11/01/2024 Refill [facility] [address] [place] [address] Venecia Hyatt, care manager cna pain of both knees 10/31/2024 Telephone [facility] [address] [place] [address] Citlali Norman, DO Med Refill 10/30/2024 Refill [facility] [address], [place] [phone] Citlali Norman, DO Essential hypertension 10/25/2024 Refill [facility] [address] [place] [address] Venecia Hyatt, care manager cna pain of both knees from Last 3 [...] Sign Reading Time Taken Comments Blood Pressure 108/60 01/16/2025 10:25 AM EDT Pulse 68 01/16/2025 9:48 AM EDT Temperature 36.7 ??C (98 ??F) 01/16/2025 9:48 AM EDT Respiratory Rate 16 01/16/2025 9:48 AM EDT Oxygen Saturation 95% 01/16/2025 9:48 AM EDT Inhaled Oxygen Concentration - - Weight 64.4 kg (142 lb) 01/16/2025 9:48 AM EDT Height 162.6 cm (5' 4 ) 10/10/2024 10:14 AM EST Body Mass Index 24.37 10/10/2024 10:14 AM EST Plan of Treatment Upcoming Encounters Date Type Department Care Team (Late st Contact Info) Description 01/22/2025 9:00 AM EDT Medication Management [address] [address] Elizabeth Bacon PharmD [address] [place] [address] 02/12/2025 10:00 AM EDT Office Visit [address] [phone] Citlali Norman DO [address] [place], [place] [phone] 04/11/2025 10:30 AM EDT Telemedicine [address] [phone] Venecia Hyatt, RN Health Maintenance Due Date Last Done Comments [...] Panel 02/25/2025 02/26/2024, 01/14, 07/09/2021 Tobacco Screening 01/16/2026 01/16/2025 Hepatitis B Vaccines Completed 12/29/2014, 09/25/2014, 08/26/2014 [...] adhere to medication regimen General Jah Garza, PharmRita Note: All medications to be renewed and resumed as directed. Patient will manage their medication General Jah Garza, PharmRita Note: Patient will keep medications locked in a safe place to prevent loss. Procedures Procedure Name Priority Date/Time Associated Diagnosis Comments XR KUB AND UPRIGHT 2 VIEWS Routine 01/21/2025 7:21 PM EDT XR CHEST 1 VIEW Routine 01/21/2025 6:39 PM EDT COMPLETE BLOOD COUNT MAN DIF Routine 01/21/2025 5:58 PM EDT CBC WITH AUTO DIFFERENTIAL Routine 01/21/2025 5:58 PM EDT SARS COV2/INFLUENZA A/B AND RSV RNA QL NAAT Routine 01/21/2025 5:53 PM EDT XR ANKLE 3+ VIEWS RIGHT STAT 01/16/2025 10:30 AM EDT Acute right ankle pain ECG 12-LEAD Routine 01/14/2025 8:51 AM EDT Nonintractable headache, unspecified chronicity pattern, unspecified headache type Essential hypertension XR CHEST 1 VIEW Routine 12/07/2024 8:06 AM EST HIGH SENSITIVITY TROPONIN I Routine 12/07/2024 7:46 AM EST PROTHROMBIN TIME-INR Routine 12/07/2024 7:46 AM EST ECG 12-LEAD Routine 11/07/2024 11:36 AM EST Other chest pain POCT GLYCATED HEMOGLOBIN, TOTAL Routine 07/31/2024 9:44 AM EDT Type 2 diabetes mellitus without complication, without long-term current use of insulin (CMS/HCC) LIPID PANEL, STANDARD Routine 02/26/2024 10:00 AM EDT Essential hypertension Type 2 diabetes mellitus without complication, without long-term current use of insulin (CMS/HCC) Other hyperlipidemia Fatty liver Atherosclerosis of [place] coronary artery of [place] heart, unspecified whether angina present Chronic atrial [...] (CMS/HCC) Other hyperlipidemia Fatty liver Atherosclerosis of [place] coronary artery of [place] heart, unspecified whether angina present Chronic atrial [...] Relevant to Health Maintenance Results * XR KUB and Upright 2 Views (01/21/2025 7:21 PM EDT) Anatomical Region Laterality Modality Radiographic Cherry ging 01/21/2025 7:21 PM EDT Narrative 01/21/2025 7:23 PM EDT ? [facility] ?[address] ?[place] [address] ?XRay Report ? Signed ? Patient: Aleksandr Rosenberg ?MR#: MM ?? [id number] ? : 1940 ?Acct:[id number] ? Age/Sex: 84 / M ?ADM Date: 01/21/25 ? Loc: HO.ED ? Attending Dr: ? Ordering Physician: Zahra Palacios ?? Date of Service: 01/21/25 ?? Procedure(s): XR KUB ?? Accession Number(s): [id number] ? cc: Zahra Palacios; [facility] ? CLINICAL HISTORY: pain ? Abdomen X-ray, 1 View ? COMPARISON: CR/SR - XR KUB - 11/25/23 05:36 EST ? FINDINGS: ?? Nonobstructive bowel gas pattern. ?? No visible free air. ?? No acute fracture. Degenerative changes in the spine. ? IMPRESSION: ?? No acute findings. ? This document has been electronically signed by: Channing Mcwilliams MD on ?? 01/21/2025 19:21:38 ? Dictated By: ?Channing Mcwilliams MD ? Signed By: ?<Electronically signed by Channing Mcwilliams MD in OV> ?01/21/251921 ? DD/ 20 ? TD/TT: 01/21/251920 ? Freight Forwarder: ? Procedure Note Matt Ardon - 01/21/2025 [facility] [address] [place] [address] XRay Report Signed Patient: RosenbergAleksandr trotter#: [id number] : 1940Acct:[id number] Age/Sex: 84 / MADM Date: 01/21/25 Loc: HO.ED Attending Dr: Ordering Physician: Zahra Palacios Date of Service: 01/21/25 Procedure(s): XR KUB Accession Number(s): [id number] cc: Zahra Palacios; [facility] CLINICAL HISTORY: pain Abdomen X-ray, 1 View COMPARISON: CR/SR - XR KUB - 11/25/23 05:36 EST FINDINGS: Nonobstructive bowel gas pattern. No visible free air. No acute fracture. Degenerative changes in the spine. IMPRESSION: No acute findings. This document has been electronically signed by: Channing Mcwilliams MD on 01/21/2025 19:21:38 Dictated By: Channing Mcwilliams MD Signed By: <Electronically signed by Channing Mcwilliams MD in OV> 01/21/251921 DD/ 20 TD/TT: 01/21/251920 Freight Forwarder: [facility] External Provider IMG XR PROCEDURES Final Result * XR Chest 1 View (01/21/2025 6:39 PM EDT) Only the most recent of2 resultswithin the time period is included. Anatomical Region Laterality Modality Chest Radiographic Cherry ging 01/21/2025 6:39 PM EDT Narrative 01/21/2025 6:41 PM EDT ? [facility] ?[address] ?[place] [address] ?XRay Report ? Signed ? Patient: Rosenberg,Aleksandr Delmer ?MR#: [id number] ?? [id number] ? : 1940 ?Acct:[id number] ? Age/Sex: 84 / M ?ADM Date: 04/08/25 ? Loc: HO.ED ? Attending Dr: ? Ordering Physician: Sarah Beth Cortez ?? Date of Service: 01/21/25 ?? Procedure(s): XR chest 1V ?? Accession Number(s): [id number] ? cc: [facility]; Sarah Beth Cortez ? CLINICAL HISTORY: sob ? Chest X-ray, 1 View ? COMPARISON: CR - XR CHEST 1V - 12/22/24 14:38 EDT ? FINDINGS: ?? No consolidation. ?? No pleural effusion. ?? No pneumothorax. ?? No cardiomegaly. ?? No acute fracture. Degenerative changes in the spine. ? IMPRESSION: ?? No acute findings. ? This document has been electronically signed by: Channing Mcwilliams MD on ?? 01/21/2025 18:39:59 ? Dictated By: ?Channing Mcwilliams MD ? Signed By: ?<Electronically signed by Channing Mcwilliams MD in OV> ?01/21/25 1841 ? DD/ 38 ? TD/TT: 01/21/251838 ? Freight Forwarder: ? Procedure Note Hernandoarchie, Matt - 01/21/2025 [place] [address] XRay Report Signed Patient: Aleksandr RosenbergR#: [id number] : 1940cct:[id number] Age/Sex: 84 / MADM Date: 01/21/25 Loc: HO.ED Attending Dr: Ordering Physician: Sarah Beth Cortez Date of Service: 01/21/25 Procedure(s): XR chest 1V Accession Number(s): [id number] cc: [facility]; Sarah Beth Cortez CLINICAL HISTORY: sob Chest X-ray, 1 View COMPARISON: CR - XR CHEST 1V - 12/22/24 14:38 EDT FINDINGS: No consolidation. No pleural effusion. No pneumothorax. No cardiomegaly. No acute fracture. Degenerative changes in the spine. IMPRESSION: No acute findings. This document has been electronically signed by: Channing Mcwilliams MD on 01/21/2025 18:39:59 Dictated By: Channing Mcwilliams MD Signed By: <Electronically signed by Channing Mcwilliams MD in OV> 01/21/251840 DD/ 38 TD/TT: 01/21/251838 Freight Forwarder: us [facility] External Provider IMG XR PROCEDURES Final Result * (ABNORMAL) Complete Blood Count Manual Diff (01/21/2025 5:58 PM EDT) White Blood Count 6.7 4.8 - 10.8 X10*3/uL [facility] Red Blood Count 1.89(L) 4.60 - 5.80 X10*6/uL [facility] Hemoglobin 8.2(L) 14.0 - 18.0 g/dl [facility] Hematocrit 22.0(L) 42.0 - 52.0 % [facility] Mean Corpuscular Volume 116.4(H) 80.0 - 98.0 fL [facility] Mean Corpuscular Hemoglobin 43.4(H) 27.0 - 33.0 pg [facility] Mean Corpuscular HGB Conc 37.3(H) 31.0 - 36.0 g/dl [facility] Platelet Count 319 160 - 400 X10*3/uL [facility] Mean Platelet Volume 11.2 9.4 - 12.4 fL [facility] NRBC Pct Auto 0.0 0.0 - 0.2 /100WBC [facility] NRBC Abs Auto 0.000 0.0 - 0.012 X10*3/uL [facility] Neutrophils % Manual 82(H) 45 - 73 % [facility] Lymphocytes Percent Manual 14(L) 20 - 40 % [facility] Atypical Lymphs Percent Manual 1 0 - 6 % [facility] Monocytes Percent Manual 1(L) 2 - 11 % [facility] BASOPHILS % MANUAL 2 0 - 2 % [facility] LYMPHOCYTES ABSOLUTE MANUAL 0.9(L) 1.2 - 4.9 X10*3/uL [facility] Atypical Lymph Absolute Manual 0.1 x10*3/uL [facility] MONOCYTES ABSOLUTE MANUAL 0.1 0.1 - 1.2 X10*3/uL [facility] BASOPHILS ABSOLUTE MANUAL 0.1 0.0 - 0.2 X10*3/uL [facility] HYPERSEGMENTED NEUTROPHILS PRESENT [facility] Platelet Estimate [facility] Large Platelet [facility] Platelet Morphology Comment NOTED [facility] RBC Morphology NOTED [facility] Microcytosis 1+ (5-14) /OIF [facility] Macrocytosis 1+ (5-14) /OIF [facility] Schistocytes 1+ (0-2) /[facility] 01/21/2025 5:58 PM EDT 01/21/2025 6:01 PM EDT us Generic External Data Provider LAB BLOOD ORDERAB LES Final Result [facility] [address] [place] [address] [phone] * (ABNORMAL) CBC auto differential (01/21/2025 5:58 PM EDT) White Blood Count 6.7 4.8 - 10.8 X10*3/uL [facility] Red Blood Count 1.89(L) 4.60 - 5.80 X10*6/uL [facility] Hemoglobin 8.2(L) 14.0 - 18.0 g/dl [facility] Hematocrit 22.0(L) 42.0 - 52.0 % [facility] Mean Corpuscular Volume 116.4(H) 80.0 - 98.0 fL [facility] Mean Corpuscular Hemoglobin 43.4(H) 27.0 - 33.0 pg [facility] Mean Corpuscular HGB Conc 37.3(H) 31.0 - 36.0 g/dl [facility] Platelet Count 319 160 - 400 X10*3/uL [facility] Mean Platelet Volume 11.2 9.4 - 12.4 fL [facility] Neutrophils Percent Auto 81.0(H) 45 - 73 % [facility] Imm Gran Pct Auto 0.4 0.0 - 0.4 % [facility] Lymphocytes Percent Auto 12.4(L) 20 - 40 % [facility] Monocytes Percent Auto 5.8 2 - 11 % [facility] Eosinophils Percent Auto 0.3 0 - 4 % [facility] Basophils Percent Auto 0.1 0 - 2 % [facility] NRBC Pct Auto 0.0 0.0 - 0.2 /100WBC [facility] Neutrophils Absolute Auto 5.4 2.0 - 8.3 x10*3/uL [facility] Imm Gran Abs Auto 0.03 0.00 - 0.03 X10*3/uL [facility] Lymphocytes Absolute Auto 0.8(L) 1.2 - 4.9 X10*3/uL [facility] Monocytes Absolute Auto 0.4 0.1 - 1.2 X10*3/uL [facility] Eosinophils Absolute Auto 0.0 0.0 - 0.4 X10*3/uL [facility] Basophils Absolute Auto 0.0 0.0 - 0.2 X10*3/uL [facility] NRBC Abs Auto 0.000 0.0 - 0.012 X10*3/uL [facility] 01/21/2025 5:58 PM EDT 01/21/2025 6:01 PM EDT us Generic External Data Provider LAB BLOOD ORDERAB LES Edited Result - Final [facility] [address] [place] [phone] * SARS-CoV-2 RNA, Influenza A/B, and RSV RNA, Ql NAAT (01/21/2025 5:53 PM EDT) Influenza A PCR NEGATIVE Negative [facility] Influenza B PCR NEGATIVE Negative [facility] Resp Syncy Virus RNA Qual PCR NEGATIVE Negative [facility] SARS COV2 PCR NEGATIVE Negative [facility] Comment:All test results mus t be correlated with clinical findings.Negative results do not preclude SARS-CoV2, influenza Avirus, influenza B virus and/or RSV infectionand should not be used as the sole basis for treatment orother patient management decisions. Negative results must becombined with clinical observations, patient history, andepidemiological information.This test has not been evaluated for monitoring treatment ofinfection.This test has been authorized by the FDA under an EmergencyUse Authorization (EUA) for use by authorized laboratories.Testing performed on the [employer] GeneXpert utilizingreal-time RT-PCR.All SARS CoV2 and positive influenza A/B results arereported to [facility]. 01/21/2025 5:53 PM EDT 01/21/2025 6:01 PM EDT us Generic External Data Provider LAB MICROBIOLOGY - GENERAL ORDERABLES Final Result [facility] [address] [place] [address] [phone] * XR Ankle 3+ Views Right (01/16/2025 10:30 AM EDT) Anatomical Region Laterality Modality Lower Extremities, Ankle Right Radiogr aphic Imaging 01/16/2025 10:3 0 AM EDT Narrative 01/16/2025 10:58 AM EDT ?[facility] ?[address] ?[place] [address] ?XRay Report ? Signed ? Patient: Aleksandr Rosenberg ?MR#: [id number] ?? [id number] ? : 1940 ?Acct:[id number] ? Age/Sex: 84 / M ?ADM Date: 01/16/25 ? Loc: HO.HHCX ? Attending Dr: Citlali Norman DO ? Ordering Physician: Ctilali Norman DO ?? Date of Service: 01/16/25 ?? Procedure(s): XR ankle RT min 3V ?? Accession Number(s): [id number] ? cc: Citlali Norman DO ? EXAMINATION: ??XR ANKLE 3 OR MORE VIEWS RIGHT ? HISTORY: r ankle pain and swelling s/p fall ? COMPARISON: Comparison is made with the prior examination dated ?? 12/07/2024. ? FINDINGS: ? Three views of the right ankle are submitted. ??Osseous mineralization ?? is normal. ??There is no fracture or dislocation. ??The joint spaces are ?? preserved. ??There are vascular calcifications. ? XR/XR ankle RT min 3V ?? IMPRESSION: ? No evidence of fracture of the right ankle. ? Electronically signed by: ??Marciano Saul MD ??01/16/2025 10:54 AM EDT ?? RP ? Dictated By: ?Marciano Saul MD ? Signed By: ?<Electronically signed by Marciano Saul MD in OV> ?01/16/251053 ? DD/ 1030 ? TD/TT: 01/16/25 1046 ? Freight Forwarder: ? Procedure Note Donchristopherter, Image - 01/16/[address] [address] XRay Report Signed Patient: Aleksandr Rosenberg#: [id number] : 9Acct:[id number] Age/Sex: 84 / MADM Date: 01/16/25 Loc: .HHCX Attending Dr: Citlali Norman DO Ordering Physician: Citlali Norman DO Date of Service: 01/16/25 Procedure(s): XR ankle RT min 3V Accession Number(s): [id number] cc: Citlali Norman DO EXAMINATION: XR ANKLE 3 OR MORE VIEWS RIGHT HISTORY: r ankle pain and swelling s/p fall COMPARISON: Comparison is made with the prior examination dated 12/07/2024. FINDINGS: Three views of the right ankle are submitted. Osseous mineralization is normal. There is no fracture or dislocation. The joint spaces are preserved. There are vascular calcifications. XR/XR ankle RT min 3V IMPRESSION: No evidence of fracture of the right ankle. Electronically signed by: Marciano Saul MD 01/16/2025 10:54 AM EDT Dictated By: Marciano Saul MD Signed By: <Electronically signed by Marciano Saul MD in OV> 01/16/25 1054 DD/ 1030 TD/TT: 01/16/25 1046 Freight Forwarder: us Citlali Norman DO IMG XR PROCEDURES Edited Res ult - Final * ECG 12 lead (01/14/2025 8:51 AM EDT) Only the most recent of2 resultswithin the time period is included. Narrative Ely Chisholm MD - 01/14/2025 8:51 AM EDT NSR, VR 70s, no acute ST-T segment changes Ely Chisholm MD ECG ORDERABLES Final Result * High Sensitivity Troponin I (12/07/2024 7:46 AM EST) TROPONIN I HIGH SENSITIVITY 3.8 <3.5 - 35.0 ng/L [facility] Comment:The Addison high sens itivity Troponin-I results should beused in conjunction with other diagnostic information suchas ECG, clinical observations and information, and patientsymptoms to aid in the diagnosis of ID. 12/07/2024 7:46 AM EST 12/07/2024 7:50 AM EST Generic External Data Provider LAB BLOOD ORDERAB LES Final Result Performing Organization Address City/State/[facility] Co de Phone Number [facility] [address] [place] [phone] * (ABNORMAL) Prothrombin Time-INR (12/07/2024 7:46 AM EST) Prothrombin Time 12.9(H) 10.9 - 12.4 SEC [facility] INTERNATIONAL NORM RATIO 1.1 0.9 - 1.1 [facility] Comment:INTERNATIONAL NORMAL IZED RATIO (INR) REFERENCE [...] Provider LAB BLOOD ORDERAB LES Final Result [facility] [address] [place] [address] [phone] * POCT HGB A1C (07/31/2024 9:44 AM EDT) Hemoglobin A1C 5.5 4.0 - 6.0 % QC Media Lot # [id number] Lot# Expiration Date 484 Blood 07/31/2024 9:44 AM EDT Citlali Norman DO POINT OF CARE TEST ENTER/SANTANA T ORDERABLES Edited Result - Final * (ABNORMAL) Lipid Panel, Standard (02/26/2024 10:00 AM EDT) Triglycerides 129 <150 mg/dL [facility] Comment:Desirable Triglyceri de: less than 150 mg/dLBorderline High Triglyceride 150-199 mg/dLHigh Triglyceride: 200-499 mg/dLVery High Triglyceride: greater than or equal to 5OO mg/dL Cholesterol 161 <200 mg/dL [facility] Comment:Desirable Cholestero l: less than 200 mg/dLBorderline High Cholesterol: 200-239 mg/dLHigh Cholesterol: greater than 239 mg/dL LDL Cholesterol Calculated 100(H) <100 mg/dL [facility] Comment:Desirable LDL: less than 100 mg/dLNear Optimal/Above Optimal LDL: 110- 129 mg/dLBorderline High LDL: 130-159 mg/dLHigh LDL: 160-189 mg/dLVery High LDL: greater than or equal to 190 mg/dL HDL Cholesterol 36(L) >40 mg/dL [facility] Comment:Desirable HDL: great er than 40 mg/dL Note: This HDL assay may give artificially low results in patients with liver disease. Blood Venous blood specimen / Unknown 02/26/2024 10:00 AM EDT 02/26/2024 11:33 AM EDT us Citlali Norman DO LAB BLOOD ORDERABLES Final R esult Performing Organization Address [facility] Co de Phone Number [facility] [address] [place] [phone] * (ABNORMAL) Albumin, Random Urine W/Creatinine (02/26/2024 9:50 AM EDT) Creatinine, Urine 62.43 mg/dL [facility] Microalbumin Urine 35.0 mg/L [facility] Microalbum Creatinine Ratio Ur 56.0(H) <30 ug/mg cr [facility] Comment:Albumin/Creatinine R atio Reference Ranges: Normal: < 30 ug/mg creatinine Microalbuminuria: 30 - 300 ug/mg creatinineClinical Albuminuria: > 300 ug/mg creatinine Urine (Urine, Random) 02/26/2024 9:50 AM EDT 02/26/2024 8:45 PM EDT us Citlali Norman DO LAB URINE ORDERABLES Final R esult Performing Organization Address [facility] Co de Phone Number [facility] [address] [place] [phone] from Last 3 Months or Most Recently Relevant to Health Maintenance Insurance [facility] D[employer] Care Teams Promotions Intern Relationship Specialty Start Date End Date Citlali Norman DO [address] [place] [address] PCP - General Family Medicine 10/16/18
--- OUTSIDE RECORDS SUMMARY | 2025-01-21 19:26 | XMS_ITS | Encounter Summary ---
Author Organization [employer] [facility] Address [address] [facility] 7 [place] [address] Care Team Providers Care Cotton Stripper Name Role Phone Citlali Norman DO Primary Care Provider + [phone] Reason for Visit * Reason Onset Date Comments Med Refill 08/24/2023 Encounter Details Date Type Department Care Team (Late st Contact Info) Description 08/24/2023 Telephone [facility] MEDICINE [address] [place], [place] [phone] Citlali Norman DO [address] [place], [place] [phone] Med Refill Social History Tobacco Use Types [...] [facility] [place] [facility] [address] [facility] documented in this encounter Plan of Treatment Upcoming Encounters Date Type Department Care Team (Late st Contact Info) Description 01/22/2025 9:00 AM EDT Medication Management [address] [address] Elizabeth Bacon, AlisonD [address] [place] [address] [phone] 02/12/2025 10:00 AM EDT Office Visit [address] [phone] Citlali Norman DO [address] [place] [address] [phone] 04/11/2025 10:30 AM EDT Telemedicine [address] [phone] Venecia Hyatt RN documented as of this encounter Visit Diagnoses Not on filedocumented in this encounter Additional Health Concerns Assessment Noted Time PHQ-9 Depression Total Score: 0 02/28/20 23 11:46 AM EDT documented as of this encounter Care Teams Cotton Stripper Relationship Specialty Start Date End Date Citlali Norman DO [address] [place] [address] [phone] PCP - General Family Medicine 10/16/18 documented as of this encounter
--- OUTSIDE RECORDS SUMMARY | 2025-01-21 19:26 | XMS_ITS | Encounter Summary ---
Author Organization [employer] Address [address] [facility] 7t [place] [address] Care Team Providers Care Malt Specifications Control Assistant Name Role Phone Citlali Norman DO Primary Care Provider + [phone] Reason for Visit * Reason Onset Date Comments Med Refill 10/20/2023 Encounter Details Date Type Department Care Team ([facility] st Contact Info) Description 10/20/[address] [facility] MEDICINE [address] [place], [place] [phone] Citlali Norman DO 230 [place], [place] [phone] Med Refill Social History Tobacco Use Types [...] to: [facility] [place] - [address] [facility] documented in this encounter Plan of Treatment Upcoming Encounters Date Type Department Care Team (Late st Contact Info) Description 01/22/2025 9:00 AM EDT Medication Management [address] [address] Elizabeth Bacon PharmD [address] [place] [phone] 02/12/2025 10:00 AM EDT Office Visit [address] [address] Citlali Norman DO [address] [place] [phone] 04/11/2025 10:30 AM EDT Telemedicine [address] [address] Venecia Hyatt, [place] documented as of this encounter Visit Diagnoses Not on filedocumented in this encounter Additional Health Concerns Assessment Noted Time PHQ-9 Depression Total Score: 0 02/28/20 23 11:46 AM EDT documented as of this encounter Care Teams Malt Specifications Control Assistant Relationship Specialty Start Date End Date Citlali Norman DO [address] [place] [phone] PCP - General Family Medicine 10/16/18 documented as of this encounter
--- OUTSIDE RECORDS SUMMARY | 2025-01-21 19:26 | XMS_ITS | Encounter Summary ---
Author Organization [employer] [facility] Address [address] [facility] 7 [place] [address] Care Team Providers Care Meter Setter Name Role Phone Citlali Norman DO Primary Care Provider + [phone] Reason for Visit * Reason Comments Med Refill Encounter Details Date Type Department Care Team (Late st Contact Info) Description 06/21/2023 Refill [facility] MEDICINE [address] [place] [address] Citlali Norman DO 230 [place], [place] [phone] Essential hypertension Social History Tobacco Use Types [...] Description 01/22/2025 9:00 AM EDT Medication Management [facility] MEDICINE [address] [place] [address] Elizabeth Bacno, PharmD [address] [place] [address] 02/12/2025 10:00 AM EDT Office Visit [address] [address] Citlali Norman DO [address] [place] [address] 04/11/2025 10:30 AM EDT Telemedicine [address] [address] Venecia Hyatt RN documented as of this encounter Visit Diagnoses Diagnosis Essential hypertension Unspecified essential hypertension documented in this encounter Additional Health Concerns Assessment Noted Time PHQ-9 Depression Total Score: 0 02/28/20 23 11:46 AM EDT documented as of this encounter Care Teams Meter Setter Relationship Specialty Start Date End Date Citlali Norman DO [address] [place] [phone] PCP - General Family Medicine 10/16/18 documented as of this encounter
--- OUTSIDE RECORDS SUMMARY | 2025-01-21 19:26 | XMS_ITS | Encounter Summary ---
Author Organization [employer] Address [address] [facility] 7t [place] [address] Care Team Providers Care Loan Clerk Name Role Phone Citlali Norman DO Primary Care Provider + [phone] Reason for Visit * Reason Comments Med Refill Encounter Details Date Type Department Care Team ([facility] st Contact Info) Description 11/12/2024 Refill [facility] MEDICINE 230 [place], [place] [phone] Citlali Norman DO 230 [place], [place] [phone] Social History Tobacco Use Types Packs/Day Years [...] Description 01/22/2025 9:00 AM EDT Medication Management [address] [address] Elizabeth Bacon PharmD [address] [place] [address] 02/12/2025 10:00 AM EDT Office Visit [address] [phone] Citlali Norman DO [address] [place] [address] [phone] 04/11/2025 10:30 AM EDT Telemedicine [address] [address] Venecia Hyatt RN documented as of this [...] as of this encounter Care Teams Loan Clerk Relationship Specialty Start Date End Date Citlali Nomran DO [address] [place] [phone] PCP - General Family Medicine 10/16/18 documented as of this encounter
--- OUTSIDE RECORDS SUMMARY | 2025-01-21 19:27 | XMS_ITS | Encounter Summary ---
Author Organization [email or web address] Address [address] [facility] [address] 7t [place] [address] Care Team Providers Care Tax Assessor Name Role Phone Ester Citlali Primary Care Provider + [phone] Reason for Visit * Reason Comments Med Refill Encounter Details Date Type Department Care Team ([facility] st Contact Info) Description 04/16/2024 Refill [facility] [address] [place], [place] [phone] [facility] [address] [place] [address] Chronic pain of both knees Social History [...] the past 12 months, has t he [employer], gas, oil or water company threatened to [...] Description 01/22/2025 9:00 AM EDT Medication Management [address] [address] Elizabeth Bacon PharmD [address] [place] [phone] 02/12/2025 10:00 AM EDT Office Visit [address] [address] Citlali Norman DO [address] [place] [phone] 04/11/2025 10:30 AM EDT Telemedicine [address] [address] Venecia Hyatt RN documented as of this [...] documented as of this encounter Care Teams Tax Assessor Relationship Specialty Start Date End Date Citlali Norman DO [address] [place] [phone] PCP - General Family Medicine 10/16/18 documented as of this encounter
--- OUTSIDE RECORDS SUMMARY | 2025-01-21 19:27 | XMS_ITS | Encounter Summary ---
Author Organization [employer] Address [address] [facility] [address] 7t [place] [address] Care Team Providers Care Cigarette Packing Machine Operator Name Role Phone Citlali Norman DO Primary Care Provider + [phone] Encounter Details Date Type Department Care Team ([facility] st Contact Info) Description 01/16/[address] [facility] [address] [place], [place] [phone] Citlali Norman DO 230 [place], [place] [phone] Social History Tobacco Use Types Packs/Day Years [...] Miscellaneous Notes * Telephone Encounter - Citlali Norman DO - 01/16/2025 2:29 PM EDT Spoke with [facility] medbox pharmacist, Vera, re: need to restart medboxes. Advised pharmacist that I would like to have pt's RETAIL SALES VITAMIN CONSULTANT tow picker his medications monthly so that she administer his medications daily given his overuse of medications. Pharmacist will have MTM appt scheduled and contact RETAIL SALES VITAMIN CONSULTANT with appt to begin new medboxes. * Telephone Encounter - Citlali Norman DO - 01/16/2025 12:58 PM EDT Spoke with patient's RETAIL SALES VITAMIN CONSULTANT, Frieda Ibarra, re: frequent [place] visits. Advised RETAIL SALES VITAMIN CONSULTANT that the request for VNA services was denied due to his insurance. RETAIL SALES VITAMIN CONSULTANT reported that she went to his home yesterday and found all of his medication bottles. He still had amlodipine but his lisinopril and metoprolol bottles were empty. She feels that he checks his BPand finds it high and just takes an extra pill. She says that he loves obsessing with his medications. She says that he had medboxes at one point recently but were stopped due to pt continually going to pharmacy and reporting that he had missing medications. She says that he doesn't trust too many people and she feels that his current living situation is causing him a lot of stress and anxiety. She thinks that he can't focus in his current apt and that getting his own apt will help him significantly. She says that he is on [facility] because he wants to be back in his old building so that he can be closer to his friends and old neighbors. Advised RETAIL SALES VITAMIN CONSULTANT that since he is unable to receive VNA services, I would like RETAIL SALES VITAMIN CONSULTANT to give pt his medication daily and she agrees. Advised VNA that meds can be placed in medbox again and she can provide pt with strip of his medications daily. She says that she can have her mom go on the mornings that she is unavailable. Will contact pharmacy re: initiation of medboxes. She says that his toenails are horrible and he needs a referral to a biologist aide. Will send referralas requested. documented in this encounter Plan of Treatment Upcoming Encounters Date Type Department Care Team (Late st Contact Info) Description 01/22/2025 9:00 AM EDT Medication Management [address] [address] Elizabeth Bacon PharmD [address] [place] [phone] 02/12/2025 10:00 AM EDT Office Visit [address] [address] Citlali Norman DO [address] [place] [address] [phone] 04/11/2025 10:30 AM EDT Telemedicine [address] [address] Venecia Hyatt RN documented as of this [...] documented as of this encounter Care Teams Cigarette Packing Machine Operator Relationship Specialty Start Date End Date Citlali Norman DO 230 [place] [address] PCP - General Family Medicine 10/16/18 documented as of this encounter
--- OUTSIDE RECORDS SUMMARY | 2025-01-21 19:27 | XMS_ITS | Encounter Summary ---
Author Organization [employer] [facility] Address [address] [facility] 7t [place] [address] Care Team Providers Care Cold Water Machine Operator Name Role Phone Allison Norman DO Primary Care Provider + [phone] Reason for Referral * Consultation (Urgent) - Authorized Specialty Diagnoses / Procedures Referred By Dennis t Referred To Contact Podiatry Diagnoses Type 2 diabetes mellitus without complication, without long-term current use of insulin (CMS/HCC) Allison Norman DO [address] [place] [address] Phone: tel: fax: Alec Barclay, DPAnnalise [address] [facility] 1st Floor (Left) [place] [address] Phone: tel: fax: Referral ID Status Reason Start Date Expiration Date Visits Requested Visits Authorized [id number] Authorized Specialty Services Required 01/16/2025 01/16/2026 1 1 Reason for Visit * Reason Comments Hypertension Encounter Details Date Type Department Care Team (Late st Contact Info) Description 01/16/2025 10:00 AM EDT Office Visit [facility] [address] [place] [address] Allison Norman DO [address] [place] [address] Essential hypertension (Primary Dx); Acute right ankle pain; Type 2 diabetes mellitus without complication, without long-term current use of insulin (CMS/HCC) Social History Tobacco Use Types Packs/Day Years [...] (142 lb) 01/16/2025 9:48 AM EDT Height - - Body Mass Index 24.37 10/10/2024 10:14 AM EST documented in this encounter Progress Notes * Allison Norman, DO - 01/16/2025 10:00 AM EDT SUBJECTIVE Aleksandr Rosenberg is a 84 y.o. male who presents for Sick Visit. He presents to [place] today c/o elevated BP. He has had multiple visits to [place] recently c/o elevated BP with and without CP. He frequently calls reporting that he has lost his medications. He has been seen a couple times by MTM but refuses medboxes. He was seen in [place] again 3 days ago with the same complaints. He had EKG with no acute changes. He agreed at the visit to allow his [employer] FOREMAN/SUPERINTENDANT to administer meds. He was also referred to VNA, but was deemed ineligible for VNA services due to strict medicare requirements. He says he has no BP meds. He was given early refill of amlodipine the other day but says that he doesn't have any meds. He says that he leaves his meds on his table and is unsure if his roommate or the roommate's friends are taking his med bottles. He He says he lost all his meds before the [employer] FOREMAN/SUPERINTENDANT was able to begin administration. He says he feels that carrying his meds around in individual vials is easier than Medboxes. He checks his BP at home twice day. He says that his BP was elevated this morning at home which is why he came in. He says his BP is elevated in the mornings and afternoons. He says he is agreeable to his [employer] FOREM[employer]/SUPERINTENDANT administering his medications. He also c/o R ankle pain. He says he slipped and fell on some ice yesterday and his ankle is swollen. He needs RF of his oxycodone as he has nothing for his pain. History provided by: Patient evaporator repairer used: Yes Review of Systems Constitutional: Negative for activity change, appetite change, fever and unexpected weight change. Eyes: Negative for visual disturbance. Respiratory: Negative for cough and chest tightness. Cardiovascular: Negative for chest pain and palpitations. Gastrointestinal: Negative for abdominal pain, diarrhea, nausea and vomiting. Musculoskeletal: Positive for arthralgias and joint swelling. Neurological: Negative for dizziness, weakness and headaches. Patient Active Problem List Diagnosis Anemia Chronic atrial fibrillation (CMS/HCC) Chronic low back pain Chronic obstructive lung disease (CMS/HCC) Degeneration of lumbar intervertebral disc Essential hypertension Gastroesophageal reflux disease Hyperlipidemia with target LDL less than 70 Osteoarthritis Type 2 diabetes mellitus (CMS/HCC) Fatty liver History of non-ST elevation myocardial infarction (NSTEMI) Atherosclerotic heart disease Healthcare maintenance Unintentional weight loss Need for assistance with personal care No Known Allergies OBJECTIVE Vitals: 01/16/25 0948 01/16/25 1025 BP: 95/53 108/60 BP Location: Right arm Left arm Patient Position: Sitting Sitting BP Cuff Size: Adult Adult Pulse: 68 Resp: 16 Temp: 98 ??F (36.7 ??C) TempSrc: Temporal SpO2: 95% Weight: 142 lb (64.4 kg) Physical Exam Constitutional: General: He is not in acute distress. Appearance: Normal appearance. Cardiovascular: Rate and Rhythm: Normal rate and regular rhythm. Heart sounds: Normal heart sounds. No murmur heard. Pulmonary: Effort: Pulmonary effort is normal. Breath sounds: Normal breath sounds. No wheezing or rhonchi. Musculoskeletal: Right ankle: Swelling and ecchymosis present. Tenderness present over the lateral malleolus. Decreased range of motion. Neurological: General: No focal deficit present. Mental Status: He is alert. Cranial Nerves: No cranial nerve deficit. Motor: No weakness. Psychiatric: Mood and Affect: Mood normal. Assessment/Plan Diagnoses and all orders for this visit: Essential hypertension BP well-controlled -advised pt that he needs to take his medications as prescribed -advised pt it is not safe for him to continue receiving his medications in bottles, given his continued loss of meds vs overuse -he continues to refuse VNA services -he agrees to allow [employer] FOREM[employer]/SUPERINTENDANT to dispense medication with help of Medbox, will notify [employer] FOREM[employer]/SUPERINTENDANT and d/w pharmacy Acute right ankle pain S/P [id number] -referred for XR to r/o fracture -encouraged ice therapy -cont percocet for pain control, RF sent -advised rtc if no improvement, he agrees with plans --Follow-up with me this mos as scheduled or sooner prn-- Current Outpatient Medications: albuterol 108 (90 Base) MCG/ACT inhaler, INHALE 2 PUFFS BY MOUTH EVERY 4 TO 6 HOURS NEEDED, Disp: 8.5 g, Rfl: 0 Alcohol Swabs (Alcohol Prep) 70 % pads, USE DIRECTED TWICE DAILY, Disp: 100 each, Rfl: 3 amLODIPine (Norvasc) 10 MG tablet, Take 1 tablet (10 mg) by mouth Once per day., Disp: 30 tablet, Rfl: 0 Blood Glucose Monitoring Suppl (ONE TOUCH ULTRA 2) w/Device kit, Use to monitor blood glucose threetimes daily, Disp: 1 kit, Rfl: 0 Blood Pressure Monitor kit, Use to measure blood pressure at home, Disp: 1 kit, Rfl: 0 Diclofenac Sodium 1 % gel, To apply to the affected area 3 times a day, Disp: 100 g, Rfl: 0 ezetimibe (Zetia) 10 MG tablet, TAKE 1 TABLET BY MOUTH EVERY EVENING, Disp: 90 tablet, Rfl: 2 fenofibrate micronized (LoFibra) 200 MG capsule, TAKE 1 CAPSULE BY MOUTH EVERY EVENING WITH FOOD, Disp: 90 capsule, Rfl: 2 Ferretts 325 (106 Fe) MG tablet, TAKE 1 TABLET BY MOUTH EVERY MORNING (3 TIMES A WEEK MONDAY, MONDAY, MONDAY), Disp: , Rfl: finasteride (Proscar) 5 MG tablet, TAKE 1 TABLET BY MOUTH ONCE DAILY, Disp: 90 tablet, Rfl: 2 fluticasone (Flonase) 50 MCG/ACT nasal spray, Administer 2 sprays into each nostril in the morning., Disp: 48 g, Rfl: 1 GaviLAX 17 GM/SCOOP powder, MIX 17 GRAMS IN 8-12 OUNCES OF LIQUID (WATER) AT BEDTIME NEEDED FOR CONSTIPATION, Disp: 510 g, Rfl: 3 ipratropium-albuterol (Combivent Respimat) 20-100 MCG/ACT inhaler, INHALE 1 PUFF BY MOUTH FOUR TIMES DAILY MAY TAKE ADDITIONAL PUFF NEEDED UP TO 6 PUFFS EVERY DAY, Disp: 12 g, Rfl: 2 isosorbide mononitrate ER (Imdur) 60 MG 24 hr tablet, TAKE 1 TABLET BY MOUTH EVERY DAY IN THE MORNING, Disp: 90 tablet, Rfl: 0 Lancets (AvaakTouch Delica Plus Daafhp72I) [facility], USE DIRECTED TO TEST BLOOD SUGAR TWICE DAILY, Disp: 100 each, Rfl: 3 lisinopril 40 MG tablet, TAKE 1 TABLET BY MOUTH EVERY DAY, Disp: 30 tablet, Rfl: 2 loratadine (Claritin) 10 MG tablet, TAKE 1 TABLET BY MOUTH EVERY MORNING, Disp: 90 tablet, Rfl: 0 melatonin 5 MG tablet, TAKE 1 TO 2 TABLETS BY MOUTH 3 HOURS BEFORE BEDTIME, Disp: 180 tablet, Rfl: 1 meloxicam (Mobic) 15 MG tablet, Take 1 tablet (15 mg) by mouth Once per day., Disp: 30 tablet, Rfl:11 metFORMIN (Glucophage) 500 MG tablet, TAKE 1 TABLET BY MOUTH TWICE A DAY WITH MORNING AND EVENING MEALS, Disp: 180 tablet, Rfl: 3 metoprolol tartrate (Lopressor) 25 MG tablet, Take 1 tablet (25 mg) by mouth 2 times daily., Disp: 180 tablet, Rfl: 0 OneTouch Ultra Test test strip, USE DIRECTED TO TEST BLOOD SUGAR TWICE DAILY, Disp: 100 strip, Rfl: 3 oxyCODONE-acetaminophen (Percocet) 7.5-325 MG tablet, Take 1 tablet by mouth See administration instructions for 7 days. May take 1 tablet by mouth up to 5 times a day as needed for severe pain., Disp: 35 tablet, Rfl: 0 pantoprazole (ProtoNix) 40 MG EC tablet, Take 1 tablet (40 mg) by mouth before breakfast. Do not crush, chew, or split., Disp: 90 tablet, Rfl: 2 rivaroxaban (Xarelto) 20 MG tablet, take 1 tablet by oral route every day with the evening meal, Disp: 90 tablet, Rfl: 1 rosuvastatin (Crestor) 40 MG tablet, TAKE 1 TABLET BY MOUTH AT BEDTIME, Disp: 90 tablet, Rfl: 0 Wixela Inhub 500-50 MCG/ACT aerosol powder , Take 1 puff by mouth 2 times daily., Disp: 60 each, Rfl: 11 Current Facility-Administered Medications: nitroglycerin (Nitrostat) SL tablet 0.4 mg, 0.4 mg, Sublingual, q5 min PRN, Luz Lopez MD, 0.4 mgat 02/27/24 0915 Scribe Attestation: Kelvin Felipe, am serving as a scribe to document services personally performed by Allison So, based on the patient's response to questions by provider and provider's statements to me. 01/16/25 11:07 AM Physicians Attestation: Allison Felipe DO, have reviewed the information by the scribe, Kelvin Lincoln, for accuracy and agree with its content. 01/16/25 ADDENDUM: Spoke with pt's [employer] FOREMAN/SUPERINTENDANT who requests referral to podiatry for toenail care. Allison Norman DO documented in this encounter Miscellaneous Notes * Addendum Note - Allison Norman DO - 01/16/2025 10:00 AM EDTAddended by: ALLISON NORMAN on: 01/16/2025 02:35 PM Modules accepted: Orders documented in this encounter Plan of Treatment Upcoming Encounters Date Type Department Care Team (Late st Contact Info) Description 01/22/2025 9:00 AM EDT Medication Management [address] [address] [place] Bacon PharmD [address] [place] [phone] 02/12/2025 10:00 AM EDT Office Visit [address] [address] Allison Norman DO [address] [place] [address] 04/11/2025 10:30 AM EDT Telemedicine [address] [address] Venecia Hyatt, RN Scheduled Referrals Name Type Priority Associated Diagnoses Orde r Schedule Referral to Podiatry Outpatient Referral Urgent Type 2 diabetes mellitus without complication, without long-term current use of insulin ([facility]) Expected: 01/16/2025 (Approximate), Expires: 01/16/2026 documented as of this encounter Goals Goal [...] Name Priority Date/Time Associated Diagnosis Comments XR ANKLE 3+ VIEWS RIGHT STAT 01/16/2025 10:30 AM EDT Acute right ankle pain documented in this encounter Results * XR Ankle 3+ Views Right (01/16/2025 10:30 AM EDT) Anatomical Region Laterality Modality Lower Extremities, Ankle Right Radiogr aphic Imaging 01/16/2025 10:3 0 AM EDT Narrative 01/16/2025 10:58 AM EDT ?[facility] ?[address] ?[place] [address] ?XRay Report ? Signed ? Patient: ChetAleksandr Dowell ?MR#: [id number] ?? [id number] ? : 1940 ?Acct:[id number] ? Age/Sex: 84 / M ?ADM Date: 01/16/25 ? Loc: HO.HHCX ? Attending Dr: Allison Norman DO ? Ordering Physician: Allison Norman DO ?? Date of Service: 01/16/25 ?? Procedure(s): XR ankle RT min 3V ?? Accession Number(s): [id number] ? cc: Allison Norman DO ? EXAMINATION: ??XR ANKLE 3 [...] signed by Marciano Saul MD in OV> ?01/16/25 1054 ? DD/ 1030 ? TD/TT: 01/16/25 1046 ? Biosecurity Officer: ? Procedure Note Duglas, Image - 01/16/[address] [address] XRay Report Signed Patient: Aleksandr Rosenberg#: [id number] : 9Acct:[id number] Age/Sex: 84 / MADM Date: 01/16/25 Loc: HO.HHCX Attending Dr: Allison Norman DO Ordering Physician: Allison Norman DO Date of Service: 01/16/25 Procedure(s): XR ankle RT min 3V Accession Number(s): [id number] cc: Allison Norman DO EXAMINATION: XR ANKLE 3 OR [...] 01/16/25 1054 DD/ 1030 TD/TT: 01/16/25 1046 Biosecurity Officer: Allison Norman DO IMG XR PROCEDURES Edited Res ult - Final documented in this encounter Visit Diagnoses Diagnosis Essential hypertension- Primary Unspecified essential hypertension Acute right ankle pain Type 2 diabetes mellitus without complication, without long-term current use of insulin ([facility]) documented in this encounter Additional Health Concerns Assessment Noted Time PHQ-9 Depression Total Score: 0 02/28/20 23 11:46 AM EDT documented as of this encounter Care Teams Cold Water Machine Operator Relationship Specialty Start Date End Date Allison Norman DO [address] [place] [address] PCP - General Family Medicine 10/16/18 documented as of this encounter
--- OUTSIDE RECORDS SUMMARY | 2025-01-21 19:27 | XMS_ITS | Encounter Summary ---
Author Organization [employer] Address [address] [facility] 7t [place] [address] Care Team Providers Care Chaplain Resident Name Role Phone Citlali Norman DO Primary Care Provider + [phone] Reason for Visit * Reason Comments Med Refill Encounter Details Date Type Department Care Team ([facility] st Contact Info) Description 08/09/2024 Refill [facility] [address] [place], [place] [phone] Citlali Norman DO [address] [place], [place] [phone] Chronic pain of both knees Social History [...] the past 12 months, has t he [employer], gas, oil or water [employer] threatened to shut off services in your [...] Description 01/22/2025 9:00 AM EDT Medication Management [address] [address] [place] Bacon PharmD [address] [place] [address] 02/12/2025 10:00 AM EDT Office Visit [address] [address] Citlali Norman DO [address] [place] [address] 04/11/2025 10:30 AM EDT Telemedicine [address] [address] Venecia Hyatt RN documented as of this [...] documented as of this encounter Care Teams Chaplain Resident Relationship Specialty Start Date End Date Citlali Norman DO [address] [place] [address] PCP - General Family Medicine 10/16/18 documented as of this encounter
--- OUTSIDE RECORDS SUMMARY | 2025-01-21 19:27 | XMS_ITS | Encounter Summary ---
Author Organization [employer] Address [address] [facility] 7t [place] [address] Care Team Providers Care Couturiere Name Role Phone Citlali Norman DO Primary Care Provider + [phone] Reason for Visit * Reason Comments Med Refill Encounter Details Date Type Department Care Team ([facility] st Contact Info) Description 06/11/2024 Refill [facility] [address] [place], [place] [phone] Citlali Norman DO [address] [place], [place] [phone] Chronic pain of both knees Social History [...] the past 12 months, has t he [employer], gas, oil or water [employer] threatened to shut off services in your [...] Description 01/22/2025 9:00 AM EDT Medication Management [address] [address] [place] Bacon PharmD [address] [place] [address] 02/12/2025 10:00 AM EDT Office Visit [address] [address] Citlali Norman DO [address] [place] [address] 04/11/2025 10:30 AM EDT Telemedicine [address] [address] Venecia Hyatt RN documented as of this [...] documented as of this encounter Care Teams Couturiere Relationship Specialty Start Date End Date Citlali Norman DO [address] [place] [address] PCP - General Family Medicine 10/16/18 documented as of this encounter
--- OUTSIDE RECORDS SUMMARY | 2025-01-21 19:27 | XMS_ITS | Encounter Summary ---
Author Organization [employer] Address [address] [facility] 7t [place] [address] Care Team Providers Care Service Line Bus Cleaner Name Role Phone Citlali Norman DO Primary Care Provider + [phone] Reason for Visit * Reason Onset Date Comments FYI 08/02/2024 Encounter Details Date Type Department Care Team ([facility] st Contact Info) Description 08/02/2024 Telephone [facility] [address] [place], [place] [phone] Citlali Norman DO [address] [place], [place] [phone] FYI Social History Tobacco Use Types Packs/Day [...] t he electric, gas, oil or water [employer] threatened to shut off services in your [...] 10:27 AM EDT Tc from [facility] at [facility] Radiology calling to inform PCP will not be able to see patient due to insurance will need to be referred to another location documented in this encounter Plan of Treatment Upcoming Encounters Date Type Department Care Team (Late st Contact Info) Description 01/22/2025 9:00 AM EDT Medication Management [address] [address] [place] Bacon PharmD [address] [place] [address] 02/12/2025 10:00 AM EDT Office Visit [address] [address] Citlali Norman DO [address] [place] [address] 04/11/2025 10:30 AM EDT Telemedicine [address] [address] Venecia Hyatt, [place] documented as of this [...] documented as of this encounter Care Teams Service Line Bus Cleaner Relationship Specialty Start Date End Date Citlali Norman DO [address] [place] [address] PCP - General Family Medicine 10/16/18 documented as of this encounter
--- OUTSIDE RECORDS SUMMARY | 2025-01-21 19:27 | XMS_ITS | Encounter Summary ---
Author Organization [employer] Address [address] [facility] 7t [place] [address] Care Team Providers Care Interior Design Professional Name Role Phone Citlali Norman DO Primary Care Provider + [phone] Reason for Visit * Reason Comments Med Refill Encounter Details Date Type Department Care Team ([facility] st Contact Info) Description 11/27/2023 Telephone [facility] [address] [place], [place] [phone] Andria Schneider FNP [address] [place] [address] Med Refill Social History Tobacco Use Types [...] 9:01 AM EST TC placed to pt [phone] via [employer] interpre[employer] in regards to below message. Pt informed PCP does not recommend continued use of enemas for his constipation. Pt informed refill request was denies d/t no significant stool burden seen on recent xrays or CT. Pt informed PCP would like to refer pt to GI for further evaluation. Pt is agreeable to POC and reports he is still in [place]. Pt would like to be referred to [facility] GI. RN will send message to PCP [...] GI eval. Is he still living in [place] or has he moved to [place]? documented in this encounter Plan of Treatment Upcoming Encounters Date Type Department Care Team (Late st Contact Info) Description 01/22/2025 9:00 AM EDT Medication Management [address] [address] [place] Bacon PharmD [address] [place] [address] 02/12/2025 10:00 AM EDT Office Visit [address] [address] Citlali Norman DO [address] [place] [address] 04/11/2025 10:30 AM EDT Telemedicine [address] [address] Venecia Hyatt, [place] documented as of this encounter Visit Diagnoses Not on filedocumented in this encounter Additional Health Concerns Assessment Noted Time PHQ-9 Depression Total Score: 0 02/28/20 23 11:46 AM EDT documented as of this encounter Care Teams Interior Design Professional Relationship Specialty Start Date End Date Citlali Norman DO [address] [place] [address] PCP - General Family Medicine 10/16/18 documented as of this encounter
--- OUTSIDE RECORDS SUMMARY | 2025-01-21 19:27 | XMS_ITS | Encounter Summary ---
Author Organization [employer] Address [address] [facility] 7t [place] [address] Care Team Providers Care Supervisor Volunteer Services Name Role Phone Citlali Norman DO Primary Care Provider + [phone] Reason for Visit * Reason Comments Med Refill Encounter Details Date Type Department Care Team ([facility] st Contact Info) Description 01/20/2025 Refill [facility] [address] [place], [place] [phone] Citlali Norman DO [address] [place], [place] [phone] Chronic pain of both knees Social History [...] the past 12 months, has t he [employer], gas, oil or water [employer] threatened to shut off services in your [...] encounter Miscellaneous Notes * Telephone Encounter - Janet Bell RN - 01/20/2025 1:52 PM EDT [employer] reviewed, 1 week supply last picked up 01/16/25, will be due 01/23/25. Will pend to PCP 01/22/25 documented in this encounter Plan of Treatment Upcoming Encounters Date Type Department Care Team (Late st Contact Info) Description 01/22/2025 9:00 AM EDT Medication Management [address] [address] [place] Bacon PharmD [address] [place] [address] 02/12/2025 10:00 AM EDT Office Visit [address] [address] Citlali Norman DO [address] [place] [address] 04/11/2025 10:30 AM EDT Telemedicine [address] [address] Venecia Hyatt, [place] documented as of this [...] documented as of this encounter Care Teams Supervisor Volunteer Services Relationship Specialty Start Date End Date Citlali Norman DO [address] [place] [address] PCP - General Family Medicine 10/16/18 documented as of this encounter
--- OUTSIDE RECORDS SUMMARY | 2025-01-21 19:27 | XMS_ITS | Encounter Summary ---
Author Organization [employer] Address [address] [facility] 7t [place] [address] Care Team Providers Care Dance Coach Name Role Phone Citlali Norman DO Primary Care Provider + [phone] Reason for Visit * Reason Onset Date Comments Med Refill 01/10/2025 Encounter Details Date Type Department Care Team ([facility] st Contact Info) Description 01/10/2025 Telephone [facility] [address] [place], [place] [phone] Citlali Norman DO [address] [place], [place] [phone] Med Refill Social History Tobacco Use Types [...] Telephone Encounter - Citlali Duvall LPN - 01/10/2025 11:49 AM EDT Medication was sent to [facility] on 12/26/24 #30 with 3 refills. * Telephone Encounter - French Begum - 01/10/2025 11:42 AM EDT TC from pt requesting medication refill. Medications needing refill : lisinopril 40 MG tablet To be sent to: [facility] - [place], [place] - [address] [place] [address] Pt doesn't have any left and stated that he needs his medication documented in this encounter Plan of Treatment Upcoming Encounters Date Type Department Care Team (Late st Contact Info) Description 01/22/2025 9:00 AM EDT Medication Management [facility] [address] [place] [address] [place] Bacon, PharmD [address] [place] [address] 02/12/2025 10:00 AM EDT Office Visit [address] [address] Citlali Norman DO [address] [place] [address] 04/11/2025 10:30 AM EDT Telemedicine [facility] [address] [place] [address] [place] [address] Venecia Hyatt, [place] documented as of this [...] documented as of this encounter Care Teams Dance Coach Relationship Specialty Start Date End Date Citlali Norman DO [address] [place] [address] PCP - General Family Medicine 10/16/18 documented as of this encounter
--- OUTSIDE RECORDS SUMMARY | 2025-01-21 19:27 | XMS_ITS | Encounter Summary ---
Author Organization [employer] Address [address] [facility] [facility] [address] 7t [place] [address] Care Team Providers Care Doctor Of Pharmacy Name Role Phone EsterCitlali Primary Care Provider + [phone] Encounter Details Date Type Department Care Team (Late st Contact Info) Description 01/21/2025 Orders Only [facility] External Provider, [facility] Social History Tobacco Use Types Packs/Day Years [...] Description 01/22/2025 9:00 AM EDT Medication Management [address] [address] Elizabeth Bacon PharmD [address] [place] [address] 02/12/2025 10:00 AM EDT Office Visit [address] [address] Citlali Norman DO 230 [place], [place] [phone] 04/11/2025 10:30 AM EDT Telemedicine [address] [address] Venecia Hyatt RN documented as of this [...] QL NAAT Routine 01/21/2025 5:53 PM EDT documented in this encounter Results * XR KUB and Upright 2 Views (01/21/2025 7:21 PM EDT) Anatomical Region Laterality Modality Radiographic Cherry ging 01/21/2025 7:21 PM EDT Narrative 01/21/2025 7:23 PM EDT ? [facility] ?[address] ?[place] [address] ?XRay Report ? Signed ? Patient: Rosenberg,Aleksandr Dowell ?MR#: MM ?? [id number] ? : 1940 ?Acct:[id number] ? Age/Sex: 84 / M ?ADM Date: 01/21/25 ? Loc: HO.ED ? Attending Dr: ? Ordering Physician: Zahra Palacios ?? Date of Service: 01/21/25 ?? Procedure(s): XR KUB ?? Accession Number(s): [id number] ? cc: Zahra Palacios; [facility] ? CLINICAL HISTORY: pain ? Abdomen [...] ? DD/ 20 ? TD/TT: 01/21/251920 ? Interactive Media Marketing Specialist: ? Procedure Note Matt Ardon - 01/21/[address] [address] XRay Report Signed Patient: Aleksandr Rosenberg#: [id number] : 9Acct:[id number] Age/Sex: 84 / MADM Date: 01/21/25 Loc: HO.ED Attending Dr: Ordering Physician: Zahra Palacios Date of Service: 01/21/25 Procedure(s): XR KUB Accession Number(s): [id number] cc: Zahra Palacios; [facility] CLINICAL HISTORY: pain Abdomen X-ray, 1 [...] in OV> 01/21/251921 DD/ 20 TD/TT: 01/21/251920 Interactive Media Marketing Specialist: [facility] External Provider IMG XR PROCEDURES Final Result * XR Chest 1 View (01/21/2025 6:39 PM EDT) Anatomical Region Laterality Modality Chest Radiographic Cherry ging 01/21/2025 6:39 PM EDT Narrative 01/21/2025 6:41 PM EDT ? [facility] ?[address] ?[place] [address] ?XRay Report ? Signed ? Patient: Rosenberg,Aleksandr Delmer ?MR#: [id number] ?? [id number] ? : 1940 ?Acct:[id number] ? Age/Sex: 84 / M ?ADM Date: 01/21/25 ? Loc: HO.ED ? Attending Dr: ? Ordering Physician: Sarah Beth Cortez ?? Date of Service: 01/21/25 ?? Procedure(s): XR chest 1V ?? Accession Number(s): [id number] ? cc: [facility]; Sarah Beth Cortez ? CLINICAL HISTORY: [...] ? DD/ 38 ? TD/TT: 01/21/251838 ? Interactive Media Marketing Specialist: ? Procedure Note Duglas, Image - 01/21/[address] [address] XRay Report Signed Patient: Aleksandr Rosenberg#: [id number] : 9Acct:[id number] Age/Sex: 84 / MADM Date: 01/21/25 Loc: .ED Attending Dr: Ordering Physician: Sarah Beth Cortez Date of Service: 01/21/25 Procedure(s): XR chest 1V Accession Number(s): [id number] cc: [facility]; Sarah Beth Cortez CLINICAL HISTORY: sob [...] in OV> 01/21/251840 DD/ 38 TD/TT: 01/21/251838 Interactive Media Marketing Specialist: us [facility] External Provider IMG XR PROCEDURES Final Result * (ABNORMAL) Complete Blood Count Manual Diff (01/21/2025 5:58 PM EDT) White Blood Count 6.7 4.8 - 10.8 X10*3/uL [facility] Red Blood Count 1.89(L) 4.60 - 5.80 X10*6/uL [facility] Hemoglobin 8.2(L) 14.0 - 18.0 g/dl [facility] Hematocrit 22.0(L) 42.0 - 52.0 % [facility] Mean Corpuscular Volume 116.4(H) 80.0 - 98.0 fL [facility] Mean Corpuscular Hemoglobin 43.4(H) 27.0 - 33.0 pg [facility] Mean Corpuscular HGB Conc 37.3(H) 31.0 - 36.0 g/dl [facility] Platelet Count 319 160 - 400 X10*3/uL [facility] Mean Platelet Volume 11.2 9.4 - 12.4 fL [facility] NRBC Pct Auto 0.0 0.0 - 0.2 /100WBC [facility] NRBC Abs Auto 0.000 0.0 - 0.012 X10*3/uL [facility] Neutrophils % Manual 82(H) 45 - 73 % [facility] Lymphocytes Percent Manual 14(L) 20 - 40 % [facility] Atypical Lymphs Percent Manual 1 0 - 6 % [facility] Monocytes Percent Manual 1(L) 2 - 11 % [facility] BASOPHILS % MANUAL 2 0 - 2 % [facility] LYMPHOCYTES ABSOLUTE MANUAL 0.9(L) 1.2 - 4.9 X10*3/uL [facility] Atypical Lymph Absolute Manual 0.1 x10*3/uL [facility] MONOCYTES ABSOLUTE MANUAL 0.1 0.1 - 1.2 X10*3/uL [facility] BASOPHILS ABSOLUTE MANUAL 0.1 0.0 - 0.2 X10*3/uL [facility] HYPERSEGMENTED NEUTROPHILS PRESENT [facility] Platelet Estimate NORMAL NORMAL [facility] Large Platelet [facility] Platelet Morphology Comment NOTED [facility] RBC Morphology NOTED [facility] Microcytosis 1+ (5-14) /OIF [facility] Macrocytosis 1+ (5-14) /OIF [facility] Schistocytes 1+ (0-2) /OIF [facility] 01/21/2025 5:58 PM EDT 01/21/2025 6:01 PM EDT us Generic External Data Provider LAB BLOOD ORDERAB LES Final Result [facility] [address] [place] [phone] * (ABNORMAL) CBC auto differential (01/21/2025 5:58 PM EDT) White Blood Count 6.7 4.8 - 10.8 X10*3/uL [facility] Red Blood Count 1.89(L) 4.60 - 5.80 X10*6/uL [facility] Hemoglobin 8.2(L) 14.0 - 18.0 g/dl [facility] Hematocrit 22.0(L) 42.0 - 52.0 % [facility] Mean Corpuscular Volume 116.4(H) 80.0 - 98.0 fL [facility] Mean Corpuscular Hemoglobin 43.4(H) 27.0 - 33.0 pg [facility] Mean Corpuscular HGB Conc 37.3(H) 31.0 - 36.0 g/dl [facility] Platelet Count 319 160 - 400 X10*3/uL [facility] Mean Platelet Volume 11.2 9.4 - 12.4 fL [facility] Neutrophils Percent Auto 81.0(H) 45 - 73 % [facility] Imm Gran Pct Auto 0.4 0.0 - 0.4 % [facility] Lymphocytes Percent Auto 12.4(L) 20 - 40 % [facility] Monocytes Percent Auto 5.8 2 - 11 % [facility] Eosinophils Percent Auto 0.3 0 - 4 % [facility] Basophils Percent Auto 0.1 0 - 2 % [facility] NRBC Pct Auto 0.0 0.0 - 0.2 /100WBC [facility] Neutrophils Absolute Auto 5.4 2.0 - 8.3 x10*3/uL [facility] Imm Gran Abs Auto 0.03 0.00 - 0.03 X10*3/uL [facility] Lymphocytes Absolute Auto 0.8(L) 1.2 - 4.9 X10*3/uL [facility] Monocytes Absolute Auto 0.4 0.1 - 1.2 X10*3/uL [facility] Eosinophils Absolute Auto 0.0 0.0 - 0.4 X10*3/uL [facility] Basophils Absolute Auto 0.0 0.0 - 0.2 X10*3/uL [facility] NRBC Abs Auto 0.000 0.0 - 0.012 X10*3/uL [facility] 01/21/2025 5:58 PM EDT 01/21/2025 6:01 PM EDT us Generic External Data Provider LAB BLOOD ORDERAB LES Edited Result - Final [facility] [address] [place] [address] [phone] * SARS-CoV-2 RNA, Influenza A/B, and RSV RNA, Ql NAAT (01/21/2025 5:53 PM EDT) Influenza A PCR NEGATIVE Negative [facility] Influenza B PCR NEGATIVE Negative [facility] Resp Syncy Virus RNA Qual PCR NEGATIVE Negative [facility] SARS COV2 PCR NEGATIVE Negative [facility] Comment:All test results mus t [...] use by authorized laboratories.Testing performed on the Cepheid GeneXpert utilizingreal-time RT-PCR.All SARS CoV2 and positive influenza A/B results arereported to [facility]. 01/21/2025 5:53 PM EDT 01/21/2025 6:01 PM EDT us Generic External Data Provider LAB MICROBIOLOGY - GENERAL ORDERABLES Final Result Performing Organization Address City/State/[facility] Co de Phone Number [facility] [address] [place] [phone] documented in this encounter Visit Diagnoses Not on filedocumented in this encounter Additional Health Concerns Assessment Noted Time PHQ-9 Depression Total Score: 0 02/28/20 23 11:46 AM EDT documented as of this encounter Care Teams Doctor Of Pharmacy Relationship Specialty Start Date End Date Citlali Norman DO [address] [place] [phone] PCP - General Family Medicine 10/16/18 documented as of this encounter
--- OUTSIDE RECORDS SUMMARY | 2025-01-21 19:27 | XMS_ITS | Encounter Summary ---
Author Organization [employer] Address [address] [facility] 7t [place] [address] Care Team Providers Care Offset Printing Operator Name Role Phone Citlali Norman DO Primary Care Provider + [phone] Reason for Visit * Reason Comments Med Refill Encounter Details Date Type Department Care Team ([facility] st Contact Info) Description 05/20/2024 Refill [facility] 230 [place], [place] [phone] Citlali Norman DO 230 [place], [place] [phone] Chronic pain of both knees Social History [...] the past 12 months, has t he [employer], gas, oil or water [employer] threatened to shut off services in your [...] Description 01/22/2025 9:00 AM EDT Medication Management [address] [address] Elizabeth Bacon PharmD [address] [place] [address] 02/12/2025 10:00 AM EDT Office Visit [address] [address] Citlali Norman DO [address] [place] [address] 04/11/2025 10:30 AM EDT Telemedicine [address] [address] Venecia Hyatt RN documented as of this [...] documented as of this encounter Care Teams Offset Printing Operator Relationship Specialty Start Date End Date Citlali Norman DO [address] [place] [address] PCP - General Family Medicine 10/16/18 documented as of this encounter
--- OUTSIDE RECORDS SUMMARY | 2025-01-21 19:27 | XMS_ITS | Encounter Summary ---
Author Organization [employer] Address [address] [facility] 7t [place] [address] Care Team Providers Care Drama Therapist Name Role Phone Citlali Norman DO Primary Care Provider + [phone] Reason for Visit * Reason Comments Med Refill Encounter Details Date Type Department Care Team ([facility] st Contact Info) Description 06/11/2024 Refill [facility] 230 [place], [place] [phone] Citlali Norman DO 230 [place], [place] [phone] Chronic pain of both knees Social History [...] the past 12 months, has t he [employer], gas, oil or water [employer] threatened to shut off services in your [...] 01/22/2025 9:00 AM EDT Medication Management [address] [address] Elizabeth Bacon PharmD [address] [place] [address] 02/12/2025 10:00 AM EDT Office Visit [address] [address] Citlali Norman DO [address] [place] [address] 04/11/2025 10:30 AM EDT Telemedicine [address] [address] Venecia Hyatt RN documented as of this [...] documented as of this encounter Care Teams Drama Therapist Relationship Specialty Start Date End Date Citlali Norman DO [address] [place] [address] PCP - General Family Medicine 10/16/18 documented as of this encounter
--- OUTSIDE RECORDS SUMMARY | 2025-01-21 19:27 | XMS_ITS | Encounter Summary ---
Author Organization [employer] Address [address] [facility] 7t [place] [address] Care Team Providers Care Dry Transfer Man Name Role Phone Citlali Norman DO Primary Care Provider + [phone] Reason for Visit * Reason Comments Med Refill Encounter Details Date Type Department Care Team ([facility] st Contact Info) Description 07/01/2024 Refill [facility] 230 [place], [place] [phone] Citlali Norman DO 230 [place], [place] [phone] Chronic pain of both knees Social History [...] the past 12 months, has t he [employer], gas, oil or water [email or web address] threatened to shut off services in your [...] 01/22/2025 9:00 AM EDT Medication Management [address] [address] Elizabeth Bacon PharmD [address] [place] [address] 02/12/2025 10:00 AM EDT Office Visit [address] [address] Citlali Norman DO [address] [place] [address] 04/11/2025 10:30 AM EDT Telemedicine [address] [address] Venecia Hyatt RN documented as of this [...] documented as of this encounter Care Teams Dry Transfer Man Relationship Specialty Start Date End Date Citlali Norman DO [address] [place] [address] PCP - General Family Medicine 10/16/18 documented as of this encounter
--- OUTSIDE RECORDS SUMMARY | 2025-01-21 19:27 | XMS_ITS | Encounter Summary ---
Author Organization [employer] Address 75 [facility] 7t [place] [address] Care Team Providers Care Solar System Designer Name Role Phone Citlali Norman DO Primary Care Provider + [phone] Reason for Visit * Reason Comments Med Refill Encounter Details Date Type Department Care Team ([facility] st Contact Info) Description 08/28/2024 Refill [facility] 230 [place], [place] [phone] Citlali Norman DO 230 [place], [place] [phone] Chronic pain of both knees Social History [...] the past 12 months, has t he [employer], gas, oil or water [employer] threatened to shut off services in your [...] Description 01/22/2025 9:00 AM EDT Medication Management [address] [address] Elizabeth Bacon PharmD [address] [place] [address] 02/12/2025 10:00 AM EDT Office Visit [address] [address] Citlali Norman DO [address] [place] [address] 04/11/2025 10:30 AM EDT Telemedicine [address] [address] Venecia Hyatt RN documented as of this [...] documented as of this encounter Care Teams Solar System Designer Relationship Specialty Start Date End Date Citlali Norman DO [address] [place] [address] PCP - General Family Medicine 10/16/18 documented as of this encounter
--- OUTSIDE RECORDS SUMMARY | 2025-01-21 19:27 | XMS_ITS | Encounter Summary ---
Author Organization [employer] Address [address] [facility] [address] 7t [place] [address] Care Team Providers Care Engagement Engineer Name Role Phone Citlali Norman DO Primary Care Provider + [phone] Reason for Visit * Reason Comments Med Refill Encounter Details Date Type Department Care Team ([facility] st Contact Info) Description 05/12/2024 Refill [facility] 230 [place], [place] [phone] Citlali Norman DO 230 [place], [place] [phone] Social History Tobacco Use Types Packs/Day Years [...] 01/22/2025 9:00 AM EDT Medication Management [address] [address] Elizabeth Bacon PharmD [address] [place] [address] 02/12/2025 10:00 AM EDT Office Visit [address] [address] Citlali Norman DO [address] [place] [address] 04/11/2025 10:30 AM EDT Telemedicine [address] [address] Venecia Hyatt RN documented as of this [...] documented as of this encounter Care Teams Engagement Engineer Relationship Specialty Start Date End Date Citlali Norman DO [address] [place] [address] PCP - General Family Medicine 10/16/18 documented as of this encounter
--- OUTSIDE RECORDS SUMMARY | 2025-01-21 19:27 | XMS_ITS | Encounter Summary ---
Author Organization [employer] Address 75 [facility] 7t [place] [address] Care Team Providers Care Sap Integration Architect Name Role Phone Citlali Norman DO Primary Care Provider + [phone] Reason for Visit * Reason Comments Med Refill Encounter Details Date Type Department Care Team ([facility] st Contact Info) Description 07/02/2024 Refill [facility] 230 [place], [place] [phone] Citlali Norman DO 230 [place], [place] [phone] Chronic pain of both knees Social History [...] the past 12 months, has t he [employer], gas, oil or water [employer] threatened to shut off services in your [...] 01/22/2025 9:00 AM EDT Medication Management [address] [address] Elizabeth Bacon PharmD [address] [place] [address] 02/12/2025 10:00 AM EDT Office Visit [address] [address] Citlali Norman DO [address] [place] [address] 04/11/2025 10:30 AM EDT Telemedicine [address] [address] Venecia Hyatt RN documented as of this [...] documented as of this encounter Care Teams Sap Integration Architect Relationship Specialty Start Date End Date Citlali Norman DO [address] [place] [address] PCP - General Family Medicine 10/16/18 documented as of this encounter
--- OUTSIDE RECORDS SUMMARY | 2025-01-21 19:27 | XMS_ITS | Encounter Summary ---
Author Organization [employer] Address 75 [facility] 7t [place] [address] Care Team Providers Care Services Mgr Name Role Phone Citlali Norman DO Primary Care Provider + [phone] Reason for Visit * Reason Onset Date Comments Error 06/03/2024 Encounter Details Date Type Department Care Team ([facility] Contact Info) Description 06/03/2024 Telephone [facility] 230 [place], [place] [phone] Citlali Norman DO 230 [place], [place] [phone] Error Social History Tobacco Use Types Packs/Day [...] the past 12 months, has t he [employer], [employer], oil or water [employer] threatened to shut off services in your [...] 01/22/2025 9:00 AM EDT Medication Management [address] [address] Elizabeth Bacon PharmD [address] [place] [address] 02/12/2025 10:00 AM EDT Office Visit [address] [address] Citlali Norman DO [address] [place] [address] 04/11/2025 10:30 AM EDT Telemedicine [address] [address] Venecia Hyatt RN documented as of this [...] documented as of this encounter Care Teams Services Mgr Relationship Specialty Start Date End Date Citlali Norman DO [address] [place] [address] PCP - General Family Medicine 10/16/18 documented as of this encounter
--- OUTSIDE RECORDS SUMMARY | 2025-01-21 19:27 | XMS_ITS | Encounter Summary ---
Author Organization [employer] Address 75 [facility] 7t [place] [address] Care Team Providers Care Senior Qa Engineer Name Role Phone Ciltali Norman DO Primary Care Provider + [phone] Reason for Visit * Reason Onset Date Comments Referral 08/02/2024 Encounter Details Date Type Department Care Team ([facility] st Contact Info) Description 08/02/2024 Telephone [facility] 230 [place], [place] [phone] Citlali Norman DO 230 [place], [place] [phone] Referral Social History Tobacco Use Types Packs/Day [...] the past 12 months, has t he [employer], [employer], oil or water [employer] threatened to shut off services in your [...] - 08/02/2024 9:04 AM EDT Tc from [place], pt's VENDOR MANAGEMENT CONSULTANT calling to inform that [facility] does not take pt's insurance and he would need to be referred elsewhere. If any questions you can contact [place] at [phone]. documented in this encounter Plan of Treatment Upcoming Encounters Date Type Department Care Team (Late st Contact Info) Description 01/22/2025 9:00 AM EDT Medication Management [address] [address] Elizabeth Bacon PharmD [address] [place] [address] 02/12/2025 10:00 AM EDT Office Visit [address] [address] Citlali Norman DO 230 [place] [address] 04/11/2025 10:30 AM EDT Telemedicine [address] [address] Venecia Hyatt RN documented as of this encounter Goals Goal Patient Goal Type Associated Problems Recent Progress Patient-Stated? Author Patient will adhere to medication regimen General Jah Garza PharmD Note: All medications to be renewed and resumed as directed. Patient will manage their medication General No Lawrence, Jah, PharmD Note: Patient will keep medications locked in a safe place to prevent loss. documented as of this encounter Visit Diagnoses Not on filedocumented in this encounter Additional Health Concerns Assessment Noted Time PHQ-9 Depression Total Score: 0 02/28/20 23 11:46 AM EDT documented as of this encounter Care Teams Senior Qa Engineer Relationship Specialty Start Date End Date Citlali Norman DO [address] [place] [address] PCP - General Family Medicine 10/16/18 documented as of this encounter
--- OUTSIDE RECORDS SUMMARY | 2025-01-21 19:27 | XMS_ITS | Encounter Summary ---
Author Organization [employer] Address 75 [facility] 7t [place] [address] Care Team Providers Care Health Tech Name Role Phone Citlali Norman DO Primary Care Provider + [phone] Reason for Visit * Reason Comments Med Refill Encounter Details Date Type Department Care Team ([facility] st Contact Info) Description 06/18/2024 Refill [facility] 230 [place], [place] [phone] Citlali Norman DO 230 [place], [place] [phone] Chronic pain of both knees Social History [...] the past 12 months, has t he [employer], gas, oil or water [employer] threatened to shut off services in your [...] Description 01/22/2025 9:00 AM EDT Medication Management [address] [address] Elizabeth Bacon PharmD [address] [place] [address] 02/12/2025 10:00 AM EDT Office Visit [address] [address] Citlali Norman DO [address] [place] [address] 04/11/2025 10:30 AM EDT Telemedicine [address] [address] Venecia Hyatt RN documented as of this [...] documented as of this encounter Care Teams Health Tech Relationship Specialty Start Date End Date Citlali Norman DO [address] [place] [address] PCP - General Family Medicine 10/16/18 documented as of this encounter
--- OUTSIDE RECORDS SUMMARY | 2025-01-21 19:27 | XMS_ITS | Encounter Summary ---
Author Organization [employer] Address [address] [facility] [address] 7t [place] [address] Care Team Providers Care Wheel Aligner Name Role Phone Citlali Norman DO Primary Care Provider + [phone] Reason for Visit * Reason Onset Date Comments Adult Protective Services Report 01/16/2025 Encounter Details Date Type Department Care Team ([facility] st Contact Info) Description 01/16/2025 Telephone [facility] 230 [place], [place] [phone] Citlali Norman DO 230 [place], [place] [phone] Adult Protective Services Report Social History Tobacco Use Types Packs/Day Years [...] Encounter - Citlali Norman DO - 01/16/2025 5:38 PM EDT Submitted an online Adult Protective Services Report with [facility] at 5:37PM with concerns for self neglect. Intake ID [id number]. documented in this encounter Plan of Treatment Upcoming Encounters Date Type Department Care Team (Late st Contact Info) Description 01/22/2025 9:00 AM EDT Medication Management [address] [address] Elizabeth Bacon PharmD [address] [place] [address] 02/12/2025 10:00 AM EDT Office Visit [address] [address] Citlali Norman DO [address] [place] [address] 04/11/2025 10:30 AM EDT Telemedicine [address] [address] Venecia Hyatt RN documented as of this [...] documented as of this encounter Care Teams Wheel Aligner Relationship Specialty Start Date End Date Citlali Norman DO [address] [place] [address] PCP - General Family Medicine 10/16/18 documented as of this encounter
[2025-01-21 20:07] VITALS: BP 112/43; PULSE 86; RESP 15; TEMP 36.9; O2SAT 93
--- NOTE | 2025-01-21 21:24 | ED_ITS ---
HPI - Chest Pain General Chief Complaint: Chest Pain Stated Complaint: general weakness, SOB x3 days Time Seen by Provider: 01/21/25 18:22 Source: patient Limitations: no limitations History of Present Illness ED Provider: Zahra Palacios PA-C HPI narrative: 84-year-old male with a history of type 1 diabetes, paroxysmal AFib on rivaroxaban, hypertension, hyperlipidemia, coronary artery disease who presents with multiple complaints. Patient states he has had a dry cough with a central chest discomfort and shortness of breath for 3 days. Denies fever or sick contacts with same symptoms. He is unable to elaborate on his chest discomfort, it was nonradiating. Worse with palpation of the chest wall. Patient also complains of generalized abdominal discomfort, again unable to describe the nature of his discomfort. Denies abdominal distention, associated nausea no vomiting, he is also constipated, unclear when he last had a true bowel movement. He is passing flatus from below. Lastly, patient complains of bilateral lower extremity swelling, right greater than left. Associated orthopnea, Denies unintentional weight gain. Related Data Home Medications ?Medication ?Instructions ?Recorded ?Confirmed fenofibrate micronized 200 mg 200 mg PO DAILY 10/26/20 12/09/24 capsule ferrous sulfate 325 mg (65 mg 325 mg PO DAILY 10/26/20 12/09/24 iron) tablet finasteride 5 mg tablet 5 mg PO DAILY 10/26/20 12/09/24 fluticasone 500 mcg-salmeterol 50 1 ea PO BID 10/26/20 12/09/24 mcg/dose blistr powdr for inhalation ipratropium 0.5 mg-albuterol 3 mg 3 ml inhalation QID PRN 10/26/20 12/09/24 (2.5 mg base)/3 mL nebulization soln loratadine 10 mg tablet 10 mg PO DAILY 10/26/20 12/09/24 metformin 500 mg tablet 500 mg PO QAM 10/26/20 12/09/24 oxycodone-acetaminophen 7.5 mg-325 1 tab PO Q4H PRN pain 10/26/20 12/09/24 mg tablet pantoprazole 40 mg tablet,delayed 40 mg PO DAILY 10/26/20 12/09/24 release tamsulosin 0.4 mg capsule 0.4 mg PO DAILY 10/26/20 12/09/24 trazodone 50 mg tablet 50 mg PO BEDTIME 10/26/20 12/09/24 melatonin 5 mg tablet 5 mg PO DAILY 08/16/22 12/09/24 Previous Rx's ?Medication ?Instructions ?Recorded benzonatate 200 mg capsule 200 mg PO TID PRN cough #10 caps 10/08/22 magnesium citrate 300 ml PO DAILY PRN constipation 11/12/23 #296 mL polyethylene glycol 3350 17 gram 17 g PO DAILY PRN constipation 2 11/12/23 oral powder packet (Miralax) weeks #30 ea amoxicillin 875 mg-potassium 1 tab PO BID #14 tabs 01/03/24 clavulanate 125 mg tablet amlodipine 10 mg tablet 10 mg PO DAILY 3 days #30 tabs 12/09/24 ezetimibe 10 mg tablet 10 mg PO DAILY 90 days #30 tabs 12/09/24 rivaroxaban 20 mg tablet (Xarelto) 20 mg PO QPM #30 tabs 12/09/24 rosuvastatin 40 mg tablet 40 mg PO QPM #30 tabs 12/09/24 docusate sodium 100 mg capsule 100 mg PO DAILY #10 caps 01/21/25 (Col-Rite) polyethylene glycol 3350 17 17 g PO DAILY #119 grams 01/21/25 gram/dose oral powder (Miralax) Allergies Allergy/AdvReac Type Severity Reaction Status Date / Time No Known Allergies Allergy Verified 01/21/25 17:50 Review of Systems 2 Review of Systems: Yes all other systems are reviewed and are negative Constitutional: Constitutional: Denies fatigue and Denies fever(s) Cardiovascular: Cardiovascular: Reports chest pain and Reports dyspnea Respiratory: Respiratory: Denies chest congestion, Reports cough, Reports dyspnea and Denies wheezing Gastrointestinal: Gastrointestinal: Reports abdominal pain, Reports constipation, Denies diarrhea, Reports nausea and Denies vomiting Musculoskeletal: Musculoskeletal: Reports arthralgias and Reports joint swelling Endocrine: Endocrine: Denies fatigue Allergic/Immunologic: Allergic/Immunologic: Denies wheezing PMFSH Past Medical History Attestation statement: The following information was validated with the patient. Medical History Diabetes type 1, controlled Paroxysmal atrial fibrillation CAD (coronary artery disease) HTN (hypertension) Hyperlipidemia Surgical History Stented coronary artery Family History Family History Father No problems noted. Mother No problems noted. 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 Physical Exam 2 Vital Signs: Vital Signs: Last Vital Signs Temp 97.0 F 01/21/25 23:10 Pulse 78 01/21/25 23:10 Resp 16 01/21/25 23:10 BP 106/43 L 01/21/25 23:10 Pulse Ox 92 01/21/25 23:10 O2 Del Method Room Air 01/21/25 23:10 BMI result Body Mass Index 27.8 Const: Other: Alert Orientation/consciousness: patient oriented x3 Resp: Other: Nonlabored respirations lungs clear to auscultation Cardio: Other: +3 pitting edema bilaterally GI: Other: Mild generalized tenderness to palpation over the abdomen, no distention, no guarding Skin: Other: Warm dry no rash Neuro: General: patient oriented x3, no focal motor deficits and CN's II-XI intact bilaterally Extrem: Other: The right lower extremity is subtly larger than the left Psych: Other: Cooperative Course Reevaluation(s) Reevaluation #1: At the time of discharge, the patient is complaining that he wants his pain pill. To note, the patient has been here for several hours while his assessment has been completed, he has been sleeping. He is on chronic oxycodone, I reviewed his prescription monitoring site, he recently filled 1 of his prescriptions, he should have medication at home. He is here for numerous complaints including abdominal pain, he is constipated. He is well known to nursing staff and the interpreters, this is his typical presentation, he does not manage his constipation. It was concerning that he is on chronic opiate therapy at his age, and that it appears he may be abusing his meds, he is insisting he has no medication at home. I told him he needs to alleviate his stool burden, to alleviate the belly pain. I also told him that he has pain medication at home that we would not be giving any additional medication, that the oxycodone itself is constipating. The patient is refusing to listen to reason. Time: 23:32 Medications Administered Discontinued Medications Generic Name Dose Route Start Last Admin Trade Name Jesu MARIN Reason Stop Dose Admin Ondansetron HCl 4 mg 01/21/25 18:49 01/21/25 19:13 Ondansetron Hcl 4 Mg/2 Ml Vial IVPUSH 01/21/25 18:50 4 mg ONCE ONE Administration Sucralfate 1 gm 01/21/25 18:49 01/21/25 19:13 Sucralfate Oral Suspension 1 Gm/10 Ml Oral.Susp PO 01/21/25 18:50 1 gm ONCE ONE Administration Medical Decision Making Medical Decision Making MDM Narrative: 84-year-old male with a history of type 1 diabetes, paroxysmal AFib on rivaroxaban, hypertension, hyperlipidemia, coronary artery disease who presents with multiple complaints. Patient states he has had a dry cough with a central chest discomfort and shortness of breath for 3 days. Denies fever or sick contacts with same symptoms. He is unable to elaborate on his chest discomfort, it was nonradiating. Worse with palpation of the chest wall. Patient also complains of generalized abdominal discomfort, again unable to describe the nature of his discomfort. Denies abdominal distention, associated nausea no vomiting, he is also constipated, unclear when he last had a true bowel movement. He is passing flatus from below. Lastly, patient complains of bilateral lower extremity swelling, right greater than left. Associated orthopnea, Denies unintentional weight gain. Problem: Age, diabetes, hypertension, AFib History: Per patient I have considered the following differential diagnoses: ACS, new heart failure, viral syndrome, pneumonia DVT, PE, bowel obstruction, constipation Plan: In regard to the chest pain complaint, ACS was considered, screening labs including a cardiac enzymes EKG and chest x-ray were obtained. It was atypical, he has had symptoms for several days. The thought about new heart failure, the patient has worsening pedal edema, he is also endorsing orthopnea, however he is not overtly hypertensive, he is not hypoxic, a BNP was ordered. He has some infectious signs symptoms, he stating he has had a cough as well, viral panel ordered, we will view of the chest x-ray for potential pneumonia. Infectious source less likely given he is afebrile. On regard to the lower extremity swelling, objectively it was larger than the left, we will rule out DVT. In regard to his abdominal pain complaint, his pain is nonfocal it was generalized, he does not have a concerning abdominal exam, he does state he is constipated, this is the likely cause we will obtain a KUB. I do not believe he requires a CT scan at this time. I have independently reviewed the following tests: Labs: No leukocytosis, no anemia, 8.2 and 22 respectively, dropped from 10.7 and 28.5 within a month, no electrolyte abnormality, trop 4.7, viral panel negative, urine not infected EKG: Sinus rhythm with the occasional PVCs, no ischemic changes no ectopy rate 82, QTC 446 Chest x-ray: FINDINGS: No consolidation. No pleural effusion. No pneumothorax. No cardiomegaly. No acute fracture. Degenerative changes in the spine. IMPRESSION: No acute findings. Ultrasound right lower extremity: IMPRESSION: No DVT seen in the right lower extremity. Right lower extremity soft tissue edema. KUB:FINDINGS: Nonobstructive bowel gas pattern. No visible free air. No acute fracture. Degenerative changes in the spine. IMPRESSION: No acute findings. Lab Data 01/21/25 17:58 01/21/25 17:58 Labs: Lab Results 01/21/25 01/21/25 Range/Units 17:53 17:58 WBC 6.7 (4.8-10.8) X10*3/uL RBC 1.89 L (4.60-5.80) X10*6/uL Hgb 8.2 L D (14.0-18.0) g/dl Hct 22.0 L D (42.0-52.0) % MCV 116.4 H (80.0-98.0) fL MCH 43.4 H (27.0-33.0) pg MCHC 37.3 H (31.0-36.0) g/dl RDW Not Reportable Plt Count 319 (160-400) X10*3/uL MPV 11.2 (9.4-12.4) fL Immature Gran % (Auto) Cancelled Neut % (Auto) Cancelled Lymph % (Auto) Cancelled [place] % (Auto) Cancelled Eos % (Auto) Cancelled Baso % (Auto) Cancelled Lymph # (Auto) Cancelled [place] # (Auto) Cancelled Eos # (Auto) Cancelled Baso # (Auto) Cancelled Abs Immat Gran (auto) Cancelled Absolute Neuts (auto) Cancelled Absolute Nucleated RBC 0.000 (0.0-0.012) X10*3/uL Nucleated RBC % (auto) 0.0 (0.0-0.2) /100WBC Neutrophils % (Manual) 82 H (45-73) % Lymphocytes % (Manual) 14 L (20-40) % Atypical Lymphs % (Man) 1 (0-6) % Monocytes % (Manual) 1 L (2-11) % Basophils % (Manual) 2 (0-2) % Abs Neuts (Manual) Not Reportable Lymphocytes # (Manual) 0.9 L (1.2-4.9) X10*3/uL Atyp Lymphs # (Manual) 0.1 x10*3/uL Monocytes # (Manual) 0.1 (0.1-1.2) X10*3/uL Basophils # (Manual) 0.1 (0.0-0.2) X10*3/uL Hypersegmented Neuts PRESENT Platelet Estimate NORMAL (NORMAL) Large Platelets PRESENT Plt Morphology Comment NOTED RBC Morphology NOTED Microcytosis 1+ (5-14) /OIF Macrocytosis 1+ (5-14) /OIF Schistocytes 1+ (0-2) /OIF Sodium 136 (135-145) mmol/L Potassium 4.5 (3.3-5.1) mmol/L Chloride 102 (96-108) mmol/L Carbon Dioxide 24 (22-29) mmol/L Anion Gap 15 (12-20) BUN 22 H (9-16) mg/dL Creatinine 1.08 (0.5-1.4) mg/dL Estim Creat Clear Calc 45.9 Estimated GFR > 60 Random Glucose 142 H (60-115) mg/dL Calcium 8.7 (8.4-10.2) mg/dL Magnesium 2.3 (1.6-2.6) mg/dL Total Bilirubin 0.5 (0.0-1.0) mg/dL Direct Bilirubin 0.2 (0.0-0.5) mg/dL AST 32 (5-37) U/L ALT 15 (0-40) U/L Alkaline Phosphatase 87 (39-117) U/L Troponin I High Sens 4.7 D (<3.5-35.0) ng/L B-Natriuretic Peptide 307 H (<100) pg/mL Total Protein 6.0 L (6.5-8.0) g/dL Albumin 3.6 (3.5-5.0) g/dL Influenza Type A (PCR) NEGATIVE (Negative) Influenza Type B (PCR) NEGATIVE (Negative) RSV RNA Qual (PCR) NEGATIVE (Negative) SARS-CoV-2 RNA (RT-PCR) NEGATIVE (Negative) Discharge Plan Discharge Clinical Impression: Constipation Patient Disposition: Home, Self-Care Instructions: Constipation (ED) Additional Instructions: All of your screening labs including a cardiac enzymes were normal. The chest x-ray is clear you do not have pneumonia. There were no concerning changes on your EKG. The ultrasound of the right lower extremity was negative for a clot. In regard to abdominal pain, you are constipated. See home care instructions. You need to use Colace daily, with MiraLax daily, until you begin having regular bowel movements. Follow up with your primary care provider as needed. Prescriptions: New docusate sodium [Col-Rite] 100 mg capsule 100 mg PO DAILY Qty: 10 0RF polyethylene glycol 3350 [Miralax] 17 gram/dose powder 17 g PO DAILY Qty: 119 0RF No Action benzonatate 200 mg capsule 200 mg PO TID PRN (Reason: cough) Qty: 10 0RF magnesium citrate Solution 300 ml PO DAILY PRN (Reason: constipation) Qty: 296 0RF polyethylene glycol 3350 [Miralax] 17 gram powder in packet 17 g PO DAILY PRN (Reason: constipation) 14 Days Qty: 30 0RF amoxicillin-pot clavulanate 875-125 mg tablet 1 tab PO BID Qty: 14 0RF ipratropium-albuterol 0.5 mg-3 mg(2.5 mg base)/3 mL solution for nebulization 3 ml inhalation QID PRN tamsulosin 0.4 mg capsule 0.4 mg PO DAILY fluticasone propion-salmeterol 500-50 mcg/dose blister with device 1 ea PO BID metformin 500 mg tablet 500 mg PO QAM fenofibrate micronized 200 mg capsule 200 mg PO DAILY pantoprazole 40 mg tablet,delayed release (DR/EC) 40 mg PO DAILY finasteride 5 mg tablet 5 mg PO DAILY trazodone 50 mg tablet 50 mg PO BEDTIME ferrous sulfate 325 mg (65 mg iron) tablet 325 mg PO DAILY loratadine 10 mg tablet 10 mg PO DAILY oxycodone-acetaminophen 7.5-325 mg tablet 1 tab PO Q4H PRN (Reason: pain) melatonin 5 mg tablet 5 mg PO DAILY amlodipine 10 mg tablet 10 mg PO DAILY 3 Days Qty: 30 5RF ezetimibe 10 mg tablet 10 mg PO DAILY 90 Days Qty: 30 5RF Xarelto 20 mg tablet 20 mg PO QPM Qty: 30 5RF rosuvastatin 40 mg tablet 40 mg PO QPM Qty: 30 5RF Print Language: Comoran
[2025-01-21 21:55] VITALS: BP 110/44; PULSE 74; RESP 14; O2SAT 91
[2025-01-21 23:10] VITALS: BP 106/43; PULSE 78; RESP 16; TEMP 36.1; O2SAT 92
[2025-01-21] MEDS: Docusate Sodium 100 MG CAPSULE 200 MG PO (23:41)
[2025-01-21] MEDS: Milk of Magnesia 30 ML ORAL.SUSP PO (23:41)
[2025-01-21] MEDS: Acetaminophen 325 MG TABLET 975 MG PO (23:52)
== END 2025-01-22 | disposition home or self-care (01) ==
PROVIDERS: Physician Assistant; Emergency Provider Emergency Medicine
DX: K59.00 Constipation, unspecified (principal); R60.0 Localized edema; R06.02 Shortness of breath; E10.9 Type 1 diabetes mellitus without complications; I10 Essential (primary) hypertension; E78.5 Hyperlipidemia, unspecified; I48.0 Paroxysmal atrial fibrillation; Z03.818 Encounter for observation for suspected exposure to other biological agents ruled out; Z79.891 Long term (current) use of opiate analgesic; Z79.01 Long term (current) use of anticoagulants; Z79.02 Long term (current) use of antithrombotics/antiplatelets; Z79.899 Other long term (current) drug therapy
CPT/HCPCS: 0241U; 71045; 74018; 80048; 80076; 83735; 83880; 84484; 85007; 85027; 93005; 93971; 99283; 99284; 99285; J2405

== ENCOUNTER → 2025-01-21 17:43 | Outpatient (BNV) | payer OTHER, SELFPAY | PROVIDERS: Emergency Provider Emergency Medicine; Visit Provider Internal Medicine Cardiovascular Disease | DX: I49.3 Ventricular premature depolarization (principal) | CPT/HCPCS: 93010 ==

== ENCOUNTER → 2025-01-21 17:43 | Outpatient (BNV) | payer OTHER, SELFPAY | PROVIDERS: Visit Provider Radiology Diagnostic Radiology | DX: M79.604 Pain in right leg (principal); R22.41 Localized swelling, mass and lump, right lower limb; R10.9 Unspecified abdominal pain; R06.02 Shortness of breath | CPT/HCPCS: 71045; 74018; 93971 ==

== ENCOUNTER 2025-02-12 11:09 | Outpatient (REF) | payer OTHER, SELFPAY ==
--- OUTSIDE RECORDS SUMMARY | 2025-02-12 12:46 | XMS_ITS | Encounter Summary ---
Author Organization [employer] [facility] Address [address] [facility] 7t [place] [address] Care Team Providers Care Bench Worker Hollow Handle Name Role Phone Citlali Norman DO Primary Care Provider + [phone] Reason for Visit * Reason Onset Date Comments Med Refill 05/08/2023 Encounter Details Date Type Department Care Team ([facility] st Contact Info) Description 05/08/2023 Telephone [facility] MEDICINE [address] [place], [place] [phone] Citlali Norman DO [address] [place], [place] [phone] Med Refill Social History Tobacco Use Types [...] Care Team (Late st Contact Info) Description 02/17/2025 10:30 AM EDT Medication Management [address] [address] 02/24/2025 10:00 AM EDT Medication Management [address] [address] Elizabeth Bacon, PharmD [address] [place] [address] 04/11/2025 10:30 AM EDT Telemedicine [address] [address] Venecia Hyatt RN documented as of this encounter Visit Diagnoses Not on filedocumented in this encounter Additional Health Concerns Assessment Noted Time PHQ-9 Depression Total Score: 0 02/28/20 23 11:46 AM EDT documented as of this encounter Care Teams Bench Worker Hollow Handle Relationship Specialty Start Date End Date Citlali Norman DO [address] [place] [phone] PCP - General Family Medicine 10/16/18 documented as of this encounter
--- OUTSIDE RECORDS SUMMARY | 2025-02-12 12:46 | XMS_ITS | Encounter Summary ---
Author Organization [employer] Address [address] [facility] 7t [place] [address] Care Team Providers Care Editor In Chief Newspaper Name Role Phone Citlali Norman DO Primary Care Provider + [phone] Reason for Visit * Reason Comments Med Refill Encounter Details Date Type Department Care Team ([facility] st Contact Info) Description 11/21/2024 Refill [facility] MEDICINE [address] [place], [place] [phone] Citlali Norman DO [address] [place], [place] [phone] Chronic pain of both knees Social History [...] the past 12 months, has t he [employer], gas, oil or water [employer] threatened to shut off services in [...] Description 02/17/2025 10:30 AM EDT Medication Management [address] [address] 02/24/2025 10:00 AM EDT Medication Management [address] [address] Elizabeth Bacon PharmD [address] [place] [address] 04/11/2025 10:30 AM EDT Telemedicine [address] [address] Venecia Hyatt RN documented as of this [...] as of this encounter Care Teams Editor In Chief Newspaper Relationship Specialty Start Date End Date Citlali Norman DO [address] [place] [address] PCP - General Family Medicine 10/16/18 documented as of this encounter
--- OUTSIDE RECORDS SUMMARY | 2025-02-12 12:47 | XMS_ITS | Encounter Summary ---
Author Organization [employer] Address [address] [facility] 7t [place] [address] Care Team Providers Care Oil Treater Name Role Phone Citlali Norman DO Primary Care Provider + [phone] Reason for Visit * Reason Comments Med Refill Encounter Details Date Type Department Care Team ([facility] st Contact Info) Description 06/11/2024 Refill [facility] MEDICINE [address] [place], [place] [phone] Citlali Norman DO [address] [place], [place] [phone] Chronic pain of both knees Social History [...] the past 12 months, has t he [employer], gas, oil or water [employer] threatened to shut off services in [...] Description 02/17/2025 10:30 AM EDT Medication Management [address] [address] 02/24/2025 10:00 AM EDT Medication Management [address] [address] Elizabeth Bacon PharmD [address] [place] [address] 04/11/2025 10:30 AM EDT Telemedicine [address] [address] Venecia Hyatt RN documented as of this [...] documented as of this encounter Care Teams Oil Treater Relationship Specialty Start Date End Date Citlali Norman DO [address] [place] [address] PCP - General Family Medicine 10/16/18 documented as of this encounter
--- OUTSIDE RECORDS SUMMARY | 2025-02-12 12:47 | XMS_ITS | Encounter Summary ---
Author Organization [employer] Address [address] [facility] 7t [place] [address] Care Team Providers Care Dairy Farmworker Name Role Phone Citlali Norman DO Primary Care Provider + [phone] Reason for Visit * Reason Onset Date Comments Med Refill 10/20/2023 Encounter Details Date Type Department Care Team ([facility] st Contact Info) Description 10/20/2023 Telephone [facility] MEDICINE 230 [place], [place] [phone] Citlali Norman DO 230 [place], [place] [phone] Med Refill Social History Tobacco Use Types [...] sent to: [facility] [place] - [address] [facility] documented in this encounter Plan of Treatment Upcoming Encounters Date Type Department Care Team (Late st Contact Info) Description 02/17/2025 10:30 AM EDT Medication Management [address] [address] 02/24/2025 10:00 AM EDT Medication Management [address] [address] Elizabeth Bacon, PharmD [address] [place] [address] 04/11/2025 10:30 AM EDT Telemedicine [address] [address] Venecia Hyatt, [place] documented as of this encounter Visit Diagnoses Not on filedocumented in this encounter Additional Health Concerns Assessment Noted Time PHQ-9 Depression Total Score: 0 02/28/20 23 11:46 AM EDT documented as of this encounter Care Teams Dairy Farmworker Relationship Specialty Start Date End Date Citlali Norman DO [address] [place] [id number] PCP - General Family Medicine 10/16/18 documented as of this encounter
--- OUTSIDE RECORDS SUMMARY | 2025-02-12 12:47 | XMS_ITS | Encounter Summary ---
Author Organization [employer] Address [address] [facility] 7t [place] [address] Care Team Providers Care Parachute Panel Joiner Name Role Phone Citlali Norman DO Primary Care Provider + [phone] Reason for Visit * Reason Comments Med Refill Encounter Details Date Type Department Care Team ([facility] st Contact Info) Description 07/01/2024 Refill [facility] MED[facility]INE [address] [place], [place] [phone] Citlali Norman DO 230 [place], [place] [phone] Chronic pain of both knees Social History [...] the past 12 months, has t he [employer], gas, oil or water [employer] threatened to shut off services in your [...] Description 02/17/2025 10:30 AM EDT Medication Management [address] [address] 02/24/2025 10:00 AM EDT Medication Management [address] [address] Elizabeth Bacon PharmD [address] [place] [address] 04/11/2025 10:30 AM EDT Telemedicine [address] [address] Venecia Hyatt RN documented as of this [...] documented as of this encounter Care Teams Parachute Panel Joiner Relationship Specialty Start Date End Date Citlali Norman DO [address] [place] [phone] PCP - General Family Medicine 10/16/18 documented as of this encounter
--- OUTSIDE RECORDS SUMMARY | 2025-02-12 12:47 | XMS_ITS | Encounter Summary ---
Author Organization [employer] Address [address] [facility] 7t [place] [address] Care Team Providers Care Mortgage Originator Name Role Phone Citlali Norman DO Primary Care Provider + [phone] Reason for Visit * Reason Comments Med Refill Encounter Details Date Type Department Care Team ([facility] st Contact Info) Description 01/25/2024 Refill [facility] 230 [place], [place] [phone] Citlali Norman DO 230 [place], [place] [phone] Chronic bilateral low back pain, unspecified whether [...] Description 02/17/2025 10:30 AM EDT Medication Management [address] [address] 02/24/2025 10:00 AM EDT Medication Management [address] [address] Elizabeth Bacon, PharmD [address] [place] [address] 04/11/2025 10:30 AM EDT Telemedicine [address] [address] Venecia Hyatt RN documented as of this encounter Visit Diagnoses Diagnosis Chronic bilateral low back pain, unspecified whether sciatica present documented in this encounter Additional Health Concerns Assessment Noted Time PHQ-9 Depression Total Score: 0 02/28/20 23 11:46 AM EDT documented as of this encounter Care Teams Mortgage Originator Relationship Specialty Start Date End Date Citlali Norman DO [address] [place] [phone] PCP - General Family Medicine 10/16/18 documented as of this encounter
--- OUTSIDE RECORDS SUMMARY | 2025-02-12 12:47 | XMS_ITS | Encounter Summary ---
Author Organization [employer] Address 75 [facility] 7t [place] [address] Care Team Providers Care Gang Tailer Name Role Phone Citlali Norman DO Primary Care Provider + [phone] Reason for Visit * Reason Onset Date Comments Error 06/03/2024 Encounter Details Date Type Department Care Team ([facility] Contact Info) Description 06/03/2024 Telephone [facility] MEDICINE [address] [place], [place] [phone] Citlali Norman DO 230 [place], [place] [phone] Error Social History Tobacco Use Types Packs/Day [...] the past 12 months, has t he [employer], oil or water [employer] threatened to shut off services in your [...] 02/17/2025 10:30 AM EDT Medication Management [address] [address] 02/24/2025 10:00 AM EDT Medication Management [address] [address] Elizabeth Bacon PharmD [address] [place] [address] 04/11/2025 10:30 AM EDT Telemedicine [address] [address] Venecia Hyatt RN documented as of this [...] documented as of this encounter Care Teams Gang Tailer Relationship Specialty Start Date End Date Citlali Norman DO [address] [place] [address] PCP - General Family Medicine 10/16/18 documented as of this encounter
--- OUTSIDE RECORDS SUMMARY | 2025-02-12 12:47 | XMS_ITS | Encounter Summary ---
Author Organization [employer] Address 75 [facility] 7t [place] [address] Care Team Providers Care Nurse Clinical Name Role Phone Citlali Norman DO Primary Care Provider + [phone] Reason for Visit * Reason Comments Med Refill Encounter Details Date Type Department Care Team ([facility] st Contact Info) Description 06/18/[address] [facility] MEDICINE 230 [place], [place] [phone] Citlali Norman DO 230 [place], [place] [phone] Chronic pain of both knees Social History [...] the past 12 months, has t he [employer], gas, oil or water [employer] threatened to shut off services in your [...] Description 02/17/2025 10:30 AM EDT Medication Management [address] [address] 02/24/2025 10:00 AM EDT Medication Management [address] [address] Elizabeth Bacon PharmD [address] [place] [address] 04/11/2025 10:30 AM EDT Telemedicine [address] [address] Venecia Hyatt RN documented as of this [...] documented as of this encounter Care Teams Nurse Clinical Relationship Specialty Start Date End Date Citlali Norman DO [address] [place] [address] PCP - General Family Medicine 10/16/18 documented as of this encounter
--- OUTSIDE RECORDS SUMMARY | 2025-02-12 12:47 | XMS_ITS | Encounter Summary ---
Author Organization [employer] Address 75 [facility] 7t [place] [address] Care Team Providers Care Control Clerk Auditing Name Role Phone Citlali Norman DO Primary Care Provider + [phone] Reason for Visit * Reason Comments Med Refill Encounter Details Date Type Department Care Team ([facility] st Contact Info) Description 08/28/2024 Refill [facility] MEDICINE 230 [place], [place] [phone] Citlali Norman DO 230 [place], [place] [phone] Chronic pain of both knees Social History [...] the past 12 months, has t he [employer], gas, oil or water [employer] threatened to shut off services in your [...] Description 02/17/2025 10:30 AM EDT Medication Management [address] [address] 02/24/2025 10:00 AM EDT Medication Management [address] [address] Elizabeth Bacon PharmD [address] [place] [address] 04/11/2025 10:30 AM EDT Telemedicine [address] [address] Venecia Hyatt RN documented as of this [...] documented as of this encounter Care Teams Control Clerk Auditing Relationship Specialty Start Date End Date Citlali Norman DO [address] [place] [address] PCP - General Family Medicine 10/16/18 documented as of this encounter
--- OUTSIDE RECORDS SUMMARY | 2025-02-12 12:47 | XMS_ITS | Encounter Summary ---
Author Organization [employer] Address 75 [facility] 7t [place] [address] Care Team Providers Care Tamper Operator Name Role Phone Citlali Norman DO Primary Care Provider + [phone] Reason for Visit * Reason Comments Med Refill Encounter Details Date Type Department Care Team ([facility] st Contact Info) Description 07/02/2024 Refill [facility] MEDICINE 230 [place], [place] [phone] Citlali Norman DO 230 [place], [place] [phone] Chronic pain of both knees Social History [...] the past 12 months, has t he [employer], gas, oil or water [employer] threatened to shut off services in your [...] Description 02/17/2025 10:30 AM EDT Medication Management [address] [address] 02/24/2025 10:00 AM EDT Medication Management [address] [address] Elizabeth Bacon PharmD [address] [place] [address] 04/11/2025 10:30 AM EDT Telemedicine [address] [address] Venecia Hyatt RN documented as of this [...] documented as of this encounter Care Teams Tamper Operator Relationship Specialty Start Date End Date Citlali Norman DO [address] [place] [address] PCP - General Family Medicine 10/16/18 documented as of this encounter
--- OUTSIDE RECORDS SUMMARY | 2025-02-12 12:47 | XMS_ITS | Encounter Summary ---
Author Organization [employer] Address 75 [facility] 7t [place] [address] Care Team Providers Care Career Counselor Name Role Phone Citlali Norman DO Primary Care Provider + [phone] Reason for Visit * Reason Comments Med Refill Encounter Details Date Type Department Care Team ([facility] st Contact Info) Description 05/20/2024 Refill [facility] MEDICINE 230 [place], [place] [phone] Citlali Norman DO 230 [place], [place] [phone] Chronic pain of both knees Social History [...] the past 12 months, has t he [employer] gas, oil or water [employer] threatened to shut off services in your [...] Description 02/17/2025 10:30 AM EDT Medication Management [address] [address] 02/24/2025 10:00 AM EDT Medication Management [address] [address] Elizabeth Bacon PharmD [address] [place] [address] 04/11/2025 10:30 AM EDT Telemedicine [address] [address] Venecia Hyatt RN documented as of this [...] documented as of this encounter Care Teams Career Counselor Relationship Specialty Start Date End Date Citlali Norman DO [address] [place] [address] PCP - General Family Medicine 10/16/18 documented as of this encounter
--- OUTSIDE RECORDS SUMMARY | 2025-02-12 12:47 | XMS_ITS | Encounter Summary ---
Author Organization [employer] Address 75 [facility] 7t [place] [address] Care Team Providers Care Life Care Planner Name Role Phone Citlali Norman DO Primary Care Provider + [phone] Reason for Visit * Reason Onset Date Comments Med Refill 10/31/2024 Encounter Details Date Type Department Care Team ([facility] st Contact Info) Description 10/31/2024 Telephone [facility] MEDICINE 230 [place], [place] [phone] Citlali Norman DO 230 [place], [place] [phone] Med Refill Social History Tobacco Use Types [...] Description 02/17/2025 10:30 AM EDT Medication Management [address] [address] 02/24/2025 10:00 AM EDT Medication Management [address] [address] Elizabeth Bacon PharmD [address] [place] [address] 04/11/2025 10:30 AM EDT Telemedicine [address] [address] Venecia Hyatt, RN documented as of this encounter Goals Goal Patient Goal Type Associated Problems Recent Progress Patient-Stated? Author Patient will adhere to medication regimen Jah Johnston, Taisha Note: All medications to be renewed and resumed as directed. Patient will manage their medication General Jah Garza, PharmD Note: Patient will keep medications locked in a safe place to prevent loss. documented as of this encounter Visit Diagnoses Not on filedocumented in this encounter Additional Health Concerns Assessment Noted Time PHQ-9 Depression Total Score: 0 02/28/20 23 11:46 AM EDT documented as of this encounter Care Teams Life Care Planner Relationship Specialty Start Date End Date Citlali Norman DO [address] [place] [address] PCP - General Family Medicine 10/16/18 documented as of this encounter
--- OUTSIDE RECORDS SUMMARY | 2025-02-12 12:47 | XMS_ITS | Encounter Summary ---
Author Organization [employer] Address [address] [facility] [address] 7t [place] [address] Care Team Providers Care Line Server Name Role Phone AndrewCitlali flores Primary Care Provider + [phone] Encounter Details Date Type Department Care Team (Latest Contact Info) Description 02/12/2025 Travel Social History Tobacco Use Types Packs/Day Years Used Date Smoking Tobacco: Never Passive Smoke Exposure: Never Smokeless Tobacco: Never Alcohol Use Standard Drinks/Week Comments Never 0 (1 standard drink = 0.6 oz pur e alcohol) Depression Answer Date Recorded Patient Health Questionnaire-9 Score 8 02/12/2025 Patient Health Questionnaire-9 Score 8 02/12/2025 Last PHQ-9: Questionnaire Data Not on file 0 02/12/2025 Housing Stability Answer Date Recorded What is your housing situation today? I do not have housing (Staying with others, in a hotel, in a jail, living outside on the street, on a beach, in a car, or in a park 02/12/[address] you li ve. Do you have problems with any of the following? None of the above 02/12/2025 Food Insecurity Answer Date Recorded Within the past 12 months, y ou worried that your food would run out before you got money to buy more: Never True 2024 Within the past 12 months,th e food you bought just didn't last and you didn't have enough money to get more: Sometimes True 02/12/2025 Transportation Answer Date Recorded In the past 12 months, has l ack of transportation kept you from medical appts, meetings, work or from getting things needed for daily living? No 02/12/2025 Utilities Answer Date Recorded In the past 12 months, has t he electric, gas, oil or water company threatened to shut off services in your home? No 02/12/2025 Depression Answer Date Recorded Patient Health Questionnaire-2 Score 2 02/12/2025 Internet Access Answer Date Recorded Internet Access Q1 No 02/12/2025 Internet Access Q2 Not on file 02/12/2025 Sex and Gender Information Value Date Recorded Sex Assigned at Male 08/15/2022 10:14 AM EDT Legal Sex Male 10:14 AM EDT Gender Identity Male 08/15/2022 10:14 AM EDT Sexual Orientation Don't know 08/15/2022 10 :14 AM EDT documented as of this encounter Plan of Treatment Upcoming Encounters Date Type Department Care Team (Late st Contact Info) Description 02/17/2025 10:30 AM EDT Medication Management [address] [address] 02/24/2025 10:00 AM EDT Medication Management [address] [address] Elizabeth Bacon PharmD [address] [place] [address] 04/11/2025 10:30 AM EDT Telemedicine [address] [address] Venecia Hyatt RN documented as of this [...] Assessment Noted Time PHQ-9 Depression Total Score: 8 02/13/20 25 10:25 AM EDT documented as of this encounter Care Teams Line Server Relationship Specialty Start Date End Date Citlali Norman DO [address] [place] [address] PCP - General Family Medicine 10/16/18 documented as of this encounter
--- OUTSIDE RECORDS SUMMARY | 2025-02-12 12:47 | XMS_ITS | Encounter Summary ---
Author Organization [employer] Address [address] [facility] [address] 7t [place] [address] Care Team Providers Care Horse Trekking Guide Name Role Phone Citlali Norman DO Primary Care Provider + [phone] Reason for Visit * Reason Comments Med Refill Encounter Details Date Type Department Care Team ([facility] st Contact Info) Description 05/12/2024 Refill [facility] 230 [place], [place] [phone] Citlali Norman DO 230 [place], [place] [phone] Social History Tobacco Use Types Packs/Day Years [...] Description 02/17/2025 10:30 AM EDT Medication Management [address] [address] 02/24/2025 10:00 AM EDT Medication Management [address] [address] Elizabeth Bacon PharmD [address] [place] [address] 04/11/2025 10:30 AM EDT Telemedicine [address] [phone] Venecia Hyatt RN documented as of this [...] documented as of this encounter Care Teams Horse Trekking Guide Relationship Specialty Start Date End Date Citlali Norman DO [address] [place] [address] PCP - General Family Medicine 10/16/18 documented as of this encounter
--- OUTSIDE RECORDS SUMMARY | 2025-02-12 12:47 | XMS_ITS | Encounter Summary ---
Author Organization [employer] Address 75 [facility] 7t [place] [address] Care Team Providers Care Toe Laster Name Role Phone Citlali Norman DO Primary Care Provider + [phone] Encounter Details Date Type Department Care Team ([facility] st Contact Info) Description 02/12/2025 10:00 AM EDT Office Visit [facility] MEDICINE [address] [place], [place] [phone] Citlali Norman DO [address] [place], [place] [phone] Type 2 diabetes mellitus without complication, without long-term current use of insulin (CMS/HCC) (Primary Dx); Essential hypertension; Other hyperlipidemia; Fatty liver; Anemia, unspecified type; Atherosclerosis of elim ira coronary artery of elim ira heart, unspecified whether angina present; Chronic atrial fibrillation (CMS/HCC); Chronic obstructive pulmonary disease, unspecified COPD type (CMS/HCC); Chronic left shoulder pain; Acute pain of right shoulder; Chronic bilateral low back pain, unspecified whether sciatica present; Chronic pain of both knees; Acute right ankle pain; Chronic constipation; Unintentional weight loss; Elevated PSA, less than 10 ng/ml; Right renal mass; Healthcare maintenance; Acute pain of left shoulder Social History Tobacco Use Types Packs/Day Years [...] with others, in a hotel, in a [facility], living outside on the street, on a [...] Sign Reading Time Taken Comments Blood Pressure 118/70 02/12/2025 9:57 AM EDT Pulse 72 02/12/2025 9:57 AM EDT Temperature 36.2 ??C (97.1 ??F) 02/12/2025 9:57 AM ED T Respiratory Rate 19 02/12/2025 9:57 AM EDT Oxygen Saturation 98% 02/12/2025 9:57 AM EDT Inhaled Oxygen Concentration - - Weight 61.7 kg (136 lb) 02/12/2025 9:57 AM EDT Height 162.6 cm (5' 4 ) 02/12/2025 9:57 AM EDT Body Mass Index 23.34 02/12/2025 9:57 AM EDT documented in this encounter Plan of Treatment Upcoming Encounters Date Type Department Care Team (Late st Contact Info) Description 02/17/2025 10:30 AM EDT Medication Management [address] [address] 02/24/2025 10:00 AM EDT Medication Management [address] [address] Elizabeth Bacon, AlisonD [address] [place] [address] 04/11/2025 10:30 AM EDT Telemedicine [address] [address] Venecia Hyatt RN Scheduled Orders Name Type Priority Associated Diagnoses Orde r Schedule T4, Free Lab Routine Type 2 diabetes mellitus without complication, without long-term current use of insulin ([facility]) Essential hypertension Other hyperlipidemia Fatty liver Anemia, unspecified type Atherosclerosis of elim ira coronary artery of elim ira heart, unspecified whether angina present Chronic atrial fibrillation (CMS/HCC) Chronic obstructive pulmonary disease, unspecified COPD type (CMS/HCC) Chronic left shoulder pain Acute pain of right shoulder Chronic bilateral low back pain, unspecified whether sciatica present Chronic pain of both knees Acute right ankle pain Chronic constipation Unintentional weight loss Elevated PSA, less than 10 ng/ml Right renal mass Healthcare maintenance Acute pain of left shoulder Expected: 02/12/2025 (Approximate), Expires: 02/12/2026 Vitamin D, 25-Hydroxy, Total, Immunoassay Lab Routine Type 2 diabetes mellitus without complication, without long-term current use of insulin (CMS/HCC) Essential hypertension Other hyperlipidemia Fatty liver Anemia, unspecified type Atherosclerosis of elim ira coronary artery of elim ira heart, unspecified whether angina present Chronic atrial fibrillation (CMS/HCC) Chronic obstructive pulmonary disease, unspecified COPD type (CMS/HCC) Chronic left shoulder pain Acute pain of right shoulder Chronic bilateral low back pain, unspecified whether sciatica present Chronic pain of both knees Acute right ankle pain Chronic constipation Unintentional weight loss Elevated PSA, less than 10 ng/ml Right renal mass Healthcare maintenance Acute pain of left shoulder Expected: 02/12/2025 (Approximate), Expires: 02/12/2026 Lipid Panel, Standard Lab Routine Type 2 diabetes mellitus without complication, without long-term current use of insulin (CMS/HCC) Essential hypertension Other hyperlipidemia Fatty liver Anemia, unspecified type Atherosclerosis of elim ira coronary artery of elim ira heart, unspecified whether angina present Chronic atrial fibrillation (CMS/HCC) Chronic obstructive pulmonary disease, unspecified COPD type (CMS/HCC) Chronic left shoulder pain Acute pain of right shoulder Chronic bilateral low back pain, unspecified whether sciatica present Chronic pain of both knees Acute right ankle pain Chronic constipation Unintentional weight loss Elevated PSA, less than 10 ng/ml Right renal mass Healthcare maintenance Acute pain of left shoulder Expected: 02/12/2025 (Approximate), Expires: 02/12/2026 TSH Lab Routine Type 2 diabetes mellitus without complication, without long-term current use of insulin (CMS/HCC) Essential hypertension Other hyperlipidemia Fatty liver Anemia, unspecified type Atherosclerosis of elim ira coronary artery of elim ira heart, unspecified whether angina present Chronic atrial fibrillation (CMS/HCC) Chronic obstructive pulmonary disease, unspecified COPD type (CMS/HCC) Chronic left shoulder pain Acute pain of right shoulder Chronic bilateral low back pain, unspecified whether sciatica present Chronic pain of both knees Acute right ankle pain Chronic constipation Unintentional weight loss Elevated PSA, less than 10 ng/ml Right renal mass Healthcare maintenance Acute pain of left shoulder Expected: 02/12/2025 (Approximate), Expires: 02/12/2026 Hemoglobin A1c Lab Routine Type 2 diabetes mellitus without complication, without long-term current use of insulin (CMS/HCC) Essential hypertension Other hyperlipidemia Fatty liver Anemia, unspecified type Atherosclerosis of elim ira coronary artery of elim ira heart, unspecified whether angina present Chronic atrial fibrillation (CMS/HCC) Chronic obstructive pulmonary disease, unspecified COPD type (CMS/HCC) Chronic left shoulder pain Acute pain of right shoulder Chronic bilateral low back pain, unspecified whether sciatica present Chronic pain of both knees Acute right ankle pain Chronic constipation Unintentional weight loss Elevated PSA, less than 10 ng/ml Right renal mass Healthcare maintenance Acute pain of left shoulder Expected: 02/12/2025 (Approximate), Expires: 02/12/2026 Albumin, Random Urine W/Creatinine Lab Routine Type 2 diabetes mellitus without complication, without long-term current use of insulin (CMS/HCC) Essential hypertension Other hyperlipidemia Fatty liver Anemia, unspecified type Atherosclerosis of elim ira coronary artery of elim ira heart, unspecified whether angina present Chronic atrial fibrillation (CMS/HCC) Chronic obstructive pulmonary disease, unspecified COPD type (CMS/HCC) Chronic left shoulder pain Acute pain of right shoulder Chronic bilateral low back pain, unspecified whether sciatica present Chronic pain of both knees Acute right ankle pain Chronic constipation Unintentional weight loss Elevated PSA, less than 10 ng/ml Right renal mass Healthcare maintenance Acute pain of left shoulder Expected: 02/12/2025 (Approximate), Expires: 02/12/2026 Prealbumin Lab Routine Type 2 diabetes mellitus without complication, without long-term current use of insulin (CMS/HCC) Essential hypertension Other hyperlipidemia Fatty liver Anemia, unspecified type Atherosclerosis of elim ira coronary artery of elim ira heart, unspecified whether angina present Chronic atrial fibrillation (CMS/HCC) Chronic obstructive pulmonary disease, unspecified COPD type (CMS/HCC) Chronic left shoulder pain Acute pain of right shoulder Chronic bilateral low back pain, unspecified whether sciatica present Chronic pain of both knees Acute right ankle pain Chronic constipation Unintentional weight loss Elevated PSA, less than 10 ng/ml Right renal mass Healthcare maintenance Acute pain of left shoulder Expected: 02/12/2025, Expires: 02/12/2026 Sed Rate by Modified [place]gren Lab Routine Type 2 diabetes mellitus without complication, without long-term current use of insulin (CMS/HCC) Essential hypertension Other hyperlipidemia Fatty liver Anemia, unspecified type Atherosclerosis of elim ira coronary artery of elim ira heart, unspecified whether angina present Chronic atrial fibrillation (CMS/HCC) Chronic obstructive pulmonary disease, unspecified COPD type (CMS/HCC) Chronic left shoulder pain Acute pain of right shoulder Chronic bilateral low back pain, unspecified whether sciatica present Chronic pain of both knees Acute right ankle pain Chronic constipation Unintentional weight loss Elevated PSA, less than 10 ng/ml Right renal mass Healthcare maintenance Acute pain of left shoulder Expected: 02/12/2025, Expires: 02/12/2026 Urinalysis Complete Lab Routine Type 2 diabetes mellitus without complication, without long-term current use of insulin (CMS/HCC) Essential hypertension Other hyperlipidemia Fatty liver Anemia, unspecified type Atherosclerosis of elim ira coronary artery of elim ira heart, unspecified whether angina present Chronic atrial fibrillation (CMS/HCC) Chronic obstructive pulmonary disease, unspecified COPD type (CMS/HCC) Chronic left shoulder pain Acute pain of right shoulder Chronic bilateral low back pain, unspecified whether sciatica present Chronic pain of both knees Acute right ankle pain Chronic constipation Unintentional weight loss Elevated PSA, less than 10 ng/ml Right renal mass Healthcare maintenance Acute pain of left shoulder Expected: 02/12/2025, Expires: 02/12/2026 HIV-1/2 Antigen and Antibodies, Fourth Generation, with Reflexes Lab Routine Type 2 diabetes mellitus without complication, without long-term current use of insulin (CMS/HCC) Essential hypertension Other hyperlipidemia Fatty liver Anemia, unspecified type Atherosclerosis of elim ira coronary artery of elim ira heart, unspecified whether angina present Chronic atrial fibrillation (CMS/HCC) Chronic obstructive pulmonary disease, unspecified COPD type (CMS/HCC) Chronic left shoulder pain Acute pain of right shoulder Chronic bilateral low back pain, unspecified whether sciatica present Chronic pain of both knees Acute right ankle pain Chronic constipation Unintentional weight loss Elevated PSA, less than 10 ng/ml Right renal mass Healthcare maintenance Acute pain of left shoulder Expected: 02/12/2025 (Approximate), Expires: 02/12/2026 T-SPOT??.TB Lab Routine Type 2 diabetes mellitus without complication, without long-term current use of insulin (CMS/HCC) Essential hypertension Other hyperlipidemia Fatty liver Anemia, unspecified type Atherosclerosis of elim ira coronary artery of elim ira heart, unspecified whether angina present Chronic atrial fibrillation (CMS/HCC) Chronic obstructive pulmonary disease, unspecified COPD type (CMS/HCC) Chronic left shoulder pain Acute pain of right shoulder Chronic bilateral low back pain, unspecified whether sciatica present Chronic pain of both knees Acute right ankle pain Chronic constipation Unintentional weight loss Elevated PSA, less than 10 ng/ml Right renal mass Healthcare maintenance Acute pain of left shoulder Expected: 02/12/2025 (Approximate), Expires: 02/12/2026 PSA,Total Lab Routine Type 2 diabetes mellitus without complication, without long-term current use of insulin (CMS/HCC) Essential hypertension Other hyperlipidemia Fatty liver Anemia, unspecified type Atherosclerosis of elim ira coronary artery of elim ira heart, unspecified whether angina present Chronic atrial fibrillation (CMS/HCC) Chronic obstructive pulmonary disease, unspecified COPD type (CMS/HCC) Chronic left shoulder pain Acute pain of right shoulder Chronic bilateral low back pain, unspecified whether sciatica present Chronic pain of both knees Acute right ankle pain Chronic constipation Unintentional weight loss Elevated PSA, less than 10 ng/ml Right renal mass Healthcare maintenance Acute pain of left shoulder Expected: 02/12/2025, Expires: 02/12/2026 C-reactive Protein Lab Routine Type 2 diabetes mellitus without complication, without long-term current use of insulin (CMS/HCC) Essential hypertension Other hyperlipidemia Fatty liver Anemia, unspecified type Atherosclerosis of elim ira coronary artery of elim ira heart, unspecified whether angina present Chronic atrial fibrillation (CMS/HCC) Chronic obstructive pulmonary disease, unspecified COPD type (CMS/HCC) Chronic left shoulder pain Acute pain of right shoulder Chronic bilateral low back pain, unspecified whether sciatica present Chronic pain of both knees Acute right ankle pain Chronic constipation Unintentional weight loss Elevated PSA, less than 10 ng/ml Right renal mass Healthcare maintenance Acute pain of left shoulder Expected: 02/12/2025 (Approximate), Expires: 02/12/2026 Hepatic Function Panel Lab Routine Type 2 diabetes mellitus without complication, without long-term current use of insulin (CMS/HCC) Essential hypertension Other hyperlipidemia Fatty liver Anemia, unspecified type Atherosclerosis of elim ira coronary artery of elim ira heart, unspecified whether angina present Chronic atrial fibrillation (CMS/HCC) Chronic obstructive pulmonary disease, unspecified COPD type (CMS/HCC) Chronic left shoulder pain Acute pain of right shoulder Chronic bilateral low back pain, unspecified whether sciatica present Chronic pain of both knees Acute right ankle pain Chronic constipation Unintentional weight loss Elevated PSA, less than 10 ng/ml Right renal mass Healthcare maintenance Acute pain of left shoulder Expected: 02/12/2025 (Approximate), Expires: 02/12/2026 CBC auto differential Lab Routine Type 2 diabetes mellitus without complication, without long-term current use of insulin (CMS/HCC) Essential hypertension Other hyperlipidemia Fatty liver Anemia, unspecified type Atherosclerosis of elim ira coronary artery of elim ira heart, unspecified whether angina present Chronic atrial fibrillation (CMS/HCC) Chronic obstructive pulmonary disease, unspecified COPD type (CMS/HCC) Chronic left shoulder pain Acute pain of right shoulder Chronic bilateral low back pain, unspecified whether sciatica present Chronic pain of both knees Acute right ankle pain Chronic constipation Unintentional weight loss Elevated PSA, less than 10 ng/ml Right renal mass Healthcare maintenance Acute pain of left shoulder Expected: 02/12/2025 (Approximate), Expires: 02/12/2026 Basic Metabolic Panel Lab Routine Type 2 diabetes mellitus without complication, without long-term current use of insulin (CMS/HCC) Essential hypertension Other hyperlipidemia Fatty liver Anemia, unspecified type Atherosclerosis of elim ira coronary artery of elim ira heart, unspecified whether angina present Chronic atrial fibrillation (CMS/HCC) Chronic obstructive pulmonary disease, unspecified COPD type ([facility]) Chronic left shoulder pain Acute pain of right shoulder Chronic bilateral low back pain, unspecified whether sciatica present Chronic pain of both knees Acute right ankle pain Chronic constipation Unintentional weight loss Elevated PSA, less than 10 ng/ml Right renal mass Healthcare maintenance Acute pain of left shoulder Expected: 02/12/2025 (Approximate), Expires: 02/12/2026 documented as of this encounter Goals Goal [...] Procedure Name Priority Date/Time Associated Diagnosis Comments POCT GLYCATED HEMOGLOBIN, TOTAL Routine 02/12/2025 10:46 AM EDT Type 2 diabetes mellitus without complication, without long-term current use of insulin ([facility]) POCT GLUCOSE Routine 02/12/2025 10:45 AM EDT Type 2 diabetes mellitus without complication, without long-term current use of insulin ([facility]) documented in this encounter Results * POCT HGB A1C (02/12/2025 10:46 AM EDT) Hemoglobin A1C 5.3 4.0 - 6.0 % QC Media Lot # [id number] Lot# Expiration Date Blood 02/12/2025 10:4 6 AM EDT Citlali Norman DO POINT OF CARE TEST ENTER/SANTANA T ORDERABLES Final Result * (ABNORMAL) POCT Glucose (02/12/2025 10:45 AM EDT) Glucose Blood, POC 240(A) 60 - 200 mg/dL QC Media Lot # [id number] Lot# Expiration Date Blood Capillary blood specimen / Unknown 02/12/2025 10:45 AM EDT Result [facility] Citlali Norman DO POINT OF CARE TEST ENTER/SANTANA T ORDERABLES Final Result documented in this encounter Visit Diagnoses Diagnosis Type 2 diabetes mellitus without complication, without long-term current use of insulin (CMS/HCC)- Primary Essential hypertension Unspecified essential hypertension Other hyperlipidemia Fatty liver Other chronic nonalcoholic liver disease Anemia, unspecified type Atherosclerosis of elim ira coronary artery of elim ira heart, unspecified whether angina present Chronic atrial fibrillation (CMS/HCC) Atrial fibrillation Chronic obstructive pulmonary disease, unspecified COPD type (CMS/HCC) Chronic left shoulder pain Pain in joint, shoulder region Acute pain of right shoulder Chronic bilateral low back pain, unspecified whether sciatica present Chronic pain of both knees Acute right ankle pain Chronic constipation Unspecified constipation Unintentional weight loss Loss of weight Elevated PSA, less than 10 ng/ml Right renal mass Unspecified disorder of kidney and ureter Healthcare maintenance Acute pain of left shoulder documented in this encounter Additional Health Concerns Assessment Noted Time PHQ-9 Depression Total Score: 8 02/13/20 25 10:25 AM EDT documented as of this encounter Care Teams Toe Laster Relationship Specialty Start Date End Date Citlali Norman DO [address] [place] [phone] PCP - General Family Medicine 10/16/18 documented as of this encounter
--- OUTSIDE RECORDS SUMMARY | 2025-02-12 12:47 | XMS_ITS | Encounter Summary ---
Author Organization [employer] Address [address] [facility] 7t [place] [address] Care Team Providers Care Bpm Architect Name Role Phone Citlali Norman DO Primary Care Provider + [phone] Reason for Visit * Reason Comments Med Refill Encounter Details Date Type Department Care Team ([facility] st Contact Info) Description 01/30/2025 Refill [facility] MEDICINE [address] [place], [place] [phone] Citlali Norman DO [address] [place], [place] [phone] Chronic pain of both knees Social History [...] the past 12 months, has t he [employer], gas, oil or water [employer] threatened to shut off services in your [...] Description 02/17/2025 10:30 AM EDT Medication Management [address] [address] 02/24/2025 10:00 AM EDT Medication Management [address] [address] Elizabeth Bacon PharmD [address] [place] [id number] 04/11/2025 10:30 AM EDT Telemedicine [address] [address] Venecia Hyatt RN documented as of this [...] documented as of this encounter Care Teams Bpm Architect Relationship Specialty Start Date End Date Citlali Norman DO [address] [place] [phone] PCP - General Family Medicine 10/16/18 documented as of this encounter
--- OUTSIDE RECORDS SUMMARY | 2025-02-12 12:47 | XMS_ITS | Encounter Summary ---
Author Organization [facility] Address 75 [facility] 7 [place] [address] Care Team Providers Care Licensed Sales Producer Name Role Phone Citlali Norman DO Primary Care Provider + [phone] Reason for Visit * Reason Onset Date Comments Med Refill 08/24/2023 Encounter Details Date Type Department Care Team (Late st Contact Info) Description 08/24/2023 Telephone [facility] MEDICINE [address] [place], [place] [phone] Citlali Norman DO [address] [place], [place] [phone] Med Refill Social History Tobacco Use Types [...] [facility] [place] - [address] [facility] documented in this encounter Plan of Treatment Upcoming Encounters Date Type Department Care Team (Late st Contact Info) Description 02/17/2025 10:30 AM EDT Medication Management [address] [address] 02/24/2025 10:00 AM EDT Medication Management [address] [address] Elizabeth Bacon, AlisonD [address] [place] [address] 04/11/2025 10:30 AM EDT Telemedicine [address] [address] Venecia Hyatt, [place] documented as of this encounter Visit Diagnoses Not on filedocumented in this encounter Additional Health Concerns Assessment Noted Time PHQ-9 Depression Total Score: 0 02/28/20 23 11:46 AM EDT documented as of this encounter Care Teams Licensed Sales Producer Relationship Specialty Start Date End Date Citlali Norman DO [address] [place] [phone] PCP - General Family Medicine 10/16/18 documented as of this encounter
--- OUTSIDE RECORDS SUMMARY | 2025-02-12 12:47 | XMS_ITS | Encounter Summary ---
Author Organization [employer] Address 75 [facility] 7t [place] [address] Care Team Providers Care Furniture Delivery Driver Name Role Phone Citlali Norman DO Primary Care Provider + [phone] Reason for Visit * Reason Comments Med Refill Encounter Details Date Type Department Care Team ([facility] st Contact Info) Description 11/12/[address] [facility] MEDICINE [address] [place], [place] [phone] Citlali Norman DO [address] [place], [place] [phone] Social History Tobacco Use Types Packs/Day Years [...] Description 02/17/2025 10:30 AM EDT Medication Management [address] [address] 02/24/2025 10:00 AM EDT Medication Management [address] [address] Elizabeth Bacon PharmD [address] [place] [address] 04/11/2025 10:30 AM EDT Telemedicine [address] [address] Venecia Hyatt, [place] documented as of this [...] documented as of this encounter Care Teams Furniture Delivery Driver Relationship Specialty Start Date End Date Citlali Norman DO [address] [place] [id number] PCP - General Family Medicine 10/16/18 documented as of this encounter
--- OUTSIDE RECORDS SUMMARY | 2025-02-12 12:47 | XMS_ITS | Encounter Summary ---
Author Organization [employer] Address 75 [facility] 7t [place] [address] Care Team Providers Care Medical Device Engineer Name Role Phone Citlali Norman DO Primary Care Provider + [phone] Reason for Visit * Reason Comments Med Refill Encounter Details Date Type Department Care Team ([facility] st Contact Info) Description 08/09/2024 Refill [facility] MEDICINE [address] [place], [place] [phone] Citlali Norman DO [address] [place], [place] [phone] Chronic pain of both knees Social History [...] the past 12 months, has t he [employer], gas, oil or water [employer] threatened to shut off services in your [...] Description 02/17/2025 10:30 AM EDT Medication Management [address] [address] 02/24/2025 10:00 AM EDT Medication Management [address] [address] Elizabeth Bacon PharmD [address] [place] [phone] 04/11/2025 10:30 AM EDT Telemedicine [address] [address] Venecia Hyatt RN documented as of this [...] as of this encounter Care Teams Medical Device Engineer Relationship Specialty Start Date End Date Citlali Norman DO [address] [place] [phone] PCP - General Family Medicine 10/16/18 documented as of this encounter
--- OUTSIDE RECORDS SUMMARY | 2025-02-12 12:47 | XMS_ITS | Encounter Summary ---
Author Organization [employer] Address [address] [facility] 7t [place] [address] Care Team Providers Care Billet Recorder Name Role Phone Citlali Norman DO Primary Care Provider + [phone] Reason for Visit * Reason Comments Med Refill Encounter Details Date Type Department Care Team ([facility] st Contact Info) Description 02/11/2025 Refill [facility] MED & PEDS [address] [place], [place] [phone] Citlali Norman DO [address] [place], [place] [phone] Chronic pain of both knees Social History [...] with others, in a hotel, in a senior care, living outside on the street, on a [...] Description 02/17/2025 10:30 AM EDT Medication Management [address] [address] 02/24/2025 10:00 AM EDT Medication Management [address] [address] Elizabeth Bacon PharmD [address] [place] [address] 04/11/2025 10:30 AM EDT Telemedicine [address] [address] Venecia Hyatt RN documented as of this [...] documented as of this encounter Care Teams Billet Recorder Relationship Specialty Start Date End Date Citlali Norman DO [address] [place] [address] PCP - General Family Medicine 10/16/18 documented as of this encounter
--- OUTSIDE RECORDS SUMMARY | 2025-02-12 12:47 | XMS_ITS | Encounter Summary ---
Author Organization [email or web address] Address [address] [facility] 7t [place] [address] Care Team Providers Care Lap Cutter Name Role Phone Citlali Norman DO Primary Care Provider + [phone] Reason for Visit * Reason Onset Date Comments Referral 08/02/2024 Encounter Details Date Type Department Care Team ([facility] st Contact Info) Description 08/02/2024 Telephone [facility] MEDICINE [address] [place], [place] [phone] Citlali Norman DO [address] [place], [place] [phone] Referral Social History Tobacco Use Types Packs/Day [...] the past 12 months, has t he [employer], [employer], oil or water [employer] threatened to shut off services in your [...] - 08/02/2024 9:04 AM EDT 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 If any questions you can contact [employer] at [phone]. documented in this encounter Plan of Treatment Upcoming Encounters Date Type Department Care Team (Late st Contact Info) Description 02/17/2025 10:30 AM EDT Medication Management [address] [address] 02/24/2025 10:00 AM EDT Medication Management [address] [address] Elizabeth Bacon PharmD [address] [place] [phone] 04/11/2025 10:30 AM EDT Telemedicine [address] [address] Venecia Hyatt RN documented as of this [...] documented as of this encounter Care Teams Lap Cutter Relationship Specialty Start Date End Date Citlali Norman DO [address] [place] [address] PCP - General Family Medicine 10/16/18 documented as of this encounter
--- OUTSIDE RECORDS SUMMARY | 2025-02-12 12:47 | XMS_ITS | Encounter Summary ---
Author Organization [employer] Address 75 [facility] 7t [place] [address] Care Team Providers Care Management Intern Name Role Phone Citlali Norman DO Primary Care Provider + [phone] Reason for Visit * Reason Onset Date Comments Med Refill 01/10/2025 Encounter Details Date Type Department Care Team ([facility] st Contact Info) Description 01/10/2025 Telephone [facility] MEDICINE [address] [place], [place] [phone] Citlali Norman DO [address] [place], [place] [phone] Med Refill Social History Tobacco Use Types [...] 11:49 AM EDT Medication was sent to [facility] on 12/26/24 #30 with 3 refills. * Telephone Encounter - French Begum - 01/10/2025 11:42 AM EDT TC from pt requesting medication refill. Medications needing refill : lisinopril 40 MG tablet To be sent to: [facility] - [place], [place] - [address] [place] [address] Pt doesn't have any left and stated that he needs his medication documented in this encounter Plan of Treatment Upcoming Encounters Date Type Department Care Team (Late st Contact Info) Description 02/17/2025 10:30 AM EDT Medication Management [facility] MEDICINE [address] [place] [address] 02/24/2025 10:00 AM EDT Medication Management [address] [address] Elizabeth Bacon, AlisonD [address] [place] [address] 04/11/2025 10:30 AM EDT Telemedicine [address] [address] Venecia Hyatt RN documented as of this [...] documented as of this encounter Care Teams Management Intern Relationship Specialty Start Date End Date Citlali Norman DO [address] [place] [address] PCP - General Family Medicine 10/16/18 documented as of this encounter
--- OUTSIDE RECORDS SUMMARY | 2025-02-12 12:47 | XMS_ITS | Encounter Summary ---
Author Organization [employer] Address 75 [facility] 7t [place] [address] Care Team Providers Care Cable Systems Installer Name Role Phone Citlali Norman DO Primary Care Provider + [phone] Reason for Visit * Reason Onset Date Comments Appointment Request 01/22/2025 Encounter Details Date Type Department Care Team ([facility] st Contact Info) Description 01/22/2025 Telephone [facility] MEDICINE [address] [place], [place] [phone] Citlali Norman DO [address] [place], [place] [phone] Appointment Request Social History Tobacco Use Types Packs/Day Years [...] t he electric, gas, oil or water [employer] threatened to shut off services in your [...] encounter Miscellaneous Notes * Telephone Encounter - Susana Stephenson - 01/22/2025 9:10 AM EDT 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 documented in this encounter Plan of Treatment Upcoming Encounters Date Type Department Care Team (Late st Contact Info) Description 02/17/2025 10:30 AM EDT Medication Management [address] [address] 02/24/2025 10:00 AM EDT Medication Management [address] [address] Elizabeth Bacon PharmD [address] [place] [phone] 04/11/2025 10:30 AM EDT Telemedicine [address] [address] Venecia Hyatt, [place] documented as of this [...] Noted Time PHQ-9 Depression Total Score: 0 05/15/20 23 11:46 AM EDT documented as of this encounter Care Teams Cable Systems Installer Relationship Specialty Start Date End Date Citlali Norman DO [address] [place] [address] PCP - General Family Medicine 10/16/18 documented as of this encounter
--- OUTSIDE RECORDS SUMMARY | 2025-02-12 12:47 | XMS_ITS | Encounter Summary ---
Author Organization [employer] Address [address] [facility] [address] [place] [address] Care Team Providers Care Virologist Name Role Phone Ester Citlali Primary Care Provider + [phone] Reason for Visit * Reason Comments Med Refill Encounter Details Date Type Department Care Team ([facility] st Contact Info) Description 04/16/2024 Refill [facility] MED & PEDS [address] [place], [place] [phone] [facility] [address] [place], [place] [phone] Chronic pain of both knees Social History [...] the past 12 months, has t he [employer], gas, oil or water company threatened to [...] Description 02/17/2025 10:30 AM EDT Medication Management [address] [address] 02/24/2025 10:00 AM EDT Medication Management [address] [address] Elizabeth Bacon PharmD [address] [place] [address] 04/11/2025 10:30 AM EDT Telemedicine [address] [address] Venecia Hyatt RN documented as of this [...] documented as of this encounter Care Teams Virologist Relationship Specialty Start Date End Date Citlali Norman DO [address] [place] [phone] PCP - General Family Medicine 10/16/18 documented as of this encounter
--- OUTSIDE RECORDS SUMMARY | 2025-02-12 12:47 | XMS_ITS | Clinical Summary ---
Author Organization [employer] Address [address] [place] [address] Care Team Providers Care Kinesiology Internship Name Role Phone EsterVickieCitlali Primary Care Provider + [phone] Allergies No known active allergies Medications fluticasone [...] 2 diabetes mellitus without complication, unspecified whether prison insulin use (CMS/[facility]) Use to monitor blood glucose three times [...] 6 HOURS NEEDED 8.5 g 024 Active [employer] Ultra Test test stripIndications :Type 2 diabetes mellitus with other specified complication, without long-term current use of insulin (CMS/HCC) USE DIRECTED TO TEST BLOOD SUGAR TWICE DAILY 100 strip 3 024 Active Lancets (OneTouch Delica Plus [id number]) miscIndications: Type 2 diabetes mellitus with other specified complication, without long-term current use of insulin ([facility]) USE DIRECTED TO TEST BLOOD SUGAR TWICE [...] MORNING AND EVENING MEALS 180 tablet 3 Active pantoprazole (ProtoNix) 40 MG EC tabletIndication s:Chronic GERD Take 1 tablet (40 mg) by mouth before breakfast. Do not crush, chew, or split. 90 tablet 2 024 Active ipratropium-albu terol (Combivent Respimat) 20-100 MCG/ACT inhalerIndicatio ns:Chronic obstructive pulmonary disease, unspecified COPD type ([facility]) INHALE 1 PUFF BY MOUTH FOUR TIMES [...] FOR CONSTIPATION 510 g 3 025 Active fenofibrate micronized (LoFibra) 200 MG capsuleIndicatio [...] 3 HOURS BEFORE BEDTIME 180 tablet 1 025 Active metoprolol tartrate (Lopressor) 25 MG tabletIndication s:Essential hypertension Take 1 tablet (25 mg) by mouth 2 times daily. 180 tablet 025 2024 Active polyethylene glycol, PEG, 3350 (MiraLax) 17 GM/SCOOP powderIndication s:Chronic constipation 17 grams in 8-12 oz fluid like water at bedtime prn constipation 527 g 2 025 Active amLODIPine (Norvasc) 10 MG tablet TAKE 1 TABLET BY MOUTH EVERY DAY 30 tablet 025 Active Diclofenac Sodium 1 % gelIndications:A cute pain of left shoulder Apply 2 g topically if needed in the morning, at noon, in the evening, and at bedtime (pain). 150 g 3 025 Active oxyCODONE-acetam inophen (Percocet) 7.5-325 MG tabletIndication s:Chronic pain of both knees Take 1 tablet by mouth every 4 (four) hours if needed for severe pain. MDD= 5 tabs 35 tablet 025 Active Diclofenac Sodium 1 % gelIndications:A cute pain of left shoulder To apply to the affected area 3 times a day 100 g 024 2024 Discontinued(R eorder (will not trigger notification to Pharmacy)) metoprolol tartrate (Lopressor) 25 MG tabletIndication s:Essential hypertension Take 1 tablet (25 mg) by mouth 2 times daily. 180 tablet 025 2024 Discontinued(R eorder (will not [...] eorder (will not trigger notification to Pharmacy)) amLODIPine (Norvasc) 10 MG tablet Take 1 tablet (10 mg) by mouth Once per day. 30 tablet 025 2024 Discontinued oxyCODONE-acetam inophen (Percocet) 7.5-325 MG tabletIndication s:Chronic pain of both knees Take 1 tablet by mouth See administration instructions for 7 days. May take 1 tablet by mouth up to 5 times a day as needed for severe pain. 35 tablet 025 2024 Discontinued oxyCODONE-acetam inophen (Percocet) 7.5-325 MG tabletIndication s:Chronic pain of both knees TAKE 1 TABLET BY MOUTH UP TO 5 TIMES DAILY NEEDED FOR SEVERE PAIN 35 tablet 025 2024 Discontinued(R eorder (will not trigger notification to Pharmacy)) oxyCODONE-acetam inophen (Percocet) 7.5-325 MG tabletIndication s:Chronic pain of both knees Take 1 tablet by mouth if needed for severe pain. TAKE 1 TABLET BY MOUTH UP TO 5 TIMES DAILY NEEDED FOR SEVERE PAIN 35 tablet 025 2024 Discontinued oxyCODONE-acetam inophen (Percocet) 7.5-325 MG tabletIndication s:Chronic pain of both knees TAKE 1 TABLET BY MOUTH UP TO FIVE TIMES DAILY NEEDED FOR SEVERE PAIN 35 tablet 025 2024 Discontinued(R eorder (will not trigger notification to Pharmacy)) Hospital, Clinic, or Other Facility Administered Medication Ordered Dose Route Frequency Start Date End Date Status nitroglycerin (Nitrostat) SL tablet 0.4 mgIndications:Atypical chest pain 0.4 mg SL Every 5 min PRN 02/27/2024 Active Active Problems Problem Noted Date Diagnosed Date Need for assistance with personal care Assessment & Plan (02/05/2025 11:29 AM EDT): On review of chart I noticed PCP already tried to set up VNA services for this patient but it was not possible due to insurance issues I decided to put today current management referral to see if there is any possible ways for helping this patient Healthcare maintenance 02/19/2024 Unintentional weight loss 02/19/2024 Atherosclerotic heart disease 02/27/2023 Assessment & Plan (02/05/2025 11:24 AM EDT): Patient has been follow-up closely by cardiology on review of chart this chest discomfort was already informed to hadoop analyst ED precautions were reviewed with patient I let him know if he has again chest pain, pressure, shortness of breath, palpitations, dizziness or weakness to immediately call ambulance (911) or go as soon as possible to the emergency room History of non-ST elevation myocardial infarctio n (NSTEMI) 03/03/2017 Fatty liver 01/23/2017 Anemia 10/20/2015 Chronic atrial fibrillation 10/20/2015 Chronic low back pain 10/20/2015 Chronic obstructive lung disease 10/20/2015 Degeneration of lumbar intervertebral disc 10/20 Gastroesophageal reflux disease 10/20/2015 Osteoarthritis 10/20/2015 Essential hypertension 11/05/2012 Assessment & Plan (02/05/2025 11:23 AM EDT): Blood pressure seems to be under control today I did advise low-sodium diet and to take his medications every day I called the pharmacy to inquire about the necessity of refills of his blood pressure medications he is outside with his medication was exception possibly of amlodipine which it can be ready to be picked up today, I informed patient he can go and sampler pickup his amlodipine today Assessment & Plan (01/14/2025 8:58 AM EDT): [...] Encounters Date Type Department Care Team Description 02/12/2025 10:00 AM EDT Office Visit [facility] [address] [place] [address] [phone] Citlali Norman, Type 2 diabetes mellitus without complication, without long-term current use of insulin (CMS/[facility]) (Primary Dx); Essential hypertension; Other hyperlipidemia; Fatty liver; Anemia, unspecified type; Atherosclerosis of belkofski coronary artery of belkofski heart, unspecified whether angina present; Chronic atrial [...] Healthcare maintenance; Acute pain of left shoulder 02/12/2025 Travel 02/11/2025 Refill [facility] [address] [place] [address] Citlali Norman DO Chronic pain of both knees 02/10/2025 Refill [facility] [address] [place] [address] Citlali Norman DO Chronic pain of both knees 02/05/2025 11:00 AM EDT Office Visit [facility] [address] [place] [phone] Elle Rollins MD Essential hypertension (Primary Dx); Atherosclerosis of belkofski coronary artery of belkofski heart, unspecified whether angina present; Need for assistance with personal care 02/05/2025 Travel 02/04/2025 Refill [facility] [address] [place] [address] Citlali Norman DO Chronic pain of both knees 02/04/2025 Refill [facility] [address] [place] [address] Ryan Woodard MD 01/30/2025 Patient Outreach [facility] [address] [place] [address] Citlali Norman DO Pre-visit Planning ([facility] unable to reach [facility]) 01/30/2025 Refill [facility] [address] [place] [address] Citlali Norman DO Chronic pain of both knees 01/30/2025 Telephone [facility] [address] [place] [address] Citlali Norman DO Med Refill 01/29/2025 Refill [facility] [address] [place] [address] Citlali Norman DO Chronic pain of both knees 01/24/2025 Telephone [facility] [address] [place] [address] Citlali Norman DO Call Back Request (/) 01/23/2025 9:40 AM EDT Office Visit [facility] WALK-IN [address] [address] Peter Beard MD Chronic constipation (Primary Dx); Essential hypertension 01/23/2025 Telephone [facility] [address] [address] Patricia Pyle, histologist technologist Question 01/23/2025 Telephone [facility] [address] [place] [address] Citlali Norman DO medicaion 01/22/2025 Telephone [facility] [address] [place] [phone] Citlali Norman DO Appointment Request 01/21/2025 Orders Only [facility] External Provider, [facility] 01/20/2025 Refill [facility] [address] [place] [address] Citlali Norman DO Chronic pain of both knees 01/16/2025 10:00 AM EDT Office Visit [facility] [address] [place] [phone] Citlali Norman DO Essential hypertension (Primary Dx); Acute right ankle pain; Type 2 diabetes mellitus without complication, without long-term current use of insulin ([facility]) 01/16/2025 Telephone [facility] [address] [place] [address] Citlali Norman DO Adult Protective Services Report 01/16/2025 Telephone [facility] [address] [place] [address] Citlali Norman DO 01/14/[address] [address] Janet Bell, [place] VNA referral 01/10/2025 4:00 PM EDT Office Visit [facility] [address] [address] Ely Chisholm MD Essential hypertension (Primary Dx); Nonintractable headache, unspecified chronicity pattern, unspecified headache type; Need for assistance with personal care 01/10/2025 Telephone [facility] [address] [place] [address] Ely Chisholm MD Nurse Triage 01/10/[address] [address] Citlali Norman DO Nurse Triage 01/10/[address] [address] Citlali Norman DO Nurse Triage 01/10/2025 [address]phone [address] [place] [address] Citlali Norman DO Med Refill 01/09/2025 Patient Outreach [address] [address] Jeannette Ron RC Recovery Supports 01/09/2025 Telephone [facility] [address] [address] Jorgito Lee MA Med Refill (I called [...] her.) 01/07/2025 9:00 AM EDT Office Visit [facility] [address] [address] Ryan Woodard MD Essential hypertension (Primary Dx) 01/07/2025 Telephone [facility] [address] [place] [address] Citlali Norman DO telephone call 01/03/2025 Refill [facility] [address] [place] [phone] Citlali Norman DO Chronic pain of both knees 12/29/2024 Refill [facility] [address] [place] [address] Citlali Norman DO Insomnia, unspecified type 12/27/2024 Refill [facility] [address] [place] [address] Venecia Hyatt RN Chronic pain of both knees 12/26/2024 Refill [facility] [address], [place] [phone] Citlali Norman DO Essential hypertension 12/25/2024 Telephone [facility] [address] [place] [address] Citlali Norman DO 12/20/2024 Refill [facility] [address] [place] [address] Venecia Hyatt RN Chronic pain of both knees 12/19/2024 Telephone [facility] [address] [place] [address] Citlali Norman DO Med refill 12/13/2024 Refill [facility] [place] [address] Venecia Hyatt RN Chronic pain of both knees 12/12/2024 Telephone [facility] [address] [place] [address] Citlali Norman DO Recall Appt. 12/12/2024 Travel 12/11/2024 Telephone [facility] [address] [place] [address] Citlali Norman DO Recall Letter (Recall Letter sent 12/11/24.); Recall Appt. 12/07/2024 Orders Only [facility] External Provider, [facility] 12/06/2024 Refill [facility] [address] [place] [address] Venecia Hyatt RN Chronic pain of both knees 12/04/2024 10:20 AM EST Office Visit [facility] [address] [place] [address] Luz Lopez MD Right arm pain (Primary Dx); Fall, initial encounter 11/29/2024 Refill [facility] [address] [place] [address] Citlali Norman DO Hypertriglyceridemia 11/29/2024 Refill [facility] [address] [place] [address] Venecia Hyatt, nursing scheduler pain of both knees 11/22/2024 1:00 PM EST Telemedicine [facility] [address] [place] [address] Venecia Hyatt, nursing scheduler left shoulder pain 11/22/2024 Telephone [facility] [address] [place] [address] Venecia Hyatt RN MANAGED CARE MANAGER Renewal today 11/22/2024 Travel 11/22/2024 Refill [facility] [address] [place] [address] Venecia Hyatt, nursing scheduler pain of both knees 11/22/2024 Telephone [facility] [address] [place] [address] Venecia Hyatt RN Recommend MANAGED CARE MANAGER Tele Tier 2 11/21/2024 Refill [facility] [address] [place], [place] [phone] Citlali Norman DO Chronic pain of both knees 11/15/2024 Refill [facility] [address] [place] [address] Venecia Hyatt, nursing scheduler pain of both knees from Last 3 [...] Tobacco: Never Tobacco Cessation:Counseling Given: Not Answered Alcohol Use Standard Drinks/Week Comments Never 0 [...] with others, in a hotel, in a snf, living outside on the street, on a [...] Mass Index 23.34 02/12/2025 9:57 AM EDT Plan of Treatment Upcoming Encounters Date Type Department Care Team (Late st Contact Info) Description 02/17/2025 10:30 AM EDT Medication Management [facility] [address] [place] [phone] 02/24/2025 10:00 AM EDT Medication Management [address] [address] Elizabeth Bacon, PharmD [address] [place] [address] 04/11/2025 10:30 AM EDT Telemedicine [address] [address] Venecia yHatt, RN Health Maintenance Due Date Last Done Comments Diabetes: Foot Exam 1950 Eye Exam 1950 Hepatitis A Vaccines (1 of 2 - Risk 2-dose series) 1958 RSV Patients and Patients Aged 60 years or older (1 - 1-dose 75+ series) 2014 Zoster Vaccines (2 of 3) 11/20/2014 09/25/2014 COVID-19 Vaccine ( season) 2024 01/26/2022, 09/01/2021, 12/24/2020, Additional history exists DTaP/Tdap/Td Vaccines (2 - Td or Tdap) 08/26/2024 08/26/2014, 12/02/2008, 07/01/1998 Diabetes: Urine Protein Screening 02/25/2025 02/26/2024, 09/01/2022, 01/24/2022, Additional history exists Lipid Panel 02/25/2025 02/26/2024, 01/14, 07/09/2021 Diabetes: Hemoglobin A1C 08/14/202502/12/ 025, 07/31/2024, 02/26/2024, Additional history exists Alcohol/Substance Use Screening 02/12/2026 02/12/2025 Depression Screening 02/12/2026 02/12/2025, 02/13/20 25 SDOH Screening 02/12/2026 02/12/2025 Tobacco Screening 02/12/2026 02/12/2025 Hepatitis B Vaccines Completed 12/29/2014, 09/25/2014, 08/26/2014 [...] without long-term current use of insulin ([facility]) POCT GLUCOSE Routine 02/12/2025 10:45 AM EDT Type 2 diabetes mellitus without complication, without long-term current use of insulin ([facility]) US VENOUS DUPLEX LE RT Routine 01/21/2025 7:58 PM EDT XR KUB AND UPRIGHT 2 VIEWS Routine [...] PROTHROMBIN TIME-INR Routine 12/07/2024 7:46 AM EST LIPID PANEL, STANDARD Routine 02/26/2024 10:00 AM EDT Essential hypertension Type 2 diabetes mellitus without complication, without long-term current use of insulin (CMS/HCC) Other hyperlipidemia Fatty liver Atherosclerosis of belkofski coronary artery of belkofski heart, unspecified whether angina present Chronic atrial [...] (CMS/HCC) Other hyperlipidemia Fatty liver Atherosclerosis of belkofski coronary artery of belkofski heart, unspecified whether angina present Chronic atrial [...] Recently Relevant to Health Maintenance Results * POCT HGB A1C (02/12/2025 10:46 AM EDT) Hemoglobin A1C 5.3 4.0 - 6.0 % QC Media Lot # [id number] Lot# Expiration Date , Blood 02/12/2025 10:4 6 AM EDT Citlali Ester DO POINT OF CARE TEST ENTER/SANTANA T ORDERABLES Final Result * (ABNORMAL) POCT Glucose (02/12/2025 10:45 AM EDT) Pathologist [facility] Glucose Blood, POC 240(A) 60 - 200 mg/dL QC Media Lot # [id number] Lot# Expiration Date ,025 Blood Capillary blood specimen / Unknown 02/12/2025 10:45 AM EDT Citlali Andrewmark DO POINT OF CARE TEST ENTER/SANTANA T ORDERABLES Final Result * US VENOUS DUPLEX LE RT (01/21/2025 7:58 PM EDT) Anatomical Region Laterality Modality Abdomen Ultrasound 01/21/2025 7:58 PM EDT Narrative 01/21/2025 7:59 PM EDT ? [facility] ?[address] ?[place] [address] ? Ultrasound Report ? Signed ? Patient: Rosenberg,Aleksandr Delmer ?MR#: MM ?? [id number] ? : 1940 ?Acct:[id number] ? Age/Sex: 84 / M ?ADM Date: 04/08/25 ? Loc: HO.ED ? Attending Dr: ? Ordering Physician: Zahra Palacios ?? Date of Service: 01/21/25 ?? Procedure(s): US venous duplex LE RT ?? Accession Number(s): [id number] ? cc: Zahra Palacios; [facility] ? CLINICAL HISTORY: pain swelling ? Right Lower Extremity Venous Duplex Ultrasound ? COMPARISON: US - US VENOUS DUPLEX LE BI - 12/22/24 15:41 EDT ? FINDINGS: ?? The visualized deep veins are compressible with normal flow. ?? The visualized superficial veins are patent. ?? Right lower extremity soft tissue edema. ?? Grayscale, spectral waveform analysis, and color flow imaging was ?? performed. ? IMPRESSION: ?? No DVT seen in the right lower extremity. ?? Right lower extremity soft tissue edema. ? This document has been electronically signed by: Channing Mcwilliams MD on ?? 01/21/2025 19:58:35 ? Dictated By: ?Channing Mcwilliams MD ? Signed By: ?<Electronically signed by Channing Mcwilliams MD in OV> ?01/21/251958 ? DD/ 57 ? TD/TT: 01/21/251957 ? Hvac Refrigeration Technician: ? Procedure Note Duglas, Image - 01/21/2025 [place] [address] Ultrasound Report Signed Patient: Aleksandr Rosenberg#: [id number] : 9Acct:[id number] Age/Sex: 84 / MADM Date: 01/21/25 Loc: HO.ED Attending Dr: Ordering Physician: Zahra Palacios Date of Service: 01/21/25 Procedure(s): US venous duplex LE RT Accession Number(s): [id number] cc: Zahra Palacios; [facility] CLINICAL HISTORY: pain swelling Right Lower Extremity Venous Duplex Ultrasound COMPARISON: US - US VENOUS DUPLEX LE BI - 12/22/24 15:41 EDT FINDINGS: The visualized deep veins are compressible with normal flow. The visualized superficial veins are patent. Right lower extremity soft tissue edema. Grayscale, spectral waveform analysis, and color flow imaging was performed. IMPRESSION: No DVT seen in the right lower extremity. Right lower extremity soft tissue edema. This document has been electronically signed by: Channing Mcwilliams MD on 01/21/2025 19:58:35 Dictated By: Channing Mcwilliams MD Signed By: <Electronically signed by Channing Mcwilliams MD in OV> 01/21/251958 DD/ 57 TD/TT: 01/21/251957 Hvac Refrigeration Technician: us [facility] External Provider IMG US PROCEDURES Final Result * XR KUB and Upright 2 Views (01/21/2025 7:21 PM EDT) Anatomical Region Laterality Modality Radiographic Cherry ging 01/21/2025 7:21 PM EDT Narrative 01/21/2025 7:23 PM EDT ? [facility] ?[address] ?[place] [address] ?XRay Report ? Signed ? Patient: Aleksandr Rosenberg ?MR#: [id number] ?? [id number] ? : 1940 ?Acct:[id number] ? Age/Sex: 84 / M ?ADM Date: 01/21/25 ? Loc: HO.ED ? Attending Dr: ? Ordering Physician: Zahra Palacios ?? Date of Service: 01/21/25 ?? Procedure(s): XR KUB ?? Accession Number(s): [id number] ? cc: Zahra Palacios; [facility] ? CLINICAL HISTORY: pain ? Abdomen X-ray, [...] ? DD/ 20 ? TD/TT: 01/21/251920 ? Hvac Refrigeration Technician: ? Procedure Note Duglas, Matt - 01/21/2025 [facility] [address] [place] [address] XRay Report Signed Patient: Aleksandr RosenbergR#: [id number] : 9Acct:[id number] Age/Sex: 84 / MADM Date: 01/21/25 Loc: HO.ED Attending Dr: Ordering Physician: Zahra Palacios Date of Service: 01/21/25 Procedure(s): XR KUB Accession Number(s): [id number] cc: Zahra Palacios; [facility] CLINICAL HISTORY: pain Abdomen X-ray, 1 View [...] in OV> 01/21/251921 DD/ 20 TD/TT: 01/21/251920 Hvac Refrigeration Technician: [facility] External Provider IMG XR PROCEDURES Final Result * XR Chest 1 View (01/21/2025 6:39 PM EDT) Only the most recent of2 resultswithin the time period is included. Anatomical Region Laterality Modality Chest Radiographic Cherry ging 01/21/2025 6:39 PM EDT Narrative 01/21/2025 6:41 PM EDT ? [facility] ?[address] ?[place] [address] ?XRay Report ? Signed ? Patient: Rosenberg,Aleksandr Delmer ?MR#: MM ?? [id number] ? : 1940 ?Acct:[id number] ? Age/Sex: 84 / M ?ADM Date: 04/08/25 ? Loc: HO.ED ? Attending Dr: ? Ordering Physician: Sarah Beth Cortez ?? Date of Service: 01/21/25 ?? Procedure(s): XR chest 1V ?? Accession Number(s): [id number] ? cc: [facility]; Sarah Beth Cortez ? CLINICAL HISTORY: sob [...] ? DD/ 38 ? TD/TT: 01/21/251838 ? Hvac Refrigeration Technician: ? Procedure Note Donchristopherter, Image - 01/21/2025 [place] [address] XRay Report Signed Patient: Aleksandr Rosenberg#: [id number] : 9Acct:[id number] Age/Sex: 84 / MADM Date: 01/21/25 Loc: HO.ED Attending Dr: Ordering Physician: Sarah Beth Cortez Date of Service: 01/21/25 Procedure(s): XR chest 1V Accession Number(s): [id number] cc: [facility]; Sarah Beth Cortez CLINICAL HISTORY: sob Chest [...] signed by Channing Mcwilliams MD in OV> 01/21/25 184 DD/ 38 TD/TT: 01/21/251838 Hvac Refrigeration Technician: [facility] External Provider IMG XR PROCEDURES Final Result * (ABNORMAL) Complete Blood Count Manual Diff (01/21/2025 5:58 PM EDT) White Blood Count 6.7 4.8 - 10.8 X10*3/uL [facility] Red Blood Count 1.89(L) 4.60 - 5.80 X10*6/uL [facility] Hemoglobin 8.2(L) 14.0 - 18.0 g/dl [facility] Hematocrit 22.0(L) 42.0 - 52.0 % [facility] Mean Corpuscular Volume 116.4(H) 80.0 - 98.0 fL [facility] Mean Corpuscular Hemoglobin 43.4(H) 27.0 - 33.0 pg [facility] Mean Corpuscular HGB Conc 37.3(H) 31.0 - 36.0 g/dl [facility] Platelet Count 319 160 - 400 X10*3/uL [facility] Mean Platelet Volume 11.2 9.4 - 12.4 fL [facility] NRBC Pct Auto 0.0 0.0 - 0.2 /100WBC [facility] NRBC Abs Auto 0.000 0.0 - 0.012 X10*3/uL [facility] Neutrophils % Manual 82(H) 45 - 73 % [facility] Lymphocytes Percent Manual 14(L) 20 - 40 % [facility] Atypical Lymphs Percent Manual 1 0 - 6 % [facility] Monocytes Percent Manual 1(L) 2 - 11 % [facility] BASOPHILS % MANUAL 2 0 - 2 % [facility] LYMPHOCYTES ABSOLUTE MANUAL 0.9(L) 1.2 - 4.9 X10*3/uL [facility] Atypical Lymph Absolute Manual 0.1 x10*3/uL [facility] MONOCYTES ABSOLUTE MANUAL 0.1 0.1 - 1.2 X10*3/uL [facility] BASOPHILS ABSOLUTE MANUAL 0.1 0.0 - 0.2 X10*3/uL [facility] HYPERSEGMENTED NEUTROPHILS PRESENT [facility] Platelet Estimate NORMAL NORMAL [facility] Large Platelet PRESENT [facility] Platelet Morphology Comment NOTED [facility] RBC Morphology NOTED [facility] Microcytosis 1+ (5-14) /OIF [facility] Macrocytosis 1+ (5-14) /OIF [facility] Schistocytes 1+ (0-2) /OIF [facility] 01/21/2025 5:58 PM EDT 01/21/2025 6:01 PM EDT us Generic External Data Provider LAB BLOOD ORDERAB LES Final Result [facility] [address] [place] [phone] * (ABNORMAL) CBC auto differential (01/21/2025 5:58 PM EDT) White Blood Count 6.7 4.8 - 10.8 X10*3/uL [facility] Red Blood Count 1.89(L) 4.60 - 5.80 X10*6/uL [facility] Hemoglobin 8.2(L) 14.0 - 18.0 g/dl [facility] Hematocrit 22.0(L) 42.0 - 52.0 % [facility] Mean Corpuscular Volume 116.4(H) 80.0 - 98.0 fL [facility] Mean Corpuscular Hemoglobin 43.4(H) 27.0 - 33.0 pg [facility] Mean Corpuscular HGB Conc 37.3(H) 31.0 - 36.0 g/dl [facility] Platelet Count 319 160 - 400 X10*3/uL [facility] Mean Platelet Volume 11.2 9.4 - 12.4 fL [facility] Neutrophils Percent Auto 81.0(H) 45 - 73 % [facility] Imm Gran Pct Auto 0.4 0.0 - 0.4 % [facility] Lymphocytes Percent Auto 12.4(L) 20 - 40 % [facility] Monocytes Percent Auto 5.8 2 - 11 % [facility] Eosinophils Percent Auto 0.3 0 - 4 % [facility] Basophils Percent Auto 0.1 0 - 2 % [facility] NRBC Pct Auto 0.0 0.0 - 0.2 /100WBC [facility] Neutrophils Absolute Auto 5.4 2.0 - 8.3 x10*3/uL [facility] Imm Gran Abs Auto 0.03 0.00 - 0.03 X10*3/uL [facility] Lymphocytes Absolute Auto 0.8(L) 1.2 - 4.9 X10*3/uL [facility] Monocytes Absolute Auto 0.4 0.1 - 1.2 X10*3/uL [facility] Eosinophils Absolute Auto 0.0 0.0 - 0.4 X10*3/uL [facility] Basophils Absolute Auto 0.0 0.0 - 0.2 X10*3/uL [facility] NRBC Abs Auto 0.000 0.0 - 0.012 X10*3/uL [facility] 01/21/2025 5:58 PM EDT 01/21/2025 6:01 PM EDT us Generic External Data Provider LAB BLOOD ORDERAB LES Edited Result - Final [facility] [address] [place] [phone] * SARS-CoV-2 RNA, Influenza A/B, and RSV RNA, Ql NAAT (01/21/2025 5:53 PM EDT) Influenza A PCR NEGATIVE Negative [facility] Influenza B PCR NEGATIVE Negative [facility] Resp Syncy Virus RNA Qual PCR NEGATIVE Negative [facility] SARS COV2 PCR NEGATIVE Negative [facility] Comment:All test results mus t be [...] use by authorized laboratories.Testing performed on the [employer] GeneXpert utilizingreal-time RT-PCR.All SARS CoV2 and positive influenza A/B results arereported to [facility]. 01/21/2025 5:53 PM EDT 01/21/2025 6:01 PM EDT us Generic External Data Provider LAB MICROBIOLOGY - GENERAL ORDERABLES Final Result Performing Organization Address City/State/[facility] Co de Phone Number [facility] [address] [place] [phone] * XR Ankle 3+ Views Right (01/16/2025 10:30 AM EDT) Anatomical Region Laterality Modality Lower Extremities, Ankle Right Radiogr aphic Imaging 01/16/2025 10:3 0 AM EDT Narrative 01/16/2025 10:58 AM EDT ?[facility] ?[address] ?[place] [address] ?XRay Report ? Signed ? Patient: Chet,Aleksandr Dowell ?MR#: [id number] ?? [id number] ? : 1940 ?Acct:[id number] ? Age/Sex: 84 / M ?ADM Date: 01/16/ ? Loc: HO.HHCX ? Attending Dr: Citlali Norman DO ? Ordering Physician: Citlali Norman DO ?? Date of Service: 01/16/25 ?? Procedure(s): XR ankle RT min 3V ?? Accession Number(s): [id number] ? cc: Citlali Norman DO ? EXAMINATION: [...] ??Marciano Saul MD ??01/16/2025 10:54 AM EDT ? Dictated By: ?Marciano Saul MD ? Signed By: ?<Electronically signed by Marciano Saul MD in OV> ?01/16/25 1054 ? DD/ 1030 ? TD/TT: 01/16/25 1046 ? Hvac Refrigeration Technician: ? Procedure Note Alexpitaerenarchie, Matt - 01/16/2025 [place] [address] XRay Report Signed Patient: Aleksandr RosenbergR#: [id number] : 9Acct:[id number] Age/Sex: 84 / MADM Date: 01/16/25 Loc: HO.HHCX Attending Dr: Citlali Norman DO Ordering Physician: Citlali Norman DO Date of Service: 01/16/25 Procedure(s): XR ankle RT min 3V Accession Number(s): [id number] cc: Citlali Norman DO EXAMINATION: XR ANKLE [...] 01/16/25 1054 DD/ 1030 TD/TT: 01/16/25 1046 Hvac Refrigeration Technician: Citlali Norman DO IMG XR PROCEDURES Edited Res ult - Final * ECG 12 lead (01/14/2025 8:51 AM EDT) Narrative Ely Chisholm MD - 01/14/2025 8:51 AM EDT NSR, VR 70s, no acute ST-T segment changes Ely Chisholm MD ECG ORDERABLES Final Result * High Sensitivity Troponin I (12/07/2024 7:46 AM EST) TROPONIN I HIGH SENSITIVITY 3.8 <3.5 - 35.0 ng/L [facility] Comment:The Addison high sens itivity Troponin-I results should beused in conjunction with other diagnostic information suchas ECG, clinical observations and information, and patientsymptoms to aid in the diagnosis of CT. 12/07/2024 7:46 AM EST 12/07/2024 7:50 AM EST Generic External Data Provider LAB BLOOD ORDERAB LES Final Result Performing Organization Address City/State/[facility] Co de Phone Number [facility] [address] [place] [phone] * (ABNORMAL) Prothrombin Time-INR (12/07/2024 7:46 AM EST) Prothrombin Time 12.9(H) 10.9 - 12.4 SEC [facility] INTERNATIONAL NORM RATIO 1.1 0.9 - 1.1 [facility] Comment:INTERNATIONAL NORMAL IZED RATIO (INR) REFERENCE [...] ORDERAB LES Final Result Performing Organization Address [facility] Co de Phone Number [facility] [address] [place] [phone] * (ABNORMAL) Lipid Panel, Standard (02/26/2024 10:00 AM EDT) Triglycerides 129 <150 mg/dL [facility] Comment:Desirable Triglyceri de: less than 150 mg/dLBorderline High Triglyceride 150-199 mg/dLHigh Triglyceride: 200-499 mg/dLVery High Triglyceride: greater than or equal to 5OO mg/dL Cholesterol 161 <200 mg/dL [facility] Comment:Desirable Cholestero l: less than 200 mg/dLBorderline High Cholesterol: 200-239 mg/dLHigh Cholesterol: greater than 239 mg/dL LDL Cholesterol Calculated 100(H) <100 mg/dL [facility] Comment:Desirable LDL: less than 100 mg/dLNear Optimal/Above Optimal LDL: 110- 129 mg/dLBorderline High LDL: 130-159 mg/dLHigh LDL: 160-189 mg/dLVery High LDL: greater than or equal to 190 mg/dL HDL Cholesterol 36(L) >40 mg/dL [facility] Comment:Desirable HDL: great er than 40 mg/dL Note: This HDL assay may give artificially low results in patients with liver disease. Blood Venous blood specimen / Unknown 02/26/2024 10:00 AM EDT 02/26/2024 11:33 AM EDT us Citlali Norman DO LAB BLOOD ORDERABLES Final R esult Performing Organization Address City/[facility]/ZIP Co de Phone Number [facility] [address] [place] [phone] * (ABNORMAL) Albumin, Random Urine W/Creatinine (02/26/2024 9:50 AM EDT) Creatinine, Urine 62.43 mg/dL [facility] Microalbumin Urine 35.0 mg/L H [facility] Microalbum Creatinine Ratio Ur 56.0(H) <30 ug/mg cr [facility] Comment:Albumin/Creatinine R atio Reference Ranges: Normal: < 30 ug/mg creatinine Microalbuminuria: 30 - 300 ug/mg creatinineClinical Albuminuria: > 300 ug/mg creatinine Urine (Urine, Random) 02/26/2024 9:50 AM EDT 02/26/2024 8:45 PM EDT us Citlali Norman DO LAB URINE ORDERABLES Final R esult Performing Organization Address City/State/[facility] Co de Phone Number [facility] [address] [place] [phone] from Last 3 Months or Most Recently Relevant to Health Maintenance Insurance [facility] DUAL COMPLETE Care Teams Kinesiology Internship Relationship Specialty Start Date End Date Citlali Norman DO [address] [place] [address] PCP - General Family Medicine 10/16/18
--- OUTSIDE RECORDS SUMMARY | 2025-02-12 12:47 | XMS_ITS | Encounter Summary ---
Author Organization [employer] Address [address] [facility] 7t [place] [address] Care Team Providers Care Furniture Assembly Supervisor Name Role Phone Citlali Norman DO Primary Care Provider + [phone] Reason for Visit * Reason Comments Med Refill Encounter Details Date Type Department Care Team ([facility] st Contact Info) Description 09/27/2024 Refill [facility] [address] [place], [place] [phone] Citlali Norman DO [address] [place], [place] [phone] Chronic pain of both knees Social History [...] the past 12 months, has t he [employer], gas, oil or water [employer] threatened to shut off services in your [...] Description 02/17/2025 10:30 AM EDT Medication Management [address] [address] 02/24/2025 10:00 AM EDT Medication Management [address] [address] Elizabeth Bacon PharmD [address] [place] [address] 04/11/2025 10:30 AM EDT Telemedicine [address] [address] Venecia Hyatt RN documented as of this [...] as of this encounter Care Teams Furniture Assembly Supervisor Relationship Specialty Start Date End Date Citlali Norman DO [address] [place] [phone] PCP - General Family Medicine 10/16/18 documented as of this encounter
--- OUTSIDE RECORDS SUMMARY | 2025-02-12 12:47 | XMS_ITS | Encounter Summary ---
Author Organization [employer] Address [address] [facility] 7t [place] [address] Care Team Providers Care Laundry Worker Name Role Phone Citlali Norman DO Primary Care Provider + [phone] Reason for Visit * Reason Comments Med Refill Encounter Details Date Type Department Care Team ([facility] st Contact Info) Description 11/27/2023 Telephone [facility] [address] [place], [place] [phone] Andria Schneider FNP [address] [place] [address] Med Refill Social History Tobacco Use Types [...] 9:01 AM EST TC placed to pt [phone] via [employer] interpreters in regards to below message. Pt informed PCP does not recommend continued use of enemas for his constipation. Pt informed refill request was denies d/t no significant stool burden seen on recent xrays or CT. Pt informed PCP would like to refer pt to GI for further evaluation. Pt is agreeable to POC and reports he is still in [place]. Pt would like to be referred to [facility]. RN will send message to PCP [...] GI eval. Is he still living in [place] or has he moved to [place]? documented in this encounter Plan of Treatment Upcoming Encounters Date Type Department Care Team (Late st Contact Info) Description 02/17/2025 10:30 AM EDT Medication Management [address] [address] 02/24/2025 10:00 AM EDT Medication Management [address] [address] Elizabeth Bacon, PharmD [address] [place] [address] 04/11/2025 10:30 AM EDT Telemedicine [facility] [address] [place] [address] Venecia Hyatt RN documented as of this encounter Visit Diagnoses Not on filedocumented in this encounter Additional Health Concerns Assessment Noted Time PHQ-9 Depression Total Score: 0 02/28/20 23 11:46 AM EDT documented as of this encounter Care Teams Laundry Worker Relationship Specialty Start Date End Date Citlali Norman DO [address] [place] [phone] PCP - General Family Medicine 10/16/18 documented as of this encounter
--- OUTSIDE RECORDS SUMMARY | 2025-02-12 12:47 | XMS_ITS | Encounter Summary ---
Author Organization [employer] Address [address] [facility] 7t [place] [address] Care Team Providers Care Celebrity Manager Name Role Phone Citlali Norman DO Primary Care Provider + [phone] Reason for Visit * Reason Comments Med Refill Encounter Details Date Type Department Care Team ([facility] st Contact Info) Description 06/11/2024 Refill [facility] [address] [place], [place] [phone] Citlali Norman DO [address] [place], [place] [phone] Chronic pain of both knees Social History [...] the past 12 months, has t he [employer], gas, oil or water [employer] threatened to shut off services in your [...] 02/17/2025 10:30 AM EDT Medication Management [address] [address] 02/24/2025 10:00 AM EDT Medication Management [address] [address] Elizabeth Bacon PharmD [address] [place] [address] 04/11/2025 10:30 AM EDT Telemedicine [address] [address] Venecia Hyatt RN documented as of this [...] documented as of this encounter Care Teams Celebrity Manager Relationship Specialty Start Date End Date Citlali Norman DO [address] [place] [phone] PCP - General Family Medicine 10/16/18 documented as of this encounter
--- OUTSIDE RECORDS SUMMARY | 2025-02-12 12:47 | XMS_ITS | Encounter Summary ---
Author Organization [employer] Address [address] [facility] 7t [place] [address] Care Team Providers Care Human Service Worker Name Role Phone Citlali Norman DO Primary Care Provider + [phone] Reason for Visit * Reason Onset Date Comments Referral 09/24/2024 Encounter Details Date Type Department Care Team ([facility] st Contact Info) Description 09/24/2024 Telephone [facility] [address] [place], [place] [phone] Citlali Norman DO 230 [place], [place] [phone] Referral Social History Tobacco Use Types Packs/Day [...] the past 12 months, has t he [employer], [employer], oil or water [employer] threatened to shut off services in your [...] 09/24/2024 10:30 AM EST Tc from pt POLISHER IMPLANT requesting for referral for 08/01 to be switched from [place] back to the [facility]. If any question Contact POLISHER IMPLANT at [phone] documented in this encounter Plan of Treatment Upcoming Encounters Date Type Department Care Team ([facility] st Contact Info) Description 02/17/2025 10:30 AM EDT Medication Management [address] [address] 02/24/2025 10:00 AM EDT Medication Management [address] [address] Elizabeth Bacon PharmD [address] [place] [address] 04/11/2025 10:30 AM EDT Telemedicine [address] [address] Venecia Hyatt, [place] documented as of this [...] documented as of this encounter Care Teams Human Service Worker Relationship Specialty Start Date End Date Citlali Norman DO [address] [place] [address] PCP - General Family Medicine 10/16/18 documented as of this encounter
--- OUTSIDE RECORDS SUMMARY | 2025-02-12 12:47 | XMS_ITS | Encounter Summary ---
Author Organization [facility] Address [address] [facility] 7t [place] [address] Care Team Providers Care Book Salesman Name Role Phone Citlali Norman DO Primary Care Provider + [phone] Reason for Visit * Reason Comments Med Refill Encounter Details Date Type Department Care Team (Late st Contact Info) Description 06/21/2023 Refill [facility] [address] [place] [address] Citlali Norman DO [address] [place], [place] [phone] Essential hypertension Social History Tobacco Use Types [...] Description 02/17/2025 10:30 AM EDT Medication Management [facility] [address] [place], [place] [phone] 02/24/2025 10:00 AM EDT Medication Management [facility] [address] [place] [phone] Elizabeth Bacon, PharmD [address] [place] [address] 04/11/2025 10:30 AM EDT Telemedicine [facility] [address] [place] [address] Venecia Hyatt RN documented as of this encounter Visit Diagnoses Diagnosis Essential hypertension Unspecified essential hypertension documented in this encounter Additional Health Concerns Assessment Noted Time PHQ-9 Depression Total Score: 0 02/28/20 23 11:46 AM EDT documented as of this encounter Care Teams Book Salesman Relationship Specialty Start Date End Date Citlali Norman DO [address] [place] [address] PCP - General Family Medicine 10/16/18 documented as of this encounter
--- OUTSIDE RECORDS SUMMARY | 2025-02-12 12:47 | XMS_ITS | Encounter Summary ---
Author Organization [employer] Address [address] [facility] 7t [place] [address] Care Team Providers Care Head Teacher Name Role Phone Citlali Norman DO Primary Care Provider + [phone] Reason for Visit * Reason Comments Med Refill Encounter Details Date Type Department Care Team ([facility] st Contact Info) Description 02/10/2025 Refill [facility] [address] [place], [place] [phone] Citlali Norman DO [address] [place], [place] [phone] Chronic pain of both knees Social History [...] with others, in a hotel, in a care home, living outside on the street, on a [...] Description 02/17/2025 10:30 AM EDT Medication Management [address] [address] 02/24/2025 10:00 AM EDT Medication Management [address] [address] Elizabeth Bacon PharmD [address] [place] [address] 04/11/2025 10:30 AM EDT Telemedicine [address] [address] Venecia Hyatt RN documented as [...] documented as of this encounter Care Teams Head Teacher Relationship Specialty Start Date End Date Citlali Norman DO [address] [place] [address] PCP - General Family Medicine 10/16/18 documented as of this encounter
--- OUTSIDE RECORDS SUMMARY | 2025-02-12 12:47 | XMS_ITS | Encounter Summary ---
Author Organization [facility] Address [address] [facility] 7t [place] [address] Care Team Providers Care Per Diem Rn Name Role Phone Citlali Norman DO Primary Care Provider + [phone] Reason for Visit * Reason Comments Med Refill Encounter Details Date Type Department Care Team (Late st Contact Info) Description 12/28/2023 Refill [facility] [address] [place] [address] Citlali Norman DO [address] [place], [place] [phone] Chronic bilateral low back pain, unspecified whether [...] Description 02/17/2025 10:30 AM EDT Medication Management [facility] [address] [place] [phone] 02/24/2025 10:00 AM EDT Medication Management [facility] [address] [place] [phone] Elizabeth Bacon PharmD [address] [place] [address] 04/11/2025 10:30 AM EDT Telemedicine [facility] [address] [place] [address] Venecia Hyatt, [place] documented as of this encounter Visit Diagnoses Diagnosis Chronic bilateral low back pain, unspecified whether sciatica present documented in this encounter Additional Health Concerns Assessment Noted Time PHQ-9 Depression Total Score: 0 02/28/20 23 11:46 AM EDT documented as of this encounter Care Teams Per Diem Rn Relationship Specialty Start Date End Date Citlali Norman DO [address] [place] [address] PCP - General Family Medicine 10/16/18 documented as of this encounter
--- OUTSIDE RECORDS SUMMARY | 2025-02-12 12:47 | XMS_ITS | Encounter Summary ---
Author Organization [employer] Address [address] [facility] 7t [place] [address] Care Team Providers Care Business Administration Program Chair Name Role Phone Citlali Norman DO Primary Care Provider + [phone] Reason for Visit * Reason Onset Date Comments FYI 08/02/2024 Encounter Details Date Type Department Care Team ([facility] st Contact Info) Description 08/02/2024 Telephone [facility] [address] [place], [place] [phone] Citlali Norman DO [address] [place], [place] [phone] FYI Social History Tobacco Use Types Packs/Day [...] t he electric, gas, oil or water [employer] threatened to shut off services in your [...] 10:27 AM EDT Tc from [facility] calling to inform PCP will not be able to see patient due to insurance will need to be referred to another location documented in this encounter Plan of Treatment Upcoming Encounters Date Type Department Care Team (Late st Contact Info) Description 02/17/2025 10:30 AM EDT Medication Management [address] [address] 02/24/2025 10:00 AM EDT Medication Management [address] [address] Elizabeth Bacon PharmD [address] [place] [address] 04/11/2025 10:30 AM EDT Telemedicine [address] [address] Venecia Hyatt RN documented as of this [...] documented as of this encounter Care Teams Business Administration Program Chair Relationship Specialty Start Date End Date Citlali Norman DO [address] [place] [address] PCP - General Family Medicine 10/16/18 documented as of this encounter
[2025-02-12 13:46] LABS: Appearance Urine Cloudy; Color Urine Yellow; Glucose Urine UA Negative (Negative); Leukocyte Esterase Urine Trace (Negative); Nitrite Urine Negative (Negative); Specific Gravity - Urine 1.015 (1.005-1.025); UMIC TRIGGER UA YES; Urine Blood Negative (Negative); Urine Ketones Negative (Negative); Urine Protein 100 (2+) mg/dL (Neg-Trace)
[2025-02-12 13:54] LABS: Hemoglobin 9.3 g/dl (14.0-18.0); Mean Corpuscular HGB Conc 34.4 g/dl (31.0-36.0); Mean Corpuscular Hemoglobin 41.3 pg (27.0-33.0); Mean Platelet Volume 11.4 fL (9.4-12.4); Platelet Count 653 X10*3/uL (160-400); Red Blood Count 2.25 X10*6/uL (4.60-5.80); WBC ABN SCTR FOR CBC 1; White Blood Count 6.6 X10*3/uL (4.8-10.8)
[2025-02-12 13:58] LABS: Estimated Average Glucose 105 mg/dL; Hemoglobin A1C 84.1469 umol/L; Hemoglobin A1c % 5.3 % (<6.0); Total Hemoglobin (HGBA1C) 2459.1454 umol/L
[2025-02-12 14:08] LABS: Bacteria Urine None Seen (None Seen); Granular Casts Urine Present; RBC Urine 0-2 /HPF (0-2); WBC Urine 0-5 /HPF (0-5)
[2025-02-12 14:09] LABS: Creatinine Urine 114.92 mg/dL; Microalbum/Creatinine Ratio Ur 162.7 ug/mg cr (<30)
[2025-02-12 14:15] LABS: Erythrocyte Sedimentation Rate 67 MM/HR (0-15)
[2025-02-12 14:21] LABS: Band Neutrophils Percent 0 % (3-5); HIV AB/AG Nonreactive (Nonreactive); HIV Num 1 0.06 S/CO (0.00-0.99); Lymphocytes Absolute Manual 1.1 X10*3/uL (1.2-4.9); Lymphocytes Percent Manual 17 % (20-40); Monocytes Absolute Manual 0.2 X10*3/uL (0.1-1.2); Monocytes Percent Manual 3 % (2-11); Neutrophils Absolute Manual 5.3 X10*3/uL (2.0-8.3); Neutrophils Percent Manual 80 % (45-73)
[2025-02-12 14:25] LABS: Prostate Specific Antigen Scr 0.97 ng/mL (<0.05-4.0); Vitamin B12 454 pg/mL (200-900)
[2025-02-12 14:30] LABS: Alanine Aminotransferase 70 U/L (0-40); Alkaline Phosphatase 125 U/L (39-117); Anion Gap 12 (12-20); Aspartate Amino Transferase 74 U/L (5-37); Bilirubin Direct 0.1 mg/dL (0.0-0.5); Bilirubin Total 0.3 mg/dL (0.0-1.0); Blood Urea Nitrogen 14 mg/dL (9-16); C Reactive Protein 0.34 mg/dL (< or = 0.50); Calcium 9.3 mg/dL (8.4-10.2); Carbon Dioxide 26 mmol/L (22-29); Chloride 104 mmol/L (96-108); Cholesterol 100 mg/dL (<200); Estimated Glomerular Filt Rate > 60; Glucose Random 123 mg/dL (60-115); HDL Cholesterol 45 mg/dL (>40); Iron 22 mcg/dL (45-160); LDL Cholesterol Calculated 33 mg/dL (<100); Percent Iron Saturation 7 % (15-50); Potassium 3.9 mmol/L (3.3-5.1); Sodium 138 mmol/L (135-145); Total Iron Binding Capacity 332 mcg/dL (228-428); Total Protein 6.7 g/dL (6.5-8.0); Triglycerides 113 mg/dL (<150); Unsaturated Iron Binding 310 ug/dL
[2025-02-12 14:33] LABS: Burr Cells 1+ (0-2) /OIF; Hypochromasia 1+ (5-14) /OIF; Macrocytosis 2+ (15-30) /OIF; RBC Morphology NOTED; Schistocytes 3+ (>5) /OIF; Spherocytes 1+ (0-2) /OIF; Tear Drop Cells 1+ (0-2) /OIF
[2025-02-12 14:34] LABS: Hypersegmented Neutrophils PRESENT; Large Platelet PRESENT; Platelet Estimate INCREASED (NORMAL); Platelet Morphology Comment NOTED; Polychromasia 1+ (0-2) /OIF
[2025-02-12 14:44] LABS: Ferritin 18 ng/mL (20-250); Free T4 (Free Thyroxine) 0.81 ng/dL (0.71-1.85); Thyroid Stimulating Hormone 0.54 uIU/mL (0.32-4.0); Vitamin D 25-OH Total 16.4 ng/mL (>30)
[2025-02-15 11:13] LABS: TS Negative Control Passed; TS Panel A 0; TS Panel B 0; TS Positive Control Passed; TSpotTB Negative (Negative)
== END 2025-02-12 11:10 | disposition home or self-care (01) ==
LOC: HO.HHCL 11:09
PROVIDERS: Visit Provider Family Medicine
DX: Z00.00 Encounter for general adult medical examination without abnormal findings (principal); R63.4 Abnormal weight loss; E11.9 Type 2 diabetes mellitus without complications; I10 Essential (primary) hypertension; E78.49 Other hyperlipidemia; K76.0 Fatty (change of) liver, not elsewhere classified; D64.9 Anemia, unspecified; I25.10 Atherosclerotic heart disease of native coronary artery without angina pectoris; I48.20 Chronic atrial fibrillation, unspecified; J44.9 Chronic obstructive pulmonary disease, unspecified; M25.512 Pain in left shoulder; G89.29 Other chronic pain; M25.511 Pain in right shoulder; M54.50 Low back pain, unspecified; M25.561 Pain in right knee; M25.562 Pain in left knee; M25.571 Pain in right ankle and joints of right foot; K59.09 Other constipation; R97.20 Elevated prostate specific antigen [PSA]; N28.89 Other specified disorders of kidney and ureter; Z12.5 Encounter for screening for malignant neoplasm of prostate
CPT/HCPCS: 36415; 80048; 80061; 80076; 81001; 82043; 82306; 82570; 82607; 82728; 82746; 83036; 83540; 84134; 84153; 84439; 84443; 85007; 85027; 85652; 86140; 86481; 87389

== ENCOUNTER 2025-03-06 10:45 | Outpatient (AMB) | payer OTHER, SELFPAY ==
[2025-03-06 10:48] VITALS: BMI 27.8
--- NOTE | 2025-03-06 10:48 | MHC.OFFVIS ---
Vital Signs 03/06/25 10:48 Height 5 ft 4 in Weight 162 lb BMI 27.8 Intake Visit Reasons: right knee injection (40), last inj 10/22/24 Intake Note: Aleksandr is an 84 year old male who presents today for a follow up of his right knee OA, Last injection 10/22/24. Patient reports his last injection gave him about - relief and would like to repeat. Allergies No Known Allergies Allergy (Verified 03/06/25 10:59) HPI HPI right knee injection (40), last inj 10/22/24: Details: Mr. Rosenberg is an 84-year-old male who presents to the office today for repeat cortisone injection in the right knee. Last cortisone injection was 10/22/2024. Patient gets good relief from this. Of note the patient is diabetic. COUNT INCLUDES THE [facility] Medical History Diabetes type 1, controlled Paroxysmal atrial fibrillation CAD (coronary artery disease) HTN (hypertension) Hyperlipidemia Surgical History Stented coronary artery Family History Father No problems noted. Mother No problems noted. 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 Review of Systems Const All systems reviewed & are unremarkable except as noted in HPI and below Physical Exam Vital Signs: BMI result Body Mass Index 27.8 Const General: cooperative, healthy appearing and no acute distress Resp Effort & Inspection: normal respiratory effort and able to speak in complete sentences Skin Lesions: no lesions Rashes: no rashes Extrem Other: Right knee normal to inspection no ecchymosis erythema or joint effusion. Full range of motion with crepitus. NVI. Office Procedures AMB Joint Injection/Aspiration Joint Injection/Aspiration Primary Site: right knee Prep: site was prepped using aseptic technique, ethochloride spray was applied and injection warnings given Injected: 40 mg of, DepoMedrol, with 8 mL of (2% plain lido ) and in the joint Approach Used: anterolateral Procedure: The patient tolerated the procedure well, but had some pain with the injection and there was some relief with the local anesthesia Coding 58391 - Large joint Procedure code (CPT) selection complete Assessment & Plan Assessment & Plan (1) Osteoarthritis of right knee: Code(s): M17.11 - Unilateral primary osteoarthritis, right knee Category: Medical (2) Diabetes type 1, controlled: Code(s): E10.9 - Type 1 diabetes mellitus without complications Category: Medical Plan The patient was offered a cortisone injection in the right knee with 40 mg of DepoMedrol. The patient was explained the risks, benefits, and alternatives to receiving this injection. After receiving consent for the injection, the patient had the procedure done while in the office today. The patient tolerated the procedure well with no complications. Due to the patient?s history of diabetes, they were instructed to monitor their blood glucose level. The patient was informed that they could see a rise in their numbers and if the numbers became too high, they were instructed to call their PCP. The patient was also informed that they could have facial flushing as a side effect of the injection, but this will pass. Follow-up will be PRN, or sooner if needed Coding Level of Care Code Est Pt Level 4 (92546) Diagnoses Osteoarthritis of right knee M17.11 Diabetes type 1, controlled E10.9 CPT Codes Coding - Large joint: 73038 - Large joint ([id number])
== END 2025-03-06 10:57 | disposition home or self-care (01) ==
LOC: HO.HOS 10:46
PROVIDERS: Visit Provider Physician Assistant
DX: M17.11 Unilateral primary osteoarthritis, right knee (principal); E10.9 Type 1 diabetes mellitus without complications
CPT/HCPCS: 20610; 99214

== ENCOUNTER → 2025-03-06 10:45 | Outpatient (BNVA) | payer OTHER, SELFPAY | PROVIDERS: Visit Provider Physician Assistant | DX: M17.11 Unilateral primary osteoarthritis, right knee (principal); E10.9 Type 1 diabetes mellitus without complications | CPT/HCPCS: 20610; 99212; J1010; J2003 ==

== ENCOUNTER 2025-07-25 09:23 | Outpatient (AMB) | payer OTHER, SELFPAY ==
--- NOTE | 2025-07-25 09:28 | A.OFFVIS_ITS ---
Intake Visit Reasons: Inj-right knee injection (40), last inj 03/06/25 Intake Note: Aleksandr is an 84 year old male who presents today for a repeat injection for his right knee, last injection 03/06/25. Patient reports his last injection gave him relief and would like to repeat. Allergies No Known Allergies Allergy (Verified 07/25/25 09:34) HPI HPI Inj-right knee injection (40), last inj 03/06/25: Details: Mr. Rosenberg an 84-year-old gentleman who presents to the office today for chronic right knee pain due to osteoarthritis. Last cortisone injection was 03/06/2025 which gave him relief. He is looking to repeat injection while in the office today. [facility] Medical History Diabetes type 1, controlled Paroxysmal atrial fibrillation CAD (coronary artery disease) HTN (hypertension) Hyperlipidemia Surgical History Stented coronary artery Family History Father No problems noted. Mother No problems noted. 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 Review of Systems Const All systems reviewed & are unremarkable except as noted in HPI and below Physical Exam Const General: cooperative, healthy appearing and no acute distress Resp Effort & Inspection: normal respiratory effort and able to speak in complete sentences Skin Lesions: no lesions Rashes: no rashes Extrem Other: Right knee normal to inspection no ecchymosis erythema or joint effusion. Full range of motion with crepitus. NVI. Psych Appearance: grossly normal Mental Status: mental status grossly normal Attitude: cooperative Office Procedures AMB Joint Injection/Aspiration Joint Injection/Aspiration Primary Site: right knee Prep: site was prepped using aseptic technique, ethochloride spray was applied and injection warnings given Injected: 40 mg of, with 3 mL of, 1% plain lidocaine, 0.25% bupivacaine, in the joint and decadron Approach Used: anterolateral Procedure: The patient tolerated the procedure well, but had some pain with the injection and there was some relief with the local anesthesia Coding 16745 - Large joint Procedure code (CPT) selection complete Assessment & Plan Assessment & Plan (1) Osteoarthritis of right knee: Code(s): M17.11 - Unilateral primary osteoarthritis, right knee Category: Medical Plan Mr. Rosenberg an 84-year-old gentleman who presents to the office today for chronic right knee pain due to osteoarthritis. Last cortisone injection was 03/06/2025 which gave him relief. He is looking to repeat injection while in the office today. The patient was offered a cortisone injection in the right knee. The patient was explained the risks, benefits, and alternatives to receiving this injection. After receiving consent for the injection, the patient had the procedure done while in the office today. The patient tolerated the procedure well with no complications. Follow-up will be PRN, or sooner if needed Coding Level of Care Code Est Pt Level 3 (46502) Diagnoses Osteoarthritis of right knee M17.11 CPT Codes Coding - 94691 Large joint: 72377 - Large joint ([id number])
--- OUTSIDE RECORDS SUMMARY | 2025-07-25 09:59 | XMS_ITS ---
[facility] Name [facility] Encounters Encounter Type Encounter Reason Primary Diagnosis Location Date Emergency Constipation, unspecified Constipation, unspecified [facility] 11/07/2023 Care Team Organization Name Specialty Phone Email Start Date End [facility] 02/26[facility]2025 025 [facility] PCP Load Dis[facility] Local 11/07/2023 01/01/[address] [facility] [address] [facility] 11/07/2023 [facility] NO PCP Primary Care 11/07/2023
== END 2025-07-25 09:50 | disposition home or self-care (01) ==
LOC: HO.HOS 09:23
PROVIDERS: Visit Provider Physician Assistant
DX: M17.11 Unilateral primary osteoarthritis, right knee (principal)
CPT/HCPCS: 20610

== ENCOUNTER → 2025-07-25 09:23 | Outpatient (BNVA) | payer OTHER, SELFPAY | PROVIDERS: Visit Provider Physician Assistant | DX: M17.11 Unilateral primary osteoarthritis, right knee (principal) | CPT/HCPCS: 20610; J0665; J1100; J2003 ==